=== PATIENT | female | born 1930 | race African-American/Black ===

== ENCOUNTER 2016-10-21 07:18 | Inpatient (IN) | payer OTHER, MEDICARE ==
--- NOTE | 2016-10-21 07:46 | PDOC ---
History of Present Illness - General Chief Complaint: Shortness of Breath Stated Complaint: DIFFICULTY BREATHING/ ABD PAIN Time Seen by Provider: 10/21/16 07:21 - History of Present Illness Initial Comments: 10/21/16 07:37 86 yo F with h/o HTN, andf Afib w/rvr who presents with SOB. Complains of new onset SOB and increased work of breathing over past 48 hours. Has been worsening and complains of Strickland. Also complains of fatigue and new onset non productive cough of 48 hours duration. No identifiable triggers or alleviators. Symptoms not worse with supine positioning. Denies fevers/chills, N/V, chest pain, back pain, lightheadedness, dizziness, urinary or GI complaints. Denies recent flight, long trips, h/o DVT/PE, hemoptysis, calf pain/tenderness/leg swelling, recent trauma or surgery within past 4 weeks. Recent perfusion scan ( 06/27/16) mild anterior ischemia. EF of 70%. Past History - Past Medical History Allergies/Adverse Reactions: Allergies Allergy/AdvReac Type Severity Reaction Status Date / Time lidocaine AdvReac Verified 10/21/16 07:25 Home Medications: Ambulatory Orders Metoprolol Succinate [Toprol XL -] 100 mg PO DAILY 05/11/15 Warfarin Sodium 7 mg PO WESA 05/11/15 Amlodipine Besylate [Norvasc -] 5 mg PO DAILY tablet 05/17/15 Atorvastatin Calcium [Lipitor] 10 mg PO HS 10/21/16 Cholecalciferol (Vitamin D3) [Vitamin D3 -] 0 unit PO DAILY 10/21/16 Glucosamine/MSM/Chondroitin A [Glucosamine Chondroit MSM Tab] 1 each PO DAILY Hydralazine HCl [Apresoline -] 50 mg PO BID 10/21/16 Hydrochlorothiazide [Hctz -] 25 mg PO BID 10/21/16 Latanoprost 0.005% Eye Drops [Xalatan 0.005% Eye Drops -] 1 drop OU HS 10/21/16 Multivitamins [Tab-A-Vit -] 1 tab PO DAILY 10/21/16 Phenytoin Sodium Extended [Phenytek] 400 mg PO HS 10/21/16 Tramadol HCl [Ultram -] 50 mg PO PRN PRN 10/21/16 Warfarin Na [Coumadin] 6 mg PO SUMOTUTHFR 10/21/16 Cardiac Disorders: Yes (afib) Diabetes: Yes (borderline) HTN: Yes Hypercholesterolemia: Yes HIV: Yes Seizures: Yes - Surgical History Cholecystectomy: Yes - Psycho/Social/Smoking Cessation Hx Anxiety: No Suicidal Ideation: No Smoking History: Former smoker Have you smoked in the past 12 months: No Information on smoking cessation initiated: No Hx Alcohol Use: No Drug/Substance Use Hx: No Substance Use Type: None Review of Systems - Review of Systems Comments:: 10/21/16 07:47 GENERAL/CONSTITUTIONAL: No fever or chills. No weakness. HEAD, EYES, EARS, NOSE AND THROAT: No change in vision. No ear pain or discharge. No sore throat.- CARDIOVASCULAR: +shortness of breath. No chest pain RESPIRATORY: + cough, and wheezing. No hemoptysis. GASTROINTESTINAL: No nausea, vomiting, diarrhea or constipation. GENITOURINARY: No dysuria, frequency, or change in urination. MUSCULOSKELETAL: No joint or muscle swelling or pain. No neck or back pain. SKIN: No rash NEUROLOGIC: No headache, vertigo, loss of consciousness, or change in strength/ sensation. ENDOCRINE: No increased thirst. No abnormal weight change HEMATOLOGIC/LYMPHATIC: No anemia, easy bleeding, or history of blood clots. ALLERGIC/IMMUNOLOGIC: No hives or skin allergy. *Physical Exam - Vital Signs Last Vital Signs Temp Pulse Resp BP Pulse Ox 98.5 F 125 H 26 H 175/107 95 10/21/16 07:25 10/21/16 07:25 10/21/16 07:25 10/21/16 07:25 10/21/16 07:25 - Physical Exam Comments: 10/21/16 07:49 GENERAL: Awake, alert, and fully oriented, in no acute distress HEAD: No signs of trauma, normocephalic, atraumatic EYES: PERRLA, EOMI, sclera anicteric, conjunctiva clear ENT: Auricles normal inspection, hearing grossly normal, nares patent, oropharynx clear without exudates. Moist mucosa NECK: Normal ROM, supple, no lymphadenopathy, JVD, or masses LUNGS: In distress speaks with broken sentences. + diffuse expiratory wheezing and right lower lung base crackles. HEART: Irregular regular rate and rhythm, normal S1 and S2, no murmurs, rubs or gallops, peripheral pulses normal and equal bilaterally. EXTREMITIES:Mild swelling in BL LE.Normal inspection, Normal range of motion, no edema. No clubbing or cyanosis. SKIN: Warm, Dry, normal turgor, no rashes or lesions noted. Heart Score/ECG Review - History History: Slightly suspicious - Electrocardiogram EKG: Non specific repolarization disturbance - Age Age: >/= 65 - Risk Factors Risk Factors Heart Score: Yes Hx Hypertension, Yes Hx Obesity Based on the list above the patient has:: 1-2 risk factors - Troponin Troponin: </= normal limit - Score Heart Score - Total: 4 - ECG Intrepretation Rhythm: Irregularly Irregular - ECG Impressions Normal ECG: No Tachycardia: Afib w/rapid Vent rate ED Treatment Course - LABORATORY CBC & Chemistry Diagram: 10/22/16 05:50 10/22/16 05:50 - RADIOLOGY Radiology Studies Ordered: Category Date Time Status CXRPORT [CHEST X-RAY PORTABLE*] [RAD] Stat Radiology 10/21/16 07:34 Ordered Radiograph Interpretation: 10/21/16 08:57 EXAM#: TYPE/EXAM: RESULT: [id number] RAD/CHEST X-RAY PORTABLE* Shortness of breath. Portable chest x-ray, AP sitting. Since prior chest x-ray dated 05/14/2015, the cardiac silhouette is slightly to moderately enlarged. There are increased interstitial markings, bilaterally and mild bibasal changes with possible mild pulmonary venous congestion. Mediastinum and visualized osseous structures appear intact IMPRESSION: [id number] cardiomegaly and possible mild pulmonary venous congestion Reported By: Kobi Oropeza MD 10/21/16 0835 Jeremie Serrato Medical Decision Making - Medical Decision Making 10/21/16 07:51 86 yo F with h/o HTN, andf Afib w/rvr who presents with SOB. Pt arrives with worsening SOB and Strickland over past 48 hours, 2/4 SIRS criteria, HR 110-125, and RR 26-30, O2 sat-96 % RA. . Associated with fatigue and new onset non productive cough of 48 hours duration. Denies fevers/chills, N/V, chest pain, back pain, lightheadedness, dizziness, urinary or GI complaints. Denies recent flight, long trips, h/o DVT/PE, hemoptysis, calf pain/tenderness/leg swelling, recent trauma or surgery within past 4 weeks. Physical exam with right lower lung base rales and diffuse expiatory rhonci. Recent perfusion scan (06/27/16) mild anterior ischemia. EF of 70%. DDx: Pulmonary edema, Afib w/rvr, Pneumonia, PE, CHF 10/21/16 08:22 ED Course: - CBC, CMP, BNP, Trop, PT/INR - UA - CXR - EKG 10/21/16 08:24 Diltiazem 40 mg, Furosemide 125 mg, Atrovent 1 amp CBC: Unremarkable CXR: Pulmonary venous congestion EKG: Afib with RVR 10/21/16 08:52 CBC AST/ALT 89/144 Alk Phosph: 134 10/21/16 08:55 INR: 2.38 10/21/16 08:56 CXR: IMPRESSION: [id number] cardiomegaly and possible mild pulmonary venous congestion Reported By: Kobi Oropeza MD 10/21/16 0835 Jeremie Serrato BNP: 2084 Trop: Neg Heart Score 4: 13 % risk MACE. *DC/Admit/Observation/Transfer Diagnosis at time of Disposition: SOB (shortness of breath) Atrial fibrillation Qualifiers: Atrial fibrillation type: chronic Qualified Code(s): I48.2 - Chronic atrial fibrillation - Discharge Dispostion Condition at time of disposition: Improved Admit: Yes
[2016-10-21] MEDS ORDERED: FUROSEMIDE 40 MG/4 ML INJECTABLE VIAL IVPUSH ONE (08:09)
[2016-10-21] MEDS ORDERED: dilTIAZem HCL 50 MG/10 ML - 10 ML VIAL IVPUSH ONE (08:09)
[2016-10-21] MEDS ORDERED: dilTIAZem HCL 125 MG/25 ML - 25 ML VIAL ONE (08:12)
[2016-10-21] MEDS ORDERED: FUROSEMIDE 40 MG/4 ML INJECTABLE VIAL ONE (08:12)
[2016-10-21] MEDS ORDERED: IPRATROPIUM BR 0.02% 0.5 MG/2.5 ML VIAL.NEB. NEB ONE ×2 (08:26→08:29)
[2016-10-21 08:28] LABS: BASOPHIL 0.3 % (0-2.0); EOSINOPHIL 0.4 % (0-4.5); MCH 30.7 pg (25.7-33.7); MCHC 33.5 g/dl (32.0-36.0); MEAN CELL VOLUME 91.9 fl (80-96); MEAN PLT VOLUME 8.7 fl (7.5-11.1); NEUTROPHILS 80.8 % (42.8-82.8); PLATELET COUNT 181 K/MM3 (134-434); RDW 13.8 % (11.6-15.6); WHITE BLOOD COUNT 9.8 K/mm3 (4.0-10.0)
--- NOTE | 2016-10-21 08:28 | PDOC ---
Attending Attestation - Resident Resident Name: Ian Serratoson - ED Attending Attestation I have performed the following: I have examined & evaluated the patient, The case was reviewed & discussed with the resident, I agree w/resident's findings & plan, Exceptions are as noted - HPI HPI: 10/21/16 08:21 86y/o F h/o afib, HTN p/w progressive SOB/LANE and palpitations over the last 2- 3 days, dry cough without f/c, no chest pain/pressure. No changes in her meds, took her morning doses including lasix. Presents for evaluation of persistent SOB. - Physicial Exam PE: 10/21/16 08:25 tachypnea/tachycardia, BP 160 systolic, O2 sat 98% on 2L no jvd irregular tachycardia R base crackles to mid lung field, decreased BS L base with crackles reducible ventral hernia, no ttp trace pretibial edema - Critical Care Time Total Critical Care Time: 35 Critical Care Statement: The care of this patient involved high complexity decision making to prevent further life threatening deterioration of the patient 's condition and/or to evaluate & treat vital organ system(s) failure or risk of failure. - Medical Decision Making 10/21/16 08:30 My resident note. 86-year-old female with history of atrial fibrillation and CHF presents with progressive dyspnea for 2-3 days, rapid atrial fibrillation on presentation with bilateral crackles consistent with CHF/pulmonary edema, rule out underlying infectious pathology such as pneumonia given the cough. Afebrile here. Patient immediately placed on monitor and supplemental oxygen administered, EKG showed rapid atrial fibrillation at 121 with nonspecific T-wave changes but no acute ischemia, unchanged from prior EKGs. labs, ua ekg, cxr rate control with diltiazem, diuresis with low dose lasix admit Heart Score/ECG Review #1 ECG reviewed & interpreted by me at: 07:25 Compared to previous ECG there are: No significant change (c/w 05/12/15) 10/21/16 08:33 afib at 121, QTC 445, nonspecific T-wave flattening without acute ST changes.
[2016-10-21 08:43] LABS: INR 2.38 (0.82-1.09); PROTHROMBIN TIME (PATIENT) 26.6 SEC (9.98-11.88)
[2016-10-21 08:44] LABS: ALBUMIN 3.4 g/dl (3.4-5.0); ANION GAP 7 (8-16); BILIRUBIN,TOTAL 0.5 mg/dL (0.2-1.0); CALCIUM 8.5 mg/dL (8.5-10.1); CO2 29 mmol/L (21-32); CREATININE 0.7 mg/dL (0.55-1.02); GLUCOSE,RANDOM 136 mg/dL (74-106); SGOT/AST 89 U/L (15-37); SGPT/ALT 144 U/L (12-78); TOT PROT 6.6 g/dl (6.4-8.2)
[2016-10-21 08:46] LABS: ALK PHOS 131 U/L (45-117); CPK 117 IU/L (26-192)
[2016-10-21 08:55] LABS: TROPONIN I < 0.02 ng/ml (0.00-0.05)
[2016-10-21] MEDS ORDERED: dilTIAZem HCL 30 MG TABLET (FP) PO ONE (09:04)
[2016-10-21] MEDS ORDERED: dilTIAZem HCL 30 MG TABLET (FP) ONE (09:24)
[2016-10-21 10:02] LABS: URINE APPEARANCE CLEAR; URINE BILIRUBIN NEGATIVE (NEGATIVE); URINE BLOOD NEGATIVE (NEGATIVE); URINE COLOR STRAW; URINE GLUCOSE (UA) NEGATIVE (NEGATIVE); URINE KETONE NEGATIVE (NEGATIVE); URINE LEUK ESTERASE NEGATIVE (NEGATIVE); URINE NITRITE NEGATIVE (NEGATIVE); URINE PROTEIN NEGATIVE (NEGATIVE); URINE UROBILINOGEN NEGATIVE mg/dL (0.2-1.0)
[2016-10-21] MEDS ORDERED: traMADol HCL 50 MG TABLET PO PRN (11:17)
[2016-10-21 12:53] VITALS: BMI 27.4
--- NOTE | 2016-10-21 14:00 | CON.CARD ---
Consult Consult Specialty:: cardio Referred by:: glenny Reason for Consultation:: sob - History of Present Illness Chief Complaint: sob History of Present Illness: 86 yo female presented with sob. Described new onset SOB x 48 hours. Also complains of fatigue and new onset non productive cough. CXR in ER reported possible mild venous congestion. BNP elevated. given lasix 40 iv. rapid AF noted--given diltiazem last saw peterson in office 03/10. PMH: PAFib' HTN HPL - Past Medical History Cardio/Vascular: Yes: AFIB, HTN Musculoskeletal: Yes: Chronic low back pain, Osteoarthritis Rheumatology: Yes: Other - Alcohol/Substance Use Hx Alcohol Use: No - Smoking History Smoking history: Former smoker Have you smoked in the past 12 months: No - Social History Usual Living Arrangement: Alone (lives alone in 2 family house with 18 stairs to enter) ADL: Independent (Previously Independent in ADLs/ IADLs, has cane but does not use assistive device) Home Medications - Allergies Allergies/Adverse Reactions: Allergies Allergy/AdvReac Type Severity Reaction Status Date / Time lidocaine AdvReac Verified 10/21/16 07:25 - Home Medications Home Medications: Ambulatory Orders Metoprolol Succinate [Toprol XL -] 100 mg PO DAILY 05/11/15 Warfarin Sodium 7.5 mg PO HS 05/11/15 Amlodipine Besylate [Norvasc -] 5 mg PO DAILY tablet 05/17/15 Atorvastatin Calcium [Lipitor] 10 mg PO ASDIR 10/21/16 Hydralazine HCl [Apresoline -] 50 mg PO BID 10/21/16 Hydrochlorothiazide [Hctz -] 25 mg PO ASDIR 10/21/16 Phenytoin Sodium Extended [Phenytek] 400 mg PO ASDIR 10/21/16 Tramadol HCl [Ultram -] 50 mg PO PRN PRN 10/21/16 Vital Signs: Vital Signs Temperature 98.5 F 10/21/16 07:25 Pulse Rate 96 H 10/21/16 12:00 Respiratory Rate 18 10/21/16 12:00 Blood Pressure 123/85 10/21/16 12:00 O2 Sat by Pulse Oximetry (%) 96 10/21/16 12:00 - Other Data Labs, Other Data: INR, PTT INR 2.38 (0.82-1.09) H D 10/21/16 08:05 Assessment/Plan Echo 3/16: nl LV/EF; nl RV; valves WNL h/o PAF: -AF with rapid VR when here 05/08--converted spontaneously -was treated with metoprolol 100 -warfarin continued (had fall at that time, suspected dysequilibrium due to BPV or dilantin toxicity) HTN: - HPL: -cont home statin dose
--- NOTE | 2016-10-21 14:20 | PN ---
Progress Note (short form) - Note Progress Note: during review of chart, i noted pt had outpatient stress test 07/[address] meg dela cruz which was abnormal (anterior ischemia). as she has not followed in our office since 03/10, and had recent stress test by different kiln stoker, i d/w'd dr murrieta who will consult with dr dela cruz's coverage team for cardiology consult in hospital.
--- NOTE | 2016-10-21 16:27 | CON.NEURO ---
Consult - Past Medical History Cardio/Vascular: Yes: AFIB, HTN Musculoskeletal: Yes: Chronic low back pain, Osteoarthritis Rheumatology: Yes: Other - Alcohol/Substance Use Hx Alcohol Use: No - Smoking History Smoking history: Former smoker Have you smoked in the past 12 months: No - Social History Usual Living Arrangement: Alone (lives alone in 2 family house with 18 stairs to enter) ADL: Independent (Previously Independent in ADLs/ IADLs, has cane but does not use assistive device) Home Medications - Allergies Allergies/Adverse Reactions: Allergies Allergy/AdvReac Type Severity Reaction Status Date / Time lidocaine AdvReac Verified 10/21/16 07:25 - Home Medications Home Medications: Ambulatory Orders Metoprolol Succinate [Toprol XL -] 100 mg PO DAILY 05/11/15 Warfarin Sodium 7 mg PO WESA 05/11/15 Amlodipine Besylate [Norvasc -] 5 mg PO DAILY tablet 05/17/15 Atorvastatin Calcium [Lipitor] 10 mg PO HS 10/21/16 Cholecalciferol (Vitamin D3) [Vitamin D3 -] 0 unit PO DAILY 10/21/16 Glucosamine/MSM/Chondroitin A [Glucosamine Chondroit MSM Tab] 1 each PO DAILY Hydralazine HCl [Apresoline -] 50 mg PO BID 10/21/16 Hydrochlorothiazide [Hctz -] 25 mg PO BID 10/21/16 Latanoprost 0.005% Eye Drops [Xalatan 0.005% Eye Drops -] 1 drop OU HS 10/21/16 Multivitamins [Tab-A-Vit -] 1 tab PO DAILY 10/21/16 Phenytoin Sodium Extended [Phenytek] 400 mg PO HS 10/21/16 Tramadol HCl [Ultram -] 50 mg PO PRN PRN 10/21/16 Warfarin Na [Coumadin] 6 mg PO SUMOTUTHFR 10/21/16 Physical Exam-Neuro Vital Signs: Vital Signs Temperature 98.5 F 10/21/16 07:25 Pulse Rate 96 H 10/21/16 12:00 Respiratory Rate 18 10/21/16 12:00 Blood Pressure 123/85 10/21/16 12:00 O2 Sat by Pulse Oximetry (%) 96 10/21/16 12:00 Labs: INR, PTT INR 2.38 (0.82-1.09) H D 10/21/16 08:05 Assessment/Plan cc history of Seizure ( [place]) HPI 86 year old female history of hypertension, atrial fibrillation came to hospital for shortness of breath. Patient has history of seizures for 10 to 12 years. She has not had any seizures for a long time. Patient was diagnoed with meningioma and has been stable over the years. She do not have any focal neurological symptoms recently. Her seizures has been under control and last seizure was ten years ago. She follow up with dr rm and seizures under control. She is taking dialntin for a long time . Allergies/Adverse Reactions: Allergies Allergy/AdvReac Type Severity Reaction Status Date / Time lidocaine AdvReac Verified 10/21/16 07:25 Metoprolol Succinate [Toprol XL -] 100 mg PO DAILY 05/11/15 Warfarin Sodium 7.5 mg PO HS 05/11/15 Amlodipine Besylate [Norvasc -] 5 mg PO DAILY tablet 05/17/15 Atorvastatin Calcium [Lipitor] 10 mg PO ASDIR 10/21/16 Hydralazine HCl [Apresoline -] 50 mg PO BID 10/21/16 Hydrochlorothiazide [Hctz -] 25 mg PO ASDIR 10/21/16 Phenytoin Sodium Extended [Phenytek] 400 mg PO ASDIR 10/21/16 Tramadol HCl [Ultram -] 50 mg PO PRN PRN 10/21/16 Neurological Examination Alert oriented x 3, speech is fluent able to follow complex command CN all intact, eomi, pupils is reactive and face symmetrical Motor is 5/5 al extremity sensation is normal reflex are generalized garde 1 and normal NO recent brain imaging at [facility] Assessment- History of epilepsy under control with medicaiton , advise to continue dilantin at current dose 2. history of meningioma , has been stable over the years, no focal symptoms or signs Plan-- continue dilantin current dose and no need for imaging. follow up with Dr Rm Outpatient. Thanks for Consult Pa Hayward MD
[2016-10-21] MEDS ORDERED: POTASSIUM CHLORIDE TABS 20 MEQ TABLET.ER (FP) PO ONE ×2 (17:06→20:15)
--- NOTE | 2016-10-21 17:09 | HP ---
Admitting History and Physical - Primary Care Physician PCP: Araceli Dow - Admission Chief Complaint: CHEST PAIN DYSPNEA History of Present Illness: 86 Y/O FEMALE WITH HISTORY OF CHRONIC AFIB, HTN, DMII, LIPIDEMIA, SEIZURE D/O, MENINGIOMA, PRESENTS WITH CHEST PAIN AND SHORTNESS OF BREATH. 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 Cardiovascular: Yes: AFIB, HTN Musculoskeletal: Yes: Chronic low back pain, Osteoarthritis Rheumatology: Yes: Other - Smoking History Smoking history: Former smoker Have you smoked in the past 12 months: No - Alcohol/Substance Use Hx Alcohol Use: No - Social History ADL: Independent (Previously Independent in ADLs/ IADLs, has cane but does not use assistive device) Home Medications - Allergies Allergies/Adverse Reactions: Allergies Allergy/AdvReac Type Severity Reaction Status Date / Time lidocaine AdvReac Verified 10/21/16 07:25 - Home Medications Home Medications: Ambulatory Orders Metoprolol Succinate [Toprol XL -] 100 mg PO DAILY 05/11/15 Warfarin Sodium 7 mg PO WESA 05/11/15 Amlodipine Besylate [Norvasc -] 5 mg PO DAILY tablet 05/17/15 Atorvastatin Calcium [Lipitor] 10 mg PO HS 10/21/16 Cholecalciferol (Vitamin D3) [Vitamin D3 -] 0 unit PO DAILY 10/21/16 Glucosamine/MSM/Chondroitin A [Glucosamine Chondroit MSM Tab] 1 each PO DAILY Hydralazine HCl [Apresoline -] 50 mg PO BID 10/21/16 Hydrochlorothiazide [Hctz -] 25 mg PO BID 10/21/16 Latanoprost 0.005% Eye Drops [Xalatan 0.005% Eye Drops -] 1 drop OU HS 10/21/16 Multivitamins [Tab-A-Vit -] 1 tab PO DAILY 10/21/16 Phenytoin Sodium Extended [Phenytek] 400 mg PO HS 10/21/16 Tramadol HCl [Ultram -] 50 mg PO PRN PRN 10/21/16 Warfarin Na [Coumadin] 6 mg PO SUMOTUTHFR 10/21/16 Review of Systems - Review of Systems Constitutional: reports: Weakness Eyes: reports: No Symptoms HENT: reports: No Symptoms Neck: reports: No Symptoms Cardiovascular: reports: Chest Pain, Shortness of Breath Respiratory: reports: Cough, SOB Gastrointestinal: reports: No Symptoms Genitourinary: reports: No Symptoms Musculoskeletal: reports: Back Pain, Joint Pain Integumentary: reports: No Symptoms Neurological: reports: Pre-Existing Deficit Endocrine: reports: No Symptoms Hematology/Lymphatic: reports: No Symptoms Psychiatric: reports: No Symptoms Physical Examination Vital Signs: Vital Signs Temperature 98.5 F 10/21/16 07:25 Pulse Rate 96 H 10/21/16 12:00 Respiratory Rate 18 10/21/16 12:00 Blood Pressure 123/85 10/21/16 12:00 O2 Sat by Pulse Oximetry (%) 96 10/21/16 12:30 Constitutional: Yes: Mild Distress Eyes: Yes: WNL HENT: Yes: WNL Neck: Yes: WNL Cardiovascular: Yes: Pulse Irregular, Murmur Respiratory: Yes: On Nasal O2, SOB Gastrointestinal: Yes: WNL Renal/: Yes: WNL Musculoskeletal: Yes: Back Pain, Muscle Weakness Extremities: Yes: WNL Edema: Yes Peripheral Pulses WNL: Yes Integumentary: Yes: WNL Wound/Incision: Yes: Clean/Dry Neurological: Yes: Pre-Existing Deficit ...Motor Strength: LLE, RLE Psychiatric: Yes: WNL Imaging - Results Chest X-ray: Pending Problem List - Problems (1) Atrial fibrillation Code(s): I48.91 - UNSPECIFIED ATRIAL FIBRILLATION Qualifiers: Atrial fibrillation type: chronic Qualified Code(s): I48.2 - Chronic atrial fibrillation (2) SOB (shortness of breath) Code(s): R06.02 - SHORTNESS OF BREATH (3) Hypertension Code(s): I10 - ESSENTIAL (PRIMARY) HYPERTENSION Qualifiers: Hypertension type: essential hypertension Qualified Code(s): I10 - Essential (primary) hypertension Assessment/Plan BNP ELEVATE CARDIOLOGY EVAL NEURO EVAL PT EVAL REPLETE KCL TELEMETRY MONITORING STRESS TEST 2016
[2016-10-21] MEDS ORDERED: WARFARIN NA 7.5 MG TABLET (FP) PO SCH (18:00)
--- NOTE | 2016-10-21 18:29 | EKG ---
Test Reason : Blood Pressure : / mmHG Vent. Rate : 121 BPM Atrial Rate : 375 BPM P-R Int : 000 ms QRS Dur : 088 ms QT Int : 314 ms P-R-T Axes : 000 011 079 degrees QTc Int : 445 ms ATRIAL FIBRILLATION WITH RAPID VENTRICULAR RESPONSE SEPTAL INFARCT , AGE UNDETERMINED ABNORMAL ECG WHEN COMPARED WITH ECG OF 12-MAY-2015 10:53, LOSS OR WAVES IN V1-V2 CLINICAL CORRELATION AND FOLLOW UP TRACING IS RECOMMENDED. Confirmed by MARK BRIZUELA MD ([id number]) on 10/21/2016 6:29:10 PM Referred By: Confirmed By:MARK BRIZUELA MD
[2016-10-21] MEDS: hydrALAZINE HCL 25 MG TABLET (FP) PO SCH (21:24)
[2016-10-21] MEDS: WARFARIN NA 7.5 MG TABLET (FP) PO SCH (21:24)
[2016-10-21] MEDS: ATORVASTATIN CA 10 MG TABLET (FP) PO SCH (21:25)
[2016-10-22] MEDS ORDERED: IPRATROPIUM BR 0.02% 0.5 MG/2.5 ML VIAL.NEB. NEB ONE (04:46)
[2016-10-22 07:37] LABS: MCH 30.8 pg (25.7-33.7); MCHC 33.5 g/dl (32.0-36.0); MEAN CELL VOLUME 91.9 fl (80-96); MEAN PLT VOLUME 8.8 fl (7.5-11.1); PLATELET COUNT 182 K/MM3 (134-434); RDW 13.4 % (11.6-15.6); WHITE BLOOD COUNT 8.1 K/mm3 (4.0-10.0)
[2016-10-22 08:08] LABS: ALBUMIN 3.4 g/dl (3.4-5.0); ANION GAP 7 (8-16); CALCIUM 8.5 mg/dL (8.5-10.1); CO2 30 mmol/L (21-32)
[2016-10-22 08:14] LABS: ALK PHOS 131 U/L (45-117); BILIRUBIN,TOTAL 0.6 mg/dL (0.2-1.0); CHOLESTEROL 134 mg/dL (50-200); CREATININE 0.7 mg/dL (0.55-1.02); GLUCOSE,RANDOM 108 mg/dL (74-106); SGOT/AST 54 U/L (15-37); SGPT/ALT 122 U/L (12-78); TOT PROT 6.5 g/dl (6.4-8.2)
[2016-10-22] MEDS ORDERED: PT OWN MED DRAWER 7, Y5N ONE (08:20)
[2016-10-22] MEDS: METOPROLOL SUCCINATE 100 MG TAB.SR.24H (FP) PO SCH (09:37)
[2016-10-22] MEDS: FUROSEMIDE 40 MG/4 ML INJECTABLE VIAL IVPB SCH (09:37)
[2016-10-22] MEDS: hydrALAZINE HCL 25 MG TABLET (FP) PO SCH ×2 (09:37→21:44)
[2016-10-22] MEDS: HYDROCHLOROTHIAZIDE 25 MG TABLET (FP) PO SCH (09:37)
--- NOTE | 2016-10-22 10:41 | PN ---
Progress Note, Physician Chief Complaint: awake c/o shortness of breath no chest pain - Current Medication List Current Medications: Active Medications Arformoterol Tartrate (Brovana (Restricted To Pulmonology/Resp) -) 1 amp NEB BID [facility] Atorvastatin Calcium (Lipitor -) 10 mg PO HS [facility] Last Admin: 10/21/16 21:25 Dose: 10 mg Furosemide (Lasix Injection -) 40 mg IVPB DAILY [facility] Last Admin: 10/22/16 09:37 Dose: 40 mg Hydralazine HCl (Apresoline -) 25 mg PO BID [facility] Last Admin: 10/22/16 09:37 Dose: 25 mg Hydrochlorothiazide (Hctz -) 25 mg PO DAILY [facility] Last Admin: 10/22/16 09:37 Dose: 25 mg Metoprolol Succinate (Toprol Xl -) 100 mg PO DAILY [facility] Last Admin: 10/22/16 09:37 Dose: 100 mg Phenytoin Sodium (Dilantin -) 400 mg PO DAILY [facility] Tramadol HCl (Ultram -) 50 mg PO Q8H PRN PRN Reason: PAIN Warfarin Sodium (Coumadin -) 7.5 mg PO DAILY@1800 [facility] Last Admin: 10/21/16 21:24 Dose: 7.5 mg - Objective Vital Signs: Vital Signs Temperature 97.8 F 10/22/16 05:38 Pulse Rate 78 10/22/16 05:38 Respiratory Rate 20 10/22/16 05:38 Blood Pressure 155/77 10/22/16 05:38 O2 Sat by Pulse Oximetry (%) 98 10/21/16 22:00 Constitutional: Yes: Mild Distress Eyes: Yes: WNL HENT: Yes: WNL Neck: Yes: WNL Cardiovascular: Yes: Pulse Irregular Respiratory: Yes: Diminished Gastrointestinal: Yes: WNL Genitourinary: Yes: WNL Musculoskeletal: Yes: Back Pain Extremities: Yes: WNL Edema: No Peripheral Pulses WNL: Yes Integumentary: Yes: WNL Wound/Incision: Yes: Clean/Dry Neurological: Yes: WNL ...Motor Strength: LLE, RLE Psychiatric: Yes: WNL Labs: CBC, BMP 10/22/16 05:50 10/22/16 05:50 INR, PTT INR 2.38 (0.82-1.09) H D 10/21/16 08:05 Problem List - Problems (1) Atrial fibrillation Code(s): I48.91 - UNSPECIFIED ATRIAL FIBRILLATION Qualifiers: Atrial fibrillation type: chronic Qualified Code(s): I48.2 - Chronic atrial fibrillation (2) SOB (shortness of breath) Code(s): R06.02 - SHORTNESS OF BREATH (3) Hypertension Code(s): I10 - ESSENTIAL (PRIMARY) HYPERTENSION Qualifiers: Hypertension type: essential hypertension Qualified Code(s): I10 - Essential (primary) hypertension Assessment/Plan CXR STAT ABG STAT PULM CONSULT D/W DR JANICE READ BID 02 SUPPORT LASIX IV LIKELY CHF AND ANXIETY CARDIOLOGY EVAL ECHO 2D
[2016-10-22] MEDS: ARFORMOTEROL TARTRATE 15 MCG/2 ML VIAL NEB SCH ×2 (10:50→22:30)
[2016-10-22 11:01] LABS: ARTERIAL BLD GAS O2 SATURATION 98.5 % (90-98.9); ARTERIAL BLOOD GAS BASE EXCESS 5.2 meq/l (-2-2); ARTERIAL BLOOD GAS HCO3 29.9 meq/L (22-26); ARTERIAL BLOOD GAS pH 7.43 (7.35-7.45)
[2016-10-22 11:03] LABS: ALLENS TEST POSITIVE; ART PUNCT SITE RIGHT RADIAL; LPM/O2% 3L; PT. ON O2? YES; TYPE OF O2 NASAL
[2016-10-22 11:21] LABS: INR 2.88 (0.82-1.09); PROTHROMBIN TIME (PATIENT) 32.4 SEC (9.98-11.88)
[2016-10-22] MEDS: PHENYTOIN NA EXTENDED 100 MG CAPSULE (FP) PO SCH (11:22)
--- NOTE | 2016-10-22 13:05 | CON.PULM ---
Consult Consult Specialty:: PULMONARY Referred by:: ASHLYN Reason for Consultation:: SOB - History of Present Illness Chief Complaint: SOB History of Present Illness: 86 yo F with h/o HTN, andf Afib w/rvr who presents with SOB. Complains of new onset SOB and increased work of breathing over past 48 hours. Has been worsening and complains of [place]. Also complains of fatigue and new onset non productive cough of 48 hours duration. No identifiable triggers or alleviators. Symptoms not worse with supine positioning. Denies fevers/chills, N/V, chest pain, back pain, lightheadedness, dizziness, urinary or GI complaints. Denies recent flight, long trips, h/o DVT/PE, hemoptysis, calf pain/tenderness/leg swelling, recent trauma or surgery within past 4 weeks. Recent perfusion scan ( 06/27/16) mild anterior ischemia. EF of 70%. Admits to noncompliance with salt restriction. 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's Cardio/Vascular: Yes: AFIB, HTN Pulmonary: No: Cancer, COPD, O2 Dependent, Pulmonary Embolus Gastrointestinal: No: Ascites Hepatobiliary: No: Cirrhosis Renal/: No: Renal Failure Reproductive: Yes: Postmenopausal Heme/Onc: No: Anemia Infectious Disease: No: AIDS Psych: Yes: Addictions Musculoskeletal: Yes: Chronic low back pain, Osteoarthritis Rheumatology: Yes: Other - Alcohol/Substance Use Hx Alcohol Use: No - Smoking History Smoking history: Former smoker Have you smoked in the past 12 months: No - Social History Usual Living Arrangement: Alone (lives alone in 2 family house with 18 stairs to enter) ADL: Independent (Previously Independent in ADLs/ IADLs, has cane but does not use assistive device) Place of : [facility] History of Recent Travel: No Home Medications - Allergies Allergies/Adverse Reactions: Allergies Allergy/AdvReac Type Severity Reaction Status Date / Time lidocaine AdvReac Verified 10/21/16 07:25 - Home Medications Home Medications: Ambulatory Orders Metoprolol Succinate [Toprol XL -] 100 mg PO DAILY 05/11/15 Warfarin Sodium 7 mg PO WESA 05/11/15 Amlodipine Besylate [Norvasc -] 5 mg PO DAILY tablet 05/17/15 Atorvastatin Calcium [Lipitor] 10 mg PO HS 10/21/16 Cholecalciferol (Vitamin D3) [Vitamin D3 -] 0 unit PO DAILY 10/21/16 Glucosamine/MSM/Chondroitin A [Glucosamine Chondroit MSM Tab] 1 each PO DAILY Hydralazine HCl [Apresoline -] 50 mg PO BID 10/21/16 Hydrochlorothiazide [Hctz -] 25 mg PO BID 10/21/16 Latanoprost 0.005% Eye Drops [Xalatan 0.005% Eye Drops -] 1 drop OU HS 10/21/16 Multivitamins [Tab-A-Vit -] 1 tab PO DAILY 10/21/16 Phenytoin Sodium Extended [Phenytek] 400 mg PO HS 10/21/16 Tramadol HCl [Ultram -] 50 mg PO PRN PRN 10/21/16 Warfarin Na [Coumadin] 6 mg PO SUMOTUTHFR 10/21/16 Family Disease History - Family Disease History Family History: Unremarkable Review of Systems - Review of Systems Constitutional: reports: Weakness. denies: Fever Eyes: denies: Blurred Vision HENT: denies: Difficult Swallowing Neck: denies: Decreased ROM Cardiovascular: reports: Shortness of Breath. denies: Chest Pain, Edema, Palpitations Respiratory: reports: Cough, Exercise Intolerance, SOB on Exertion, Wheezing. denies: Hemoptysis, Orthopnea Gastrointestinal: denies: Abdominal Pain Genitourinary: reports: No Symptoms Breasts: reports: No Symptoms Reported Musculoskeletal: reports: No Symptoms Integumentary: reports: No Symptoms Neurological: reports: No Symptoms Endocrine: reports: No Symptoms Hematology/Lymphatic: reports: No Symptoms Physical Exam Vital Sings: Vital Signs Temperature 98 F 10/22/16 10:00 Pulse Rate 75 10/22/16 10:00 Respiratory Rate 18 10/22/16 10:00 Blood Pressure 130/64 10/22/16 10:00 O2 Sat by Pulse Oximetry (%) 98 10/22/16 10:00 Constitutional: Yes: Calm Eyes: Yes: EOM Intact HENT: Yes: Normocephalic Neck: Yes: Trachea Midline Cardiovascular: Yes: Pulse Irregular, S1, S2 Respiratory: Yes: Rales (bilateral bases extending up 1/3-1/2 lung hearn) Gastrointestinal: Yes: Soft, Abdomen, Obese Edema: No Neurological: Yes: WNL Psychiatric: Yes: WNL Labs: CBC, BMP 10/22/16 05:50 10/22/16 05:50 ABG Results ABG pH 7.43 (7.35-7.45) 10/22/16 10:55 ABG pCO2 at Pt Temp 46.3 mmHg (35-45) H 10/22/16 10:55 ABG pO2 at Pt Temp 109.0 mmHg (68-100) H D 10/22/16 10:55 ABG HCO3 29.9 meq/L (22-26) H 10/22/16 10:55 ABG O2 Sat (Measured) 98.5 % (90-98.9) 10/22/16 10:55 ABG O2 Content 16.7 % vol (15-22) 10/22/16 10:55 ABG Base Excess 5.2 meq/l (-2-2) H 10/22/16 10:55 rest reviewed Imaging - Results Chest X-ray: Report Reviewed, Image Reviewed EKG: Report Reviewed, Image Reviewed Problem List - Problems (1) Atrial fibrillation Code(s): I48.91 - UNSPECIFIED ATRIAL FIBRILLATION Qualifiers: Atrial fibrillation type: chronic Qualified Code(s): I48.2 - Chronic atrial fibrillation (2) SOB (shortness of breath) Code(s): R06.02 - SHORTNESS OF BREATH (3) CHF (congestive heart failure) Code(s): I50.9 - HEART FAILURE, UNSPECIFIED (4) ASHD (arteriosclerotic heart disease) Code(s): I25.10 - ATHSCL HEART DISEASE OF [place] CORONARY ARTERY W/O ANG PCTRS Assessment/Plan CLINICAL SCENARIO LIKELY C/W CHF FROM RAPID AF DOUBT INFECTIOUS PNEUMONIC PROCESS AGREE WITH DIURETICS/RATE CONTROL/CARDIOLOGY EVALUATION/ECHO/O2 WILL FOLLOW THANK YOU Yohana PICKETT MD
--- NOTE | 2016-10-22 14:13 | CON.CARD ---
Consult Consult Specialty:: Cardiology Referred by:: Victor M Reason for Consultation:: Afib. CHF - History of Present Illness Chief Complaint: sob History of Present Illness: Ms. Eller is an 86 year old with a pmhx of paroxysmal afib on coumadin, htn, dm , hld, carotid atherosclerosis, seizure d/o , meningioma, and CAD with mild anterior ischemia on NST 06/2016 who presents with sob. Patients states that for last 3 days she has been feeling week and sob but was still able to do her activities until day of admission felt even more dyspneic. Denies any chest pain. No palpitations. Some trace LE edema. Believes she takes all her meds. +caffeine use. 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's Cardio/Vascular: Yes: AFIB, CAD, HTN Pulmonary: No: Cancer, COPD, O2 Dependent, Pulmonary Embolus Gastrointestinal: No: Ascites Hepatobiliary: No: Cirrhosis Renal/: No: Renal Failure Infectious Disease: No: AIDS Psych: Yes: Addictions Musculoskeletal: Yes: Chronic low back pain, Osteoarthritis Rheumatology: Yes: Other - Alcohol/Substance Use Hx Alcohol Use: No - Smoking History Smoking history: Former smoker Have you smoked in the past 12 months: No - Social History Usual Living Arrangement: Alone (lives alone in 2 family house with 18 stairs to enter) ADL: Independent (Previously Independent in ADLs/ IADLs, has cane but does not use assistive device) History of Recent Travel: No Home Medications - Allergies Allergies/Adverse Reactions: Allergies Allergy/AdvReac Type Severity Reaction Status Date / Time lidocaine AdvReac Verified 10/21/16 07:25 - Home Medications Home Medications: Ambulatory Orders Metoprolol Succinate [Toprol XL -] 100 mg PO DAILY 05/11/15 Warfarin Sodium 7 mg PO WESA 05/11/15 Amlodipine Besylate [Norvasc -] 5 mg PO DAILY tablet 05/17/15 Atorvastatin Calcium [Lipitor] 10 mg PO HS 10/21/16 Cholecalciferol (Vitamin D3) [Vitamin D3 -] 0 unit PO DAILY 10/21/16 Glucosamine/MSM/Chondroitin A [Glucosamine Chondroit MSM Tab] 1 each PO DAILY Hydralazine HCl [Apresoline -] 50 mg PO BID 10/21/16 Hydrochlorothiazide [Hctz -] 25 mg PO BID 10/21/16 Latanoprost 0.005% Eye Drops [Xalatan 0.005% Eye Drops -] 1 drop OU HS 10/21/16 Multivitamins [Tab-A-Vit -] 1 tab PO DAILY 10/21/16 Phenytoin Sodium Extended [Phenytek] 400 mg PO HS 10/21/16 Tramadol HCl [Ultram -] 50 mg PO PRN PRN 10/21/16 Warfarin Na [Coumadin] 6 mg PO SUMOTUTHFR 10/21/16 Vital Signs: Vital Signs Temperature 98 F 10/22/16 10:00 Pulse Rate 75 10/22/16 10:00 Respiratory Rate 18 10/22/16 10:00 Blood Pressure 130/64 10/22/16 10:00 O2 Sat by Pulse Oximetry (%) 98 10/22/16 10:00 Constitutional: Yes: No Distress Respiratory: Yes: Diminished (diminished at bases) Gastrointestinal: Yes: WNL Cardiovascular: Yes: Regular Rate and Rhythm JVD: No Carotid Bruit: No Heart Sounds: Yes: S1, S2 Edema: LLE: Trace, RLE: Trace - Other Data Labs, Other Data: CBC, BMP 10/22/16 05:50 10/22/16 05:50 INR, PTT INR 2.88 (0.82-1.09) H 10/22/16 10:45 Echo: Report Reviewed Imaging - Results Chest X-ray: Report Reviewed EKG: Image Reviewed Problem List - Problems (1) Atrial fibrillation Code(s): I48.91 - UNSPECIFIED ATRIAL FIBRILLATION Qualifiers: Atrial fibrillation type: chronic Qualified Code(s): I48.2 - Chronic atrial fibrillation (2) CHF (congestive heart failure) Code(s): I50.9 - HEART FAILURE, UNSPECIFIED Assessment/Plan Ms. Eller is an 86 year old with a pmhx of paroxysmal afib on coumadin, htn, dm , hld, carotid atherosclerosis, seizure d/o , meningioma, and CAD with mild anterior ischemia on NST 06/2016 who presents with sob. Patients states that for last 3 days she has been feeling week and sob but was still able to do her activities until day of admission felt even more dyspneic. Denies any chest pain. No palpitations. Some trace LE edema. Believes she takes all her meds. +caffeine use. +salt intake 1) SOB likely due to acute on chronic diastolic CHF in setting of Afib with RVR. BP was elevated on presentation but now controlled on home meds -Echo in 04/2016 with normal LVEF and no significant valve disease BNP 1999 CE's negative and will trend -Diurese gentle with 40mg IV daily On telemetry and now back in sinus rhythm. Symptomatically much better Continue metoprolol 100mg and will adjust as needed Replete K as needed. 2) Afib -Continue beta paris and adjust/increase if tolerated Now in sinus rhythm On tele -On coumadin with therapeutic INR 3) HTN home regimen 4) CAD -NST 06/2016 with mild anterior ischemia. No chest pain. SOB likely was due to Afib with RVR and CHF. aspirin/statin/beta paris If recurrent symptoms in future than will discuss whether to pursue cardiac cath.
[2016-10-22] MEDS: WARFARIN NA 7.5 MG TABLET (FP) PO SCH (17:12)
[2016-10-22] MEDS: ATORVASTATIN CA 10 MG TABLET (FP) PO SCH (21:44)
[2016-10-23] MEDS: METOPROLOL SUCCINATE 100 MG TAB.SR.24H (FP) PO SCH (09:13)
[2016-10-23] MEDS: PHENYTOIN NA EXTENDED 100 MG CAPSULE (FP) PO SCH (09:13)
[2016-10-23] MEDS: hydrALAZINE HCL 25 MG TABLET (FP) PO SCH ×2 (09:13→21:28)
[2016-10-23] MEDS: HYDROCHLOROTHIAZIDE 25 MG TABLET (FP) PO SCH (09:13)
[2016-10-23] MEDS: FUROSEMIDE 40 MG/4 ML INJECTABLE VIAL IVPB SCH (09:14)
--- NOTE | 2016-10-23 09:45 | PN ---
Progress Note, Physician Chief Complaint: AWAKE ALERT FELT A BUST OF RAPID HEART RATE THIS A.M. ON 02 THERAPY - Current Medication List Current Medications: Active Medications Arformoterol Tartrate (Brovana (Restricted To Pulmonology/Resp) -) 1 amp NEB BID [facility] Last Admin: 10/22/16 22:30 Dose: 1 amp Atorvastatin Calcium (Lipitor -) 10 mg PO HS [facility] Last Admin: 10/22/16 21:44 Dose: 10 mg Furosemide (Lasix Injection -) 40 mg IVPB DAILY [facility] Last Admin: 10/23/16 09:14 Dose: 40 mg Hydralazine HCl (Apresoline -) 25 mg PO BID [facility] Last Admin: 10/23/16 09:13 Dose: 25 mg Hydrochlorothiazide (Hctz -) 25 mg PO DAILY [facility] Last Admin: 10/23/16 09:13 Dose: 25 mg Latanoprost (Xalatan 0.005% Eye Drops -) [address] [facility] Metoprolol Succinate (Toprol Xl -) 100 mg PO DAILY [facility] Last Admin: 10/23/16 09:13 Dose: 100 mg Phenytoin Sodium (Dilantin -) 400 mg PO DAILY [facility] Last Admin: 10/23/16 09:13 Dose: 400 mg Tramadol HCl (Ultram -) 50 mg PO Q8H PRN PRN Reason: PAIN Warfarin Sodium (Coumadin -) 7.5 mg PO DAILY@1800 [facility] Last Admin: 10/22/16 17:12 Dose: 7.5 mg - Objective Vital Signs: Vital Signs Temperature 97.8 F 10/23/16 06:00 Pulse Rate 72 10/23/16 06:00 Respiratory Rate 20 10/23/16 06:00 Blood Pressure 161/92 10/23/16 06:00 O2 Sat by Pulse Oximetry (%) 97 10/22/16 21:00 Constitutional: Yes: Mild Distress Eyes: Yes: WNL HENT: Yes: WNL Neck: Yes: WNL Cardiovascular: Yes: Pulse Irregular Respiratory: Yes: WNL Gastrointestinal: Yes: WNL Genitourinary: Yes: WNL Musculoskeletal: Yes: Muscle Weakness Extremities: Yes: WNL Edema: No Peripheral Pulses WNL: Yes Integumentary: Yes: WNL Wound/Incision: Yes: Clean/Dry Neurological: Yes: WNL ...Motor Strength: WNL Psychiatric: Yes: WNL Labs: CBC, BMP 10/22/16 05:50 10/22/16 05:50 INR, PTT INR 2.88 (0.82-1.09) H 10/22/16 10:45 Problem List - Problems (1) Atrial fibrillation Code(s): I48.91 - UNSPECIFIED ATRIAL FIBRILLATION Qualifiers: Atrial fibrillation type: chronic Qualified Code(s): I48.2 - Chronic atrial fibrillation (2) SOB (shortness of breath) Code(s): R06.02 - SHORTNESS OF BREATH (3) Hypertension Code(s): I10 - ESSENTIAL (PRIMARY) HYPERTENSION Qualifiers: Hypertension type: essential hypertension Qualified Code(s): I10 - Essential (primary) hypertension (4) Meningioma Assessment/Plan: CHRONIC AND BENIGN Code(s): D32.9 - BENIGN NEOPLASM OF MENINGES, UNSPECIFIED Assessment/Plan INR CHECK PENDING CARDIO EVAL FOR RAPID BURST OF VENTRICULAR RHYTHM PT EVAL OOB TO CHAIR LASIC IV LABS PENDING
[2016-10-23 09:53] LABS: INR 3.51 (0.82-1.09); PROTHROMBIN TIME (PATIENT) 39.6 SEC (9.98-11.88)
[2016-10-23] MEDS: ARFORMOTEROL TARTRATE 15 MCG/2 ML VIAL NEB SCH ×2 (10:15→22:07)
[2016-10-23 11:21] LABS: MCH 30.9 pg (25.7-33.7); MCHC 34.1 g/dl (32.0-36.0); MEAN CELL VOLUME 90.8 fl (80-96); MEAN PLT VOLUME 8.6 fl (7.5-11.1); PLATELET COUNT 198 K/MM3 (134-434); RDW 13.3 % (11.6-15.6); WHITE BLOOD COUNT 7.3 K/mm3 (4.0-10.0)
[2016-10-23 11:52] LABS: ALBUMIN 3.4 g/dl (3.4-5.0); ALK PHOS 128 U/L (45-117); ANION GAP 9 (8-16); BILIRUBIN,TOTAL 0.6 mg/dL (0.2-1.0); CALCIUM 8.5 mg/dL (8.5-10.1); CO2 32 mmol/L (21-32); CREATININE 0.7 mg/dL (0.55-1.02); GLUCOSE,RANDOM 116 mg/dL (74-106); MAGNESIUM 2.2 mg/dL (1.8-2.4); SGOT/AST 33 U/L (15-37); SGPT/ALT 103 U/L (12-78); TOT PROT 6.7 g/dl (6.4-8.2)
--- NOTE | 2016-10-23 12:07 | PN ---
Progress Note, Physician History of Present Illness: pulmonary alert,still dyspneic,with min exertion,-cp - Current Medication List Current Medications: Active Medications Arformoterol Tartrate (Brovana (Restricted To Pulmonology/Resp) -) 1 amp NEB BID [facility] Last Admin: 10/23/16 10:15 Dose: 1 amp Atorvastatin Calcium (Lipitor -) 10 mg PO HS [facility] Last Admin: 10/22/16 21:44 Dose: 10 mg Furosemide (Lasix Injection -) 40 mg IVPB DAILY [facility] Last Admin: 10/23/16 09:14 Dose: 40 mg Hydralazine HCl (Apresoline -) 25 mg PO BID [facility] Last Admin: 10/23/16 09:13 Dose: 25 mg Hydrochlorothiazide (Hctz -) 25 mg PO DAILY [facility] Last Admin: 10/23/16 09:13 Dose: 25 mg Latanoprost (Xalatan 0.005% Eye Drops -) 1 drop OD [facility] Metoprolol Succinate (Toprol Xl -) 100 mg PO DAILY [facility] Last Admin: 10/23/16 09:13 Dose: 100 mg Phenytoin Sodium (Dilantin -) 400 mg PO DAILY [facility] Last Admin: 10/23/16 09:13 Dose: 400 mg Tramadol HCl (Ultram -) 50 mg PO Q8H PRN PRN Reason: PAIN Warfarin Sodium (Coumadin -) 7.5 mg PO DAILY@1800 [facility] Last Admin: 10/22/16 17:12 Dose: 7.5 mg - Objective Vital Signs: Vital Signs Temperature 98 F 10/23/16 09:00 Pulse Rate 66 10/23/16 09:00 Respiratory Rate 18 10/23/16 09:00 Blood Pressure 162/63 10/23/16 09:00 O2 Sat by Pulse Oximetry (%) 97 10/23/16 09:00 Constitutional: Yes: Calm, Thin Eyes: Yes: WNL HENT: Yes: WNL Cardiovascular: Yes: Pulse Irregular, S1, S2 Respiratory: Yes: Rales (bibasilar rales) Gastrointestinal: Yes: Normal Bowel Sounds, Soft Extremities: Yes: WNL Edema: No Labs: CBC, BMP 10/23/16 10:57 10/23/16 10:57 INR, PTT INR 3.51 (0.82-1.09) H 10/23/16 08:00 Assessment/Plan Problem List - Problems (1) Atrial fibrillation Code(s): I48.91 - UNSPECIFIED ATRIAL FIBRILLATION Qualifiers: Atrial fibrillation type: chronic Qualified Code(s): I48.2 - Chronic atrial fibrillation (2) SOB (shortness of breath) Code(s): R06.02 - SHORTNESS OF BREATH (3) CHF (congestive heart failure) Code(s): I50.9 - HEART FAILURE, UNSPECIFIED (4) ASHD (arteriosclerotic heart disease) Code(s): I25.10 - ATHSCL HEART DISEASE OF [place] CORONARY ARTERY W/O ANG PCTRS Assessment/Plan CHF RAPID AF ASHD HTN HLD H/O MENINGIOMA CAROTID ARTERY DISEASE SEIZURES PLAN DIURETICS RATE CONTROL/CARDIOLOGY EVALUATION/ECHO O2 F/U CHEST X-RAY DAILY WTS STRICT I+Os AC DR CAMACHO
--- NOTE | 2016-10-23 13:39 | PN ---
Progress Note, Physician Chief Complaint: SOB History of Present Illness: Ms. Eller is an 86 year old with a pmhx of paroxysmal afib on coumadin, htn, dm , hld, carotid atherosclerosis, seizure d/o , meningioma, and CAD with mild anterior ischemia on NST 06/2016 who presents with sob. Patients states that for last 3 days she has been feeling week and sob but was still able to do her activities until day of admission felt even more dyspneic. Denies any chest pain. No palpitations. Some trace LE edema. Believes she takes all her meds. +caffeine use. +salt intake - Current Medication List Current Medications: Active Medications Arformoterol Tartrate (Brovana (Restricted To Pulmonology/Resp) -) 1 amp NEB BID [facility] Last Admin: 10/23/16 10:15 Dose: 1 amp Atorvastatin Calcium (Lipitor -) 10 mg PO HS [facility] Last Admin: 10/22/16 21:44 Dose: 10 mg Furosemide (Lasix Injection -) 40 mg IVPB DAILY [facility] Last Admin: 10/23/16 09:14 Dose: 40 mg Hydralazine HCl (Apresoline -) 25 mg PO BID [facility] Last Admin: 10/23/16 09:13 Dose: 25 mg Hydrochlorothiazide (Hctz -) 12.5 mg PO DAILY [facility] Latanoprost (Xalatan 0.005% Eye Drops -) 1 drop OD [facility] Metoprolol Succinate (Toprol Xl -) 100 mg PO DAILY [facility] Last Admin: 10/23/16 09:13 Dose: 100 mg Metoprolol Succinate (Toprol Xl -) 25 mg PO DAILY [facility] Phenytoin Sodium (Dilantin -) 400 mg PO DAILY [facility] Last Admin: 10/23/16 09:13 Dose: 400 mg Tramadol HCl (Ultram -) 50 mg PO Q8H PRN PRN Reason: PAIN Warfarin Sodium (Coumadin -) 7.5 mg PO DAILY@1800 [facility] Last Admin: 10/22/16 17:12 Dose: 7.5 mg - Objective Vital Signs: Vital Signs Temperature 98 F 10/23/16 09:00 Pulse Rate 66 10/23/16 09:00 Respiratory Rate 18 10/23/16 09:00 Blood Pressure 162/63 10/23/16 09:00 O2 Sat by Pulse Oximetry (%) 97 10/23/16 09:00 Constitutional: Yes: No Distress Cardiovascular: Yes: Regular Rate and Rhythm, JVD, S1, S2. No: Murmur Respiratory: Yes: Rales (bibasilar rales) Gastrointestinal: Yes: WNL Edema: LLE: Trace, RLE: Trace Labs: CBC, BMP 10/23/16 10:57 10/23/16 10:57 INR, PTT INR 3.51 (0.82-1.09) H 10/23/16 08:00 Problem List - Problems (1) Atrial fibrillation Code(s): I48.91 - UNSPECIFIED ATRIAL FIBRILLATION Qualifiers: Atrial fibrillation type: chronic Qualified Code(s): I48.2 - Chronic atrial fibrillation (2) CHF (congestive heart failure) Code(s): I50.9 - HEART FAILURE, UNSPECIFIED Assessment/Plan Ms. Eller is an 86 year old with a pmhx of paroxysmal afib on coumadin, htn, dm , hld, carotid atherosclerosis, seizure d/o , meningioma, and CAD with mild anterior ischemia on NST 06/2016 who presents with sob. Patients states that for last 3 days she has been feeling week and sob but was still able to do her activities until day of admission felt even more dyspneic. Denies any chest pain. No palpitations. Some trace LE edema. Believes she takes all her meds. +caffeine use. +salt intake 1) Acute on chronic diastolic CHF in setting of Afib with RVR. -Continue to diurese with furosemide 40mg IV daily Replete K as needed. BP and HR control Monitor lytes, daily weights, and I/O's 2) Afib -Increase metoprolol xl from 100mg to 125mg daily On tele -On coumadin with therapeutic INR 3) HTN continue current regimen 4) CAD -NST 06/2016 with mild anterior ischemia. No chest pain. SOB likely was due to Afib with RVR and CHF. aspirin/statin/beta paris If recurrent symptoms in future than will discuss whether to pursue cardiac cath.
[2016-10-23] MEDS: HYDROCHLOROTHIAZIDE 12.5 MG CAPSULE (FP) PO SCH (14:27)
[2016-10-23] MEDS: WARFARIN NA 7.5 MG TABLET (FP) PO SCH (17:41)
[2016-10-23] MEDS ORDERED: POTASSIUM CHLORIDE TABS 10 MEQ TABLET.ER (FP) PO ONE (19:46)
[2016-10-23] MEDS: LATANOPROST 0.005% OPHTH SOLN 2.5ML BOTTLE OD SCH (21:25)
[2016-10-23] MEDS: ATORVASTATIN CA 10 MG TABLET (FP) PO SCH (21:26)
[2016-10-24 08:20] LABS: MCH 30.9 pg (25.7-33.7); MCHC 33.9 g/dl (32.0-36.0); MEAN CELL VOLUME 91.2 fl (80-96); PLATELET COUNT 197 K/MM3 (134-434); RDW 13.4 % (11.6-15.6); WHITE BLOOD COUNT 7.4 K/mm3 (4.0-10.0)
[2016-10-24 08:33] LABS: INR 2.43 (0.82-1.09); PROTHROMBIN TIME (PATIENT) 27.2 SEC (9.98-11.88)
[2016-10-24 08:38] LABS: ALBUMIN 3.4 g/dl (3.4-5.0); ANION GAP 9 (8-16); CALCIUM 8.5 mg/dL (8.5-10.1); CO2 32 mmol/L (21-32); CREATININE 0.7 mg/dL (0.55-1.02); GLUCOSE,RANDOM 102 mg/dL (74-106); MAGNESIUM 2.2 mg/dL (1.8-2.4); SGOT/AST 24 U/L (15-37); SGPT/ALT 79 U/L (12-78)
[2016-10-24 08:40] LABS: ALK PHOS 116 U/L (45-117); TOT PROT 6.5 g/dl (6.4-8.2)
[2016-10-24] MEDS: ARFORMOTEROL TARTRATE 15 MCG/2 ML VIAL NEB SCH ×2 (09:40→22:17)
[2016-10-24] MEDS: FUROSEMIDE 40 MG/4 ML INJECTABLE VIAL IVPB SCH (09:59)
[2016-10-24] MEDS: HYDROCHLOROTHIAZIDE 12.5 MG CAPSULE (FP) PO SCH (09:59)
[2016-10-24] MEDS: hydrALAZINE HCL 25 MG TABLET (FP) PO SCH ×2 (09:59→21:32)
[2016-10-24] MEDS: METOPROLOL SUCCINATE 100 MG TAB.SR.24H (FP) PO SCH (09:59)
[2016-10-24] MEDS: METOPROLOL SUCCINATE 25 MG TAB.SR.24H (FP) PO SCH (09:59)
[2016-10-24] MEDS ORDERED: PT OWN MED DRAWER 7, Y5N ONE (10:11)
[2016-10-24] MEDS: PHENYTOIN NA EXTENDED 100 MG CAPSULE (FP) PO SCH (10:12)
[2016-10-24] MEDS ORDERED: WARFARIN NA 7.5 MG TABLET (FP) PO SCH (11:29)
--- NOTE | 2016-10-24 11:32 | PN ---
Progress Note, Physician Chief Complaint: AWAKE ALERT FEELING TIRED SOB IMPROVING - Current Medication List Current Medications: Active Medications Arformoterol Tartrate (Brovana (Restricted To Pulmonology/Resp) -) 1 amp NEB BID [facility] Last Admin: 10/24/16 09:40 Dose: 1 amp Atorvastatin Calcium (Lipitor -) 10 mg PO HS [facility] Last Admin: 10/23/16 21:26 Dose: 10 mg Furosemide (Lasix Injection -) 40 mg IVPB DAILY [facility] Last Admin: 10/24/16 09:59 Dose: 40 mg Hydralazine HCl (Apresoline -) 25 mg PO BID [facility] Last Admin: 10/24/16 09:59 Dose: 25 mg Hydrochlorothiazide (Hctz -) 12.5 mg PO DAILY [facility] Last Admin: 10/24/16 09:59 Dose: 12.5 mg Latanoprost (Xalatan 0.005% Eye Drops -) 1 drop OD [facility] Last Admin: 10/23/16 21:25 Dose: 1 drop Metoprolol Succinate (Toprol Xl -) 100 mg PO DAILY [facility] Last Admin: 10/24/16 09:59 Dose: 100 mg Metoprolol Succinate (Toprol Xl -) 25 mg PO DAILY [facility] Last Admin: 10/24/16 09:59 Dose: 25 mg Phenytoin Sodium (Dilantin -) 400 mg PO DAILY [facility] Last Admin: 10/24/16 10:12 Dose: 400 mg Tramadol HCl (Ultram -) 50 mg PO Q8H PRN PRN Reason: PAIN Warfarin Sodium (Coumadin -) 7 mg PO DAILY@1800 [facility] - Objective Vital Signs: Vital Signs Temperature 98.0 F 10/24/16 09:00 Pulse Rate 72 10/24/16 09:40 Respiratory Rate 20 10/24/16 09:00 Blood Pressure 126/59 10/24/16 09:00 O2 Sat by Pulse Oximetry (%) 100 10/24/16 09:40 Constitutional: Yes: Mild Distress Eyes: Yes: WNL HENT: Yes: WNL Neck: Yes: WNL Cardiovascular: Yes: Pulse Irregular Respiratory: Yes: On Nasal O2, Rales Gastrointestinal: Yes: WNL Musculoskeletal: Yes: Muscle Weakness Extremities: Yes: WNL Edema: No Peripheral Pulses WNL: Yes Integumentary: Yes: WNL Wound/Incision: Yes: Clean/Dry Neurological: Yes: WNL ...Motor Strength: WNL Psychiatric: Yes: WNL Labs: CBC, BMP 10/24/16 06:00 10/24/16 06:00 INR, PTT INR 2.43 (0.82-1.09) H D 10/24/16 06:00 Problem List - Problems (1) Atrial fibrillation Code(s): I48.91 - UNSPECIFIED ATRIAL FIBRILLATION Qualifiers: Atrial fibrillation type: chronic Qualified Code(s): I48.2 - Chronic atrial fibrillation (2) SOB (shortness of breath) Code(s): R06.02 - SHORTNESS OF BREATH (3) Hypertension Code(s): I10 - ESSENTIAL (PRIMARY) HYPERTENSION Qualifiers: Hypertension type: essential hypertension Qualified Code(s): I10 - Essential (primary) hypertension (4) Meningioma Code(s): D32.9 - BENIGN NEOPLASM OF MENINGES, UNSPECIFIED Assessment/Plan COUMADIN RESTARTED 7.0MG DAILY CHECK LABS OOB TO CHAIR DC HOME WITH VNS TOMORROW
--- NOTE | 2016-10-24 12:26 | PN ---
Progress Note, Physician History of Present Illness: pulmonary alert,nad,less dyspneic,-cp - Current Medication List Current Medications: Active Medications Arformoterol Tartrate (Brovana (Restricted To Pulmonology/Resp) -) 1 amp NEB BID [facility] Last Admin: 10/24/16 09:40 Dose: 1 amp Atorvastatin Calcium (Lipitor -) 10 mg PO HS [facility] Last Admin: 10/23/16 21:26 Dose: 10 mg Furosemide (Lasix Injection -) 40 mg IVPB DAILY [facility] Last Admin: 10/24/16 09:59 Dose: 40 mg Hydralazine HCl (Apresoline -) 25 mg PO BID [facility] Last Admin: 10/24/16 09:59 Dose: 25 mg Hydrochlorothiazide (Hctz -) 12.5 mg PO DAILY [facility] Last Admin: 10/24/16 09:59 Dose: 12.5 mg Latanoprost (Xalatan 0.005% Eye Drops -) 1 drop OD HS [facility] Last Admin: 10/23/16 21:25 Dose: 1 drop Metoprolol Succinate (Toprol Xl -) 100 mg PO DAILY [facility] Last Admin: 10/24/16 09:59 Dose: 100 mg Metoprolol Succinate (Toprol Xl -) 25 mg PO DAILY [facility] Last Admin: 10/24/16 09:59 Dose: 25 mg Phenytoin Sodium (Dilantin -) 400 mg PO DAILY [facility] Last Admin: 10/24/16 10:12 Dose: 400 mg Tramadol HCl (Ultram -) 50 mg PO Q8H PRN PRN Reason: PAIN Warfarin Sodium 5 mg/ Warfarin (Sodium 2 mg) 7 mg PO DAILY@1800 [facility] - Objective Vital Signs: Vital Signs Temperature 98.0 F 10/24/16 09:00 Pulse Rate 72 10/24/16 09:40 Respiratory Rate 20 10/24/16 09:00 Blood Pressure 126/59 10/24/16 09:00 O2 Sat by Pulse Oximetry (%) 100 10/24/16 09:40 Constitutional: Yes: No Distress, Thin Eyes: Yes: WNL HENT: Yes: WNL Neck: Yes: WNL Cardiovascular: Yes: Pulse Irregular, S1, S2 Respiratory: Yes: Diminished Gastrointestinal: Yes: Normal Bowel Sounds, Soft Extremities: Yes: WNL Edema: No Labs: CBC, BMP 10/24/16 06:00 10/24/16 06:00 INR, PTT INR 2.43 (0.82-1.09) H D 10/24/16 06:00 Assessment/Plan Problem List - Problems (1) Atrial fibrillation Code(s): I48.91 - UNSPECIFIED ATRIAL FIBRILLATION Qualifiers: Atrial fibrillation type: chronic Qualified Code(s): I48.2 - Chronic atrial fibrillation (2) SOB (shortness of breath) Code(s): R06.02 - SHORTNESS OF BREATH (3) CHF (congestive heart failure) Code(s): I50.9 - HEART FAILURE, UNSPECIFIED (4) ASHD (arteriosclerotic heart disease) Code(s): I25.10 - ATHSCL HEART DISEASE OF [place] CORONARY ARTERY W/O ANG PCTRS Assessment/Plan CHF improved RAPID AF ASHD HTN HLD H/O MENINGIOMA CAROTID ARTERY DISEASE SEIZURES PLAN DIURETICS RATE CONTROL/CARDIOLOGY EVALUATION/ECHO DAILY WTS STRICT I+Os AC DR CAMACHO
--- NOTE | 2016-10-24 13:47 | PN ---
Progress Note, Physician Chief Complaint: Dyspnea improved Ambulating in the hallway with no oxygen HR's well controlled 70s on tele History of Present Illness: Ms. Eller is an 86 year old with a pmhx of paroxysmal afib on coumadin, htn, dm , hld, carotid atherosclerosis, seizure d/o , meningioma, and CAD with mild anterior ischemia on NST 06/2016 who presents with sob. Patients states that for last 3 days she has been feeling week and sob but was still able to do her activities until day of admission felt even more dyspneic. Denies any chest pain. No palpitations. Some trace LE edema. Believes she takes all her meds. +caffeine use. +salt intake - Current Medication List Current Medications: Active Medications Arformoterol Tartrate (Brovana (Restricted To Pulmonology/Resp) -) 1 amp NEB BID [facility] Last Admin: 10/24/16 09:40 Dose: 1 amp Atorvastatin Calcium (Lipitor -) 10 mg PO HS [facility] Last Admin: 10/23/16 21:26 Dose: 10 mg Furosemide (Lasix Injection -) 40 mg IVPB DAILY [facility] Last Admin: 10/24/16 09:59 Dose: 40 mg Hydralazine HCl (Apresoline -) 25 mg PO BID [facility] Last Admin: 10/24/16 09:59 Dose: 25 mg Hydrochlorothiazide (Hctz -) 12.5 mg PO DAILY [facility] Last Admin: 10/24/16 09:59 Dose: 12.5 mg Latanoprost (Xalatan 0.005% Eye Drops -) 1 drop OD HS [facility] Last Admin: 10/23/16 21:25 Dose: 1 drop Metoprolol Succinate (Toprol Xl -) 100 mg PO DAILY [facility] Last Admin: 10/24/16 09:59 Dose: 100 mg Metoprolol Succinate (Toprol Xl -) 25 mg PO DAILY [facility] Last Admin: 10/24/16 09:59 Dose: 25 mg Phenytoin Sodium (Dilantin -) 400 mg PO DAILY [facility] Last Admin: 10/24/16 10:12 Dose: 400 mg Tramadol HCl (Ultram -) 50 mg PO Q8H PRN PRN Reason: PAIN Warfarin Sodium 5 mg/ Warfarin (Sodium 2 mg) 7 mg PO DAILY@1800 [facility] - Objective Vital Signs: Vital Signs Temperature 98.0 F 10/24/16 09:00 Pulse Rate 72 10/24/16 09:40 Respiratory Rate 20 10/24/16 09:00 Blood Pressure 126/59 10/24/16 09:00 O2 Sat by Pulse Oximetry (%) 100 10/24/16 09:40 Constitutional: Yes: No Distress Cardiovascular: Yes: Regular Rate and Rhythm, S1, S2. No: JVD, Murmur Respiratory: Yes: CTA Bilaterally Gastrointestinal: Yes: WNL Edema: No Labs: CBC, BMP 10/24/16 06:00 10/24/16 06:00 INR, PTT INR 2.43 (0.82-1.09) H D 10/24/16 06:00 Problem List - Problems (1) Atrial fibrillation Code(s): I48.91 - UNSPECIFIED ATRIAL FIBRILLATION Qualifiers: Atrial fibrillation type: chronic Qualified Code(s): I48.2 - Chronic atrial fibrillation (2) CHF (congestive heart failure) Code(s): I50.9 - HEART FAILURE, UNSPECIFIED Assessment/Plan Ms. Eller is an 86 year old with a pmhx of paroxysmal afib on coumadin, htn, dm , hld, carotid atherosclerosis, seizure d/o , meningioma, and CAD with mild anterior ischemia on NST 06/2016 who presents with sob. Patients states that for last 3 days she has been feeling week and sob but was still able to do her activities until day of admission felt even more dyspneic. Denies any chest pain. No palpitations. Some trace LE edema. Believes she takes all her meds. +caffeine use. +salt intake 1) Acute on chronic diastolic CHF in setting of Afib with RVR. -Has improved with IV furosemide. Would change tomorrow morning to PO furosemide 40mg daily Replete K as needed. BP and HR well controlled Monitor lytes, daily weights, and I/O's 2) Afib -Tele uneventful On metoprolol 125mg with well controlled HR's and no tachycardia events today. 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 HCTZ being titrated down and would plan to take off. Can titrate up other htn meds if needed. 4) CAD -NST 06/2016 with mild anterior ischemia. No chest pain. SOB likely was due to Afib with RVR and CHF. aspirin/statin/beta paris If recurrent symptoms in future than will discuss whether to pursue cardiac cath. Plan for possible DC tomorrow Will sign off at this time. Please call with any further questions or changes in clinical status
[2016-10-24] MEDS ORDERED: WARFARIN NA 5 MG TABLET (UD) ONE (17:05)
[2016-10-24] MEDS ORDERED: WARFARIN NA 2 MG TABLET (UD) ONE (17:05)
[2016-10-24] MEDS: WARFARIN NA 5 MG, WARFARIN NA 2 MG PO SCH (17:09)
[2016-10-24] MEDS ORDERED: WARFARIN NA 5 MG TABLET (UD) PO SCH (18:00)
[2016-10-24] MEDS: ATORVASTATIN CA 10 MG TABLET (FP) PO SCH (21:32)
[2016-10-24] MEDS: LATANOPROST 0.005% OPHTH SOLN 2.5ML BOTTLE OD SCH (21:33)
[2016-10-25] MEDS ORDERED: PT OWN MED DRAWER 7, Y5N ONE (07:50)
[2016-10-25] MEDS: METOPROLOL SUCCINATE 100 MG TAB.SR.24H (FP) PO SCH (09:08)
[2016-10-25] MEDS: hydrALAZINE HCL 25 MG TABLET (FP) PO SCH (09:08)
[2016-10-25] MEDS: HYDROCHLOROTHIAZIDE 12.5 MG CAPSULE (FP) PO SCH (09:08)
[2016-10-25] MEDS: METOPROLOL SUCCINATE 25 MG TAB.SR.24H (FP) PO SCH (09:08)
[2016-10-25] MEDS: FUROSEMIDE 40 MG/4 ML INJECTABLE VIAL IVPB SCH (09:10)
[2016-10-25] MEDS: PHENYTOIN NA EXTENDED 100 MG CAPSULE (FP) PO SCH (09:10)
[2016-10-25] MEDS: ARFORMOTEROL TARTRATE 15 MCG/2 ML VIAL NEB SCH (10:30)
--- NOTE | 2016-10-25 12:04 | PN ---
Progress Note (short form) - Note Progress Note: PULMONARY Breathing better but still dyspneic with exertion. No chest pain. Occasional nonproductive cough without wheezing. Last Vital Signs Temp Pulse Resp BP Pulse Ox 98.9 F 64 16 155/66 94 L 10/25/16 06:25 10/25/16 06:25 10/25/16 06:25 10/25/16 06:25 10/24/16 20:31 Intake & Output 10/22/16 10/23/16 10/24/16 10/25/16 23:59 23:59 23:59 23:59 Intake Total 600 800 920 100 Output Total 4 Balance 600 796 920 100 Weight 156 lb 9.6 oz 154 lb 12.8 oz 154 lb 154 lb 6.4 oz Gen: NAD in chair Heart: RRR Lung: basilar rales L>R Abd: soft, nontender Ext: no edema CBC, BMP 10/24/16 06:00 10/24/16 06:00 Active Medications Arformoterol Tartrate (Brovana (Restricted To Pulmonology/Resp) -) 1 amp NEB BID [facility] Last Admin: 10/25/16 10:30 Dose: 1 amp Atorvastatin Calcium (Lipitor -) 10 mg PO HS [facility] Last Admin: 10/24/16 21:32 Dose: 10 mg Furosemide (Lasix Injection -) 40 mg IVPB DAILY [facility] Last Admin: 10/25/16 09:10 Dose: 40 mg Hydralazine HCl (Apresoline -) 25 mg PO BID [facility] Last Admin: 10/25/16 09:08 Dose: 25 mg Hydrochlorothiazide (Hctz -) 12.5 mg PO DAILY [facility] Last Admin: 10/25/16 09:08 Dose: 12.5 mg Latanoprost (Xalatan 0.005% Eye Drops -) 1 drop OD HS [facility] Last Admin: 10/24/16 21:33 Dose: 1 drop Metoprolol Succinate (Toprol Xl -) 100 mg PO DAILY [facility] Last Admin: 10/25/16 09:08 Dose: 100 mg Metoprolol Succinate (Toprol Xl -) 25 mg PO DAILY [facility] Last Admin: 10/25/16 09:08 Dose: 25 mg Phenytoin Sodium (Dilantin -) 400 mg PO DAILY [facility] Last Admin: 10/25/16 09:10 Dose: 400 mg Tramadol HCl (Ultram -) 50 mg PO Q8H PRN PRN Reason: PAIN Warfarin Sodium 5 mg/ Warfarin (Sodium 2 mg) 7 mg PO DAILY@1800 [facility] Last Admin: 10/24/16 17:09 Dose: 7 mg A/P Acute on Chronic Diastolic Heart Failure Atrial Fibrillation with RVR now with better rate control CAD Hyperlipidemia h/o Meningioma Seizure Disorder - continue lasix - monitor urine output, creatinine - daily weights - rate controlled - continue anticoagulation
--- NOTE | 2016-10-25 16:17 | PN ---
Progress Note, Physician Chief Complaint: SOB, afib History of Present Illness: nad - Current Medication List Current Medications: Active Medications Arformoterol Tartrate (Brovana (Restricted To Pulmonology/Resp) -) 1 amp NEB BID [facility] Last Admin: 10/25/16 10:30 Dose: 1 amp Atorvastatin Calcium (Lipitor -) 10 mg PO HS [facility] Last Admin: 10/24/16 21:32 Dose: 10 mg Furosemide (Lasix Injection -) 40 mg IVPB DAILY [facility] Last Admin: 10/25/16 09:10 Dose: 40 mg Hydralazine HCl (Apresoline -) 25 mg PO BID [facility] Last Admin: 10/25/16 09:08 Dose: 25 mg Hydrochlorothiazide (Hctz -) 12.5 mg PO DAILY [facility] Last Admin: 10/25/16 09:08 Dose: 12.5 mg Latanoprost (Xalatan 0.005% Eye Drops -) 1 drop OD HS [facility] Last Admin: 10/24/16 21:33 Dose: 1 drop Metoprolol Succinate (Toprol Xl -) 100 mg PO DAILY [facility] Last Admin: 10/25/16 09:08 Dose: 100 mg Metoprolol Succinate (Toprol Xl -) 25 mg PO DAILY [facility] Last Admin: 10/25/16 09:08 Dose: 25 mg Phenytoin Sodium (Dilantin -) 400 mg PO DAILY [facility] Last Admin: 10/25/16 09:10 Dose: 400 mg Tramadol HCl (Ultram -) 50 mg PO Q8H PRN PRN Reason: PAIN Warfarin Sodium 5 mg/ Warfarin (Sodium 2 mg) 7 mg PO DAILY@1800 [facility] Last Admin: 10/24/16 17:09 Dose: 7 mg - Objective Vital Signs: Vital Signs Temperature 98.2 F 10/25/16 14:18 Pulse Rate 69 10/25/16 14:18 Respiratory Rate 18 10/25/16 14:18 Blood Pressure 131/57 10/25/16 14:18 O2 Sat by Pulse Oximetry (%) 90 L 10/25/16 10:00 Constitutional: Yes: Well Nourished, No Distress, Calm Cardiovascular: Yes: Pulse Irregular Respiratory: Yes: Regular Neurological: Yes: Alert, Oriented Psychiatric: Yes: Alert, Oriented Labs: CBC, BMP 10/24/16 06:00 10/24/16 06:00 INR, PTT INR 2.43 (0.82-1.09) H D 10/24/16 06:00 Problem List - Problems (1) Atrial fibrillation Assessment/Plan: rate controlled on BB Code(s): I48.91 - UNSPECIFIED ATRIAL FIBRILLATION Qualifiers: Atrial fibrillation type: chronic Qualified Code(s): I48.2 - Chronic atrial fibrillation (2) CHF (congestive heart failure) Assessment/Plan: will go home on furosemide 40 mg po daily and hctz 12.5 mg po daily, taper as per cardiology Code(s): I50.9 - HEART FAILURE, UNSPECIFIED (3) Hypertension Assessment/Plan: controlled Code(s): I10 - ESSENTIAL (PRIMARY) HYPERTENSION Qualifiers: Hypertension type: essential hypertension Qualified Code(s): I10 - Essential (primary) hypertension Assessment/Plan see problem list
[2016-10-25 17:30] LABS: INR 1.88 (0.82-1.09); PROTHROMBIN TIME (PATIENT) 20.9 SEC (9.98-11.88)
[2016-10-25 17:52] VITALS: BP 134/59; PULSE 65; TEMP 98.4
[2016-10-25] MEDS ORDERED: WARFARIN NA 5 MG TABLET (UD) ONE (17:54)
[2016-10-25] MEDS ORDERED: WARFARIN NA 2 MG TABLET (UD) ONE (17:54)
[2016-10-25] MEDS: WARFARIN NA 5 MG, WARFARIN NA 2 MG PO SCH (17:58)
--- NOTE | 2016-10-31 13:48 | PN ---
Progress Note (short form) - Note Progress Note: ADDENDUM TO DIAGNOS IS: CHRONIC RESPIRATORY FAILURE IN THE SETTING OF CHF AND CHRONIC DYSPNEA, SHORTNESS OF BREATH Problem List - Problems (1) Atrial fibrillation Code(s): I48.91 - UNSPECIFIED ATRIAL FIBRILLATION Qualifiers: Atrial fibrillation type: chronic Qualified Code(s): I48.2 - Chronic atrial fibrillation (2) SOB (shortness of breath) Code(s): R06.02 - SHORTNESS OF BREATH (3) Hypertension Code(s): I10 - ESSENTIAL (PRIMARY) HYPERTENSION Qualifiers: Hypertension type: essential hypertension Qualified Code(s): I10 - Essential (primary) hypertension (4) Meningioma Code(s): D32.9 - BENIGN NEOPLASM OF MENINGES, UNSPECIFIED
== END 2016-10-25 18:43 | disposition home health service (06) | DRG 308 ==
LOC: JER 07:18 → JERBED 09:57 → J4W 19:12
PROVIDERS: ADMIT Family Medicine; ATTEND Family Medicine
DX: I48.0 Paroxysmal atrial fibrillation (principal); I50.33 Acute on chronic diastolic (congestive) heart failure; J96.10 Chronic respiratory failure, unspecified whether with hypoxia or hypercapnia; I11.0 Hypertensive heart disease with heart failure; Z87.891 Personal history of nicotine dependence; I48.2 Chronic atrial fibrillation; G40.909 Epilepsy, unspecified, not intractable, without status epilepticus; E11.9 Type 2 diabetes mellitus without complications; Z79.01 Long term (current) use of anticoagulants; E78.5 Hyperlipidemia, unspecified; I25.10 Atherosclerotic heart disease of native coronary artery without angina pectoris; D32.9 Benign neoplasm of meninges, unspecified; I65.29 Occlusion and stenosis of unspecified carotid artery
CPT/HCPCS: 36415; 36600; 71010-TC; 80053; 80061; 80185; 81003; 82803; 83036; 83721; 83735; 83880; 84484; 85025; 85027; 85610; 93005; 93010; 93306-TC; 94640; 97116-GP; 97161-GP; 99284-25

== ENCOUNTER 2017-11-02 08:25 | Inpatient (IN) | payer OTHER, MEDICARE ==
[2017-11-02] MEDS ORDERED: ACETAMINOPHEN 1000 MG/100 ML VIAL (NON FORMULARY) IVPB ONE (09:21)
[2017-11-02] MEDS ORDERED: NITROGLYCERIN 50MG/D5W 250ML 50 MG/250 ML ML IVPB SCH (09:30)
[2017-11-02] MEDS ORDERED: ACETAMINOPHEN INJECTION 100 ML IVPB ONE (09:45)
[2017-11-02 09:49] LABS: BASO % 0.3 % (0-2.0); EOS % 0.8 % (0-4.5); HEMATOCRIT 41.4 % (32.4-45.2); HEMOGLOBIN 14.2 GM/dL (10.7-15.3); LYMPH % 16.2 % (8-40); MCH 31.6 pg (25.7-33.7); MCHC 34.4 g/dl (32.0-36.0); MEAN CELL VOLUME 91.8 fl (80-96); NEUT % 75.7 % (42.8-82.8); PLATELET COUNT 173 K/MM3 (134-434); RBC 4.51 M/mm3 (3.60-5.2); RDW 13.9 % (11.6-15.6); URINE APPEARANCE CLEAR; URINE BILIRUBIN NEGATIVE (<2.0 mg/dL); URINE COLOR STRAW; URINE GLUCOSE (UA) NEGATIVE (NEGATIVE); URINE KETONE NEGATIVE (NEGATIVE); URINE LEUK ESTERASE NEGATIVE (NEGATIVE); URINE NITRITE NEGATIVE (NEGATIVE); URINE PROTEIN NEGATIVE (NEGATIVE); URINE UROBILINOGEN NEGATIVE mg/dL (0.2-1.0); WHITE BLOOD COUNT 7.9 K/mm3 (4.0-10.0)
[2017-11-02] MEDS ORDERED: FUROSEMIDE 40 MG/4 ML INJECTABLE VIAL IVPUSH ONE (09:50)
[2017-11-02 09:55] LABS: VENOUS PH 7.41 (7.32-7.42)
[2017-11-02] MEDS ORDERED: NITROGLYCERIN 25MG/D5W 250ML 25 MG/250 ML ML IVPB ONE (09:55)
[2017-11-02 09:56] LABS: VENOUS PC02 46.8 mmHg (38-52); VENOUS PO2 54.1 mmHg (28-48)
[2017-11-02] MEDS ORDERED: FUROSEMIDE 40 MG/4 ML INJECTABLE VIAL ONE (10:00)
--- NOTE | 2017-11-02 10:04 | PDOC ---
History of Present Illness <Kayla Sahu - Last Filed: 11/02/17 10:06> - History of Present Illness Initial Comments: 11/02/17 10:00 "The patient is an 87 year old female, with a significant past medical history of hypertension, Afib, CHF, who presents to the emergency department with worsening SOB over the past 2 days with associated intermittent chest pain. She states her shortness of breath is worse upon waking up in the morning and improves gradually throughout the day. She reports a non productive cough for the past couple of days. She denies any chest pain right now. She states she feels like she did a year ago when she presented for CHF. The patient denies chest pain, headache and dizziness. The patient denies fever , chills, nausea, vomit, diarrhea and constipation. The patient denies dysuria, frequency, urgency and hematuria. Allergies: NKDA Past surgical history: cholecystectomy Social history: Pt denies tobacco or ETOH use PCP - Dr. Dow" <Viet Palm - Last Filed: 11/02/17 10:49> - General Chief Complaint: Shortness of Breath Stated Complaint: SHORTNESS OF BREATH Time Seen by Provider: 11/02/17 08:56 Past History <Kayla Sahu - Last Filed: 11/02/17 10:06> - Past Medical History Cardiac Disorders: Yes (afib) COPD: No Diabetes: Yes (borderline) HTN: Yes Hypercholesterolemia: Yes Seizures: Yes - Surgical History Cholecystectomy: Yes - Immunization History Immunization Up to Date: No - Suicide/Smoking/Psychosocial Hx Smoking History: Former smoker Have you smoked in the past 12 months: No Information on smoking cessation initiated: No Hx Alcohol Use: No Drug/Substance Use Hx: No Substance Use Type: None <Viet Palm - Last Filed: 11/02/17 10:49> - Past Medical History Allergies/Adverse Reactions: Allergies Allergy/AdvReac Type Severity Reaction Status Date / Time lidocaine AdvReac Verified 11/02/17 08:51 Home Medications: Ambulatory Orders Cholecalciferol (Vitamin D3) [Vitamin D -] 0 unit PO DAILY 10/21/16 Glucosamine/MSM/Chondroitin A [Glucosamine Chondroit MSM Tab] 1 each PO DAILY Multivitamins [Multivit ([facility] Formulary)] 1 tab PO DAILY 10/21/16 Phenytoin Sodium Extended [Phenytek] 400 mg PO HS 10/21/16 hydrALAZINE HCL [Apresoline -] 50 mg PO BID 10/21/16 Arformoterol Tartrate [Brovana -] 1 amp NEB BID amp 10/25/16 Atorvastatin Ca [Lipitor] 10 mg PO HS tablet 10/25/16 Hydrochlorothiazide [Hctz -] 12.5 mg PO DAILY #30 cap 10/25/16 Latanoprost 0.005% Eye Drops [Xalatan 0.005% Eye Drops -] 1 drop OD HS drop 04/11 Warfarin Na [Coumadin -] 7 mg PO DAILY@1800 tablet 10/25/16 Review of Systems - Review of Systems Comments:: 11/02/17 10:00 "GENERAL/CONSTITUTIONAL: No fever or chills. No weakness. HEAD, EYES, EARS, NOSE AND THROAT: No change in vision. No ear pain or discharge. No sore throat. CARDIOVASCULAR: (+) shortness of breath. RESPIRATORY: (+) cough, no wheezing, or hemoptysis. GASTROINTESTINAL: No nausea, vomiting, diarrhea or constipation. GENITOURINARY: No dysuria, frequency, or change in urination. MUSCULOSKELETAL: No joint or muscle swelling or pain. No neck or back pain. SKIN: No rash NEUROLOGIC: No headache, vertigo, loss of consciousness, or change in strength/ sensation. ENDOCRINE: No increased thirst. No abnormal weight change. HEMATOLOGIC/LYMPHATIC: No anemia, easy bleeding, or history of blood clots. ALLERGIC/IMMUNOLOGIC: No hives or skin allergy. " <Viet Palm - Last Filed: 11/02/17 10:49> *Physical Exam - Vital Signs Last Vital Signs Temp Pulse Resp BP Pulse Ox 99.8 F H 120 H 24 179/112 99 11/02/17 08:51 11/02/17 08:51 11/02/17 08:51 11/02/17 08:51 11/02/17 08:57 <Kayla Sahu - Last Filed: 11/02/17 10:06> - Vital Signs Last Vital Signs Temp Pulse Resp BP Pulse Ox 99.8 F H 120 H 24 179/112 99 11/02/17 08:51 11/02/17 08:51 11/02/17 08:51 11/02/17 08:51 11/02/17 08:57 - Physical Exam Comments: 11/02/17 10:01 GENERAL: Awake, alert, and fully oriented, in no acute distress. HEAD: No signs of trauma EYES: PERRLA, EOMI, sclera anicteric, conjunctiva clear ENT: Auricles normal inspection, hearing grossly normal, nares patent, oropharynx clear without exudates. Moist mucosa NECK: Nontender, no stepoffs, Normal ROM, supple, no lymphadenopathy, JVD, or masses LUNGS: (+) bibasilar rales. Breath sounds equal. No wheezes, and no crackles HEART: Regular rate and rhythm, normal S1 and S2, no murmurs, rubs or gallops ABDOMEN: Soft, nontender, normoactive bowel sounds. No guarding, no rebound. No masses EXTREMITIES: (+) 1+ pitting edema to bilateral lower extremities. Normal range of motion, No clubbing or cyanosis. No cords, erythema, or tenderness NEUROLOGICAL: Cranial nerves II through XII intact. 5/5 strength and sensation in all extremities, Normal speech, normal gait, normal cerebellar function SKIN: Warm, Dry, normal turgor, no rashes or lesions noted. <Ou,Viet - Last Filed: 11/02/17 10:49> Heart Score/ECG Review - ECG Impressions Comment:: 11/02/17 10:01 aflutter with variable conduction, rate 102, no SONIYA/STDs, no TWIs, axis wnl <Ou,Viet - Last Filed: 11/02/17 10:49> ED Treatment Course - LABORATORY CBC & Chemistry Diagram: 11/02/17 09:30 - ADDITIONAL ORDERS Additional order review: Laboratory Results 11/02/17 11/02/17 09:30 09:30 VBG pH 7.41 POC VBG pCO2 46.8 POC VBG pO2 54.1 H Mixed VBG HCO3 28.9 H Urine Color Straw Urine Appearance Clear Urine pH 7.0 Ur Specific [place] 1.005 Urine Protein Negative Urine Glucose (UA) Negative Urine Ketones Negative Urine Blood Negative Urine Nitrite Negative Urine Bilirubin Negative Urine Urobilinogen Negative Ur Leukocyte Esterase Negative 11/02/17 09:30 RBC 4.51 MCV 91.8 MCHC 34.4 RDW 13.9 MPV 9.0 Neutrophils % 75.7 Lymphocytes % 16.2 D Monocytes % 7.0 Eosinophils % 0.8 D Basophils % 0.3 - RADIOLOGY Radiograph Interpretation: 11/02/17 10:06 " EXAM#: TYPE/EXAM: RESULT: [id number] RAD/CHEST X-RAY PORTABLE* Sepsis. AP portable chest x-ray. Comparison study October 25, 2016. Left retrocardiac infiltrate is suggested. No pneumothorax, or large pleural effusion seen. No evidence of widening of the superior mediastinum. Calcified aortic arch. Prominent cardiac silhouette. The visualized osseous structures appear intact. Impression: Left retrocardiac infiltrate is suggested. No pneumothorax, or large pleural effusion is seen. No evidence of vascular congestive changes. Reported By: Nilesh Eagle MD 11/02/17 0944 " - Medications Given in the ED: ED Medications Discontinued Medications Generic Name Dose Route Start Last Admin Trade Name Freq PRN Reason Stop Dose Admin Acetaminophen 1,000 mg 11/02/17 09:21 11/02/17 09:59 Ofirmev Injection - IVPB 11/02/17 09:22 1,000 mg ONCE ONE Administration Furosemide 40 mg 11/02/17 09:50 11/02/17 10:01 Lasix Injection - IVPUSH 11/02/17 09:51 40 mg ONCE ONE Administration Metoprolol Succinate 100 mg 11/02/17 09:50 11/02/17 10:01 Toprol Xl - PO 11/02/17 09:51 100 mg ONCE ONE Administration <Kayla Sahu - Last Filed: 11/02/17 10:06> - LABORATORY CBC & Chemistry Diagram: 11/02/17 09:30 11/02/17 10:15 - ADDITIONAL ORDERS Additional order review: Laboratory Results 11/02/17 11/02/17 09:30 09:30 VBG pH 7.41 POC VBG pCO2 46.8 POC VBG pO2 54.1 H Mixed VBG HCO3 28.9 H Urine Color Straw Urine Appearance Clear Urine pH 7.0 Ur Specific [place] 1.005 Urine Protein Negative Urine Glucose (UA) Negative Urine Ketones Negative Urine Blood Negative Urine Nitrite Negative Urine Bilirubin Negative Urine Urobilinogen Negative Ur Leukocyte Esterase Negative 11/02/17 09:30 RBC 4.51 MCV 91.8 MCHC 34.4 RDW 13.9 MPV 9.0 Neutrophils % 75.7 Lymphocytes % 16.2 D Monocytes % 7.0 Eosinophils % 0.8 D Basophils % 0.3 - RADIOLOGY Radiology Studies Ordered: Category Date Time Status CHEST X-RAY PORTABLE* [RAD] Stat Radiology 11/02/17 08:57 Completed <Viet Palm - Last Filed: 11/02/17 10:49> Medical Decision Making - Medical Decision Making 11/02/17 10:02 87 F with SOB and cough. Exam notable for bibasilar rales and LE edema, consistent with CHF exacerbation. Pt also with low-grade temp in ED, suggestive of infectious process. - Labs, cultures, trop, BNP - CXR, UA - Lasix, nitro PRN - Consider BiPAP if respiratory status worsens 11/02/17 10:25 CXR shows LLL PNA Covered with levaquin for CAP Will admit to Dr. Dow 11/02/17 10:[address] Dow Will consult Dr. Arevalo for pulm 11/02/17 10:48 Pt complaining of redness and itching to arm after receiving levaquin. Pt without wheezing, no swelling of lips or tongue. Benadryl 50mg IV ordered. Pt received full dose of levaquin 500mg, will hold any additional doses. <Viet Palm - Last Filed: 11/02/17 10:49> *DC/Admit/Observation/Transfer - Attestations Scribe Attestion: 11/02/17 10:07 Documentation prepared by Kayla Sahu, acting as diagnostic medical sonographer for Viet Palm MD, <Kayla Sahu - Last Filed: 11/02/17 10:06> - Discharge Dispostion Decision to Admit order: Yes - Attestations Physician Attestion: 11/02/17 10:31 I, Dr. Viet Palm MD, attest that this document has been prepared under my direction and personally reviewed by me in its entirety. I further attest, that it accurately reflects all work, treatment, procedures and medical decision -making performed by me. <Viet Palm - Last Filed: 11/02/17 10:49> Diagnosis at time of Disposition: SOB (shortness of breath), CHF (congestive heart failure), PNA (pneumonia)
[2017-11-02 10:07] LABS: INR 3.65 (0.83-1.09); PROTHROMBIN TIME (PATIENT) 41.2 SEC (9.7-13.0)
--- NOTE | 2017-11-02 10:07 | EKG ---
Test Reason : Blood Pressure : / mmHG Vent. Rate : 102 BPM Atrial Rate : 107 BPM P-R Int : 000 ms QRS Dur : 090 ms QT Int : 344 ms P-R-T Axes : 000 000 043 degrees QTc Int : 448 ms ATRIAL FIBRILLATION WITH RAPID VENTRICULAR RESPONSE ANTERIOR INFARCT (CITED ON OR BEFORE 21-OCT-2016) ABNORMAL ECG WHEN COMPARED WITH ECG OF 21-OCT-2016 07:25, NO SIGNIFICANT CHANGE WAS FOUND Confirmed by EULA ROJAS, NIKKY ([id number]) on 11/02/2017 10:06:31 AM Referred By: Confirmed By:NIKKY FORDE MD
[2017-11-02 10:10] LABS: ACTIVATED PTT 46.4 SECONDS (25.2-36.5)
[2017-11-02 10:36] LABS: ALBUMIN 3.5 g/dl (3.4-5.0); ANION GAP 8 MMOL/L (8-16); BLOOD UREA NITROGEN 13 mg/dL (7-18); CALCIUM 8.4 mg/dL (8.5-10.1); CHLORIDE 106 mmol/L (98-107); CO2 28 mmol/L (21-32); GLUCOSE,RANDOM 117 mg/dL (74-106); POTASSIUM 3.5 mmol/L (3.5-5.1); SODIUM 142 mmol/L (136-145)
[2017-11-02 10:39] LABS: BILIRUBIN,TOTAL 0.6 mg/dL (0.2-1.0); CREATININE 0.6 mg/dL (0.55-1.02); SGOT/AST 54 U/L (15-37); SGPT/ALT 108 U/L (12-78); TOT PROT 7.1 g/dl (6.4-8.2)
[2017-11-02 10:40] LABS: ALK PHOS 139 U/L (45-117)
[2017-11-02] MEDS ORDERED: amLODIPine BESYLATE 5 MG TABLET (FP) PO ONE (11:39)
[2017-11-02] MEDS ORDERED: amLODIPine BESYLATE 5 MG TABLET (FP) ONE (11:48)
--- NOTE | 2017-11-02 16:41 | HP ---
Admitting History and Physical - Primary Care Physician PCP: Araceli Dow - Admission Chief Complaint: DYSPNEA/ACUTE CHF History of Present Illness: 87 Y/O FEMALE H/O AFIB, HTN, MENINGIOMA,SEIZURE D/O, MITRAL REGURGE, DM, OA HERE WITH WORSENING DYSPNEA AT REST WHERE SHE CAME TO THE ED FOR WORKUP AND FOUND TO BE IN ACUTE CHF. PATIENT SEEN IN MY OFFICE 2 WEEKS AGO IN [facility], WHICH MEANS THIS IS NEW;Y ACQUIRED CHF. 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's Cardiovascular: Yes: AFIB, CAD, HTN Psych: Yes: Addictions Musculoskeletal: Yes: Chronic low back pain, Osteoarthritis Rheumatology: Yes: Other - Smoking History Smoking history: Former smoker Have you smoked in the past 12 months: No - Alcohol/Substance Use Hx Alcohol Use: No - Social History ADL: Independent (Previously Independent in ADLs/ IADLs, has cane but does not use assistive device) History of Recent Travel: No Home Medications - Allergies Allergies/Adverse Reactions: Allergies Allergy/AdvReac Type Severity Reaction Status Date / Time levofloxacin [From Levaquin] Allergy Verified 11/02/17 11:47 lidocaine AdvReac Verified 11/02/17 11:48 - Home Medications Home Medications: Ambulatory Orders Cholecalciferol (Vitamin D3) [Vitamin D -] 0 unit PO DAILY 10/21/16 Glucosamine/MSM/Chondroitin A [Glucosamine Chondroit MSM Tab] 1 each PO DAILY Multivitamins [Multivit ([facility] Formulary)] 1 tab PO DAILY 10/21/16 Phenytoin Sodium Extended [Phenytek] 400 mg PO HS 10/21/16 hydrALAZINE HCL [Apresoline -] 50 mg PO BID 10/21/16 Arformoterol Tartrate [Brovana -] 1 amp NEB BID amp 10/25/16 Atorvastatin Ca [Lipitor] 10 mg PO HS tablet 10/25/16 Hydrochlorothiazide [Hctz -] 12.5 mg PO DAILY #30 cap 10/25/16 Latanoprost 0.005% Eye Drops [Xalatan 0.005% Eye Drops -] 1 drop OD HS drop 04/11 Warfarin Na [Coumadin -] 7 mg PO DAILY@1800 tablet 10/25/16 Review of Systems - Review of Systems Constitutional: reports: Weakness Eyes: reports: No Symptoms HENT: reports: No Symptoms Neck: reports: No Symptoms Cardiovascular: reports: Shortness of Breath Respiratory: reports: Cough, SOB Gastrointestinal: reports: No Symptoms Genitourinary: reports: No Symptoms Musculoskeletal: reports: No Symptoms Integumentary: reports: No Symptoms Neurological: reports: Pre-Existing Deficit Endocrine: reports: No Symptoms Hematology/Lymphatic: reports: No Symptoms Psychiatric: reports: No Symptoms Physical Examination Vital Signs: Vital Signs Temperature 98.2 F 11/02/17 12:35 Pulse Rate 97 H 11/02/17 15:31 Respiratory Rate 20 11/02/17 15:31 Blood Pressure 131/83 11/02/17 15:31 O2 Sat by Pulse Oximetry (%) 98 11/02/17 15:31 Constitutional: Yes: Moderate Distress Eyes: Yes: WNL HENT: Yes: WNL Neck: Yes: WNL Cardiovascular: Yes: Pulse Irregular, Murmur Respiratory: Yes: On Nasal O2, Rales, SOB Gastrointestinal: Yes: WNL Renal/: Yes: WNL Musculoskeletal: Yes: WNL Extremities: Yes: WNL Edema: No Peripheral Pulses WNL: Yes Integumentary: Yes: WNL Wound/Incision: Yes: Clean/Dry Neurological: Yes: Pre-Existing Deficit ...Motor Strength: WNL Psychiatric: Yes: WNL Labs: CBC, BMP 11/02/17 09:30 11/02/17 10:15 Imaging - Results Chest X-ray: Report Reviewed Other: Pending Problem List - Problems (1) CHF (congestive heart failure) Code(s): I50.9 - HEART FAILURE, UNSPECIFIED (2) PNA (pneumonia) Code(s): J18.9 - PNEUMONIA, UNSPECIFIED ORGANISM (3) SOB (shortness of breath) Code(s): R06.02 - SHORTNESS OF BREATH (4) ASHD (arteriosclerotic heart disease) Code(s): I25.10 - ATHSCL HEART DISEASE OF [place] CORONARY ARTERY W/O ANG PCTRS (5) Atrial fibrillation Code(s): I48.91 - UNSPECIFIED ATRIAL FIBRILLATION Qualifiers: Atrial fibrillation type: chronic Qualified Code(s): I48.2 - Chronic atrial fibrillation (6) Decreased ambulation status Code(s): R68.89 - OTHER GENERAL SYMPTOMS AND SIGNS (7) Hypertension Code(s): I10 - ESSENTIAL (PRIMARY) HYPERTENSION Qualifiers: Hypertension type: essential hypertension Qualified Code(s): I10 - Essential (primary) hypertension (8) Meningioma Code(s): D32.9 - BENIGN NEOPLASM OF MENINGES, UNSPECIFIED Assessment/Plan CHECK ECHO FOR CARDIAC EF% AND STATUS IV LASIX CARDIO EVAL CONTINUE COUMADIN THERAPY R/O PNEUMONIA WITH PULM EVAL, MAY NEED CHEST CT OOB TO CHAIR PT EVAL RESTART DILANTIN CHECK LEVEL
--- NOTE | 2017-11-02 16:46 | PN ---
Progress Note (short form) - Note Progress Note: PULMONARY CONSULTATION DICTATED 11/02/17 IMP DYSPNEA ACUTE ON CHRONIC CHF ?LLL INFITRATE AFIB ELEVATED LACTATE LEVEL HTN PLAN IV LASIX O2 ABX INHALED BRONCHODILATORS TREND LACTATE F/U CHEST-RAY MONITOR INR BETA-BLOCKERS DR CAMACHO Problem List - Problems (1) CHF (congestive heart failure) Code(s): I50.9 - HEART FAILURE, UNSPECIFIED (2) PNA (pneumonia) Code(s): J18.9 - PNEUMONIA, UNSPECIFIED ORGANISM (3) SOB (shortness of breath) Code(s): R06.02 - SHORTNESS OF BREATH (4) ASHD (arteriosclerotic heart disease) Code(s): I25.10 - ATHSCL HEART DISEASE OF [place] CORONARY ARTERY W/O ANG PCTRS (5) Atrial fibrillation Code(s): I48.91 - UNSPECIFIED ATRIAL FIBRILLATION Qualifiers: Atrial fibrillation type: chronic Qualified Code(s): I48.2 - Chronic atrial fibrillation (6) Elevated INR Code(s): R79.1 - ABNORMAL COAGULATION PROFILE (7) Hypertension Code(s): I10 - ESSENTIAL (PRIMARY) HYPERTENSION Qualifiers: Hypertension type: essential hypertension Qualified Code(s): I10 - Essential (primary) hypertension
--- NOTE | 2017-11-02 17:27 | CONS ---
DATE OF CONSULTATION: 11/02/2017 PULMONARY CONSULTATION REFERRING PHYSICIAN: Araceli Dow M.D. HISTORY OF PRESENT ILLNESS: The patient is an 87-year-old black female known to me from previous hospitalization in the past with atrial fibrillation, hypertension, congestive heart failure, admitted to [facility] complaining of 2-day history of increasing shortness of breath, admitted with chest tightness and pain. Patient states she was doing well until yesterday morning when she woke up and felt short of breath. Her symptoms persisted for a few hours, and started to improve over the course of the day. She felt better last night, and again when she woke up this morning felt very short of breath, associated with minimal exertion as we as rest both chest tightness. She denies any fever, chills, nausea, vomiting, diaphoresis. She did complain of some nonproductive cough in the past couple of days. Denies any recent URI symptoms. She has a history of tobacco use, she quit years ago. There is no history of occupational exposure to chemicals or fumes. Of note, she was hospitalized a year ago secondary to CHF due to rapid atrial fibrillation. PAST MEDICAL HISTORY: Again includes hypertension, atrial fibrillation, CHF. REVIEW OF SYSTEMS: Positive shortness of breath. Positive nonproductive cough. No fever. No chills. Positive chest tightness. No nausea. No vomiting. No diaphoreses. No abdominal pain. No lower extremity edema. Positive orthopnea. MEDICATIONS: Medications prior to admission include vitamin D3, glucosamine chondroitin, MultiVites, Dilantin, hydralazine, Brovana, Lipitor, hydrochlorothiazide, and Coumadin. CURRENT MEDICATIONS: Include Brovana, Lopressor, Apresoline, Lipitor, Dilantin, Lasix, , hydrochlorothiazide. PHYSICAL EXAMINATION: GENERAL: The patient is an elderly black female, awake, alert, in no acute distress. VITAL SIGNS: She is currently afebrile. Blood pressure 131/82, respiratory rate 20, O2 saturation 98% on 2 L. HEENT: Normocephalic, atraumatic. NECK: Supple. HEART: Irregularly irregular S1, S2. CHEST: Bilateral crackles throughout. ABDOMEN: Soft, bowel sounds positive. EXTREMITIES: No cyanosis, edema. LABORATORY: WBC 7.9, hemoglobin 14.2, hematocrit 41.4, platelets 173,000, INR is 3.65. Venous blood gas 7.41, pCO2 of 46, pO2 of 54, bicarbonate of 28. BUN is 13, creatinine 0.6, initial lactase 2.3, followup is 2.5. BNP is 2164. Pulmonary vascular congestion bilaterally. Questionable left infiltrates. IMPRESSION: 1. Dyspnea, most likely secondary to acute on chronic congestive heart failure. 2. Atrial fibrillation. 3. Possible pneumonia, though patient without fever, chills, significant sputum production. 4. Hypertension. 5. Elevated lactate level. PLAN: Continue Lasix, supplemental O2, antibiotic therapy. Obtain followup chest x-ray. Trend lactate level. Cardiac enzymes. Inhaled bronchodilators. DEYSI CAMACHO M.D. [id number]
[2017-11-02 18:02] LABS: PROTHROMBIN TIME (PATIENT) 52.2 SEC (9.7-13.0)
[2017-11-02 18:08] LABS: INR 4.62 (0.83-1.09)
--- NOTE | 2017-11-02 20:42 | CON.CARD ---
Consult Consult Specialty:: Cardiology Referred by:: Dr. Dow Reason for Consultation:: CHF and chest pain - History of Present Illness Chief Complaint: SOB and chest pain History of Present Illness: 87 year old woman with a PMHx of hypertension, DM, HLD, chronic atrial fibrillation on warfarin, diastolic CHF, moderate to severe mitral regurgitation , CAD with mild anterior wall stress induced ischemia from nuclear stress test in June 2016, and seizure disorder presented to ED 11/02/2017 with worsening SOB over the past 2 days with associated intermittent chest pain. She states her shortness of breath is worse upon waking up in the morning and improves gradually throughout the day. She reports a non productive cough for the past couple of days. The patient denies palpitation, dizziness, syncope, fever, chills. CXR 11/02/2017 showed retrocardiac infiltrate. ECG revealed atrial fibrillation with mild VR at [address]-T abnormalities. Echocardiogram 10/22/2016: Normal LV size, wall motion and systolic function. Mild RV dilatation with normal systolic function. Mild LA and RA dilatation. Moderate to severe MR. Severe TR. Mild pulm HTN, RVSP = 40-50 mmHg. Minimal pericardial effusion. 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's Cardio/Vascular: Yes: AFIB, CAD, CHF, HTN, Hyperlipdemia, Mitral Insufficiency, Murmur Pulmonary: Yes: Pneumonia Psych: Yes: Addictions Musculoskeletal: Yes: Chronic low back pain, Osteoarthritis Rheumatology: Yes: Other - Alcohol/Substance Use Hx Alcohol Use: No - Smoking History Smoking history: Former smoker Have you smoked in the past 12 months: No - Social History Usual Living Arrangement: Alone (lives alone in 2 family house with 18 stairs to enter) ADL: Independent (Previously Independent in ADLs/ IADLs, has cane but does not use assistive device) History of Recent Travel: No Home Medications - Allergies Allergies/Adverse Reactions: Allergies Allergy/AdvReac Type Severity Reaction Status Date / Time levofloxacin [From Levaquin] Allergy Verified 11/02/17 11:47 lidocaine AdvReac Verified 11/02/17 11:48 - Home Medications Home Medications: Ambulatory Orders Cholecalciferol (Vitamin D3) [Vitamin D -] 0 unit PO DAILY 10/21/16 Glucosamine/MSM/Chondroitin A [Glucosamine Chondroit MSM Tab] 1 each PO DAILY Multivitamins [Multivit ([facility] Formulary)] 1 tab PO DAILY 10/21/16 Phenytoin Sodium Extended [Phenytek] 400 mg PO HS 10/21/16 hydrALAZINE HCL [Apresoline -] 50 mg PO BID 10/21/16 Arformoterol Tartrate [Brovana -] 1 amp NEB BID amp 10/25/16 Atorvastatin Ca [Lipitor] 10 mg PO HS tablet 10/25/16 Hydrochlorothiazide [Hctz -] 12.5 mg PO DAILY #30 cap 10/25/16 Latanoprost 0.005% Eye Drops [Xalatan 0.005% Eye Drops -] 1 drop OD HS drop 04/11 Warfarin Na [Coumadin -] 7 mg PO DAILY@1800 tablet 10/25/16 Review of Systems - Review of Systems Constitutional: reports: No Symptoms Eyes: reports: No Symptoms HENT: reports: No Symptoms Neck: reports: No Symptoms Cardiovascular: reports: Chest Pain, Edema, Shortness of Breath Respiratory: reports: SOB, SOB on Exertion Gastrointestinal: reports: No Symptoms Genitourinary: reports: No Symptoms Breasts: reports: No Symptoms Reported Musculoskeletal: reports: No Symptoms Integumentary: reports: No Symptoms Neurological: reports: Seizure Endocrine: reports: No Symptoms Hematology/Lymphatic: reports: No Symptoms - Risk Factors Known Risk Factors: Yes: Diabetes Mellitus, Hypercholesterolemia, Hypertension Vital Signs: Vital Signs Temperature 98.2 F 11/02/17 12:35 Pulse Rate 103 H 11/02/17 17:57 Respiratory Rate 21 11/02/17 17:57 Blood Pressure 151/93 11/02/17 17:57 O2 Sat by Pulse Oximetry (%) 99 11/02/17 17:57 General: Well developed. Obese. No acute distress. Head: Normocephalic. Atraumatic, Eyes: PERRLA, EOMI. Sclerae anicteric. Conjunctivae clear. Neck: Supple. (+) JVD. No bruits. Heart: Normal S1, S2: Irregularly irregular rhythm and rate. II/ HSM. No gallop or rub. Lungs: Symmetrical air entry. Bibasilar crackle. No wheezing or rhonchi. Abdomen: Soft. Bowel sound positive. Non tender. No masses. Extremities: 1+ edema. No clubbing or cyanosis. PD 2+, equal bilaterally. Neuro: Intact, no focal findings. AAO X3. - Other Data Labs, Other Data: CBC, BMP 11/02/17 09:30 11/02/17 10:15 INR, PTT INR 4.62 (0.83-1.09) H* 11/02/17 17:20 Troponin, BNP 11/02/17 11/02/17 11/02/17 09:30 10:15 17:20 Troponin I < 0.02 < 0.02 B-Natriuretic Peptide 2164.00 H Troponin, BNP 11/02/17 11/02/17 11/02/17 09:30 10:15 17:20 Troponin I < 0.02 < 0.02 B-Natriuretic Peptide 2164.00 H Assessment/Plan 87 year old woman with a PMHx of hypertension, DM, HLD, chronic atrial fibrillation on warfarin, diastolic CHF, moderate to severe mitral regurgitation , CAD with mild anterior wall stress induced ischemia from nuclear stress test in June 2016, and seizure disorder presented to ED 11/02/2017 with worsening SOB over the past 2 days with associated intermittent chest pain. She states her shortness of breath is worse upon waking up in the morning and improves gradually throughout the day. She reports a non productive cough for the past couple of days. The patient denies palpitation, dizziness, syncope, fever, chills. CXR 11/02/2017 showed retrocardiac infiltrate. ECG revealed atrial fibrillation with mild VR at [address]-T abnormalities. Echocardiogram 10/22/2016: Normal LV size, wall motion and systolic function. Mild RV dilatation with normal systolic function. Mild LA and RA dilatation. Moderate to severe MR. Severe TR. Mild pulm HTN, RVSP = 40-50 mmHg. Minimal pericardial effusion. 1) CHF: Acute on chronic diastolic CHF, moderate to severe MR contributes to her CHF exacerbation. -Start IV Lasix 40 mg BID to keep Os > Is. Monitor daily weight and Is & Os. Monitor renal function and electrolytes. Supplement potassium as needed. Repeat echo. admitted to tele. 2) Atrial fibrillation with mild VR. -Resume home dose metoprolol 100 mg BID. Monitor heart rate and BP adjust metoprolol for VR control. -Continue warfarin for stroke prevention to keep INR 2-3. 3) Chest pain: Reported chest pain with negative troponin. No ECG evidence of ischemia. But she had mild anterior wall stress induced ischemia from nuclear stress test in June 2016. -Start Imdur 30 mg daily. Conservative care for her chest pain.
[2017-11-02] MEDS: ARFORMOTEROL TARTRATE 15 MCG/2 ML VIAL NEB SCH (20:57)
[2017-11-02] MEDS: hydrALAZINE HCL 25 MG TABLET (FP) PO SCH (21:26)
[2017-11-02] MEDS: METOPROLOL TARTRATE 25 MG TABLET (FP) PO SCH (21:26)
[2017-11-02] MEDS: ATORVASTATIN CA 10 MG TABLET (FP) PO SCH (21:26)
[2017-11-02] MEDS ORDERED: cefTRIAXone SODIUM 1 GM VIAL ONE (22:18)
[2017-11-02] MEDS ORDERED: DEXTROSE 5%-WATER - 50 ML IVPB ONE (22:19)
[2017-11-02] MEDS: LATANOPROST 0.005% OPHTH SOLN 2.5ML BOTTLE OD SCH (22:31)
[2017-11-02] MEDS: CEFTRIAXONE 1 GM in DEXTROSE 5%-WATER - 50 ML IVPB SCH (22:32)
[2017-11-02] MEDS ORDERED: PT OWN MED DRAWER 7, Y5N ONE (22:56)
[2017-11-03] MEDS ORDERED: FUROSEMIDE 40 MG/4 ML INJECTABLE VIAL IVPUSH ONE (06:07)
[2017-11-03] MEDS ORDERED: FUROSEMIDE 40 MG/4 ML INJECTABLE VIAL ONE (06:08)
[2017-11-03 07:11] LABS: HEMATOCRIT 42.8 % (32.4-45.2); HEMOGLOBIN 14.2 GM/dL (10.7-15.3); MCH 30.6 pg (25.7-33.7); MCHC 33.2 g/dl (32.0-36.0); MEAN CELL VOLUME 92.1 fl (80-96); MEAN PLT VOLUME 8.6 fl (7.5-11.1); PLATELET COUNT 190 K/MM3 (134-434); RBC 4.65 M/mm3 (3.60-5.2); RDW 14.1 % (11.6-15.6); WHITE BLOOD COUNT 8.3 K/mm3 (4.0-10.0)
[2017-11-03 07:40] LABS: INR 3.04 (0.83-1.09); PROTHROMBIN TIME (PATIENT) 34.4 SEC (9.7-13.0)
[2017-11-03] MEDS: ARFORMOTEROL TARTRATE 15 MCG/2 ML VIAL NEB SCH ×2 (07:55→20:36)
[2017-11-03 07:56] LABS: CHLORIDE 105 mmol/L (98-107); POTASSIUM 3.7 mmol/L (3.5-5.1); SODIUM 143 mmol/L (136-145)
[2017-11-03 08:07] LABS: ALBUMIN 3.6 g/dl (3.4-5.0); ALK PHOS 145 U/L (45-117); ANION GAP 9 MMOL/L (8-16); BILIRUBIN,TOTAL 0.8 mg/dL (0.2-1.0); BLOOD UREA NITROGEN 17 mg/dL (7-18); CALCIUM 8.8 mg/dL (8.5-10.1); CHOLESTEROL 149 mg/dL (50-200); CO2 29 mmol/L (21-32); CREATININE 0.8 mg/dL (0.55-1.02); GLUCOSE,RANDOM 127 mg/dL (74-106); HDL CHOLESTEROL 55 mg/dL (40-60); SGOT/AST 48 U/L (15-37); SGPT/ALT 104 U/L (12-78); TOT PROT 7.2 g/dl (6.4-8.2); TRIGLYCERIDES 119 mg/dL (35-160)
[2017-11-03] MEDS ORDERED: AZITHROMYCIN 250 MG TABLET PO ONE (08:15)
[2017-11-03] MEDS ORDERED: cefTRIAXone SODIUM 1 GM VIAL ONE (09:04)
[2017-11-03] MEDS ORDERED: DEXTROSE 5%-WATER - 50 ML IVPB ONE (09:04)
[2017-11-03] MEDS: METOPROLOL TARTRATE 25 MG TABLET (FP) PO SCH (09:38)
[2017-11-03] MEDS: PHENYTOIN NA EXTENDED 100 MG CAPSULE (FP) PO SCH (09:38)
[2017-11-03] MEDS: hydrALAZINE HCL 25 MG TABLET (FP) PO SCH ×2 (09:38→21:05)
[2017-11-03] MEDS ORDERED: HYDROCHLOROTHIAZIDE 12.5 MG CAPSULE (FP) PO SCH (10:00)
[2017-11-03] MEDS ORDERED: FUROSEMIDE 40 MG/4 ML INJECTABLE VIAL IVPUSH SCH (10:00)
--- NOTE | 2017-11-03 10:19 | PN ---
Progress Note, Physician History of Present Illness: seen and examined today in nad. states she did not sleep well last night due to insomnia. states she had an allergic reaction to Levaquin yesterday. urinated a lot with lasix this am. sob improved today. - Current Medication List Current Medications: Active Medications Arformoterol Tartrate (Brovana (Restricted To Pulmonology/Resp) -) 1 amp NEB RBID [facility] Last Admin: 11/02/17 20:57 Dose: 1 amp Atorvastatin Calcium (Lipitor -) 10 mg PO HS [facility] Last Admin: 11/02/17 21:26 Dose: 10 mg Furosemide (Lasix Injection -) 40 mg IVPUSH DAILY [facility] Last Admin: 11/03/17 09:36 Dose: 40 mg Hydralazine HCl (Apresoline -) 50 mg PO BID [facility] Last Admin: 11/03/17 09:38 Dose: 50 mg Hydrochlorothiazide (Hctz -) 12.5 mg PO DAILY [facility] Last Admin: 11/03/17 09:37 Dose: 12.5 mg Ceftriaxone Sodium 1 gm/ (Dextrose) 50 mls @ 100 mls/hr IVPB DAILY [facility]; Protocol Last Admin: 11/02/17 22:32 Dose: Not Given Latanoprost (Xalatan 0.005% Eye Drops -) 1 drop OD HS [facility] Last Admin: 11/02/17 22:31 Dose: 1 drop Metoprolol Tartrate (Lopressor -) 25 mg PO BID [facility] Last Admin: 11/03/17 09:38 Dose: 25 mg Phenytoin Sodium (Dilantin -) 400 mg PO DAILY [facility] Last Admin: 11/03/17 09:38 Dose: 400 mg - Objective Vital Signs: Vital Signs Temperature 98.8 F 11/03/17 09:44 Pulse Rate 104 H 11/03/17 09:44 Respiratory Rate 18 11/03/17 09:44 Blood Pressure 144/87 11/03/17 09:44 O2 Sat by Pulse Oximetry (%) 99 11/03/17 09:44 Constitutional: Yes: No Distress, Calm Eyes: Yes: Conjunctiva Clear, EOM Intact HENT: Yes: Atraumatic, Normocephalic Neck: Yes: Supple, Trachea Midline Cardiovascular: Yes: Tachycardia, Pulse Irregular, S1, S2. No: Regular Rate and Rhythm, Bradycardia, Bruit, JVD, Gallop, Murmur, Rub, S3, S4, Varicosities Respiratory: Yes: Regular, On Nasal O2, Rales, Rhonchi. No: SOB, Wheezes Gastrointestinal: Yes: Normal Bowel Sounds, Soft. No: Distention, Tenderness Extremities: Yes: WNL Edema: No Peripheral Pulses WNL: Yes Neurological: Yes: Alert, Oriented Psychiatric: Yes: Alert, Oriented Labs: CBC, BMP 11/03/17 06:30 11/03/17 06:30 INR, PTT INR 3.04 (0.83-1.09) H 11/03/17 06:30 - ....Imaging Chest X-ray: Report Reviewed, Image Reviewed EKG: Report Reviewed, Image Reviewed Other: Report Reviewed, Image Reviewed (tele-Afib, HR above goal) Assessment/Plan 87 year old woman with a PMHx of hypertension, DM, HLD, chronic atrial fibrillation on warfarin, diastolic CHF, moderate to severe mitral regurgitation , CAD with mild anterior wall stress induced ischemia from nuclear stress test in June 2016, and seizure disorder presented to ED 11/02/2017 with worsening SOB over the past 2 days with associated intermittent chest pain. She states her shortness of breath is worse upon waking up in the morning and improves gradually throughout the day. She reports a non productive cough for the past couple of days. The patient denies palpitation, dizziness, syncope, fever, chills. CXR 11/02/2017 showed retrocardiac infiltrate. ECG revealed atrial fibrillation with mild VR at [address]-T abnormalities. Echocardiogram 10/22/2016: Normal LV size, wall motion and systolic function. Mild RV dilatation with normal systolic function. Mild LA and RA dilatation. Moderate to severe MR. Severe TR. Mild pulm HTN, RVSP = 40-50 mmHg. Minimal pericardial effusion. 1) CHF: Acute on chronic diastolic CHF, moderate to severe MR contributes to her CHF exacerbation. -Cont IV Lasix 40 mg BID to keep Os > Is. Can likely stop HCTZ with plan to cont furosemide Monitor daily weight and Is & Os. Monitor renal function and electrolytes. Supplement potassium as needed. Fup Repeat echo monitor tele. Also on Abx for PNA 2) Atrial fibrillation with mild VR. -Increase to home dose metoprolol 100 mg BID. Monitor heart rate and BP adjust metoprolol for VR control. -Dose warfarin for stroke prevention to keep INR 2-3. 3) Chest pain: Reported chest pain with negative troponin. No ECG evidence of ischemia. But she had mild anterior wall stress induced ischemia from nuclear stress test in June 2016. -Can Start Imdur 30 mg daily. -Conservative care for her chest pain.
--- NOTE | 2017-11-03 11:38 | PN ---
Progress Note, Physician History of Present Illness: pulmonary alert,feeling better,less dyspneic,+ dry cough - Current Medication List Current Medications: Active Medications Arformoterol Tartrate (Brovana (Restricted To Pulmonology/Resp) -) 1 amp NEB RBID [facility] Last Admin: 11/02/17 20:57 Dose: 1 amp Atorvastatin Calcium (Lipitor -) 10 mg PO HS [facility] Last Admin: 11/02/17 21:26 Dose: 10 mg Furosemide (Lasix Injection -) 40 mg IVPUSH DAILY [facility] Last Admin: 11/03/17 09:36 Dose: 40 mg Hydralazine HCl (Apresoline -) 50 mg PO BID [facility] Last Admin: 11/03/17 09:38 Dose: 50 mg Hydrochlorothiazide (Hctz -) 12.5 mg PO DAILY [facility] Last Admin: 11/03/17 09:37 Dose: 12.5 mg Ceftriaxone Sodium 1 gm/ (Dextrose) 50 mls @ 100 mls/hr IVPB DAILY [facility]; Protocol Last Admin: 11/02/17 22:32 Dose: Not Given Latanoprost (Xalatan 0.005% Eye Drops -) 1 drop OD [facility] Last Admin: 11/02/17 22:31 Dose: 1 drop Metoprolol Tartrate (Lopressor -) 100 mg PO BID [facility] Phenytoin Sodium (Dilantin -) 400 mg PO DAILY [facility] Last Admin: 11/03/17 09:38 Dose: 400 mg - Objective Vital Signs: Vital Signs Temperature 98.8 F 11/03/17 09:44 Pulse Rate 104 H 11/03/17 09:44 Respiratory Rate 18 11/03/17 09:44 Blood Pressure 144/87 11/03/17 09:44 O2 Sat by Pulse Oximetry (%) 99 11/03/17 09:44 Constitutional: Yes: Well Nourished, Calm Eyes: Yes: WNL HENT: Yes: WNL Neck: Yes: WNL Cardiovascular: Yes: Pulse Irregular, S1, S2 Respiratory: Yes: Rales (bilateral rales) Gastrointestinal: Yes: Normal Bowel Sounds, Soft Extremities: Yes: WNL Edema: No Labs: CBC, BMP 11/03/17 06:30 11/03/17 06:30 INR, PTT INR 3.04 (0.83-1.09) H 11/03/17 06:30 Problem List - Problems (1) CHF (congestive heart failure) Code(s): I50.9 - HEART FAILURE, UNSPECIFIED (2) PNA (pneumonia) Code(s): J18.9 - PNEUMONIA, UNSPECIFIED ORGANISM (3) SOB (shortness of breath) Code(s): R06.02 - SHORTNESS OF BREATH (4) ASHD (arteriosclerotic heart disease) Code(s): I25.10 - ATHSCL HEART DISEASE OF [place] CORONARY ARTERY W/O [place] PCTRS (5) Atrial fibrillation Code(s): I48.91 - UNSPECIFIED ATRIAL FIBRILLATION Qualifiers: Atrial fibrillation type: chronic Qualified Code(s): I48.2 - Chronic atrial fibrillation (6) Elevated INR Code(s): R79.1 - ABNORMAL COAGULATION PROFILE (7) Hypertension Code(s): I10 - ESSENTIAL (PRIMARY) HYPERTENSION Qualifiers: Hypertension type: essential hypertension Qualified Code(s): I10 - Essential (primary) hypertension Assessment/Plan IMP DYSPNEA IMPROVING ACUTE ON CHRONIC CHF ?LLL INFITRATE AFIB ELEVATED LACTATE LEVEL HTN PLAN IV LASIX O2 ABX INHALED BRONCHODILATORS TREND LACTATE F/U CHEST-RAY MONITOR INR BETA-BLOCKERS DR CAMACHO Problem List - Problems (1) CHF (congestive heart failure) Code(s): I50.9 - HEART FAILURE, UNSPECIFIED (2) PNA (pneumonia) Code(s): J18.9 - PNEUMONIA, UNSPECIFIED ORGANISM (3) SOB (shortness of breath) Code(s): R06.02 - SHORTNESS OF BREATH (4) ASHD (arteriosclerotic heart disease) Code(s): I25.10 - ATHSCL HEART DISEASE OF [place] CORONARY ARTERY W/O ANG PCTRS (5) Atrial fibrillation Code(s): I48.91 - UNSPECIFIED ATRIAL FIBRILLATION Qualifiers: Atrial fibrillation type: chronic Qualified Code(s): I48.2 - Chronic atrial fibrillation (6) Elevated INR Code(s): R79.1 - ABNORMAL COAGULATION PROFILE (7) Hypertension Code(s): I10 - ESSENTIAL (PRIMARY) HYPERTENSION Qualifiers: Hypertension type: essential hypertension Qualified Code(s): I10 - Essential (primary) hypertension
--- NOTE | 2017-11-03 11:51 | PN ---
Progress Note, Physician Chief Complaint: patient seen and examined admitted with SOB and wheezing earlier in morning she got SOB got extra dose of 40mg iv lasix refused iv rocephin got zithromax now she is ok with taking rocephin - Current Medication List Current Medications: Active Medications Arformoterol Tartrate (Brovana (Restricted To Pulmonology/Resp) -) 1 amp NEB RBID [facility] [place] Last Admin: 11/02/17 20:57 Dose: 1 amp Atorvastatin Calcium (Lipitor -) 10 mg PO HS [facility] [place] Last Admin: 11/02/17 21:26 Dose: 10 mg Furosemide (Lasix Injection -) 40 mg IVPUSH DAILY [facility] [place] Last Admin: 11/03/17 09:36 Dose: 40 mg Hydralazine HCl (Apresoline -) 50 mg PO BID [facility] [place] Last Admin: 11/03/17 09:38 Dose: 50 mg Hydrochlorothiazide (Hctz -) 12.5 mg PO DAILY [facility] [place] Last Admin: 11/03/17 09:37 Dose: 12.5 mg Ceftriaxone Sodium 1 gm/ (Dextrose) 50 mls @ 100 mls/hr IVPB DAILY [facility] [place]; Protocol Last Admin: 11/02/17 22:32 Dose: Not Given Latanoprost (Xalatan 0.005% Eye Drops -) 1 drop OD HS [facility] [place] Last Admin: 11/02/17 22:31 Dose: 1 drop Metoprolol Tartrate (Lopressor -) 100 mg PO BID [facility] [place] Phenytoin Sodium (Dilantin -) 400 mg PO DAILY [facility] [place] Last Admin: 11/03/17 09:38 Dose: 400 mg - Objective Vital Signs: Vital Signs Temperature 98.8 F 11/03/17 09:44 Pulse Rate 104 H 11/03/17 09:44 Respiratory Rate 18 11/03/17 09:44 Blood Pressure 144/87 11/03/17 09:44 O2 Sat by Pulse Oximetry (%) 99 11/03/17 09:44 Constitutional: Yes: Calm Cardiovascular: Yes: Pulse Irregular, S1, S2 Respiratory: Yes: Rales (bilateral) Gastrointestinal: Yes: Normal Bowel Sounds, Soft Edema: No Neurological: Yes: Alert, Oriented Labs: CBC, BMP 11/03/17 06:30 11/03/17 06:30 INR, PTT INR 3.04 (0.83-1.09) H 09/11/18 06:30 Problem List - Problems (1) CHF (congestive heart failure) Assessment/Plan: iv lasix 40mg bid stop HCTZ echo cardiology on board Code(s): I50.9 - HEART FAILURE, UNSPECIFIED (2) PNA (pneumonia) Assessment/Plan: iv rocpehin repeat cxr Code(s): J18.9 - PNEUMONIA, UNSPECIFIED ORGANISM (3) Atrial fibrillation Assessment/Plan: metoprolol surpatherapeutic INR coumadin on hold since admission today INR 3.04 will give coumadin starting tmw Code(s): I48.91 - UNSPECIFIED ATRIAL FIBRILLATION Qualifiers: Atrial fibrillation type: chronic Qualified Code(s): I48.2 - Chronic atrial fibrillation
[2017-11-03] MEDS: CEFTRIAXONE 1 GM in DEXTROSE 5%-WATER - 50 ML IVPB SCH (12:10)
[2017-11-03] MEDS: FUROSEMIDE 40 MG/4 ML INJECTABLE VIAL IVPUSH SCH (15:44)
--- NOTE | 2017-11-03 16:36 | ECHO ---
Name: RANJAN COOK Exam:Adult Echocardiogram Study Date: 11/03/2017 10:06 AM Age: 87 yrs Reason For Study: BRADYCARDIA Height: 61 in Weight: 150 lb BSA: 1.7 m2 MMode/2D Measurements & Calculations IVSd: 0.95 cm Ao root diam: 2.8 cm LVIDd: 3.7 cm LA dimension: 3.7 cm LVIDs: 2.7 cm LVPWd: 0.89 cm EDV(Teich): 59.5 ml TAPSE: 1.6 cm ESV(Teich): 26.5 ml RV S Gio: 18.1 cm/sec Doppler Measurements & Calculations MV E max gio: 90.8 cm/sec Ao V2 max: 112.1 cm/sec MV A max gio: 25.2 cm/sec Ao max P.0 mmHg MV E/A: 3.6 MV dec time: 0.16 sec LV V1 max P.4 mmHg MR max gio: 547.6 cm/sec LV V1 max: 58.2 cm/sec MR max P.2 mmHg TR max gio: 288.9 cm/sec Med Peak E' Gio: 6.1 cm/sec TR max P.5 mmHg Med E/e': 14.8 Lat Peak E' Gio: 9.2 cm/sec Lat E/e': 9.9 Left Ventricle The left ventricle is normal in size. The left ventricle is hyperdynamic. Ejection Fraction = >70%. T he transmitral spectral Doppler flow pattern is suggestive of impaired LV relaxation. Right Ventricle The right ventricle is mildly dilated. The right ventricular systolic function is normal. Atria The left atrium is mildly dilated. The right atrium is mildly dilated. Mitral Valve There is moderate to severe mitral valve thickening. There is moderate mitral annular calcification. There is moderate to severe mitral regurgitation. Tricuspid Valve The tricuspid valve is not well visualized, but is grossly normal. There is severe tricuspid regurgit ation. Mild to moderate pulmonary hypertension. PASP = 47 mmHg, estimated RAP = 10 mmHg. Aortic Valve There is moderate aortic sclerosis.;. No hemodynamically significant valvular aortic stenosis. Interpretation Summary The left ventricle is normal in size. The left ventricle is hyperdynamic. Ejection Fraction = >70%. The right ventricle is mildly dilated. The right ventricular systolic function is normal. The left atrium is mildly dilated. The right atrium is mildly dilated. There is moderate to severe mitral valve thickening. There is moderate to severe mitral regurgitation . There is severe tricuspid regurgitation. Mild to moderate pulmonary hypertension. PASP = 47 mmHg, estimated RAP = 10 mmHg. The transmitral spectral Doppler flow pattern is suggestive of impaired LV relaxation. MD Janice Vieira 11/03/2017 04:35 PM
[2017-11-03] MEDS ORDERED: ACETAMINOPHEN 325 MG TABLET (FP) PO ONE (20:15)
[2017-11-03] MEDS ORDERED: PT OWN MED DRAWER 7, Y5N ONE (20:30)
[2017-11-03] MEDS: ATORVASTATIN CA 10 MG TABLET (FP) PO SCH (21:04)
[2017-11-03] MEDS: METOPROLOL TARTRATE 50 MG TABLET (FP) PO SCH (21:04)
[2017-11-03] MEDS: LATANOPROST 0.005% OPHTH SOLN 2.5ML BOTTLE OD SCH (21:05)
[2017-11-04] MEDS: FUROSEMIDE 40 MG/4 ML INJECTABLE VIAL IVPUSH SCH ×2 (06:48→16:30)
[2017-11-04 06:52] LABS: INR 1.81 (0.83-1.09); PROTHROMBIN TIME (PATIENT) 20.4 SEC (9.7-13.0)
[2017-11-04 06:58] LABS: ALBUMIN 2.9 g/dl (3.4-5.0); ANION GAP 6 MMOL/L (8-16); BILIRUBIN,TOTAL 0.5 mg/dL (0.2-1.0); BLOOD UREA NITROGEN 17 mg/dL (7-18); CALCIUM 8.1 mg/dL (8.5-10.1); CHLORIDE 105 mmol/L (98-107); CO2 33 mmol/L (21-32); CREATININE 0.8 mg/dL (0.55-1.02); GLUCOSE,RANDOM 102 mg/dL (74-106); POTASSIUM 3.1 mmol/L (3.5-5.1); SGOT/AST 29 U/L (15-37); SGPT/ALT 70 U/L (12-78); SODIUM 144 mmol/L (136-145); TOT PROT 5.9 g/dl (6.4-8.2)
[2017-11-04 06:59] LABS: ALK PHOS 118 U/L (45-117)
[2017-11-04] MEDS: ARFORMOTEROL TARTRATE 15 MCG/2 ML VIAL NEB SCH ×2 (07:50→20:35)
[2017-11-04] MEDS ORDERED: POTASSIUM CHLORIDE TABS 10 MEQ TABLET.ER (FP) PO ONE (09:40)
[2017-11-04] MEDS ORDERED: KCL 10 MEQ IVPB 10 MEQ/100 ML INFUS.BAG IVPB SCH (09:45)
--- NOTE | 2017-11-04 09:50 | PN ---
Progress Note, Physician Chief Complaint: AWAKE ALERT FEELING BETTER DENIES CHEST PAIN ADMITTS TO EATING FOODS HIGH IN SODIUM OVER LAST MONTH - Current Medication List Current Medications: Active Medications Arformoterol Tartrate (Brovana (Restricted To Pulmonology/Resp) -) 1 amp NEB RBID [facility] Last Admin: 11/03/17 20:36 Dose: 1 amp Atorvastatin Calcium (Lipitor -) 10 mg PO HS [facility] Last Admin: 11/03/17 21:04 Dose: 10 mg Furosemide (Lasix Injection -) 40 mg IVPUSH BID@0600,1400 [facility] Last Admin: 11/04/17 06:48 Dose: 40 mg Hydralazine HCl (Apresoline -) 50 mg PO BID [facility] Last Admin: 11/03/17 21:05 Dose: 50 mg Ceftriaxone Sodium 1 gm/ (Dextrose) 50 mls @ 100 mls/hr IVPB DAILY [facility]; Protocol Last Admin: 11/03/17 12:10 Dose: 100 mls/hr Potassium Chloride (Potassium Chloride 10 Meq Premix Ivpb -) 10 meq in 100 mls @ 100 mls/hr IVPB Q60M [facility] Stop: 11/04/17 10:44 Latanoprost (Xalatan 0.005% Eye Drops -) 1 drop OD [facility] Last Admin: 11/03/17 21:05 Dose: 1 drop Metoprolol Tartrate (Lopressor -) 100 mg PO BID [facility] Last Admin: 11/03/17 21:04 Dose: 100 mg Phenytoin Sodium (Dilantin -) 400 mg PO DAILY [facility] Last Admin: 11/03/17 09:38 Dose: 400 mg Potassium Chloride (K-Dur -) 40 meq PO ONCE ONE Stop: 11/04/17 09:41 Warfarin Sodium (Coumadin -) 7 mg PO DAILY@1800 [facility] - Objective Vital Signs: Vital Signs Temperature 98.0 F 11/04/17 06:00 Pulse Rate 89 11/04/17 06:00 Respiratory Rate 19 11/04/17 06:00 Blood Pressure 155/81 11/04/17 06:00 O2 Sat by Pulse Oximetry (%) 96 11/03/17 21:00 Constitutional: Yes: No Distress Eyes: Yes: WNL HENT: Yes: WNL Neck: Yes: WNL Cardiovascular: Yes: Pulse Irregular Respiratory: Yes: WNL Gastrointestinal: Yes: WNL Genitourinary: Yes: WNL Musculoskeletal: Yes: Muscle Weakness Extremities: Yes: WNL Edema: No Peripheral Pulses WNL: Yes Integumentary: Yes: WNL Wound/Incision: Yes: Clean/Dry Neurological: Yes: Pre-Existing Deficit ...Motor Strength: LLE, RLE Psychiatric: Yes: WNL Labs: CBC, BMP 11/03/17 06:30 11/04/17 06:00 INR, PTT INR 1.81 (0.83-1.09) H 11/04/17 06:00 Problem List - Problems (1) CHF (congestive heart failure) Code(s): I50.9 - HEART FAILURE, UNSPECIFIED (2) PNA (pneumonia) Code(s): J18.9 - PNEUMONIA, UNSPECIFIED ORGANISM (3) SOB (shortness of breath) Code(s): R06.02 - SHORTNESS OF BREATH (4) ASHD (arteriosclerotic heart disease) Code(s): I25.10 - ATHSCL HEART DISEASE OF [place] CORONARY ARTERY W/O ANG PCTRS (5) Atrial fibrillation Code(s): I48.91 - UNSPECIFIED ATRIAL FIBRILLATION Qualifiers: Atrial fibrillation type: chronic Qualified Code(s): I48.2 - Chronic atrial fibrillation (6) Decreased ambulation status Code(s): R68.89 - OTHER GENERAL SYMPTOMS AND SIGNS (7) Hypertension Code(s): I10 - ESSENTIAL (PRIMARY) HYPERTENSION Qualifiers: Hypertension type: essential hypertension Qualified Code(s): I10 - Essential (primary) hypertension (8) Meningioma Code(s): D32.9 - BENIGN NEOPLASM OF MENINGES, UNSPECIFIED Assessment/Plan ECHO FOR CARDIAC EF 70 % WITH SEVERE MITRAL REGURGE IV LASIX CONTINUED REPLETE KCL CHECK MAGNESIUM IV CEFTRIAONE/AZITHROMYCIN POO FOR UNDERLYING PNA CARDIO EVAL APPRECIATED CONTINUE COUMADIN THERAPY R/O PNEUMONIA WITH PULM EVAL, MAY NEED CHEST CT OOB TO CHAIR PT EVAL RESTART DILANTIN CHECK LEVEL
[2017-11-04] MEDS ORDERED: DEXTROSE 5%-WATER - 50 ML IVPB ONE (11:02)
[2017-11-04] MEDS ORDERED: cefTRIAXone SODIUM 1 GM VIAL ONE (11:02)
[2017-11-04 11:24] LABS: MAGNESIUM 2.2 mg/dL (1.8-2.4)
[2017-11-04] MEDS: hydrALAZINE HCL 25 MG TABLET (FP) PO SCH ×2 (11:24→21:44)
[2017-11-04] MEDS: PHENYTOIN NA EXTENDED 100 MG CAPSULE (FP) PO SCH (11:27)
[2017-11-04] MEDS: METOPROLOL TARTRATE 50 MG TABLET (FP) PO SCH ×2 (11:30→21:44)
[2017-11-04] MEDS: CEFTRIAXONE 1 GM in DEXTROSE 5%-WATER - 50 ML IVPB SCH (11:31)
[2017-11-04] MEDS: MULTIVITAMINS (DAILY MVI) TABLET (FP) PO SCH (11:32)
[2017-11-04] MEDS: AZITHROMYCIN 250 MG TABLET PO SCH (11:33)
--- NOTE | 2017-11-04 13:39 | PN ---
Progress Note, Physician History of Present Illness: pulmonary alert,feeling bettet,less dyspneic - Current Medication List Current Medications: Active Medications Amino Acids (Prosource No Carb Liquid Pkt) 30 ml PO BID@0800,1730 [facility] Arformoterol Tartrate (Brovana (Restricted To Pulmonology/Resp) -) 1 amp NEB RBID [facility] Last Admin: 11/04/17 07:50 Dose: 1 amp Atorvastatin Calcium (Lipitor -) 10 mg PO HS [facility] Last Admin: 11/03/17 21:04 Dose: 10 mg Azithromycin (Zithromax -) 250 mg PO DAILY [facility] Last Admin: 11/04/17 11:33 Dose: 250 mg Furosemide (Lasix Injection -) 40 mg IVPUSH BID@0600,1400 [facility] Last Admin: 11/04/17 06:48 Dose: 40 mg Hydralazine HCl (Apresoline -) 50 mg PO BID [facility] Last Admin: 11/04/17 11:24 Dose: 50 mg Ceftriaxone Sodium 1 gm/ (Dextrose) 50 mls @ 100 mls/hr IVPB DAILY [facility]; Protocol Last Admin: 11/04/17 11:31 Dose: 100 mls/hr Latanoprost (Xalatan 0.005% Eye Drops -) 1 drop OD HS [facility] Last Admin: 11/03/17 21:05 Dose: 1 drop Metoprolol Tartrate (Lopressor -) 100 mg PO BID [facility] Last Admin: 11/04/17 11:30 Dose: 100 mg Multivitamins/Minerals/Vitamin C (Tab-A-Vit -) 1 tab PO DAILY [facility] Last Admin: 11/04/17 11:32 Dose: 1 tab Phenytoin Sodium (Dilantin -) 400 mg PO DAILY [facility] Last Admin: 11/04/17 11:27 Dose: 400 mg Warfarin Sodium 5 mg/ Warfarin (Sodium 2 mg) 7 mg PO DAILY@1800 [facility] - Objective Vital Signs: Vital Signs Temperature 98 F 11/04/17 10:20 Pulse Rate 111 H 11/04/17 10:20 Respiratory Rate 20 11/04/17 10:20 Blood Pressure 140/74 11/04/17 10:20 O2 Sat by Pulse Oximetry (%) 96 11/04/17 10:00 Constitutional: Yes: Well Nourished, Calm Eyes: Yes: WNL HENT: Yes: WNL Neck: Yes: WNL Cardiovascular: Yes: Pulse Irregular, S1, S2 Respiratory: Yes: Rales (bilateral rales) Gastrointestinal: Yes: Normal Bowel Sounds, Soft Extremities: Yes: WNL Edema: No Labs: 11/04/17 06:00 INR, PTT INR 1.81 (0.83-1.09) H 11/04/17 06:00 - ....Imaging Chest X-ray: Report Reviewed, Image Reviewed Problem List - Problems (1) CHF (congestive heart failure) Code(s): I50.9 - HEART FAILURE, UNSPECIFIED (2) PNA (pneumonia) Code(s): J18.9 - PNEUMONIA, UNSPECIFIED ORGANISM (3) SOB (shortness of breath) Code(s): R06.02 - SHORTNESS OF BREATH (4) ASHD (arteriosclerotic heart disease) Code(s): I25.10 - ATHSCL HEART DISEASE OF [place] CORONARY ARTERY W/O ANG PCTRS (5) Atrial fibrillation Code(s): I48.91 - UNSPECIFIED ATRIAL FIBRILLATION Qualifiers: Atrial fibrillation type: chronic Qualified Code(s): I48.2 - Chronic atrial fibrillation (6) Elevated INR Code(s): R79.1 - ABNORMAL COAGULATION PROFILE (7) Hypertension Code(s): I10 - ESSENTIAL (PRIMARY) HYPERTENSION Qualifiers: Hypertension type: essential hypertension Qualified Code(s): I10 - Essential (primary) hypertension Assessment/Plan IMP DYSPNEA IMPROVING ACUTE ON CHRONIC CHF ?LLL INFITRATE AFIB ELEVATED LACTATE LEVEL HTN PULMONARY HTN PLAN IV LASIX DAILY WT O2 ABX INHALED BRONCHODILATORS TREND LACTATE F/U CHEST-RAY MONITOR INR BETA-BLOCKERS RILEY CAMACHO Problem List - Problems (1) CHF (congestive heart failure) Code(s): I50.9 - HEART FAILURE, UNSPECIFIED (2) PNA (pneumonia) Code(s): J18.9 - PNEUMONIA, UNSPECIFIED ORGANISM (3) SOB (shortness of breath) Code(s): R06.02 - SHORTNESS OF BREATH (4) ASHD (arteriosclerotic heart disease) Code(s): I25.10 - ATHSCL HEART DISEASE OF [place] CORONARY ARTERY W/O ANG PCTRS (5) Atrial fibrillation Code(s): I48.91 - UNSPECIFIED ATRIAL FIBRILLATION Qualifiers: Atrial fibrillation type: chronic Qualified Code(s): I48.2 - Chronic atrial fibrillation (6) Elevated INR Code(s): R79.1 - ABNORMAL COAGULATION PROFILE (7) Hypertension Code(s): I10 - ESSENTIAL (PRIMARY) HYPERTENSION Qualifiers: Hypertension type: essential hypertension Qualified Code(s): I10 - Essential (primary) hypertension
[2017-11-04] MEDS ORDERED: POTASSIUM CHLORIDE TABS 20 MEQ TABLET.ER (FP) PO ONE (16:15)
--- NOTE | 2017-11-04 17:10 | PN ---
Progress Note, Physician History of Present Illness: seen and examined today in nad. states she is feeling better. sob is improving - Current Medication List Current Medications: Active Medications Amino Acids (Prosource No Carb Liquid Pkt) 30 ml PO BID@0800,1730 [facility] Arformoterol Tartrate (Brovana (Restricted To Pulmonology/Resp) -) 1 amp NEB RBID [facility] Last Admin: 11/04/17 07:50 Dose: 1 amp Atorvastatin Calcium (Lipitor -) 10 mg PO HS [facility] Last Admin: 11/03/17 21:04 Dose: 10 mg Azithromycin (Zithromax -) 250 mg PO DAILY [facility] Last Admin: 11/04/17 11:33 Dose: 250 mg Furosemide (Lasix Injection -) 40 mg IVPUSH BID@0600,1400 [facility] Last Admin: 11/04/17 16:30 Dose: 40 mg Hydralazine HCl (Apresoline -) 50 mg PO BID [facility] Last Admin: 11/04/17 11:24 Dose: 50 mg Ceftriaxone Sodium 1 gm/ (Dextrose) 50 mls @ 100 mls/hr IVPB DAILY [facility]; Protocol Last Admin: 11/04/17 11:31 Dose: 100 mls/hr Latanoprost (Xalatan 0.005% Eye Drops -) 1 drop OD HS [facility] Last Admin: 11/03/17 21:05 Dose: 1 drop Metoprolol Tartrate (Lopressor -) 100 mg PO BID [facility] Last Admin: 11/04/17 11:30 Dose: 100 mg Multivitamins/Minerals/Vitamin C (Tab-A-Vit -) 1 tab PO DAILY [facility] Last Admin: 11/04/17 11:32 Dose: 1 tab Phenytoin Sodium (Dilantin -) 400 mg PO DAILY [facility] Last Admin: 11/04/17 11:27 Dose: 400 mg Warfarin Sodium 5 mg/ Warfarin (Sodium 2 mg) 7 mg PO DAILY@1800 [facility] - Objective Vital Signs: Vital Signs Temperature 97.7 F 11/04/17 14:32 Pulse Rate 90 11/04/17 14:32 Respiratory Rate 18 11/04/17 14:32 Blood Pressure 110/65 11/04/17 14:32 O2 Sat by Pulse Oximetry (%) 96 11/04/17 10:00 Constitutional: Yes: No Distress, Calm Eyes: Yes: Conjunctiva Clear, EOM Intact, PERRL HENT: Yes: Atraumatic, Normocephalic Neck: Yes: Supple, Trachea Midline Cardiovascular: Yes: Pulse Irregular, Murmur, S1, S2. No: Regular Rate and Rhythm, Bradycardia, Tachycardia, Bruit, JVD, Gallop, Rub, S3, S4, Varicosities Respiratory: Yes: Regular, On Nasal O2, Rhonchi. No: Rales, SOB, Wheezes Gastrointestinal: Yes: Normal Bowel Sounds, Soft. No: Distention, Tenderness Edema: No Peripheral Pulses WNL: Yes Peripheral Pulses: Left Doralis Pedis: 2+, Right Dorsalis Pedis: 2+ Neurological: Yes: Alert, Oriented Psychiatric: Yes: Alert, Oriented Labs: CBC, BMP 11/03/17 06:30 11/04/17 06:00 INR, PTT INR 1.81 (0.83-1.09) H 11/04/17 06:00 - ....Imaging Chest X-ray: Report Reviewed, Image Reviewed EKG: Report Reviewed, Image Reviewed Other: Report Reviewed, Image Reviewed (tele-AF, HR adequately controlled at times above goal) Assessment/Plan 87 year old woman with a PMHx of hypertension, DM, HLD, chronic atrial fibrillation on warfarin, diastolic CHF, moderate to severe mitral regurgitation , CAD with mild anterior wall stress induced ischemia from nuclear stress test in June 2016, and seizure disorder presented to ED 11/02/2017 with worsening SOB over the past 2 days with associated intermittent chest pain. She states her shortness of breath is worse upon waking up in the morning and improves gradually throughout the day. She reports a non productive cough for the past couple of days. The patient denies palpitation, dizziness, syncope, fever, chills. CXR 11/02/2017 showed retrocardiac infiltrate. ECG revealed atrial fibrillation with mild VR at [address]-T abnormalities. Echocardiogram 10/22/2016: Normal LV size, wall motion and systolic function. Mild RV dilatation with normal systolic function. Mild LA and RA dilatation. Moderate to severe MR. Severe TR. Mild pulm HTN, RVSP = 40-50 mmHg. Minimal pericardial effusion. 1) CHF: Acute on chronic diastolic CHF, moderate to severe MR contributes to her CHF exacerbation. -Cont IV Lasix 40 mg BID to keep Os > Is. Monitor daily weight and Is & Os. Monitor renal function and electrolytes. Supplement potassium as needed. ECHO showed normal LV systolic function, mod to sev MR, mod to sev TR monitor tele. Also on Abx for PNA 2) Atrial fibrillation with mild VR. -HR trend improving -cont metoprolol 100 mg BID. -monitor tele -Dose warfarin for stroke prevention to keep INR 2-3. 3) Chest pain: Reported chest pain with negative troponin. No ECG evidence of ischemia. But she had mild anterior wall stress induced ischemia from nuclear stress test in June 2016. -Can Start Imdur 30 mg daily. -Conservative care for her chest pain.
[2017-11-04] MEDS ORDERED: WARFARIN NA 2 MG TABLET (UD) ONE (17:52)
[2017-11-04] MEDS ORDERED: WARFARIN NA 5 MG TABLET (UD) ONE (17:52)
[2017-11-04] MEDS ORDERED: WARFARIN NA 7.5 MG TABLET (FP) PO SCH (18:00)
[2017-11-04] MEDS: WARFARIN NA 5 MG, WARFARIN NA 2 MG PO SCH (18:04)
[2017-11-04] MEDS: AMINO ACIDS/PROTEIN HYDROLYS 30 ML LIQUID.PKT PO SCH ×2 (18:04→18:11)
[2017-11-04] MEDS ORDERED: PT OWN MED DRAWER 7, Y5N ONE (21:29)
[2017-11-04] MEDS: LATANOPROST 0.005% OPHTH SOLN 2.5ML BOTTLE OD SCH (21:44)
[2017-11-04] MEDS: ATORVASTATIN CA 10 MG TABLET (FP) PO SCH (21:44)
[2017-11-05 06:32] LABS: HEMATOCRIT 38.2 % (32.4-45.2); HEMOGLOBIN 12.7 GM/dL (10.7-15.3); MCH 30.9 pg (25.7-33.7); MCHC 33.3 g/dl (32.0-36.0); MEAN CELL VOLUME 92.7 fl (80-96); MEAN PLT VOLUME 8.8 fl (7.5-11.1); PLATELET COUNT 179 K/MM3 (134-434); RBC 4.12 M/mm3 (3.60-5.2); RDW 14.2 % (11.6-15.6); WHITE BLOOD COUNT 6.5 K/mm3 (4.0-10.0)
[2017-11-05] MEDS: FUROSEMIDE 40 MG/4 ML INJECTABLE VIAL IVPUSH SCH ×2 (06:46→14:08)
[2017-11-05 06:50] LABS: INR 1.28 (0.83-1.09); PROTHROMBIN TIME (PATIENT) 14.5 SEC (9.7-13.0)
[2017-11-05 07:06] LABS: CHLORIDE 107 mmol/L (98-107); POTASSIUM 3.8 mmol/L (3.5-5.1); SODIUM 144 mmol/L (136-145)
[2017-11-05 07:18] LABS: ALK PHOS 114 U/L (45-117); ANION GAP 5 MMOL/L (8-16); BILIRUBIN,TOTAL 0.5 mg/dL (0.2-1.0); BLOOD UREA NITROGEN 20 mg/dL (7-18); CALCIUM 8.3 mg/dL (8.5-10.1); CO2 32 mmol/L (21-32); CREATININE 0.7 mg/dL (0.55-1.02); GLUCOSE,RANDOM 105 mg/dL (74-106); MAGNESIUM 2.2 mg/dL (1.8-2.4); SGOT/AST 20 U/L (15-37); SGPT/ALT 57 U/L (13-61)
[2017-11-05] MEDS: ARFORMOTEROL TARTRATE 15 MCG/2 ML VIAL NEB SCH ×2 (07:30→20:47)
--- NOTE | 2017-11-05 08:27 | PN ---
Progress Note, Physician Chief Complaint: awake alert sitting up eating breakfast feeling better - Current Medication List Current Medications: Active Medications Amino Acids (Prosource No Carb Liquid Pkt) 30 ml PO BID@0800,1730 [facility] Last Admin: 11/04/17 18:11 Dose: Not Given Arformoterol Tartrate (Brovana (Restricted To Pulmonology/Resp) -) 1 amp NEB RBID [facility] Last Admin: 11/05/17 07:30 Dose: 1 amp Atorvastatin Calcium (Lipitor -) 10 mg PO HS [facility] Last Admin: 11/04/17 21:44 Dose: 10 mg Azithromycin (Zithromax -) 250 mg PO DAILY [facility] Last Admin: 11/04/17 11:33 Dose: 250 mg Furosemide (Lasix Injection -) 40 mg IVPUSH BID@0600,1400 [facility] Last Admin: 11/05/17 06:46 Dose: 40 mg Hydralazine HCl (Apresoline -) 50 mg PO BID [facility] Last Admin: 11/04/17 21:44 Dose: 50 mg Ceftriaxone Sodium 1 gm/ (Dextrose) 50 mls @ 100 mls/hr IVPB DAILY [facility]; Protocol Last Admin: 11/04/17 11:31 Dose: 100 mls/hr Latanoprost (Xalatan 0.005% Eye Drops -) 1 drop OD HS [facility] Last Admin: 11/04/17 21:44 Dose: 1 drop Metoprolol Tartrate (Lopressor -) 100 mg PO BID [facility] Last Admin: 11/04/17 21:44 Dose: 100 mg Multivitamins/Minerals/Vitamin C (Tab-A-Vit -) 1 tab PO DAILY [facility] Last Admin: 11/04/17 11:32 Dose: 1 tab Phenytoin Sodium (Dilantin -) 400 mg PO DAILY [facility] Last Admin: 11/04/17 11:27 Dose: 400 mg Warfarin Sodium 5 mg/ Warfarin (Sodium 2 mg) 7 mg PO DAILY@1800 [facility] Last Admin: 11/04/17 18:04 Dose: 7 mg - Objective Vital Signs: Vital Signs Temperature 97.7 F 11/05/17 05:51 Pulse Rate 93 H 11/05/17 05:51 Respiratory Rate 20 11/05/17 05:51 Blood Pressure 131/79 11/05/17 05:51 O2 Sat by Pulse Oximetry (%) 99 11/04/17 21:00 Constitutional: Yes: Mild Distress Eyes: Yes: WNL HENT: Yes: WNL Neck: Yes: WNL Cardiovascular: Yes: Pulse Irregular Respiratory: Yes: On Nasal O2, Rales, Other Gastrointestinal: Yes: WNL Genitourinary: Yes: WNL Musculoskeletal: Yes: Muscle Weakness Extremities: Yes: WNL Edema: No Peripheral Pulses WNL: Yes Integumentary: Yes: WNL Wound/Incision: Yes: Clean/Dry Neurological: Yes: WNL ...Motor Strength: WNL Psychiatric: Yes: WNL Labs: CBC, BMP 11/05/17 06:00 11/05/17 06:00 INR, PTT INR 1.28 (0.83-1.09) H 11/05/17 06:00 Problem List - Problems (1) CHF (congestive heart failure) Code(s): I50.9 - HEART FAILURE, UNSPECIFIED (2) PNA (pneumonia) Code(s): J18.9 - PNEUMONIA, UNSPECIFIED ORGANISM (3) SOB (shortness of breath) Code(s): R06.02 - SHORTNESS OF BREATH (4) ASHD (arteriosclerotic heart disease) Code(s): I25.10 - ATHSCL HEART DISEASE OF [place] CORONARY ARTERY W/O ANG PCTRS (5) Atrial fibrillation Code(s): I48.91 - UNSPECIFIED ATRIAL FIBRILLATION Qualifiers: Atrial fibrillation type: chronic Qualified Code(s): I48.2 - Chronic atrial fibrillation (6) Decreased ambulation status Code(s): R68.89 - OTHER GENERAL SYMPTOMS AND SIGNS (7) Hypertension Code(s): I10 - ESSENTIAL (PRIMARY) HYPERTENSION Qualifiers: Hypertension type: essential hypertension Qualified Code(s): I10 - Essential (primary) hypertension (8) Meningioma Code(s): D32.9 - BENIGN NEOPLASM OF MENINGES, UNSPECIFIED Assessment/Plan IV LASIX IV ABX NOT NEEDED, WILL CHANGE TO PO INCENTIVE SPIROMETRY OOB TO CHAIR LOVENOX STARTED BRIDGE WITH COUMADIN FOR INR 2-3
[2017-11-05] MEDS ORDERED: DEXTROSE 5%-WATER - 50 ML IVPB ONE (09:16)
[2017-11-05] MEDS ORDERED: cefTRIAXone SODIUM 1 GM VIAL ONE (09:16)
[2017-11-05] MEDS: hydrALAZINE HCL 25 MG TABLET (FP) PO SCH ×2 (09:39→21:48)
[2017-11-05] MEDS: PHENYTOIN NA EXTENDED 100 MG CAPSULE (FP) PO SCH (09:39)
[2017-11-05] MEDS: METOPROLOL TARTRATE 50 MG TABLET (FP) PO SCH ×2 (09:40→21:48)
[2017-11-05] MEDS: MULTIVITAMINS (DAILY MVI) TABLET (FP) PO SCH (09:40)
[2017-11-05] MEDS: AZITHROMYCIN 250 MG TABLET PO SCH (09:40)
[2017-11-05] MEDS: AMINO ACIDS/PROTEIN HYDROLYS 30 ML LIQUID.PKT PO SCH ×2 (09:41→18:24)
[2017-11-05] MEDS: CEFTRIAXONE 1 GM in DEXTROSE 5%-WATER - 50 ML IVPB SCH (10:00)
[2017-11-05] MEDS: ENOXAPARIN NA (PORCINE) 60 MG/0.6 ML DISP.SYRIN SQ SCH ×2 (11:23→21:47)
--- NOTE | 2017-11-05 14:03 | PN ---
Progress Note (short form) - Note Progress Note: PULMONARY States breathing is better today. No chest pain, cough or wheezing. Vital Signs Period Temp Pulse Resp BP Sys/Herrera Pulse Ox Last 24 Hr 97.5 F-98.4 F 88-108 18-20 110-153/65-85 99-99 Intake & Output 11/02/17 11/03/17 11/04/17 11/05/17 23:59 23:59 23:59 23:59 Intake Total 560 800 500 Balance 560 800 500 Weight 68.039 kg 64.682 kg 64.977 kg 68.13 kg Gen: NAD in chair Heart: irregular Lung: bibasilar rales Abd: soft, nontender Ext: no edema CBC, BMP 11/05/17 06:00 11/05/17 06:00 Active Medications Amino Acids (Prosource No Carb Liquid Pkt) 30 ml PO BID@0800,1730 [facility] Last Admin: 11/05/17 09:41 Dose: 30 ml Arformoterol Tartrate (Brovana (Restricted To Pulmonology/Resp) -) 1 amp NEB RBID [facility] Last Admin: 11/05/17 07:30 Dose: 1 amp Atorvastatin Calcium (Lipitor -) 10 mg PO HS [facility] Last Admin: 11/04/17 21:44 Dose: 10 mg Azithromycin (Zithromax -) 250 mg PO DAILY [facility] Last Admin: 11/05/17 09:40 Dose: 250 mg Enoxaparin Sodium (Lovenox -) 60 mg SQ BID [facility] Last Admin: 11/05/17 11:23 Dose: 60 mg Furosemide (Lasix Injection -) 40 mg IVPUSH BID@0600,1400 [facility] Last Admin: 11/05/17 06:46 Dose: 40 mg Hydralazine HCl (Apresoline -) 50 mg PO BID [facility] Last Admin: 11/05/17 09:39 Dose: 50 mg Latanoprost (Xalatan 0.005% Eye Drops -) 1 drop OD HS [facility] Last Admin: 11/04/17 21:44 Dose: 1 drop Metoprolol Tartrate (Lopressor -) 100 mg PO BID [facility] Last Admin: 11/05/17 09:40 Dose: 100 mg Multivitamins/Minerals/Vitamin C (Tab-A-Vit -) 1 tab PO DAILY [facility] Last Admin: 11/05/17 09:40 Dose: 1 tab Phenytoin Sodium (Dilantin -) 400 mg PO DAILY [facility] Last Admin: 11/05/17 09:39 Dose: 400 mg Warfarin Sodium 5 mg/ Warfarin (Sodium 2 mg) 7 mg PO DAILY@1800 [facility] Last Admin: 11/04/17 18:04 Dose: 7 mg A/P Acute on Chronic Diastolic Heart Failure Mitral Regurgitation Pulmonary HTN Atrial Fibrillation HTN - continue lasix - monitor urine output, creatinine - daily weights - O2 to keep SpO2 >90% - rate control - continue anticoagulation
[2017-11-05] MEDS ORDERED: WARFARIN NA 2 MG TABLET (UD) ONE (16:55)
[2017-11-05] MEDS ORDERED: WARFARIN NA 5 MG TABLET (UD) ONE (16:55)
--- NOTE | 2017-11-05 17:06 | PN ---
Progress Note, Physician Chief Complaint: SOB improved. No recurrent chest pain. No palpitation. Tele shows persistent atrial fibrillation with rapid VR, up to 130's and rare VPCs. History of Present Illness: 87 year old woman with a PMHx of hypertension, DM, HLD, chronic atrial fibrillation on warfarin, diastolic CHF, moderate to severe mitral regurgitation , CAD with mild anterior wall stress induced ischemia from nuclear stress test in June 2016, and seizure disorder presented to ED 11/02/2017 with worsening SOB over the past 2 days with associated intermittent chest pain. CXR 11/02/2017 showed retrocardiac infiltrate. ECG revealed atrial fibrillation with mild VR at [address]-T abnormalities. Repeat echocardiogram 11/03/2017: Normal LV size, with hyperkinetic wall motion and increased systolic function. LVEF > 70%. Mild RV dilatation with normal systolic function. Mild LA and RA dilatation. Moderate to severe MR. Severe TR. Mild pulm HTN, RVSP = 47 mmHg. SOB improved with IV Lasix. She remains in atrial fibrillation with rapid VR. - Current Medication List Current Medications: Active Medications Amino Acids (Prosource No Carb Liquid Pkt) 30 ml PO BID@0800,1730 [facility] Last Admin: 11/05/17 09:41 Dose: 30 ml Arformoterol Tartrate (Brovana (Restricted To Pulmonology/Resp) -) 1 amp NEB RBID [facility] Last Admin: 11/05/17 07:30 Dose: 1 amp Atorvastatin Calcium (Lipitor -) 10 mg PO [facility] Last Admin: 11/04/17 21:44 Dose: 10 mg Azithromycin (Zithromax -) 250 mg PO DAILY [facility] Last Admin: 11/05/17 09:40 Dose: 250 mg Enoxaparin Sodium (Lovenox -) 60 mg SQ BID [facility] Last Admin: 11/05/17 11:23 Dose: 60 mg Furosemide (Lasix Injection -) 40 mg IVPUSH BID@0600,1400 [facility] Last Admin: 11/05/17 14:08 Dose: 40 mg Hydralazine HCl (Apresoline -) 50 mg PO BID [facility] Last Admin: 11/05/17 09:39 Dose: 50 mg Latanoprost (Xalatan 0.005% Eye Drops -) 1 drop OD [facility] Last Admin: 11/04/17 21:44 Dose: 1 drop Metoprolol Tartrate (Lopressor -) 100 mg PO BID [facility] Last Admin: 11/05/17 09:40 Dose: 100 mg Multivitamins/Minerals/Vitamin C (Tab-A-Vit -) 1 tab PO DAILY [facility] Last Admin: 11/05/17 09:40 Dose: 1 tab Phenytoin Sodium (Dilantin -) 400 mg PO DAILY [facility] Last Admin: 11/05/17 09:39 Dose: 400 mg Warfarin Sodium 5 mg/ Warfarin (Sodium 2 mg) 7 mg PO DAILY@1800 [facility] Last Admin: 11/04/17 18:04 Dose: 7 mg - Objective Vital Signs: Vital Signs Temperature 98.7 F 11/05/17 13:52 Pulse Rate 95 H 11/05/17 13:52 Respiratory Rate 22 11/05/17 13:52 Blood Pressure 122/68 11/05/17 13:52 O2 Sat by Pulse Oximetry (%) 99 11/05/17 09:29 General: Well developed. Chronic ill. No acute distress. Head: Normocephalic. Atraumatic, Eyes: PERRLA, EOMI. Sclerae anicteric. Conjunctivae clear. Neck: Supple. No JVD. No bruits. Heart: Normal S1, S2: Irregularly regular rhythm and tachycardia. Lungs: Symmetrical air entry. Bibasilar crackle. No wheezing or rhonchi. Abdomen: Soft. Bowel sound positive. Non tender. No masses. Extremities: No edema. No clubbing or cyanosis. PD 2+, equal bilaterally. Neuro: Intact, no focal findings. AAO X3. Labs: CBC, BMP 11/05/17 06:00 11/05/17 06:00 INR, PTT INR 1.28 (0.83-1.09) H 11/05/17 06:00 Assessment/Plan 87 year old woman with a PMHx of hypertension, DM, HLD, chronic atrial fibrillation on warfarin, diastolic CHF, moderate to severe mitral regurgitation , CAD with mild anterior wall stress induced ischemia from nuclear stress test in June 2016, and seizure disorder presented to ED 11/02/2017 with worsening SOB over the past 2 days with associated intermittent chest pain. CXR 11/02/2017 showed retrocardiac infiltrate. ECG revealed atrial fibrillation with mild VR at [address]-T abnormalities. Repeat echocardiogram 11/03/2017: Normal LV size, with hyperkinetic wall motion and increased systolic function. LVEF > 70%. Mild RV dilatation with normal systolic function. Mild LA and RA dilatation. Moderate to severe MR. Severe TR. Mild pulm HTN, RVSP = 47 mmHg. SOB improved with IV Lasix. She remains in atrial fibrillation with rapid VR. 1) CHF: Acute on chronic diastolic CHF, moderate to severe MR contributes to her CHF exacerbation. -Continue IV Lasix 40 mg BID to keep Os > Is. Monitor daily weight and Is & Os. Monitor renal function and electrolytes. Supplement potassium as needed. 2) Atrial fibrillation with rapid VR. -Increase metoprolol to 150 mg BID. -Start Digoxin 0.25 mg daily for 5 days and decrease it to 0.125 mg daily. -Continue warfarin for stroke prevention to keep INR 2-3. -Continue tele. -June D/C hydralazine while titrate up metoprolol. 3) Chest pain: Reported chest pain with negative troponin. No ECG evidence of ischemia. But she had mild anterior wall stress induced ischemia from nuclear stress test in June 2016. -June start Imdur 30 mg daily. Conservative care for her chest pain.
[2017-11-05] MEDS: WARFARIN NA 5 MG, WARFARIN NA 2 MG PO SCH (18:25)
[2017-11-05] MEDS: ATORVASTATIN CA 10 MG TABLET (FP) PO SCH (21:48)
[2017-11-05] MEDS: LATANOPROST 0.005% OPHTH SOLN 2.5ML BOTTLE OD SCH (21:49)
[2017-11-05] MEDS ORDERED: PT OWN MED DRAWER 7, Y5N ONE (21:58)
[2017-11-06] MEDS: FUROSEMIDE 40 MG/4 ML INJECTABLE VIAL IVPUSH SCH ×2 (06:37→14:26)
[2017-11-06 06:41] LABS: ANION GAP 12 MMOL/L (8-16); BLOOD UREA NITROGEN 20 mg/dL (7-18); CALCIUM 8.4 mg/dL (8.5-10.1); CHLORIDE 107 mmol/L (98-107); CO2 28 mmol/L (21-32); CREATININE 0.7 mg/dL (0.55-1.3); GLUCOSE,RANDOM 96 mg/dL (74-106); MAGNESIUM 2.2 mg/dL (1.8-2.4); POTASSIUM 3.7 mmol/L (3.5-5.1); SODIUM 147 mmol/L (136-145)
[2017-11-06] MEDS: ARFORMOTEROL TARTRATE 15 MCG/2 ML VIAL NEB SCH ×2 (08:04→20:25)
--- NOTE | 2017-11-06 08:18 | PN ---
Progress Note, Physician Chief Complaint: FEELING BETTER - Current Medication List Current Medications: Active Medications Amino Acids (Prosource No Carb Liquid Pkt) 30 ml PO BID@0800,1730 [facility] Last Admin: 11/05/17 18:24 Dose: 30 ml Arformoterol Tartrate (Brovana (Restricted To Pulmonology/Resp) -) 1 amp NEB RBID [facility] Last Admin: 11/06/17 08:04 Dose: 1 amp Atorvastatin Calcium (Lipitor -) 10 mg PO HS [facility] Last Admin: 11/05/17 21:48 Dose: 10 mg Enoxaparin Sodium (Lovenox -) 60 mg SQ BID [facility] Last Admin: 11/05/17 21:47 Dose: 60 mg Furosemide (Lasix Injection -) 40 mg IVPUSH BID@0600,1400 [facility] Last Admin: 11/06/17 06:37 Dose: 40 mg Hydralazine HCl (Apresoline -) 50 mg PO BID [facility] Last Admin: 11/05/17 21:48 Dose: 50 mg Latanoprost (Xalatan 0.005% Eye Drops -) 1 drop OD [facility] Last Admin: 11/05/17 21:49 Dose: 1 drop Metoprolol Tartrate (Lopressor -) 100 mg PO BID [facility] Last Admin: 11/05/17 21:48 Dose: 100 mg Multivitamins/Minerals/Vitamin C (Tab-A-Vit -) 1 tab PO DAILY [facility] Last Admin: 11/05/17 09:40 Dose: 1 tab Phenytoin Sodium (Dilantin -) 400 mg PO DAILY [facility] Last Admin: 11/05/17 09:39 Dose: 400 mg Warfarin Sodium 5 mg/ Warfarin (Sodium 2 mg) 7 mg PO DAILY@1800 [facility] Last Admin: 11/05/17 18:25 Dose: 7 mg - Objective Vital Signs: Vital Signs Temperature 98.4 F 11/06/17 05:40 Pulse Rate 90 11/06/17 05:40 Respiratory Rate 20 11/06/17 05:40 Blood Pressure 134/77 11/06/17 05:40 O2 Sat by Pulse Oximetry (%) 99 11/05/17 21:00 Constitutional: Yes: Mild Distress Eyes: Yes: WNL HENT: Yes: WNL Neck: Yes: WNL Cardiovascular: Yes: Pulse Irregular Respiratory: Yes: CTA Bilaterally Gastrointestinal: Yes: WNL ...Rectal Exam: Yes: Other Musculoskeletal: Yes: WNL Extremities: Yes: WNL Edema: No Peripheral Pulses WNL: Yes Integumentary: Yes: WNL Wound/Incision: Yes: Clean/Dry Neurological: Yes: Pre-Existing Deficit ...Motor Strength: WNL Psychiatric: Yes: WNL Labs: CBC, BMP 11/05/17 06:00 11/06/17 06:00 INR, PTT INR 1.28 (0.83-1.09) H 11/05/17 06:00 Problem List - Problems (1) CHF (congestive heart failure) Code(s): I50.9 - HEART FAILURE, UNSPECIFIED (2) PNA (pneumonia) Code(s): J18.9 - PNEUMONIA, UNSPECIFIED ORGANISM (3) SOB (shortness of breath) Code(s): R06.02 - SHORTNESS OF BREATH (4) ASHD (arteriosclerotic heart disease) Code(s): I25.10 - ATHSCL HEART DISEASE OF [place] CORONARY ARTERY W/O ANG PCTRS (5) Atrial fibrillation Code(s): I48.91 - UNSPECIFIED ATRIAL FIBRILLATION Qualifiers: Atrial fibrillation type: chronic Qualified Code(s): I48.2 - Chronic atrial fibrillation (6) Decreased ambulation status Code(s): R68.89 - OTHER GENERAL SYMPTOMS AND SIGNS (7) Hypertension Code(s): I10 - ESSENTIAL (PRIMARY) HYPERTENSION Qualifiers: Hypertension type: essential hypertension Qualified Code(s): I10 - Essential (primary) hypertension (8) Meningioma Code(s): D32.9 - BENIGN NEOPLASM OF MENINGES, UNSPECIFIED Assessment/Plan IV LASIX IV ABX NOT NEEDED, WILL CHANGE TO PO INCENTIVE SPIROMETRY OOB TO CHAIR LOVENOX STARTED BRIDGE WITH COUMADIN FOR INR 2-3
[2017-11-06 08:41] LABS: INR 1.54 (0.83-1.09); PROTHROMBIN TIME (PATIENT) 17.4 SEC (9.7-13.0)
[2017-11-06] MEDS: MULTIVITAMINS (DAILY MVI) TABLET (FP) PO SCH (09:37)
[2017-11-06] MEDS: METOPROLOL TARTRATE 50 MG TABLET (FP) PO SCH ×2 (09:37→21:15)
[2017-11-06] MEDS: hydrALAZINE HCL 25 MG TABLET (FP) PO SCH (09:37)
[2017-11-06] MEDS: AMINO ACIDS/PROTEIN HYDROLYS 30 ML LIQUID.PKT PO SCH ×2 (09:37→17:48)
[2017-11-06] MEDS: PHENYTOIN NA EXTENDED 100 MG CAPSULE (FP) PO SCH (09:37)
[2017-11-06] MEDS: ENOXAPARIN NA (PORCINE) 60 MG/0.6 ML DISP.SYRIN SQ SCH ×2 (09:38→21:15)
--- NOTE | 2017-11-06 12:36 | PN ---
Progress Note, Physician History of Present Illness: pulmonary alert,feeling better,still dyspneic with exertion,-sob at rest - Current Medication List Current Medications: Active Medications Amino Acids (Prosource No Carb Liquid Pkt) 30 ml PO BID@0800,1730 [facility] Last Admin: 11/06/17 09:37 Dose: Not Given Arformoterol Tartrate (Brovana (Restricted To Pulmonology/Resp) -) 1 amp NEB RBID [facility] Last Admin: 11/06/17 08:04 Dose: 1 amp Atorvastatin Calcium (Lipitor -) 10 mg PO HS [facility] Last Admin: 11/05/17 21:48 Dose: 10 mg Enoxaparin Sodium (Lovenox -) 60 mg SQ BID [facility] Last Admin: 11/06/17 09:38 Dose: 60 mg Furosemide (Lasix Injection -) 40 mg IVPUSH BID@0600,1400 [facility] Last Admin: 11/06/17 06:37 Dose: 40 mg Hydralazine HCl (Apresoline -) 50 mg PO BID [facility] Last Admin: 11/06/17 09:37 Dose: 50 mg Latanoprost (Xalatan 0.005% Eye Drops -) 1 drop OD HS [facility] Last Admin: 11/05/17 21:49 Dose: 1 drop Metoprolol Tartrate (Lopressor -) 100 mg PO BID [facility] Last Admin: 11/06/17 09:37 Dose: 100 mg Multivitamins/Minerals/Vitamin C (Tab-A-Vit -) 1 tab PO DAILY [facility] Last Admin: 11/06/17 09:37 Dose: 1 tab Phenytoin Sodium (Dilantin -) 400 mg PO DAILY [facility] Last Admin: 11/06/17 09:37 Dose: 400 mg Warfarin Sodium 5 mg/ Warfarin (Sodium 2 mg) 7 mg PO DAILY@1800 [facility] Last Admin: 11/05/17 18:25 Dose: 7 mg - Objective Vital Signs: Vital Signs Temperature 98.2 F 11/06/17 10:00 Pulse Rate 110 H 11/06/17 10:00 Respiratory Rate 20 11/06/17 10:00 Blood Pressure 121/76 11/06/17 10:00 O2 Sat by Pulse Oximetry (%) 99 11/06/17 10:00 Constitutional: Yes: Well Nourished, Calm Eyes: Yes: WNL HENT: Yes: WNL Neck: Yes: WNL Cardiovascular: Yes: Pulse Irregular, S1, S2 Respiratory: Yes: Rales (bilateral rales) Gastrointestinal: Yes: Normal Bowel Sounds, Soft Extremities: Yes: WNL Edema: No Labs: 11/06/17 06:00 INR, PTT INR 1.54 (0.83-1.09) H 11/06/17 06:00 Problem List - Problems (1) CHF (congestive heart failure) Code(s): I50.9 - HEART FAILURE, UNSPECIFIED (2) PNA (pneumonia) Code(s): J18.9 - PNEUMONIA, UNSPECIFIED ORGANISM (3) SOB (shortness of breath) Code(s): R06.02 - SHORTNESS OF BREATH (4) ASHD (arteriosclerotic heart disease) Code(s): I25.10 - ATHSCL HEART DISEASE OF [place] CORONARY ARTERY W/O ANG PCTRS (5) Atrial fibrillation Code(s): I48.91 - UNSPECIFIED ATRIAL FIBRILLATION Qualifiers: Atrial fibrillation type: chronic Qualified Code(s): I48.2 - Chronic atrial fibrillation (6) Elevated INR Code(s): R79.1 - ABNORMAL COAGULATION PROFILE (7) Hypertension Code(s): I10 - ESSENTIAL (PRIMARY) HYPERTENSION Qualifiers: Hypertension type: essential hypertension Qualified Code(s): I10 - Essential (primary) hypertension Assessment/Plan IMP DYSPNEA IMPROVING ACUTE ON CHRONIC CHF AFIB ELEVATED LACTATE LEVEL HTN PULMONARY HTN PLAN IV LASIX DAILY WT O2 INHALED BRONCHODILATORS F/U CHEST-RAY MONITOR INR BETA-BLOCKERS [facility] Problem List - Problems (1) CHF (congestive heart failure) Code(s): I50.9 - HEART FAILURE, UNSPECIFIED (2) PNA (pneumonia) Code(s): J18.9 - PNEUMONIA, UNSPECIFIED ORGANISM (3) SOB (shortness of breath) Code(s): R06.02 - SHORTNESS OF BREATH (4) ASHD (arteriosclerotic heart disease) Code(s): I25.10 - ATHSCL HEART DISEASE OF [place] CORONARY ARTERY W/O ANG PCTRS (5) Atrial fibrillation Code(s): I48.91 - UNSPECIFIED ATRIAL FIBRILLATION Qualifiers: Atrial fibrillation type: chronic Qualified Code(s): I48.2 - Chronic atrial fibrillation (6) Elevated INR Code(s): R79.1 - ABNORMAL COAGULATION PROFILE (7) Hypertension Code(s): I10 - ESSENTIAL (PRIMARY) HYPERTENSION Qualifiers: Hypertension type: essential hypertension Qualified Code(s): I10 - Essential (primary) hypertension
--- NOTE | 2017-11-06 15:47 | PN ---
Progress Note, Physician Chief Complaint: Pt feels better with improved SOB and exercise tolerance. No recurrent chest pain. No palpitation. Tele shows persistent atrial fibrillation with markedly improved VR control. Rare VPCs. History of Present Illness: 87 year old woman with a PMHx of hypertension, DM, HLD, chronic atrial fibrillation on warfarin, diastolic CHF, moderate to severe mitral regurgitation , CAD with mild anterior wall stress induced ischemia from nuclear stress test in June 2016, and seizure disorder presented to ED 11/02/2017 with worsening SOB over the past 2 days with associated intermittent chest pain. CXR 11/02/2017 showed retrocardiac infiltrate. ECG revealed atrial fibrillation with mild VR at [address]-T abnormalities. Repeat echocardiogram 11/03/2017: Normal LV size, with hyperkinetic wall motion and increased systolic function. LVEF > 70%. Mild RV dilatation with normal systolic function. Mild LA and RA dilatation. Moderate to severe MR. Severe TR. Mild pulm HTN, RVSP = 47 mmHg. SOB improved with IV Lasix. She remains in atrial fibrillation with improved VR control. - Current Medication List Current Medications: Active Medications Amino Acids (Prosource No Carb Liquid Pkt) 30 ml PO BID@0800,1730 [facility] Last Admin: 11/06/17 09:37 Dose: Not Given Arformoterol Tartrate (Brovana (Restricted To Pulmonology/Resp) -) 1 amp NEB RBID [facility] Last Admin: 11/06/17 08:04 Dose: 1 amp Atorvastatin Calcium (Lipitor -) 10 mg PO [facility] Last Admin: 11/05/17 21:48 Dose: 10 mg Enoxaparin Sodium (Lovenox -) 60 mg SQ BID [facility] Last Admin: 11/06/17 09:38 Dose: 60 mg Furosemide (Lasix Injection -) 40 mg IVPUSH BID@0600,1400 [facility] Last Admin: 11/06/17 14:26 Dose: 40 mg Hydralazine HCl (Apresoline -) 50 mg PO BID [facility] Last Admin: 11/06/17 09:37 Dose: 50 mg Latanoprost (Xalatan 0.005% Eye Drops -) 1 drop OD HS [facility] Last Admin: 11/05/17 21:49 Dose: 1 drop Metoprolol Tartrate (Lopressor -) 100 mg PO BID [facility] Last Admin: 09/14/18 09:37 Dose: 100 mg Multivitamins/Minerals/Vitamin C (Tab-A-Vit -) 1 tab PO DAILY [facility] Last Admin: 11/06/17 09:37 Dose: 1 tab Phenytoin Sodium (Dilantin -) 400 mg PO DAILY [facility] Last Admin: 11/06/17 09:37 Dose: 400 mg Warfarin Sodium 5 mg/ Warfarin (Sodium 2 mg) 7 mg PO DAILY@1800 [facility] Last Admin: 11/05/17 18:25 Dose: 7 mg - Objective Vital Signs: Vital Signs Temperature 97.7 F 11/06/17 14:05 Pulse Rate 93 H 11/06/17 14:05 Respiratory Rate 16 11/06/17 14:05 Blood Pressure 128/69 11/06/17 14:05 O2 Sat by Pulse Oximetry (%) 99 11/06/17 10:00 General: Well developed. Well nourished. No acute distress. Head: Normocephalic. Atraumatic, Eyes: PERRLA, EOMI. Sclerae anicteric. Conjunctivae clear. Neck: Supple. No JVD. No bruits. Heart: Normal S1, S2: Irregularly regular rhythm and rate. No murmur. No gallop or rub. Lungs: Symmetrical air entry. [place] bibasilar crackle. No wheezing or rhonchi. Abdomen: Soft. Bowel sound positive. Non tender. No masses. Extremities: No edema. No clubbing or cyanosis. PD 2+, equal bilaterally. Neuro: Intact, no focal findings. AAO X3. Labs: CBC, BMP 11/05/17 06:00 11/06/17 06:00 INR, PTT INR 1.54 (0.83-1.09) H 11/06/17 06:00 Assessment/Plan 87 year old woman with a PMHx of hypertension, DM, HLD, chronic atrial fibrillation on warfarin, diastolic CHF, moderate to severe mitral regurgitation , CAD with mild anterior wall stress induced ischemia from nuclear stress test in June 2016, and seizure disorder presented to ED 11/02/2017 with worsening SOB over the past 2 days with associated intermittent chest pain. CXR 11/02/2017 showed retrocardiac infiltrate. ECG revealed atrial fibrillation with mild VR at [address]-T abnormalities. Repeat echocardiogram 11/03/2017: Normal LV size, with hyperkinetic wall motion and increased systolic function. LVEF > 70%. Mild RV dilatation with normal systolic function. Mild LA and RA dilatation. Moderate to severe MR. Severe TR. Mild pulm HTN, RVSP = 47 mmHg. SOB improved with IV Lasix. She remains in atrial fibrillation with rapid VR. 1) CHF: Acute on chronic diastolic CHF, moderate to severe MR contributes to her CHF exacerbation. -Change IV Lasix to PO 40 mg BID. Monitor renal function and electrolytes. Supplement potassium as needed. 2) Atrial fibrillation with improved VR control. -Increase metoprolol to 150 mg BID. -Continue warfarin for stroke prevention to keep INR 2-3. -Continue tele. -D/C hydralazine while titrate up metoprolol. 3) Chest pain: Reported chest pain with negative troponin. No ECG evidence of ischemia. But she had mild anterior wall stress induced ischemia from nuclear stress test in June 2016. -June start Imdur 30 mg daily. Conservative care for her chest pain.
[2017-11-06] MEDS ORDERED: WARFARIN NA 5 MG TABLET (UD) ONE (17:06)
[2017-11-06] MEDS ORDERED: WARFARIN NA 2 MG TABLET (UD) ONE (17:06)
[2017-11-06] MEDS: WARFARIN NA 5 MG, WARFARIN NA 2 MG PO SCH (17:16)
[2017-11-06] MEDS ORDERED: PT OWN MED DRAWER 7, Y5N ONE (21:13)
[2017-11-06] MEDS: ATORVASTATIN CA 10 MG TABLET (FP) PO SCH (21:15)
[2017-11-06] MEDS: LATANOPROST 0.005% OPHTH SOLN 2.5ML BOTTLE OD SCH (21:15)
[2017-11-07] MEDS: FUROSEMIDE 40 MG TABLET (FP) PO SCH ×2 (06:36→13:42)
[2017-11-07 07:51] LABS: INR 2.19 (0.83-1.09); PROTHROMBIN TIME (PATIENT) 24.8 SEC (9.7-13.0)
[2017-11-07] MEDS: ARFORMOTEROL TARTRATE 15 MCG/2 ML VIAL NEB SCH ×2 (07:51→20:25)
[2017-11-07 07:55] LABS: ANION GAP 7 MMOL/L (8-16); BLOOD UREA NITROGEN 18 mg/dL (7-18); CALCIUM 8.5 mg/dL (8.5-10.1); CHLORIDE 104 mmol/L (98-107); CO2 31 mmol/L (21-32); CREATININE 0.7 mg/dL (0.55-1.3); GLUCOSE,RANDOM 93 mg/dL (74-106); MAGNESIUM 2.1 mg/dL (1.8-2.4); POTASSIUM 3.5 mmol/L (3.5-5.1); SODIUM 142 mmol/L (136-145)
--- NOTE | 2017-11-07 08:33 | PN ---
Progress Note, Physician Chief Complaint: TIRED AND WEAK C/O FATIGUE AND LIGHT HEADED - Current Medication List Current Medications: Active Medications Amino Acids (Prosource No Carb Liquid Pkt) 30 ml PO BID@0800,1730 [facility] Last Admin: 11/06/17 17:48 Dose: Not Given Arformoterol Tartrate (Brovana (Restricted To Pulmonology/Resp) -) 1 amp NEB RBID [facility] Last Admin: 11/07/17 07:51 Dose: 1 amp Atorvastatin Calcium (Lipitor -) 10 mg PO HS [facility] Last Admin: 11/06/17 21:15 Dose: 10 mg Enoxaparin Sodium (Lovenox -) 60 mg SQ BID [facility] Last Admin: 11/06/17 21:15 Dose: 60 mg Furosemide (Lasix -) 40 mg PO BID@0600,1400 [facility] Last Admin: 11/07/17 06:36 Dose: 40 mg Latanoprost (Xalatan 0.005% Eye Drops -) 1 drop OD HS [facility] Last Admin: 11/06/17 21:15 Dose: 1 drop Metoprolol Tartrate (Lopressor -) 150 mg PO BID [facility] Last Admin: 11/06/17 21:15 Dose: 150 mg Multivitamins/Minerals/Vitamin C (Tab-A-Vit -) 1 tab PO DAILY [facility] Last Admin: 11/06/17 09:37 Dose: 1 tab Phenytoin Sodium (Dilantin -) 400 mg PO DAILY [facility] Last Admin: 11/06/17 09:37 Dose: 400 mg Warfarin Sodium 5 mg/ Warfarin (Sodium 2 mg) 7 mg PO DAILY@1800 [facility] Last Admin: 11/06/17 17:16 Dose: 7 mg - Objective Vital Signs: Vital Signs Temperature 98.2 F 11/07/17 06:00 Pulse Rate 107 H 11/07/17 06:00 Respiratory Rate 20 11/07/17 06:00 Blood Pressure 135/82 11/07/17 06:00 O2 Sat by Pulse Oximetry (%) 99 11/06/17 20:28 Constitutional: Yes: Mild Distress Eyes: Yes: WNL HENT: Yes: WNL Neck: Yes: WNL Cardiovascular: Yes: Pulse Irregular Respiratory: Yes: On Nasal O2, Rales Gastrointestinal: Yes: WNL Genitourinary: Yes: WNL Musculoskeletal: Yes: Muscle Weakness Extremities: Yes: WNL Edema: No Peripheral Pulses WNL: Yes Integumentary: Yes: WNL Wound/Incision: Yes: Clean/Dry Neurological: Yes: Pre-Existing Deficit ...Motor Strength: LLE, RLE Psychiatric: Yes: WNL Labs: CBC, BMP 11/05/17 06:00 11/07/17 06:00 INR, PTT INR 2.19 (0.83-1.09) H 11/07/17 06:00 Problem List - Problems (1) CHF (congestive heart failure) Code(s): I50.9 - HEART FAILURE, UNSPECIFIED (2) PNA (pneumonia) Code(s): J18.9 - PNEUMONIA, UNSPECIFIED ORGANISM (3) SOB (shortness of breath) Code(s): R06.02 - SHORTNESS OF BREATH (4) ASHD (arteriosclerotic heart disease) Code(s): I25.10 - ATHSCL HEART DISEASE OF [place] CORONARY ARTERY W/O ANG PCTRS (5) Atrial fibrillation Code(s): I48.91 - UNSPECIFIED ATRIAL FIBRILLATION Qualifiers: Atrial fibrillation type: chronic Qualified Code(s): I48.2 - Chronic atrial fibrillation (6) Decreased ambulation status Code(s): R68.89 - OTHER GENERAL SYMPTOMS AND SIGNS (7) Hypertension Code(s): I10 - ESSENTIAL (PRIMARY) HYPERTENSION Qualifiers: Hypertension type: essential hypertension Qualified Code(s): I10 - Essential (primary) hypertension (8) Meningioma Code(s): D32.9 - BENIGN NEOPLASM OF MENINGES, UNSPECIFIED Assessment/Plan PATIENT WOULD LIKE [facility] OOB TO CHAIR NEBS PULM/CARDIO EVAL
[2017-11-07] MEDS: AMINO ACIDS/PROTEIN HYDROLYS 30 ML LIQUID.PKT PO SCH ×2 (08:55→17:04)
[2017-11-07] MEDS: PHENYTOIN NA EXTENDED 100 MG CAPSULE (FP) PO SCH (09:11)
[2017-11-07] MEDS: METOPROLOL TARTRATE 50 MG TABLET (FP) PO SCH ×2 (09:11→21:04)
[2017-11-07] MEDS: MULTIVITAMINS (DAILY MVI) TABLET (FP) PO SCH (09:11)
[2017-11-07] MEDS: ENOXAPARIN NA (PORCINE) 60 MG/0.6 ML DISP.SYRIN SQ SCH (09:12)
--- NOTE | 2017-11-07 11:10 | PN ---
Progress Note, Physician History of Present Illness: 87 year old woman with a PMHx of hypertension, DM, HLD, chronic atrial fibrillation on warfarin, diastolic CHF, moderate to severe mitral regurgitation , CAD with mild anterior wall stress induced ischemia from nuclear stress test in June 2016, and seizure disorder presented to ED 11/02/2017 with worsening SOB over the past 2 days with associated intermittent chest pain. CXR 11/02/2017 showed retrocardiac infiltrate. ECG revealed atrial fibrillation with mild VR at [address]-T abnormalities. Repeat echocardiogram 11/03/2017: Normal LV size, with hyperkinetic wall motion and increased systolic function. LVEF > 70%. Mild RV dilatation with normal systolic function. Mild LA and RA dilatation. Moderate to severe MR. Severe TR. Mild pulm HTN, RVSP = 47 mmHg. SOB improved with IV Lasix. She remains in atrial fibrillation with rapid VR. - Current Medication List Current Medications: Active Medications Amino Acids (Prosource No Carb Liquid Pkt) 30 ml PO BID@0800,1730 [facility] Last Admin: 11/07/17 08:55 Dose: 30 ml Arformoterol Tartrate (Brovana (Restricted To Pulmonology/Resp) -) 1 amp NEB RBID [facility] Last Admin: 11/07/17 07:51 Dose: 1 amp Atorvastatin Calcium (Lipitor -) 10 mg PO HS [facility] Last Admin: 11/06/17 21:15 Dose: 10 mg Benzocaine/Menthol (Cepacol Lozenge -) 1 each MM PRN PRN PRN Reason: SORE THROAT Enoxaparin Sodium (Lovenox -) 60 mg SQ BID [facility] Last Admin: 11/07/17 09:12 Dose: 60 mg Furosemide (Lasix -) 40 mg PO BID@0600,1400 [facility] Last Admin: 11/07/17 06:36 Dose: 40 mg Latanoprost (Xalatan 0.005% Eye Drops -) 1 drop OD HS [facility] Last Admin: 11/06/17 21:15 Dose: 1 drop Metoprolol Tartrate (Lopressor -) 150 mg PO BID [facility] Last Admin: 11/07/17 09:11 Dose: 150 mg Multivitamins/Minerals/Vitamin C (Tab-A-Vit -) 1 tab PO DAILY [facility] Last Admin: 11/07/17 09:11 Dose: 1 tab Phenol/Menthol (Chloraseptic -) 1 spray MM Q6HPO PRN PRN Reason: SORE THROAT Phenytoin Sodium (Dilantin -) 400 mg PO DAILY [facility] Last Admin: 11/07/17 09:11 Dose: 400 mg Warfarin Sodium 5 mg/ Warfarin (Sodium 2 mg) 7 mg PO DAILY@1800 [facility] Last Admin: 11/06/17 17:16 Dose: 7 mg - Objective Vital Signs: Vital Signs Temperature 97.9 F 11/07/17 10:00 Pulse Rate 102 H 11/07/17 10:00 Respiratory Rate 20 11/07/17 10:00 Blood Pressure 153/80 11/07/17 10:00 O2 Sat by Pulse Oximetry (%) 94 L 11/07/17 09:00 Constitutional: Yes: No Distress, Calm Eyes: Yes: Conjunctiva Clear, EOM Intact HENT: Yes: Atraumatic, Normocephalic Neck: Yes: Supple, Trachea Midline Cardiovascular: Yes: Tachycardia, Pulse Irregular Respiratory: Yes: CTA Bilaterally Gastrointestinal: Yes: Normal Bowel Sounds, Soft Musculoskeletal: Yes: WNL Extremities: Yes: WNL Labs: CBC, BMP 11/05/17 06:00 11/07/17 06:00 INR, PTT INR 2.19 (0.83-1.09) H 11/07/17 06:00 Assessment/Plan 87 year old woman with a PMHx of hypertension, DM, HLD, chronic atrial fibrillation on warfarin, diastolic CHF, moderate to severe mitral regurgitation , CAD with mild anterior wall stress induced ischemia from nuclear stress test in June 2016, and seizure disorder presented to ED 11/02/2017 with worsening SOB over the past 2 days with associated intermittent chest pain. CXR 11/02/2017 showed retrocardiac infiltrate. ECG revealed atrial fibrillation with mild VR at [address]-T abnormalities. Repeat echocardiogram 11/03/2017: Normal LV size, with hyperkinetic wall motion and increased systolic function. LVEF > 70%. Mild RV dilatation with normal systolic function. Mild LA and RA dilatation. Moderate to severe MR. Severe TR. Mild pulm HTN, RVSP = 47 mmHg. SOB improved with IV Lasix. She remains in atrial fibrillation with rapid VR. 1) CHF: Acute on chronic diastolic CHF, moderate to severe MR contributes to her CHF exacerbation. -Change IV Lasix to PO 40 mg BID. Monitor renal function and electrolytes. Supplement potassium as needed. 2) Atrial fibrillation with improved VR control. -Increase metoprolol to 200 mg BID. -Continue warfarin for stroke prevention to keep INR 2-3. -Continue tele. -D/C hydralazine while titrate up metoprolol. 3) Chest pain: Reported chest pain with negative troponin. No ECG evidence of ischemia. But she had mild anterior wall stress induced ischemia from nuclear stress test in June 2016. -June start Imdur 30 mg daily. Conservative care for her chest pain.
--- NOTE | 2017-11-07 12:52 | PN ---
Progress Note (short form) - Note Progress Note: Breathing feels a little better. Not at baseline. (+) LANE. No CP. Intake & Output 11/04/17 11/05/17 11/06/17 11/07/17 23:59 23:59 23:59 23:59 Intake Total 800 1060 900 Balance 800 1060 900 Weight 143 lb 4 oz 150 lb 3.2 oz 154 lb 143 lb 5 oz Last Vital Signs Temp Pulse Resp BP Pulse Ox 97.9 F 102 H 20 153/80 94 L 11/07/17 10:00 11/07/17 10:00 11/07/17 10:00 11/07/17 10:00 11/07/17 09:00 Active Medications Amino Acids (Prosource No Carb Liquid Pkt) 30 ml PO BID@0800,1730 [facility] Last Admin: 11/07/17 08:55 Dose: 30 ml Arformoterol Tartrate (Brovana (Restricted To Pulmonology/Resp) -) 1 amp NEB RBID [facility] Last Admin: 11/07/17 07:51 Dose: 1 amp Atorvastatin Calcium (Lipitor -) 10 mg PO HS [facility] Last Admin: 11/06/17 21:15 Dose: 10 mg Benzocaine/Menthol (Cepacol Lozenge -) 1 each MM PRN PRN PRN Reason: SORE THROAT Furosemide (Lasix -) 40 mg PO BID@0600,1400 [facility] Last Admin: 11/07/17 06:36 Dose: 40 mg Latanoprost (Xalatan 0.005% Eye Drops -) 1 drop OD [facility] Last Admin: 11/06/17 21:15 Dose: 1 drop Metoprolol Tartrate (Lopressor -) 200 mg PO BID [facility] Multivitamins/Minerals/Vitamin C (Tab-A-Vit -) 1 tab PO DAILY [facility] Last Admin: 11/07/17 09:11 Dose: 1 tab Phenol/Menthol (Chloraseptic -) 1 spray MM Q6HPO PRN PRN Reason: SORE THROAT Phenytoin Sodium (Dilantin -) 400 mg PO DAILY [facility] Last Admin: 11/07/17 09:11 Dose: 400 mg Warfarin Sodium 5 mg/ Warfarin (Sodium 2 mg) 7 mg PO DAILY@1800 [facility] Last Admin: 11/06/17 17:16 Dose: 7 mg Constitutional: Yes: NAD Eyes: Yes: WNL HENT: Yes: WNL Neck: Yes: WNL Cardiovascular: Yes: Pulse Irregular, S1, S2 Respiratory: Yes: Bibasilar Rales Gastrointestinal: Yes: Normal Bowel Sounds, Soft Extremities: Yes: WNL Edema: No Labs: Laboratory Results - last 24 hr 11/07/17 11/07/17 06:00 06:00 PT with INR 24.80 H INR 2.19 H Sodium 142 Potassium 3.5 Chloride 104 Carbon Dioxide 31 Anion Gap 7 L BUN 18 Creatinine 0.7 Creat Clearance w eGFR > 60 Random Glucose 93 Calcium 8.5 Magnesium 2.1 Problem List - Problems (1) CHF (congestive heart failure) Code(s): I50.9 - HEART FAILURE, UNSPECIFIED (2) PNA (pneumonia) Code(s): J18.9 - PNEUMONIA, UNSPECIFIED ORGANISM (3) SOB (shortness of breath) Code(s): R06.02 - SHORTNESS OF BREATH (4) ASHD (arteriosclerotic heart disease) Code(s): I25.10 - ATHSCL HEART DISEASE OF [place] CORONARY ARTERY W/O ANG PCTRS (5) Atrial fibrillation Code(s): I48.91 - UNSPECIFIED ATRIAL FIBRILLATION Qualifiers: Atrial fibrillation type: chronic Qualified Code(s): I48.2 - Chronic atrial fibrillation (6) Elevated INR Code(s): R79.1 - ABNORMAL COAGULATION PROFILE (7) Hypertension Code(s): I10 - ESSENTIAL (PRIMARY) HYPERTENSION Qualifiers: Hypertension type: essential hypertension Qualified Code(s): I10 - Essential (primary) hypertension Assessment/Plan DYSPNEA IMPROVING ACUTE ON CHRONIC CHF AFIB ELEVATED LACTATE LEVEL HTN PULMONARY HTN PLAN LASIX DAILY WT O2 INHALED BRONCHODILATORS MONITOR INR BETA-BLOCKERS AC DR TSAI
[2017-11-07] MEDS: PHENOL 177 ML SPRAY BOTTLE MM PRN ×2 (13:43→21:04)
[2017-11-07] MEDS: BENZOCAINE/MENTH/CETYLPYRD CL 1 EACH LOZENGE MM PRN ×3 (13:43→21:05)
[2017-11-07] MEDS ORDERED: WARFARIN NA 2 MG TABLET (UD) ONE (16:40)
[2017-11-07] MEDS ORDERED: WARFARIN NA 5 MG TABLET (UD) ONE (16:41)
[2017-11-07] MEDS: WARFARIN NA 5 MG, WARFARIN NA 2 MG PO SCH (17:04)
[2017-11-07] MEDS ORDERED: PT OWN MED DRAWER 7, Y5N ONE ×2 (18:57→20:57)
[2017-11-07] MEDS: ATORVASTATIN CA 10 MG TABLET (FP) PO SCH (21:04)
[2017-11-07] MEDS: LATANOPROST 0.005% OPHTH SOLN 2.5ML BOTTLE OD SCH (21:04)
[2017-11-08] MEDS: FUROSEMIDE 40 MG TABLET (FP) PO SCH (05:21)
[2017-11-08] MEDS: BENZOCAINE/MENTH/CETYLPYRD CL 1 EACH LOZENGE MM PRN (05:21)
[2017-11-08] MEDS ORDERED: PT OWN MED DRAWER 7, Y5N ONE ×5 (05:21→22:52)
[2017-11-08] MEDS: PHENOL 177 ML SPRAY BOTTLE MM PRN ×3 (05:21→18:42)
[2017-11-08 07:26] LABS: INR 2.62 (0.83-1.09); PROTHROMBIN TIME (PATIENT) 29.6 SEC (9.7-13.0)
[2017-11-08 07:34] LABS: ANION GAP 8 MMOL/L (8-16); BLOOD UREA NITROGEN 18 mg/dL (7-18); CALCIUM 8.5 mg/dL (8.5-10.1); CHLORIDE 103 mmol/L (98-107); CO2 31 mmol/L (21-32); CREATININE 0.7 mg/dL (0.55-1.3); GLUCOSE,RANDOM 87 mg/dL (74-106); MAGNESIUM 2.2 mg/dL (1.8-2.4); POTASSIUM 3.6 mmol/L (3.5-5.1); SODIUM 142 mmol/L (136-145)
[2017-11-08] MEDS: ARFORMOTEROL TARTRATE 15 MCG/2 ML VIAL NEB SCH ×2 (07:40→20:48)
[2017-11-08] MEDS: MULTIVITAMINS (DAILY MVI) TABLET (FP) PO SCH (09:15)
[2017-11-08] MEDS: METOPROLOL TARTRATE 50 MG TABLET (FP) PO SCH ×2 (09:15→22:43)
[2017-11-08] MEDS: PHENYTOIN NA EXTENDED 100 MG CAPSULE (FP) PO SCH (09:15)
[2017-11-08] MEDS: AMINO ACIDS/PROTEIN HYDROLYS 30 ML LIQUID.PKT PO SCH ×2 (09:24→17:38)
--- NOTE | 2017-11-08 11:34 | PN ---
Progress Note, Physician Chief Complaint: less sob History of Present Illness: 87 year old woman with a PMHx of hypertension, DM, HLD, chronic atrial fibrillation on warfarin, diastolic CHF, moderate to severe mitral regurgitation , CAD with mild anterior wall stress induced ischemia from nuclear stress test in June 2016, and seizure disorder presented to ED 11/02/2017 with worsening SOB over the past 2 days with associated intermittent chest pain. CXR 11/02/2017 showed retrocardiac infiltrate. ECG revealed atrial fibrillation with mild VR at [address]-T abnormalities. Repeat echocardiogram 11/03/2017: Normal LV size, with hyperkinetic wall motion and increased systolic function. LVEF > 70%. Mild RV dilatation with normal systolic function. Mild LA and RA dilatation. Moderate to severe MR. Severe TR. Mild pulm HTN, RVSP = 47 mmHg. SOB improved with IV Lasix, now on PO. She is in atrial fibrillation with improved VR. - Current Medication List Current Medications: Active Medications Amino Acids (Prosource No Carb Liquid Pkt) 30 ml PO BID@0800,1730 [facility] Last Admin: 11/08/17 09:24 Dose: 30 ml Arformoterol Tartrate (Brovana (Restricted To Pulmonology/Resp) -) 1 amp NEB RBID [facility] Last Admin: 11/08/17 07:40 Dose: 1 amp Atorvastatin Calcium (Lipitor -) 10 mg PO [facility] Last Admin: 11/07/17 21:04 Dose: 10 mg Benzocaine/Menthol (Cepacol Lozenge -) 1 each MM PRN PRN PRN Reason: SORE THROAT Last Admin: 11/08/17 05:21 Dose: 1 each Furosemide (Lasix -) 40 mg PO BID@0600,1400 [facility] Last Admin: 11/08/17 05:21 Dose: 40 mg Latanoprost (Xalatan 0.005% Eye Drops -) 1 drop OD [facility] Last Admin: 11/07/17 21:04 Dose: 1 drop Metoprolol Tartrate (Lopressor -) 200 mg PO BID [facility] Last Admin: 11/08/17 09:15 Dose: 200 mg Multivitamins/Minerals/Vitamin C (Tab-A-Vit -) 1 tab PO DAILY [facility] Last Admin: 11/08/17 09:15 Dose: 1 tab Phenol/Menthol (Chloraseptic -) 1 spray MM Q6HPO PRN PRN Reason: SORE THROAT Last Admin: 11/08/17 05:21 Dose: 1 spray Phenytoin Sodium (Dilantin -) 400 mg PO DAILY [facility] Last Admin: 11/08/17 09:15 Dose: 400 mg Warfarin Sodium 5 mg/ Warfarin (Sodium 2 mg) 7 mg PO DAILY@1800 [facility] Last Admin: 11/07/17 17:04 Dose: 7 mg - Objective Vital Signs: Vital Signs Temperature 98.1 F 11/08/17 10:00 Pulse Rate 99 H 11/08/17 10:00 Respiratory Rate 18 11/08/17 10:00 Blood Pressure 111/67 11/08/17 10:00 O2 Sat by Pulse Oximetry (%) 94 L 11/08/17 10:00 Constitutional: Yes: No Distress, Calm Eyes: Yes: Conjunctiva Clear, EOM Intact HENT: Yes: Atraumatic, Normocephalic Neck: Yes: Trachea Midline Cardiovascular: Yes: Pulse Irregular Respiratory: Yes: CTA Bilaterally Gastrointestinal: Yes: Normal Bowel Sounds, Soft Extremities: Yes: WNL Edema: No Labs: CBC, BMP 11/05/17 06:00 11/08/17 06:23 INR, PTT INR 2.62 (0.83-1.09) H 11/08/17 06:23 Assessment/Plan 87 year old woman with a PMHx of hypertension, DM, HLD, chronic atrial fibrillation on warfarin, diastolic CHF, moderate to severe mitral regurgitation , CAD with mild anterior wall stress induced ischemia from nuclear stress test in June 2016, and seizure disorder presented to ED 11/02/2017 with worsening SOB over the past 2 days with associated intermittent chest pain. CXR 11/02/2017 showed retrocardiac infiltrate. ECG revealed atrial fibrillation with mild VR at [address]-T abnormalities. Repeat echocardiogram 11/03/2017: Normal LV size, with hyperkinetic wall motion and increased systolic function. LVEF > 70%. Mild RV dilatation with normal systolic function. Mild LA and RA dilatation. Moderate to severe MR. Severe TR. Mild pulm HTN, RVSP = 47 mmHg. SOB improved with IV Lasix. She remains in atrial fibrillation with rapid VR. 1) CHF: Acute on chronic diastolic CHF, moderate to severe MR contributes to her CHF exacerbation. -decrease lasix to 40 mg daily. Monitor renal function and electrolytes. 2) Atrial fibrillation with improved VR control. -Continue metoprolol 200 mg BID. -Continue warfarin for stroke prevention to keep INR 2-3. -Continue tele. 3) Chest pain: Reported chest pain with negative troponin. No ECG evidence of ischemia. But she had mild anterior wall stress induced ischemia from nuclear stress test in June 2016. Conservative care for her chest pain.
--- NOTE | 2017-11-08 12:40 | PN ---
Progress Note (short form) - Note Progress Note: Breathing feels a little better. Not at baseline. Still with some LANE. No CP. Intake & Output 11/05/17 11/06/17 11/07/17 11/08/17 23:59 23:59 23:59 23:59 Intake Total 1060 900 670 120 Balance 1060 900 670 120 Weight 150 lb 3.2 oz 154 lb 143 lb 5 oz 141 lb 2 oz Last Vital Signs Temp Pulse Resp BP Pulse Ox 98.1 F 99 H 18 111/67 94 L 11/08/17 10:00 11/08/17 10:00 11/08/17 10:00 11/08/17 10:00 11/08/17 10:00 Active Medications Amino Acids (Prosource No Carb Liquid Pkt) 30 ml PO BID@0800,1730 [facility] Last Admin: 11/08/17 09:24 Dose: 30 ml Arformoterol Tartrate (Brovana (Restricted To Pulmonology/Resp) -) 1 amp NEB RBID [facility] Last Admin: 11/08/17 07:40 Dose: 1 amp Atorvastatin Calcium (Lipitor -) 10 mg PO HS [facility] Last Admin: 11/07/17 21:04 Dose: 10 mg Benzocaine/Menthol (Cepacol Lozenge -) 1 each MM PRN PRN PRN Reason: SORE THROAT Last Admin: 11/08/17 05:21 Dose: 1 each Furosemide (Lasix -) 40 mg PO DAILY [facility] Latanoprost (Xalatan 0.005% Eye Drops -) 1 drop OD HS [facility] Last Admin: 11/07/17 21:04 Dose: 1 drop Metoprolol Tartrate (Lopressor -) 200 mg PO BID [facility] Last Admin: 11/08/17 09:15 Dose: 200 mg Multivitamins/Minerals/Vitamin C (Tab-A-Vit -) 1 tab PO DAILY [facility] Last Admin: 11/08/17 09:15 Dose: 1 tab Phenol/Menthol (Chloraseptic -) 1 spray MM Q6HPO PRN PRN Reason: SORE THROAT Last Admin: 11/08/17 05:21 Dose: 1 spray Phenytoin Sodium (Dilantin -) 400 mg PO DAILY [facility] Last Admin: 11/08/17 09:15 Dose: 400 mg Warfarin Sodium 5 mg/ Warfarin (Sodium 2 mg) 7 mg PO DAILY@1800 [facility] Last Admin: 11/07/17 17:04 Dose: 7 mg Constitutional: Yes: NAD Eyes: Yes: WNL HENT: Yes: WNL Neck: Yes: WNL Cardiovascular: Yes: Pulse Irregular, S1, S2 Respiratory: Yes: Bibasilar Rales Gastrointestinal: Yes: Normal Bowel Sounds, Soft Extremities: Yes: WNL Edema: No Labs: Laboratory Results - last 24 hr 11/08/17 11/08/17 06:23 06:23 PT with INR 29.60 H INR 2.62 H Sodium 142 Potassium 3.6 Chloride 103 Carbon Dioxide 31 Anion Gap 8 BUN 18 Creatinine 0.7 Creat Clearance w eGFR > 60 Random Glucose 87 Calcium 8.5 Magnesium 2.2 Problem List - Problems (1) CHF (congestive heart failure) Code(s): I50.9 - HEART FAILURE, UNSPECIFIED (2) PNA (pneumonia) Code(s): J18.9 - PNEUMONIA, UNSPECIFIED ORGANISM (3) SOB (shortness of breath) Code(s): R06.02 - SHORTNESS OF BREATH (4) ASHD (arteriosclerotic heart disease) Code(s): I25.10 - ATHSCL HEART DISEASE OF [place] CORONARY ARTERY W/O ANG PCTRS (5) Atrial fibrillation Code(s): I48.91 - UNSPECIFIED ATRIAL FIBRILLATION Qualifiers: Atrial fibrillation type: chronic Qualified Code(s): I48.2 - Chronic atrial fibrillation (6) Elevated INR Code(s): R79.1 - ABNORMAL COAGULATION PROFILE (7) Hypertension Code(s): I10 - ESSENTIAL (PRIMARY) HYPERTENSION Qualifiers: Hypertension type: essential hypertension Qualified Code(s): I10 - Essential (primary) hypertension Assessment/Plan DYSPNEA IMPROVING ACUTE ON CHRONIC CHF AFIB ELEVATED LACTATE LEVEL HTN PULMONARY HTN PLAN LASIX DAILY WT O2 INHALED BRONCHODILATORS MONITOR INR BETA-BLOCKERS RILEY TSAI
[2017-11-08] MEDS ORDERED: WARFARIN NA 2 MG TABLET (UD) ONE (17:19)
[2017-11-08] MEDS ORDERED: WARFARIN NA 5 MG TABLET (UD) ONE (17:19)
[2017-11-08] MEDS: WARFARIN NA 5 MG, WARFARIN NA 2 MG PO SCH (17:38)
--- NOTE | 2017-11-08 17:52 | PN ---
Progress Note, Physician Chief Complaint: DAUGHTER BEDSIDE STILL LANE - Current Medication List Current Medications: Active Medications Amino Acids (Prosource No Carb Liquid Pkt) 30 ml PO BID@0800,1730 [facility] Last Admin: 11/08/17 17:38 Dose: 30 ml Arformoterol Tartrate (Brovana (Restricted To Pulmonology/Resp) -) 1 amp NEB RBID [facility] Last Admin: 11/08/17 07:40 Dose: 1 amp Atorvastatin Calcium (Lipitor -) 10 mg PO HS [facility] Last Admin: 11/07/17 21:04 Dose: 10 mg Benzocaine/Menthol (Cepacol Lozenge -) 1 each MM PRN PRN PRN Reason: SORE THROAT Last Admin: 11/08/17 05:21 Dose: 1 each Furosemide (Lasix -) 40 mg PO DAILY [facility] Latanoprost (Xalatan 0.005% Eye Drops -) 1 drop OD HS [facility] Last Admin: 11/07/17 21:04 Dose: 1 drop Metoprolol Tartrate (Lopressor -) 200 mg PO BID [facility] Last Admin: 11/08/17 09:15 Dose: 200 mg Multivitamins/Minerals/Vitamin C (Tab-A-Vit -) 1 tab PO DAILY [facility] Last Admin: 11/08/17 09:15 Dose: 1 tab Phenol/Menthol (Chloraseptic -) 1 spray MM Q6HPO PRN PRN Reason: SORE THROAT Last Admin: 11/08/17 05:21 Dose: 1 spray Phenytoin Sodium (Dilantin -) 400 mg PO DAILY [facility] Last Admin: 11/08/17 09:15 Dose: 400 mg Warfarin Sodium 5 mg/ Warfarin (Sodium 2 mg) 7 mg PO DAILY@1800 [facility] Last Admin: 11/08/17 17:38 Dose: 7 mg - Objective Vital Signs: Vital Signs Temperature 98.7 F 11/08/17 17:28 Pulse Rate 105 H 11/08/17 17:28 Respiratory Rate 20 11/08/17 17:28 Blood Pressure 148/80 11/08/17 17:28 O2 Sat by Pulse Oximetry (%) 94 L 11/08/17 10:00 Constitutional: Yes: Mild Distress Eyes: Yes: WNL HENT: Yes: WNL Neck: Yes: WNL Cardiovascular: Yes: WNL Respiratory: Yes: Rales Gastrointestinal: Yes: WNL Genitourinary: Yes: WNL Musculoskeletal: Yes: Muscle Weakness Extremities: Yes: WNL Edema: No Peripheral Pulses WNL: Yes Integumentary: Yes: WNL Wound/Incision: Yes: Clean/Dry Neurological: Yes: WNL ...Motor Strength: WNL Psychiatric: Yes: WNL Labs: CBC, BMP 11/05/17 06:00 11/08/17 06:23 INR, PTT INR 2.62 (0.83-1.09) H 11/08/17 06:23 Problem List - Problems (1) CHF (congestive heart failure) Code(s): I50.9 - HEART FAILURE, UNSPECIFIED (2) PNA (pneumonia) Code(s): J18.9 - PNEUMONIA, UNSPECIFIED ORGANISM (3) SOB (shortness of breath) Code(s): R06.02 - SHORTNESS OF BREATH (4) ASHD (arteriosclerotic heart disease) Code(s): I25.10 - ATHSCL HEART DISEASE OF [place] CORONARY ARTERY W/O ANG PCTRS (5) Atrial fibrillation Code(s): I48.91 - UNSPECIFIED ATRIAL FIBRILLATION Qualifiers: Atrial fibrillation type: chronic Qualified Code(s): I48.2 - Chronic atrial fibrillation (6) Decreased ambulation status Code(s): R68.89 - OTHER GENERAL SYMPTOMS AND SIGNS (7) Hypertension Code(s): I10 - ESSENTIAL (PRIMARY) HYPERTENSION Qualifiers: Hypertension type: essential hypertension Qualified Code(s): I10 - Essential (primary) hypertension (8) Meningioma Code(s): D32.9 - BENIGN NEOPLASM OF MENINGES, UNSPECIFIED Assessment/Plan CHANGE LASIX TO PO DC PLANNING TOMORROW OOB TO CHAIR / INCENTIVE SPIROMETRY [facility] HOME [facility]ALTH [facility]ARE SUGGESTED
[2017-11-08] MEDS: ATORVASTATIN CA 10 MG TABLET (FP) PO SCH (22:43)
[2017-11-08] MEDS: LATANOPROST 0.005% OPHTH SOLN 2.5ML BOTTLE OD SCH (22:44)
[2017-11-09] MEDS ORDERED: PT OWN MED DRAWER 7, Y5N ONE ×2 (02:37→04:09)
[2017-11-09] MEDS: PHENOL 177 ML SPRAY BOTTLE MM PRN ×2 (02:40→12:58)
[2017-11-09] MEDS: BENZOCAINE/MENTH/CETYLPYRD CL 1 EACH LOZENGE MM PRN (02:40)
[2017-11-09 07:26] LABS: INR 2.7 (0.83-1.09); PROTHROMBIN TIME (PATIENT) 30.5 SEC (9.7-13.0)
[2017-11-09] MEDS: ARFORMOTEROL TARTRATE 15 MCG/2 ML VIAL NEB SCH (07:32)
--- NOTE | 2017-11-09 08:58 | PN ---
Progress Note, Physician Chief Complaint: AWAKE ALERT DYSPNEA ON EXERTION WILL NEED SNF - Current Medication List Current Medications: Active Medications Amino Acids (Prosource No Carb Liquid Pkt) 30 ml PO BID@0800,1730 [facility] Last Admin: 11/08/17 17:38 Dose: 30 ml Arformoterol Tartrate (Brovana (Restricted To Pulmonology/Resp) -) 1 amp NEB RBID [facility] Last Admin: 11/09/17 07:32 Dose: 1 amp Atorvastatin Calcium (Lipitor -) 10 mg PO HS [facility] Last Admin: 11/08/17 22:43 Dose: 10 mg Benzocaine/Menthol (Cepacol Lozenge -) 1 each MM PRN PRN PRN Reason: SORE THROAT Last Admin: 11/09/17 02:40 Dose: 1 each Furosemide (Lasix -) 40 mg PO DAILY [facility] Latanoprost (Xalatan 0.005% Eye Drops -) 1 drop OD HS [facility] Last Admin: 11/08/17 22:44 Dose: 1 drop Metoprolol Tartrate (Lopressor -) 200 mg PO BID [facility] Last Admin: 11/08/17 22:43 Dose: 200 mg Multivitamins/Minerals/Vitamin C (Tab-A-Vit -) 1 tab PO DAILY [facility] Last Admin: 11/08/17 09:15 Dose: 1 tab Phenol/Menthol (Chloraseptic -) 1 spray MM Q6HPO PRN PRN Reason: SORE THROAT Last Admin: 11/09/17 02:40 Dose: 1 spray Phenytoin Sodium (Dilantin -) 400 mg PO DAILY [facility] Last Admin: 11/08/17 09:15 Dose: 400 mg Warfarin Sodium 5 mg/ Warfarin (Sodium 2 mg) 7 mg PO DAILY@1800 [facility] Last Admin: 11/08/17 17:38 Dose: 7 mg - Objective Vital Signs: Vital Signs Temperature 98.7 F 11/09/17 08:34 Pulse Rate 96 H 11/09/17 08:34 Respiratory Rate 18 11/09/17 08:34 Blood Pressure 136/63 11/09/17 08:34 O2 Sat by Pulse Oximetry (%) 96 11/09/17 08:34 Constitutional: Yes: Mild Distress Eyes: Yes: WNL HENT: Yes: WNL Neck: Yes: WNL Cardiovascular: Yes: Pulse Irregular Respiratory: Yes: Diminished, On Nasal O2 Gastrointestinal: Yes: WNL Genitourinary: Yes: WNL Musculoskeletal: Yes: Muscle Weakness Extremities: Yes: WNL Edema: No Peripheral Pulses WNL: Yes Integumentary: Yes: WNL Wound/Incision: Yes: Clean/Dry Neurological: Yes: WNL ...Motor Strength: WNL Psychiatric: Yes: WNL Labs: CBC, BMP 11/05/17 06:00 11/08/17 06:23 INR, PTT INR 2.70 (0.83-1.09) H 11/09/17 06:45 Problem List - Problems (1) CHF (congestive heart failure) Code(s): I50.9 - HEART FAILURE, UNSPECIFIED (2) PNA (pneumonia) Code(s): J18.9 - PNEUMONIA, UNSPECIFIED ORGANISM (3) SOB (shortness of breath) Code(s): R06.02 - SHORTNESS OF BREATH (4) ASHD (arteriosclerotic heart disease) Code(s): I25.10 - ATHSCL HEART DISEASE OF [place] CORONARY ARTERY W/O ANG PCTRS (5) Atrial fibrillation Code(s): I48.91 - UNSPECIFIED ATRIAL FIBRILLATION Qualifiers: Atrial fibrillation type: chronic Qualified Code(s): I48.2 - Chronic atrial fibrillation (6) Decreased ambulation status Code(s): R68.89 - OTHER GENERAL SYMPTOMS AND SIGNS (7) Hypertension Code(s): I10 - ESSENTIAL (PRIMARY) HYPERTENSION Qualifiers: Hypertension type: essential hypertension Qualified Code(s): I10 - Essential (primary) hypertension (8) Meningioma Code(s): D32.9 - BENIGN NEOPLASM OF [place]ES, UNSPECIFIED Assessment/Plan DYSPNEA ACUTE ON CHRONIC CHF WILL NEED SNF [facility] [place] LASIX PO MONITOR INR
[2017-11-09] MEDS: MULTIVITAMINS (DAILY MVI) TABLET (FP) PO SCH (09:17)
[2017-11-09] MEDS: AMINO ACIDS/PROTEIN HYDROLYS 30 ML LIQUID.PKT PO SCH ×2 (09:17→17:03)
[2017-11-09] MEDS: PHENYTOIN NA EXTENDED 100 MG CAPSULE (FP) PO SCH (09:17)
[2017-11-09] MEDS: METOPROLOL TARTRATE 50 MG TABLET (FP) PO SCH (09:18)
[2017-11-09] MEDS ORDERED: FUROSEMIDE 40 MG TABLET (FP) PO SCH (10:00)
--- NOTE | 2017-11-09 10:43 | PN ---
Progress Note, Physician History of Present Illness: pulmonary alert,feeling better,dyspnea on exertion improving,-cough,-cp - Current Medication List Current Medications: Active Medications Amino Acids (Prosource No Carb Liquid Pkt) 30 ml PO BID@0800,1730 [facility] Last Admin: 11/09/17 09:17 Dose: 30 ml Arformoterol Tartrate (Brovana (Restricted To Pulmonology/Resp) -) 1 amp NEB RBID [facility] Last Admin: 11/09/17 07:32 Dose: 1 amp Atorvastatin Calcium (Lipitor -) 10 mg PO HS [facility] Last Admin: 11/08/17 22:43 Dose: 10 mg Benzocaine/Menthol (Cepacol Lozenge -) 1 each MM PRN PRN PRN Reason: SORE THROAT Last Admin: 11/09/17 02:40 Dose: 1 each Furosemide (Lasix -) 40 mg PO DAILY [facility] Last Admin: 11/09/17 09:18 Dose: 40 mg Latanoprost (Xalatan 0.005% Eye Drops -) 1 drop OD [facility] Last Admin: 11/08/17 22:44 Dose: 1 drop Metoprolol Tartrate (Lopressor -) 200 mg PO BID [facility] Last Admin: 11/09/17 09:18 Dose: 200 mg Multivitamins/Minerals/Vitamin C (Tab-A-Vit -) 1 tab PO DAILY [facility] Last Admin: 11/09/17 09:17 Dose: 1 tab Phenol/Menthol (Chloraseptic -) 1 spray MM Q6HPO PRN PRN Reason: SORE THROAT Last Admin: 11/09/17 02:40 Dose: 1 spray Phenytoin Sodium (Dilantin -) 400 mg PO DAILY [facility] Last Admin: 11/09/17 09:17 Dose: 400 mg Warfarin Sodium 5 mg/ Warfarin (Sodium 2 mg) 7 mg PO DAILY@1800 [facility] Last Admin: 11/08/17 17:38 Dose: 7 mg - Objective Vital Signs: Vital Signs Temperature 98.7 F 11/09/17 08:34 Pulse Rate 96 H 11/09/17 08:34 Respiratory Rate 18 11/09/17 08:34 Blood Pressure 136/63 11/09/17 08:34 O2 Sat by Pulse Oximetry (%) 96 11/09/17 08:34 Constitutional: Yes: Well Nourished, Calm Eyes: Yes: WNL HENT: Yes: WNL Neck: Yes: WNL Cardiovascular: Yes: Pulse Irregular, S1, S2 Respiratory: Yes: Rales (few bibasailar rales) Gastrointestinal: Yes: Normal Bowel Sounds, Soft Extremities: Yes: WNL Edema: No Labs: Problem List - Problems (1) CHF (congestive heart failure) Code(s): I50.9 - HEART FAILURE, UNSPECIFIED (2) PNA (pneumonia) Code(s): J18.9 - PNEUMONIA, UNSPECIFIED ORGANISM (3) SOB (shortness of breath) Code(s): R06.02 - SHORTNESS OF BREATH (4) ASHD (arteriosclerotic heart disease) Code(s): I25.10 - ATHSCL HEART DISEASE OF [place] CORONARY ARTERY W/O ANG PCTRS (5) Atrial fibrillation Code(s): I48.91 - UNSPECIFIED ATRIAL FIBRILLATION Qualifiers: Atrial fibrillation type: chronic Qualified Code(s): I48.2 - Chronic atrial fibrillation (6) Elevated INR Code(s): R79.1 - ABNORMAL COAGULATION PROFILE (7) Hypertension Code(s): I10 - ESSENTIAL (PRIMARY) HYPERTENSION Qualifiers: Hypertension type: essential hypertension Qualified Code(s): I10 - Essential (primary) hypertension Assessment/Plan IMP DYSPNEA IMPROVING ACUTE ON CHRONIC CHF AFIB ELEVATED LACTATE LEVEL HTN PULMONARY HTN PLAN LASIX DAILY WT O2 INHALED BRONCHODILATORS MONITOR INR BETA-BLOCKERS [place]LEY CAMACHO Problem List - Problems (1) CHF (congestive heart failure) Code(s): I50.9 - HEART FAILURE, UNSPECIFIED (2) PNA (pneumonia) Code(s): J18.9 - PNEUMONIA, UNSPECIFIED ORGANISM (3) SOB (shortness of breath) Code(s): R06.02 - SHORTNESS OF BREATH (4) ASHD (arteriosclerotic heart disease) Code(s): I25.10 - ATHSCL HEART DISEASE OF [place] CORONARY ARTERY W/O ANG PCTRS (5) Atrial fibrillation Code(s): I48.91 - UNSPECIFIED ATRIAL FIBRILLATION Qualifiers: Atrial fibrillation type: chronic Qualified Code(s): I48.2 - Chronic atrial fibrillation (6) Elevated INR Code(s): R79.1 - ABNORMAL COAGULATION PROFILE (7) Hypertension Code(s): I10 - ESSENTIAL (PRIMARY) HYPERTENSION Qualifiers: Hypertension type: essential hypertension Qualified Code(s): I10 - Essential (primary) hypertension
--- NOTE | 2017-11-09 15:45 | DS ---
Physical Examination Vital Signs: Vital Signs Temperature 98.7 F 11/09/17 08:34 Pulse Rate 96 H 11/09/17 08:34 Respiratory Rate 18 11/09/17 08:34 Blood Pressure 136/63 11/09/17 08:34 O2 Sat by Pulse Oximetry (%) 96 11/09/17 08:34 Findings/Remarks: SEE PROGRESS NOTES TODAY Labs: CBC, BMP 11/05/17 06:00 11/08/17 06:23 Discharge Summary Reason For Visit: PNEUMONIA Current Active Problems CHF (congestive heart failure) (Acute) PNA (pneumonia) (Acute) SOB (shortness of breath) (Acute) Procedures: Principal: CXR/ECHO Hospital Course: ADMITTED ACUTE CHF DECOMPENSATED HEART FAILURE GIVEN IV LASIX AND IV ABX FOR PNEMONIA IMPROVED WILL NEED SNF FOR PT / REHAB Condition: Improved - Instructions Diet, Activity, Other Instructions: CHECK INR LOW SODIUM DIET Referrals: Araceli Dow MD [Primary Care Provider] - Disposition: SNF FACILITY - Home Medications Comprehensive Discharge Medication List: Ambulatory Orders Cholecalciferol (Vitamin D3) [Vitamin D -] 0 unit PO DAILY 10/21/16 Glucosamine/MSM/Chondroitin A [Glucosamine Chondroit MSM Tab] 1 each PO DAILY Multivitamins [Multivit ([facility] Formulary)] 1 tab PO DAILY 10/21/16 Phenytoin Sodium Extended [Phenytek] 400 mg PO HS 10/21/16 Arformoterol Tartrate [Brovana -] 1 amp NEB BID amp 10/25/16 Atorvastatin Ca [Lipitor] 10 mg PO HS tablet 10/25/16 Latanoprost 0.005% Eye Drops [Xalatan 0.005% Eye Drops -] 1 drop OD HS drop 04/11 Amino Acids/Protein Hydrolys [Prosource No Carb Liquid Pkt] 30 ml PO BID@0800, 1730 packet 11/09/17 Arformoterol Tartrate [Brovana -] 1 amp NEB RBID amp 11/09/17 Atorvastatin Ca [Lipitor] 10 mg PO HS tablet 11/09/17 Furosemide [Lasix -] 40 mg PO DAILY tablet 11/09/17 Latanoprost 0.005% Eye Drops [Xalatan 0.005% Eye Drops -] 1 drop OD HS drops Metoprolol Tartrate [Lopressor -] 200 mg PO BID tablet 11/09/17 Multivitamins [Multivit ([facility] Formulary)] 1 tab PO DAILY tab 11/09/17 Phenol [Chloraseptic -] 1 spray MM Q6HPO PRN bottle 11/09/17 Phenytoin Na Extended [Dilantin -] 400 mg PO DAILY capsule 11/09/17 Warfarin Na [Coumadin -] 7 mg PO DAILY@1800 tablet 11/09/17 Warfarin Na [Coumadin -] 7 mg PO DAILY@1800 tablet 11/09/17
[2017-11-09 16:06] VITALS: BMI 26.6
[2017-11-09 16:16] VITALS: BP 122/74; PULSE 95; TEMP 98.6
[2017-11-09] MEDS ORDERED: WARFARIN NA 2 MG TABLET (UD) ONE (16:57)
[2017-11-09] MEDS ORDERED: WARFARIN NA 5 MG TABLET (UD) ONE (16:57)
[2017-11-09] MEDS: WARFARIN NA 5 MG, WARFARIN NA 2 MG PO SCH (17:03)
== END 2017-11-09 18:15 | DRG 291 ==
LOC: JER 08:25 → JERBED 10:31 → J4S 19:07
PROVIDERS: ADMIT Family Medicine; ATTEND Family Medicine
DX: I11.0 Hypertensive heart disease with heart failure (principal); J18.9 Pneumonia, unspecified organism; I50.33 Acute on chronic diastolic (congestive) heart failure; R73.03 Prediabetes; E78.00 Pure hypercholesterolemia, unspecified; I25.10 Atherosclerotic heart disease of native coronary artery without angina pectoris; M54.5 Low back pain; M19.90 Unspecified osteoarthritis, unspecified site; I34.0 Nonrheumatic mitral (valve) insufficiency; D32.9 Benign neoplasm of meninges, unspecified; R56.9 Unspecified convulsions; I48.2 Chronic atrial fibrillation; R07.89 Other chest pain; R79.1 Abnormal coagulation profile; I27.20 Pulmonary hypertension, unspecified; R68.89 Other general symptoms and signs; Z87.891 Personal history of nicotine dependence
CPT/HCPCS: 36415; 71045-TC-FY; 80048; 80053; 80061; 80185; 81003; 82550; 82803; 82962; 83036; 83605; 83721; 83735; 83880; 84484; 85025; 85027; 85610; 85730; 87040; 87086; 87804; 93005; 93010; 93306-TC; 94010; 94640; 97116-GP; 97161-GP; 99285-25; J0131

== ENCOUNTER 2018-01-18 14:40 | Inpatient (IN) | payer OTHER, MEDICARE ==
--- NOTE | 2018-01-18 14:50 | PDOC ---
Rapid Medical Evaluation Chief Complaint: Altered Mental Status Time Seen by Provider: 01/18/18 14:43 Medical Evaluation: Allergies Allergy/AdvReac Type Severity Reaction Status Date / Time levofloxacin [From Levaquin] Allergy Verified 11/02/17 11:47 lidocaine AdvReac Verified 11/02/17 11:48 01/18/18 14:46 Pt c/o: dizziness x 3 weeks, worse with standing, no headache, confusion, visual changes, sent from [facility], [facility] for consult Pt on brief exam: A0 x 3, hr fluctuating 108-124, ( hx afib but states takes meds daily) Dr. 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
[2018-01-18 15:46] LABS: BASO % 0.7 % (0-2.0); EOS % 0.2 % (0-4.5); HEMATOCRIT 46.6 % (32.4-45.2); HEMOGLOBIN 15.3 GM/dL (10.7-15.3); LYMPH % 19.9 % (8-40); MCH 30.1 pg (25.7-33.7); MCHC 32.8 g/dl (32.0-36.0); MEAN CELL VOLUME 91.7 fl (80-96); MEAN PLT VOLUME 8.5 fl (7.5-11.1); MONO % 7.4 % (3.8-10.2); NEUT % 71.8 % (42.8-82.8); PLATELET COUNT 212 K/MM3 (134-434); RBC 5.09 M/mm3 (3.60-5.2); RDW 13.5 % (11.6-15.6); WHITE BLOOD COUNT 6.2 K/mm3 (4.0-10.0)
--- NOTE | 2018-01-18 16:01 | PDOC ---
History of Present Illness - General Chief Complaint: Altered Mental Status Stated Complaint: Altered Mental Status Time Seen by Provider: 01/18/18 14:43 Past History - Past Medical History Allergies/Adverse Reactions: Allergies Allergy/AdvReac Type Severity Reaction Status Date / Time levofloxacin [From Levaquin] Allergy Verified 01/18/18 18:33 lidocaine AdvReac Verified 01/18/18 18:33 Home Medications: Ambulatory Orders Cholecalciferol (Vitamin D3) [Vitamin D -] 0 unit PO DAILY 10/21/16 Glucosamine/MSM/Chondroitin A [Glucosamine Chondroit MSM Tab] 1 each PO DAILY Multivitamins [Multivit ([facility] Formulary)] 1 tab PO DAILY 10/21/16 Phenytoin Sodium Extended [Phenytek] 400 mg PO HS 10/21/16 Arformoterol Tartrate [Brovana -] 1 amp NEB BID amp 10/25/16 Atorvastatin Ca [Lipitor] 10 mg PO HS tablet 10/25/16 Latanoprost 0.005% Eye Drops [Xalatan 0.005% Eye Drops -] 1 drop OD HS drop 04/11 Amino Acids/Protein Hydrolys [Prosource No Carb Liquid Pkt] 30 ml PO BID@0800, 1730 packet 11/09/17 Arformoterol Tartrate [Brovana -] 1 amp NEB RBID amp 11/09/17 Atorvastatin Ca [Lipitor] 10 mg PO HS tablet 11/09/17 Furosemide [Lasix -] 40 mg PO DAILY tablet 11/09/17 Latanoprost 0.005% Eye Drops [Xalatan 0.005% Eye Drops -] 1 drop OD HS drops Metoprolol Tartrate [Lopressor -] 200 mg PO BID tablet 11/09/17 Multivitamins [Multivit ([facility] Formulary)] 1 tab PO DAILY tab 11/09/17 Phenol [Chloraseptic -] 1 spray MM Q6HPO PRN bottle 11/09/17 Phenytoin Na Extended [Dilantin -] 400 mg PO DAILY capsule 11/09/17 Warfarin Na [Coumadin -] 7 mg PO DAILY@1800 tablet 11/09/17 Warfarin Na [Coumadin -] 7 mg PO DAILY@1800 tablet 11/09/17 Cardiac Disorders: Yes (afib) COPD: No CHF: Yes Diabetes: Yes (borderline) HTN: Yes Hypercholesterolemia: Yes Seizures: Yes - Surgical History Cholecystectomy: Yes - Immunization History Immunization Up to Date: No - Suicide/Smoking/Psychosocial Hx Smoking History: Never smoked Have you smoked in the past 12 months: No Information on smoking cessation initiated: No Hx Alcohol Use: No Drug/Substance Use Hx: No Substance Use Type: None Hx Substance Use Treatment: No *Physical Exam - Vital Signs Last Vital Signs Temp Pulse Resp BP Pulse Ox 98.4 F 111 H 16 161/95 98 01/18/18 14:44 01/18/18 14:44 01/18/18 14:44 01/18/18 14:44 01/18/18 14:44 ED Treatment Course - LABORATORY CBC & Chemistry Diagram: 01/18/18 15:20 01/18/18 15:20 Medical Decision Making - Medical Decision Making 01/18/18 16:06 Patient is an 87 year old female with past medical history of A.fib (on warfarin ), HTN, meningioma, OA, seizure disorder, mitral regurgitation, DM, diastolic CHF, myocardial ischemia, presented with intermittent episodes of dizziness, described more as lightheadedness for a few weeks. Patient reports dizziness is not position-related and denies room spinning around her. She also noted decreased appetite since a few weeks ago, reporting it may be related to salt- restricted diet. She denies headaches, fevers, chills, visual changes, weakness , numbness, tingling. Denies chest pain, SOB, palpitations, abdominal pain, diarrhea, constipation, urinary symptoms. Patient was sent to the ED by PCP for further work-up. General: awake, alert, oriented x3, not in acute distress Head: no signs of head trauma HEENT:PERRLA, EOMI, sclerae anicteric, Neck: soft, supple, trachea midline, without LAD Lungs: +crackles on the left lung base, clear breath sounds on the right lung Heart: irregularly irregular, no murmurs, rubs or gallops Abdomen: soft, nontender, mildly distended, NABS, +hernia at the periumbilical area Ext: +2 pulses, no peripheral edema Neuro: AAOx3, CN II-XII intact, motor strength 5/5 on all extremities, sensation intact, able to do FTNT and alternating movements, walks slowly with a walker DDx: include but not limited to electrolyte abnormalities, dehydration, UTI, Anemia, CVA, intracranial bleed CBC, CMP, cardiac profile UA head CT without contrast Spoke with Dr. Dow. Ordered Brain MRI without contrast and neurology consult. Will admit patient to obs. 01/18/18 16:39 01/18/18 16:41 01/18/18 22:34 *DC/Admit/Observation/Transfer Diagnosis at time of Disposition: Dizziness, Elevated INR - Discharge Dispostion Condition at time of disposition: Stable Decision to Admit order: Yes - Referrals - Patient Instructions - Post Discharge Activity
--- NOTE | 2018-01-18 16:21 | PDOC ---
Attending Attestation - HPI HPI: 01/18/18 16:23 The patient is an 87 year old female, with a significant past medical history of hypertension, Afib, CHF, who presents to the emergency department with lightheadedness sent by PCP. The patient denies chest pain, shortness of breath, headache and dizziness. The patient denies fever, chills, nausea, vomit, diarrhea and constipation. The patient denies dysuria, frequency, urgency and hematuria. PCP - Dr. Araceli Dow - Physicial Exam PE: 01/18/18 16:22 Vitals: Triage vital signs reviewed General Appearance: No acute distress, well nourished, well developed Head: Atraumatic Eyes: Pupils equal reactive round, extraocular movement intact. no visual field deficits. Neck: Supple; No nuchal rigidity Chest Wall: Nontender Cardiac: Regular rate and rhythm, no murmurs, no rubs, no gallops Lungs: Clear to auscultation bilateral, good air movement bilaterally Abdomen: Soft, nondistended, normal bowel sounds, nontender to palpation Extremities: Full range of motion to all extremities, no cyanosis, clubbing, or edema Skin: Warm and dry, no rashes or lesions, no rash, no petechiae Neuro: AOX3; Cranial Nerves 2-12 grossly intact, Strength intact to all extremities, Sensation intact to all extremities, gait unassessed. normal finger to nose Psych: Normal mood, normal affect - Medical Decision Making 01/18/18 16:23 Documentation prepared by Kayla Sahu, acting as medical office clerk for Chris Burris MD, <Kayla Sahu - Last Filed: 01/18/18 16:29> - Resident Resident Name: Amy Young - ED Attending Attestation I have performed the following: I have examined & evaluated the patient, The case was reviewed & discussed with the resident, I agree w/resident's findings & plan, Exceptions are as noted - Medical Decision Making 01/18/18 16:21 Several week history of intermittent dizziness lightheadedness. Sent to the emergency department by her primary care provider for further evaluation by neurology and MRI Nonfocal neurologic examination however given age and risk factors we'll admit to medicine for neurology consultation and MRI and further management. <Chris Burris - Last Filed: 01/18/18 17:12>
[2018-01-18 16:24] LABS: ALBUMIN 3.9 g/dl (3.4-5.0); ALK PHOS 110 U/L (45-117); ANION GAP 12 MMOL/L (8-16); BILIRUBIN,TOTAL 0.3 mg/dL (0.2-1); BLOOD UREA NITROGEN 10 mg/dL (7-18); CHLORIDE 102 mmol/L (98-107); CO2 27 mmol/L (21-32); CREATININE 0.8 mg/dL (0.55-1.3); GLUCOSE,RANDOM 145 mg/dL (74-106); MAGNESIUM 2.2 mg/dL (1.8-2.4); SGOT/AST 27 U/L (15-37); SGPT/ALT 43 U/L (13-61); SODIUM 141 mmol/L (136-145); TOT PROT 7.2 g/dl (6.4-8.2)
[2018-01-18] MEDS ORDERED: SODIUM CHLORIDE 0.45% 1,000 ML IV SCH (16:30)
[2018-01-18 16:58] LABS: INR 4.09 (0.83-1.09)
--- NOTE | 2018-01-18 17:35 | PDOC ---
*Physical Exam - Vital Signs Last Vital Signs Temp Pulse Resp BP Pulse Ox 98.4 F 111 H 16 161/95 98 01/18/18 14:44 01/18/18 14:44 01/18/18 14:44 01/18/18 14:44 01/18/18 14:44 ED Treatment Course - LABORATORY CBC & Chemistry Diagram: 01/18/18 15:20 01/18/18 15:20 - ADDITIONAL ORDERS Additional order review: Laboratory Results 01/18/18 01/18/18 15:20 15:20 PT with INR 49.00 H INR 4.09 H* Sodium 141 Potassium 4.0 Chloride 102 Carbon Dioxide 27 Anion Gap 12 BUN 10 Creatinine 0.8 Creat Clearance w eGFR > 60 Random Glucose 145 H Calcium 9.0 Magnesium 2.2 Total Bilirubin 0.3 AST 27 ALT 43 Alkaline Phosphatase 110 Creatine Kinase 153 Creatine Kinase Index 1.9 CK-MB (CK-2) 3.0 Troponin I < 0.02 Total Protein 7.2 Albumin 3.9 01/18/18 15:20 RBC 5.09 MCV 91.7 MCHC 32.8 RDW 13.5 MPV 8.5 Neutrophils % 71.8 Lymphocytes % 19.9 D Monocytes % 7.4 Eosinophils % 0.2 Basophils % 0.7 Medical Decision Making - Medical Decision Making 01/18/18 17:34 87 yo female with unsteady gait referred to ED by Dr Dow for further evaluation and admission 01/18/18 17:35 labs reviewed and cbc is normal, chemistries unremarkable with exception INR= 4.09 and [id number] 01/18/18 19:07 Hospitalist agrees to admit(placed on Victor M's list) *DC/Admit/Observation/Transfer Diagnosis at time of Disposition: Dizziness, Elevated INR - Discharge Dispostion Condition at time of disposition: Stable - Referrals Referrals: Araceli Dow MD [Primary Care Provider] - - Patient Instructions - Post Discharge Activity
[2018-01-18 18:23] LABS: URINE APPEARANCE CLEAR; URINE BILIRUBIN NEGATIVE (<2.0 mg/dL); URINE COLOR LTYELLOW; URINE GLUCOSE (UA) NEGATIVE (NEGATIVE); URINE KETONE NEGATIVE (NEGATIVE); URINE LEUK ESTERASE NEGATIVE (NEGATIVE); URINE NITRITE NEGATIVE (NEGATIVE); URINE PROTEIN NEGATIVE (NEGATIVE); URINE UROBILINOGEN NEGATIVE mg/dL (0.2-1.0)
--- NOTE | 2018-01-18 21:03 | HP ---
Admitting History and Physical - Primary Care Physician PCP: Araceli Dow - Admission Chief Complaint: Dizziness History of Present Illness: This is a 87 y/o woman. Who presents to the ED with dizziness x 3 weeks. She was seen by her PMD who sent her in for admission. Patient reports having intermittent dizziness, worse during the morning. Patient reports having a decrease in appetite. Patient reports no new medications. Patient denies fever, chills, cough, SOB, CP, AP, N/V/D, constipation, dysuria History Source: Patient Limitations to Obtaining History: No Limitations - Past Medical History [employer]: Yes: Seizure. 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's Cardiovascular: Yes: AFIB, CAD, CHF (Diastolic), HTN, Mitral Insufficiency ( moderate to severe mitral regurgitation) Pulmonary: Yes: Pneumonia Psych: Yes: Addictions Musculoskeletal: Yes: Chronic low back pain, Osteoarthritis Rheumatology: Yes: Other - Smoking History Smoking history: Never smoked Have you smoked in the past 12 months: No - Alcohol/Substance Use Hx Alcohol Use: No History of Substance Use: reports: None - Social History Usual Living Arrangement: Yes: Alone ADL: Independent (Previously Independent in ADLs/ IADLs, has cane but does not use assistive device) History of Recent Travel: No Home Medications - Allergies Allergies/Adverse Reactions: Allergies Allergy/AdvReac Type Severity Reaction Status Date / Time levofloxacin [From Levaquin] Allergy Verified 01/18/18 18:33 lidocaine AdvReac Verified 01/18/18 18:33 - Home Medications Home Medications: Ambulatory Orders Cholecalciferol (Vitamin D3) [Vitamin D -] 0 unit PO DAILY 10/21/16 Glucosamine/MSM/Chondroitin A [Glucosamine Chondroit MSM Tab] 1 each PO DAILY Multivitamins [Multivit ([facility] Formulary)] 1 tab PO DAILY 10/21/16 Phenytoin Sodium Extended [Phenytek] 400 mg PO HS 10/21/16 Arformoterol Tartrate [Brovana -] 1 amp NEB BID amp 10/25/16 Atorvastatin Ca [Lipitor] 10 mg PO HS tablet 10/25/16 Latanoprost 0.005% Eye Drops [Xalatan 0.005% Eye Drops -] 1 drop OD HS drop 04/11 Amino Acids/Protein Hydrolys [Prosource No Carb Liquid Pkt] 30 ml PO BID@0800, 1730 packet 11/09/17 Arformoterol Tartrate [Brovana -] 1 amp NEB RBID amp 11/09/17 Atorvastatin Ca [Lipitor] 10 mg PO HS tablet 11/09/17 Furosemide [Lasix -] 40 mg PO DAILY tablet 11/09/17 Latanoprost 0.005% Eye Drops [Xalatan 0.005% Eye Drops -] 1 drop OD HS drops Metoprolol Tartrate [Lopressor -] 200 mg PO BID tablet 11/09/17 Multivitamins [Multivit ([facility] Formulary)] 1 tab PO DAILY tab 11/09/17 Phenol [Chloraseptic -] 1 spray MM Q6HPO PRN bottle 11/09/17 Phenytoin Na Extended [Dilantin -] 400 mg PO DAILY capsule 11/09/17 Warfarin Na [Coumadin -] 7 mg PO DAILY@1800 tablet 11/09/17 Warfarin Na [Coumadin -] 7 mg PO DAILY@1800 tablet 11/09/17 Family Disease History - Family Disease History Family History: Unable to Obtain Review of Systems - Review of Systems Constitutional: reports: No Symptoms Eyes: reports: No Symptoms HENT: reports: No Symptoms Neck: reports: No Symptoms Cardiovascular: reports: No Symptoms Respiratory: reports: No Symptoms Gastrointestinal: reports: Dysphagia Genitourinary: reports: No Symptoms Breasts: reports: No Symptoms Reported Musculoskeletal: reports: No Symptoms Integumentary: reports: No Symptoms Neurological: reports: Dizziness Endocrine: reports: No Symptoms Hematology/Lymphatic: reports: No Symptoms Psychiatric: reports: No Symptoms Physical Examination Vital Signs: Vital Signs Temperature 98.4 F 01/18/18 14:44 Pulse Rate 111 H 01/18/18 14:44 Respiratory Rate 16 01/18/18 14:44 Blood Pressure 161/95 01/18/18 14:44 O2 Sat by Pulse Oximetry (%) 98 01/18/18 14:44 Constitutional: Yes: Well Nourished, No Distress, Calm Eyes: Yes: WNL, Conjunctiva Clear, EOM Intact, PERRL HENT: Yes: Atraumatic, Normocephalic, Other (dry mucousa membranes) Neck: Yes: WNL, Supple, Trachea Midline Cardiovascular: Yes: Pulse Irregular, S1, S2 Respiratory: Yes: WNL, Regular, CTA Bilaterally Gastrointestinal: Yes: WNL, Normal Bowel Sounds, Soft Renal/: Yes: WNL Breast(s): Yes: WNL Musculoskeletal: Yes: WNL Extremities: Yes: WNL Edema: No Peripheral Pulses WNL: Yes Neurological: Yes: Alert, Confusion, Cran Nerves II-XII Intact ...Motor Strength: WNL Psychiatric: Yes: WNL, Alert, Oriented Labs: CBC, BMP 01/18/18 15:20 01/18/18 15:20 Laboratory Results - last 24 hr 01/18/18 01/18/18 01/18/18 15:20 15:20 15:20 WBC 6.2 RBC 5.09 Hgb 15.3 Hct 46.6 H D MCV 91.7 MCH 30.1 MCHC 32.8 RDW 13.5 Plt Count 212 MPV 8.5 Absolute Neuts (auto) 4.5 Neutrophils % 71.8 Lymphocytes % 19.9 D Monocytes % 7.4 Eosinophils % 0.2 Basophils % 0.7 Nucleated RBC % 0 PT with INR 49.00 H INR 4.09 H* Sodium Potassium Chloride Carbon Dioxide Anion Gap BUN Creatinine Creat Clearance w eGFR Random Glucose Calcium Magnesium Total Bilirubin AST ALT Alkaline Phosphatase Creatine Kinase Creatine Kinase Index CK-MB (CK-2) Troponin I Total Protein Albumin Urine Color Urine Appearance Urine pH Ur Specific Sigel Urine Protein Urine Glucose (UA) Urine Ketones Urine Blood Urine Nitrite Urine Bilirubin Urine Urobilinogen Ur Leukocyte Esterase Blood Type A POSITIVE Antibody Screen Negative 01/18/18 01/18/18 15:20 18:10 WBC RBC Hgb Hct MCV MCH MCHC RDW Plt Count MPV Absolute Neuts (auto) Neutrophils % Lymphocytes % Monocytes % Eosinophils % Basophils % Nucleated RBC % PT with INR INR Sodium 141 Potassium 4.0 Chloride 102 Carbon Dioxide 27 Anion Gap 12 BUN 10 Creatinine 0.8 Creat Clearance w eGFR > 60 Random Glucose 145 H Calcium 9.0 Magnesium 2.2 Total Bilirubin 0.3 AST 27 ALT 43 Alkaline Phosphatase 110 Creatine Kinase 153 Creatine Kinase Index 1.9 CK-MB (CK-2) 3.0 Troponin I < 0.02 Total Protein 7.2 Albumin 3.9 Urine Color Ltyellow Urine Appearance Clear Urine pH 6.0 Ur Specific Sigel 1.010 Urine Protein Negative Urine Glucose (UA) Negative Urine Ketones Negative Urine Blood Negative Urine Nitrite Negative Urine Bilirubin Negative Urine Urobilinogen Negative Ur Leukocyte Esterase Negative Blood Type Antibody Screen Intake & Output 01/16/18 01/17/18 01/18/18 01/19/18 23:59 23:59 23:59 23:59 Weight 65.544 kg Imaging - Results Chest X-ray: Image Reviewed Cat Scan: Report Reviewed, Image Reviewed EKG: Image Reviewed Problem List - Problems (1) Dizziness Code(s): R42 - DIZZINESS AND GIDDINESS (2) Elevated INR Code(s): R79.1 - ABNORMAL COAGULATION PROFILE (3) ASHD (arteriosclerotic heart disease) Code(s): I25.10 - ATHSCL HEART DISEASE OF [place] CORONARY ARTERY W/O ANG PCTRS (4) Atrial fibrillation Code(s): I48.91 - UNSPECIFIED ATRIAL FIBRILLATION (5) CHF (congestive heart failure) Code(s): I50.9 - HEART FAILURE, UNSPECIFIED (6) Hypertension Code(s): I10 - ESSENTIAL (PRIMARY) HYPERTENSION Qualifiers: (7) Intractable low back pain Code(s): M54.5 - LOW BACK PAIN (8) Lumbar disc disease with radiculopathy Code(s): M51.16 - INTERVERTEBRAL DISC DISORDERS W RADICULOPATHY, LUMBAR REGION (9) Meningioma Code(s): D32.9 - BENIGN NEOPLASM OF MENINGES, UNSPECIFIED Assessment/Plan This is a 87 y/o woman with a PMHx of Seizure disorder, HTN, CAD, Afib, OA, Chronic Back Pain, Pneumonia. Placed in Tele Observation for Dizziness r/o CVA for further evaluation of their emergent condition. Plan: 1. Neuro: Dizziness r/o CVA, Seizure Disorder- Continue cardiac monitoring, Head CT- no acute intracranial pathology, 2.5 x 2.3 calcified meningioma, Brain MRI- pending, Appreciate Neurology consult, Neurochecks, Continue home meds, Seizure Precautions, Fall Precautions 2. Cardiovascular: CAD, Diastolic CHF, Atrial Fibrillation, HTN- BP not well controlled, [id number], Continue cardiac monitoring, Appreciate Cardiology consult, Chest xray image-reviewed, Echo 11/03/17- EF >70%, LV normal size, RV mild dilated, RVSP nl, mod-severe MR, severe TR, mild- mod pulmonary HTN. Continue home meds with parameters, strict INOs, daily weight, O2 prn 3. Heme: Supratherapuetic INR, no active bleed, will hold Coumadin tonight, Series INRs, (resume when INR between 2.0-3.0) 4. Musculoskeletal: Chronic Back James, OA- stable, Tylenol prn FEN- PO fluids as tolerated, replete lytes prn, Low Na Diet DVT ppx- OOB, SCDs, Hold AC secondary to Supratherapuetic INR Dispo: Observation Visit type - Emergency Visit Emergency Visit: Yes ED Registration Date: 01/18/18 Care time: The patient presented to the Emergency Department on the above date and was hospitalized for further evaluation of their emergent condition. - New Patient This patient is new to me today: Yes Date on this admission: 01/18/18 - Critical Care Critical Care patient: No
[2018-01-18] MEDS ORDERED: PHENYTOIN NA EXTENDED 100 MG CAPSULE (FP) PO SCH (23:45)
[2018-01-19] MEDS: LATANOPROST 0.005% OPHTH SOLN 2.5ML BOTTLE OD SCH ×2 (01:37→22:29)
[2018-01-19] MEDS: ATORVASTATIN CA 10 MG TABLET (FP) PO SCH ×2 (02:32→22:29)
[2018-01-19 07:01] LABS: BASO % 0.6 % (0-2.0); EOS % 1.5 % (0-4.5); HEMATOCRIT 45.6 % (32.4-45.2); LYMPH % 42.9 % (8-40); MCH 30.2 pg (25.7-33.7); MEAN CELL VOLUME 91.6 fl (80-96); MEAN PLT VOLUME 8.5 fl (7.5-11.1); MONO % 9.6 % (3.8-10.2); NEUT % 45.4 % (42.8-82.8); PLATELET COUNT 195 K/MM3 (134-434); RBC 4.98 M/mm3 (3.60-5.2); RDW 13.3 % (11.6-15.6); WHITE BLOOD COUNT 6.5 K/mm3 (4.0-10.0)
[2018-01-19 07:02] LABS: INR 3.17 (0.83-1.09); PROTHROMBIN TIME (PATIENT) 37.8 SEC (9.7-13.0)
[2018-01-19 07:21] LABS: ANION GAP 8 MMOL/L (8-16); BLOOD UREA NITROGEN 12 mg/dL (7-18); CALCIUM 8.6 mg/dL (8.5-10.1); CHLORIDE 105 mmol/L (98-107); CHOLESTEROL 150 mg/dL (50-200); CO2 28 mmol/L (21-32); CREATININE 0.9 mg/dL (0.55-1.3); GLUCOSE,RANDOM 90 mg/dL (74-106); HDL CHOLESTEROL 57 mg/dL (40-60); POTASSIUM 3.6 mmol/L (3.5-5.1); SODIUM 141 mmol/L (136-145); TRIGLYCERIDES 111 mg/dL (0-150)
[2018-01-19] MEDS ORDERED: ACETAMINOPHEN 325 MG TABLET (FP) PO PRN (07:26)
--- NOTE | 2018-01-19 09:28 | CON.CARD ---
Consult Consult Specialty:: Cardiology Referred by:: Hospitalist Reason for Consultation:: uncontrolled BP, dizziness - History of Present Illness Chief Complaint: dizziness History of Present Illness: 87 year old woman with a PMHx of hypertension, DM, HLD, chronic atrial fibrillation on warfarin, diastolic CHF, moderate to severe mitral regurgitation , CAD with mild anterior wall stress induced ischemia from nuclear stress test in June 2016, and seizure disorder admitted 11/02/2017 with worsening SOB over 2 days with associated intermittent chest pain, medically managed with Lasix and HR control, now admitted with c/o dizziness. Pt seen and examined today in nad. She denies chest pain, sob, palpitations. No pnd, orthopnea or LE edema. 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's Cardio/Vascular: Yes: AFIB, CAD, CHF (Diastolic), HTN, Mitral Insufficiency ( moderate to severe mitral regurgitation) Pulmonary: Yes: Pneumonia Psych: Yes: Addictions Musculoskeletal: Yes: Chronic low back pain, Osteoarthritis Rheumatology: Yes: Other - Alcohol/Substance Use Hx Alcohol Use: No History of Substance Use: reports: None - Smoking History Smoking history: Never smoked Have you smoked in the past 12 months: No - Social History Usual Living Arrangement: Alone (lives alone in 2 family house with 18 stairs to enter) ADL: Independent (Previously Independent in ADLs/ IADLs, has cane but does not use assistive device) History of Recent Travel: No Home Medications - Allergies Allergies/Adverse Reactions: Allergies Allergy/AdvReac Type Severity Reaction Status Date / Time levofloxacin [From Levaquin] Allergy Verified 01/18/18 18:33 lidocaine AdvReac Verified 01/18/18 18:33 - Home Medications Home Medications: Ambulatory Orders Cholecalciferol (Vitamin D3) [Vitamin D -] 0 unit PO DAILY 10/21/16 Glucosamine/MSM/Chondroitin A [Glucosamine Chondroit MSM Tab] 1 each PO DAILY Multivitamins [Multivit ([facility] Formulary)] 1 tab PO DAILY 10/21/16 Phenytoin Sodium Extended [Phenytek] 400 mg PO HS 10/21/16 Arformoterol Tartrate [Brovana -] 1 amp NEB BID amp 10/25/16 Atorvastatin Ca [Lipitor] 10 mg PO HS tablet 10/25/16 Latanoprost 0.005% Eye Drops [Xalatan 0.005% Eye Drops -] 1 drop OD HS drop 04/11 Amino Acids/Protein Hydrolys [Prosource No Carb Liquid Pkt] 30 ml PO BID@0800, 1730 packet 11/09/17 Arformoterol Tartrate [Brovana -] 1 amp NEB RBID amp 11/09/17 Atorvastatin Ca [Lipitor] 10 mg PO HS tablet 11/09/17 Furosemide [Lasix -] 40 mg PO DAILY tablet 11/09/17 Latanoprost 0.005% Eye Drops [Xalatan 0.005% Eye Drops -] 1 drop OD HS drops Metoprolol Tartrate [Lopressor -] 200 mg PO BID tablet 11/09/17 Multivitamins [Multivit ([facility] Formulary)] 1 tab PO DAILY tab 11/09/17 Phenol [Chloraseptic -] 1 spray MM Q6HPO PRN bottle 11/09/17 Phenytoin Na Extended [Dilantin -] 400 mg PO DAILY capsule 11/09/17 Warfarin Na [Coumadin -] 7 mg PO DAILY@1800 tablet 11/09/17 Warfarin Na [Coumadin -] 7 mg PO DAILY@1800 tablet 11/09/17 Family Disease History - Family Disease History Family History: Denies Review of Systems - Review of Systems Constitutional: reports: Loss of Appetite, Weakness. denies: No Symptoms, Chills, Diaphoresis, Fever, Lethargy, Malaise, Night Sweats, Unintentional Wgt. Loss, Other Eyes: denies: No Symptoms, Blind Spots, Blurred Vision, Double Vision, Eye Pain , Floaters, Photophobia, Recent Change in Vision, Other HENT: denies: No Symptoms, Difficult Swallowing, Ear Discharge, Ear Pain, Epistaxis, Gingival Bleeding, Hearing Loss, Mouth Swelling, Nasal Congestion, Ocular Prosthesis, Throat Pain, Toothache, Ringing in Ears, Other Neck: denies: No Symptoms, Decreased ROM, Lumps, Pain on Movement, Stiffness, Swollen Glands, Tenderness, Other Cardiovascular: denies: No Symptoms, Chest Pain, Edema, Palpitations, Shortness of Breath, Other Respiratory: denies: No Symptoms, Cough, Exercise Intolerance, Hemoptysis, Orthopnea, PND, Snoring, SOB, SOB on Exertion, Wheezing, Other Gastrointestinal: denies: No Symptoms, Abdominal Pain, Bloating, Constipation, Diarrhea, Dysphagia, Indigestion, Melena, Nausea, Rectal Bleeding, Vomiting, Vomiting Blood, Other Genitourinary: denies: No Symptoms, Burning, Discharge, Dysuria, Flank Pain, Frequency, Hematuria, Incontinence, Lesions, Menses, Pain, Testicular Mass, Testicular Pain, Testicular Swelling, Urgency, Vaginal Bleeding, Other Breasts: denies: No Symptoms Reported, See HPI, Breast Implants, Discharge from Nipple, Lumps, Pain, Skin Changes, Other Musculoskeletal: denies: No Symptoms, Back Pain, Crepitus, Decreased ROM, Extremity Pain, Joint Pain, Joint Swelling, Muscle Pain, Muscle Cramps, Muscle Weakness, Other Integumentary: denies: No Symptoms, Blister, Bruising, Change in Color, Eczema, Erythema, Incision, Lesions, Lump, Pallor, Pruritis, Rash, Wound, Other Neurological: reports: Dizziness. denies: No Symptoms, Change in LOC, Change in Speech, Confusion, Headache, Incoordination, Numbness, Parasthesia, Pre- Existing Deficit, Seizure, Syncope, Tremors, Unsteady Gait, Weakness, Other Endocrine: denies: No Symptoms, Excessive Sweating, Flushing, Increased Hunger, Increased Thirst, Intolerance to Cold, Intolerance to Heat, Unexplained Weight Gain, Unexplained Weight Loss, Other Hematology/Lymphatic: denies: No Symptoms, Easily Bruised, Excessive Bleeding, Swollen Glands, Other Psychiatric: denies: No Symptoms, Altered Sleep Pattern, Anxiety, Depression, Hallucinations, Panic, Paranoia, Suicidal, Other - Risk Factors Known Risk Factors: Yes: Age, Hypercholesterolemia, Hypertension Vital Signs: Vital Signs Temperature 98.0 F 01/19/18 02:13 Pulse Rate 106 H 01/19/18 02:13 Respiratory Rate 18 01/19/18 02:13 Blood Pressure 141/92 01/19/18 02:13 O2 Sat by Pulse Oximetry (%) 98 01/18/18 23:00 Constitutional: Yes: Well Nourished, No Distress, Calm Eyes: Yes: Conjunctiva Clear, EOM Intact HENT: Yes: Atraumatic, Normocephalic Neck: Yes: Supple, Trachea Midline Respiratory: Yes: Regular, CTA Bilaterally. No: Rales, Rhonchi, SOB, Wheezes Gastrointestinal: Yes: Normal Bowel Sounds, Soft. No: Distention, Tenderness Cardiovascular: Yes: Tachycardia, Pulse Irregular. No: Regular Rate and Rhythm , Bradycardia, Gallop, Rub, Varicosities JVD: No Carotid Bruit: No PMI: Non-Displaced Heart Sounds: Yes: S1, S2. No: Split S2, S3, S4, Clicks, Gallop, Rub, Bruit Murmur: Yes: Systolic Murmur, Grade 2 Extremities: Yes: WNL Edema: No Peripheral Pulses WNL: Yes Neurological: Yes: Alert, Oriented Psychiatric: Yes: Alert, Oriented - Other Data Labs, Other Data: CBC, BMP 01/19/18 06:00 01/19/18 06:00 INR, PTT INR 3.17 (0.83-1.09) H 01/19/18 06:00 Troponin, BNP 01/18/18 15:20 Troponin I < 0.02 Troponin, BNP 01/18/18 15:20 Troponin I < 0.02 ekg afib Echo: Report Reviewed Imaging - Results Chest X-ray: Report Reviewed, Image Reviewed EKG: Report Reviewed, Image Reviewed Other: Report Reviewed, Image Reviewed (tele-AF, HR above goal currently 120bpm) Assessment/Plan 87 year old woman with a PMHx of hypertension, DM, HLD, chronic atrial fibrillation on warfarin, diastolic CHF, moderate to severe mitral regurgitation , CAD with mild anterior wall stress induced ischemia from nuclear stress test in June 2016, and seizure disorder admitted 11/02/2017 with worsening SOB over 2 days with associated intermittent chest pain, medically managed with Lasix and HR control, now admitted with c/o dizziness. Pt seen and examined today in nad. She denies chest pain, sob, palpitations. No pnd, orthopnea or LE edema. Repeat echocardiogram 11/03/2017: Normal LV size, with hyperkinetic wall motion and increased systolic function. LVEF > 70%. Mild RV dilatation with normal systolic function. Mild LA and RA dilatation. Moderate to severe MR. Severe TR. Mild pulm HTN, RVSP = 47 mmHg. Dizziness-unlikely related to afib -neuro work up in progress Chronic diastolic CHF- moderate to severe MR contributes to her CHF exacerbations in the past -currently euvolemic -cont home Lasix dose, 40mg po daily -Monitor renal function and electrolytes. Atrial fibrillation with RVR on prior admission improved with metoprolol 200mg bid -currently on metoprolol 100mg bid -please clarify what pt was taking at home, metoprolol is not even listed in admission medications -if confirmed as home dose please increase to metoprolol 200 mg BID. -INR supratherapeutic on admission, hold for now then resume warfarin for stroke prevention to keep INR 2-3. -Continue tele until HR controlled
[2018-01-19] MEDS ORDERED: METOPROLOL TARTRATE 50 MG TABLET (FP) PO SCH (10:00)
[2018-01-19] MEDS: FUROSEMIDE 40 MG TABLET (FP) PO SCH (10:31)
--- NOTE | 2018-01-19 11:43 | PN ---
Progress Note, Physician Chief Complaint: Dizziness History of Present Illness: NAD sitting in chair\ States she feels a little better after decreasing metoprolol States she only feels dizzy when she turns her head suddenly and is the worst when she stands up. She states her dizziness is ongoing from past 3 weeks, every since she got discharged from [facility], where her metoprolol was increased to 200 mg po bid? Neurology consulted Case discussed with cardiology - Current Medication List Current Medications: Active Medications Acetaminophen (Tylenol -) 650 mg PO Q6H PRN PRN Reason: PAIN OR FEVER Atorvastatin Calcium (Lipitor -) 10 mg PO HS [facility] Last Admin: 01/19/18 02:32 Dose: 10 mg Furosemide (Lasix -) 40 mg PO DAILY [facility] Last Admin: 01/19/18 10:31 Dose: 40 mg Latanoprost (Xalatan 0.005% Eye Drops -) 1 drop OD [facility] Last Admin: 01/19/18 01:37 Dose: Not Given Metoprolol Tartrate (Lopressor -) 100 mg PO BID [facility] Last Admin: 01/19/18 10:32 Dose: 100 mg Phenytoin Sodium (Dilantin -) 400 mg PO HS [facility] Last Admin: 01/19/18 02:31 Dose: 400 mg - Objective Vital Signs: Vital Signs Temperature 98.0 F 01/19/18 02:13 Pulse Rate 106 H 01/19/18 02:13 Respiratory Rate 18 01/19/18 02:13 Blood Pressure 141/92 01/19/18 02:13 O2 Sat by Pulse Oximetry (%) 98 01/18/18 23:00 Constitutional: Yes: Well Nourished, No Distress, Calm Cardiovascular: Yes: Regular Rate and Rhythm Respiratory: Yes: Regular Gastrointestinal: Yes: Normal Bowel Sounds, Soft Musculoskeletal: Yes: WNL Extremities: Yes: WNL Labs: CBC, BMP 01/19/18 06:00 01/19/18 06:00 INR, PTT INR 3.17 (0.83-1.09) H 01/19/18 06:00 Problem List - Problems (1) Dizziness Assessment/Plan: -CT head unremarkable -MRI brain pending -Neurology consult -Check Orthostatic BP -B12 and thyroid profile normal -safety/fall precautions -TEDs Code(s): R42 - DIZZINESS AND GIDDINESS (2) Elevated INR Assessment/Plan: -INR at 3.17, goal 2-3 -daily INR check -Resume Warfarin when therapeutic Code(s): R79.1 - ABNORMAL COAGULATION PROFILE (3) Atrial fibrillation Assessment/Plan: -controlled, chronic -Cardiology on Board -Tele monitoring Code(s): I48.91 - UNSPECIFIED ATRIAL FIBRILLATION (4) Hypertension Assessment/Plan: -Since lowering metoprolol, added lisinopril 5 mg po daily Code(s): I10 - ESSENTIAL (PRIMARY) HYPERTENSION Qualifiers: Assessment/Plan See problem list Physical therapy
--- NOTE | 2018-01-19 12:36 | EKG ---
Test Reason : Blood Pressure : / mmHG Vent. Rate : 114 BPM Atrial Rate : 119 BPM P-R Int : 000 ms QRS Dur : 090 ms QT Int : 280 ms P-R-T Axes : 000 -29 119 degrees QTc Int : 385 ms ATRIAL FIBRILLATION WITH RAPID VENTRICULAR RESPONSE WITH PREMATURE VENTRICULAR OR ABERRANTLY CONDUCTED COMPLEXES ABNORMAL ECG Confirmed by MD ADELAIDE, CORY ([id number]) on 01/19/2018 12:35:34 PM Referred By: Confirmed By:CORY BRYSON MD
--- NOTE | 2018-01-19 14:08 | CONSULT ---
Consult Consult Specialty:: PM&R - History of Present Illness Chief Complaint: dizziness which is improving History of Present Illness: This is an 87 year old woman with a medical history of seizures, A fib, CAD, CHFR, mod- severe mitral insufficiency, HTN, chronic LBP, diffuse OA, who presented to the ED 01/18/18 with dizziness x3 weeks. Cardiology was consulted, who felt dizziness was not cardiac in origin. Neurology work-up (including MRI brain) is in progress. She has not been seen by PT. Physiatry is being consulted for further recommendations. 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's Cardio/Vascular: Yes: AFIB, CAD, CHF (Diastolic), HTN, Mitral Insufficiency ( moderate to severe mitral regurgitation) Pulmonary: Yes: Pneumonia Psych: Yes: Addictions Musculoskeletal: Yes: Chronic low back pain, Osteoarthritis Rheumatology: Yes: Other - Alcohol/Substance Use Hx Alcohol Use: No History of Substance Use: reports: None - Smoking History Smoking history: Never smoked Have you smoked in the past 12 months: No - Social History Usual Living Arrangement: Alone (lives alone in 2 family house with 18 stairs to enter) ADL: Independent (Previously Independent in ADLs/ IADLs, has cane and RW (both of which she uses intermittently)) History of Recent Travel: No Home Medications - Allergies Allergies/Adverse Reactions: Allergies Allergy/AdvReac Type Severity Reaction Status Date / Time levofloxacin [From Levaquin] Allergy Verified 01/18/18 18:33 lidocaine AdvReac Verified 01/18/18 18:33 - Home Medications Home Medications: Ambulatory Orders Cholecalciferol (Vitamin D3) [Vitamin D -] 0 unit PO DAILY 10/21/16 Glucosamine/MSM/Chondroitin A [Glucosamine Chondroit MSM Tab] 1 each PO DAILY Multivitamins [Multivit ([facility] Formulary)] 1 tab PO DAILY 10/21/16 Phenytoin Sodium Extended [Phenytek] 400 mg PO HS 10/21/16 Arformoterol Tartrate [Brovana -] 1 amp NEB BID amp 10/25/16 Atorvastatin Ca [Lipitor] 10 mg PO HS tablet 10/25/16 Latanoprost 0.005% Eye Drops [Xalatan 0.005% Eye Drops -] 1 drop OD HS drop 04/11 Amino Acids/Protein Hydrolys [Prosource No Carb Liquid Pkt] 30 ml PO BID@0800, 1730 packet 11/09/17 Arformoterol Tartrate [Brovana -] 1 amp NEB RBID amp 11/09/17 Atorvastatin Ca [Lipitor] 10 mg PO HS tablet 11/09/17 Furosemide [Lasix -] 40 mg PO DAILY tablet 11/09/17 Latanoprost 0.005% Eye Drops [Xalatan 0.005% Eye Drops -] 1 drop OD HS drops Metoprolol Tartrate [Lopressor -] 200 mg PO BID tablet 11/09/17 Multivitamins [Multivit ([facility] Formulary)] 1 tab PO DAILY tab 11/09/17 Phenol [Chloraseptic -] 1 spray MM Q6HPO PRN bottle 11/09/17 Phenytoin Na Extended [Dilantin -] 400 mg PO DAILY capsule 11/09/17 Warfarin Na [Coumadin -] 7 mg PO DAILY@1800 tablet 11/09/17 Warfarin Na [Coumadin -] 7 mg PO DAILY@1800 tablet 11/09/17 Review of Systems Findings/Remarks: denies fevers, chills, changes in vision/ hearing/ mood, CP, SOB, abdominal pain , vomiting, constipation, diarrhea, dysuria, numbness BUE/ BLE, muscle/ joint pain Notes occasional nausea, dizziness which is worse in AM but improves during course of day, L 1st- 3rd finger tingling, and diffusely weak BLE Physical Exam Vital Signs: Vital Signs Temperature 97.7 F 01/19/18 09:00 Pulse Rate 102 H 01/19/18 09:00 Respiratory Rate 18 01/19/18 09:00 Blood Pressure 144/81 01/19/18 09:00 O2 Sat by Pulse Oximetry (%) 98 01/18/18 23:00 Musculoskeletal: Yes: Other (General: calm elderly AAF sitting in chair NAD, AAO x3 N/M: B shoulder flexion to 110 degrees, 4+/5 BUE/ BLE, Pinprick Intact BUE/ BLE Extremities: no BLE pitting edema, no B calf tenderness, +R knee crepitus) Labs: CBC, BMP 01/19/18 06:00 01/19/18 06:00 Imaging - Results Cat Scan: Report Reviewed (01/18/18 CT head shows stable R middle cranial fossa meningioma without acute pathology) Assessment/Plan Impression: 1) Deficits mobility/ ADLs 2) Gait abnormality 3) Dizziness with work-up in progress 4) hx seizures 5) hx A fib, CAD, CHF, mod- severe mitral insufficiency, HTN 6) Chronic LBP, diffuse OA including L knee 7) Overweight 8) No documented flu shot/ pneumovax Recommendations: 1) PT for stretching strengthening ROM and functional mobility 2) Falls, safety precautions 3) Cardiac, seizure precautions 4) Balance 5) Pending MRI brain results 6) DVT ppx: encourage ambulation 7) Denies constipation on current bowel regimen 8) Nutrition consult for overweight 9) Continue plan per primary team 10) Discharge planning: once medically stable she prefers to return home with services Thank you for this referral.
--- NOTE | 2018-01-19 16:02 | CONSULT ---
Consult - text type - Consultation Consultation Note: NEUROLOGY CONSULTATION is greatly apprecioaed: Events reviewed, patient examined with he son-in-law at the bedside. This 87 yo RH woman lives alone. PMH sig for HTN, Chol, DM, ASHD, MVP and AFib. 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 Maintained on: Cholecalciferol; Brovana; Atorvastatin; Latanoprost; Furosemide; Metoprolol; Phenytoin 400 mg PO DAILY; and Warfarin. Recently hospitalized here for CHF. After a brief "rehab" stint the patient returned home about 3-4 weeks ago. Initially she had a home health aide but this was discontinued. For the last 3 weeks, patient has had a persistent, vague feeling of dizziness or "cloudiness" in her head associated with difficulty functioning and unsteady gait. CT of head and MRI (both reviewed): show mild atrophy, scattered microvascular changes, a large but stable right temporal fossa meningioma (without edema) and no evidence of CVA or other acute pathology. Dilantin level = 22.4 mg% HASEEB: No bruits. Cor Irreg. Neck supple. No head trauma. Hirsute. NEURO: Awake, alert. Ox3. Mild diff with recall. No frontal release findings. Speech fluent. CN II-XII: normal without nystagmus Motor: No drift. Few Myoclonic jerks. Normal strength. Normal reflexes. Downgoing toes. Coord: No FTN dystaxia Sensory: Normal. Romberg neg Gait: Sl wide-based and shuffling. IMP: Non-focal exam suggesting mild encephalopathy, probably on a Toxic- Metabolic basis. Large right temporal Meningioma Complex partial seizures. Migraine headaches/RLS Suggest: Agree with reduction in metoprolol dose. Doubt Dilantin toxicity but will empirically reduce dilantin dose to 300 mg q HS PT for gait training with walker visitor services technician for longer term home health assistance. Check B12, TSH Thank you very much, Laci Rm MD
--- NOTE | 2018-01-19 16:28 | PN ---
Progress Note (short form) - Note Progress Note: DECREASING METOPROLOL TO 75MG BID DUE TO LIGHT HEADEDNESS.
[2018-01-19] MEDS: LISINOPRIL 5 MG TABLET (FP) PO SCH (16:52)
[2018-01-19] MEDS: METOPROLOL TARTRATE 50 MG TABLET (FP) PO SCH (22:29)
[2018-01-19] MEDS ORDERED: PT OWN MED DRAWER 7, Y5N ONE (22:44)
[2018-01-20 07:37] LABS: INR 1.67 (0.83-1.09); PROTHROMBIN TIME (PATIENT) 19.8 SEC (9.7-13.0)
[2018-01-20] MEDS ORDERED: PT OWN MED DRAWER 7, Y5N ONE ×2 (09:09→21:11)
[2018-01-20] MEDS: PHENYTOIN NA EXTENDED 100 MG CAPSULE (FP) PO SCH (09:42)
[2018-01-20] MEDS: FUROSEMIDE 40 MG TABLET (FP) PO SCH (09:43)
[2018-01-20] MEDS: LISINOPRIL 5 MG TABLET (FP) PO SCH (09:43)
[2018-01-20] MEDS: METOPROLOL TARTRATE 50 MG TABLET (FP) PO SCH ×2 (09:44→21:32)
[2018-01-20 16:15] VITALS: BMI 27.1
--- NOTE | 2018-01-20 16:28 | PN ---
Progress Note, Physician Chief Complaint: AWAKE ALERT STILL DIZZY FEELING OF BODY NUMBNESS USING WALKER TO AMBULATE - Current Medication List Current Medications: Active Medications Acetaminophen (Tylenol -) 650 mg PO Q6H PRN PRN Reason: PAIN OR FEVER Atorvastatin Calcium (Lipitor -) 10 mg PO HS [facility] Last Admin: 01/19/18 22:29 Dose: 10 mg Furosemide (Lasix -) 40 mg PO DAILY [facility] Last Admin: 01/20/18 09:43 Dose: 40 mg Latanoprost (Xalatan 0.005% Eye Drops -) 1 drop OD [facility] Last Admin: 01/19/18 22:29 Dose: 1 drop Lisinopril (Prinivil) 5 mg PO DAILY [facility] Last Admin: 01/20/18 09:43 Dose: 5 mg Metoprolol Tartrate (Lopressor -) 75 mg PO BID [facility] Last Admin: 01/20/18 09:44 Dose: 75 mg Phenytoin Sodium (Dilantin -) 300 mg PO DAILY [facility] Last Admin: 01/20/18 09:42 Dose: 300 mg Warfarin Sodium (Coumadin -) 5 mg PO DAILY@1800 [facility] - Objective Vital Signs: Vital Signs Temperature 97.8 F 01/20/18 13:51 Pulse Rate 87 01/20/18 13:51 Respiratory Rate 16 01/20/18 13:51 Blood Pressure 130/86 01/20/18 13:51 O2 Sat by Pulse Oximetry (%) 97 01/19/18 20:00 Constitutional: Yes: Mild Distress Eyes: Yes: WNL HENT: Yes: WNL Neck: Yes: WNL Cardiovascular: Yes: Pulse Irregular Respiratory: Yes: WNL Gastrointestinal: Yes: WNL Genitourinary: Yes: WNL Musculoskeletal: Yes: Muscle Weakness Extremities: Yes: Other Edema: No Peripheral Pulses WNL: Yes Integumentary: Yes: WNL Wound/Incision: Yes: Clean/Dry Neurological: Yes: Pre-Existing Deficit, Unsteady Gait ...Motor Strength: LLE, RLE Psychiatric: Yes: WNL Labs: CBC, BMP 01/19/18 06:00 01/19/18 06:00 INR, PTT INR 1.67 (0.83-1.09) H 01/20/18 06:00 Problem List - Problems (1) Dizziness Code(s): R42 - DIZZINESS AND GIDDINESS (2) Elevated INR Code(s): R79.1 - ABNORMAL COAGULATION PROFILE (3) Atrial fibrillation Code(s): I48.91 - UNSPECIFIED ATRIAL FIBRILLATION (4) Decreased ambulation status Code(s): R68.89 - OTHER GENERAL SYMPTOMS AND SIGNS (5) Hypertension Code(s): I10 - ESSENTIAL (PRIMARY) HYPERTENSION Qualifiers: (6) Lumbar disc disease with radiculopathy Code(s): M51.16 - INTERVERTEBRAL DISC DISORDERS W RADICULOPATHY, LUMBAR REGION (7) Meningioma Code(s): D32.9 - BENIGN NEOPLASM OF MENINGES, UNSPECIFIED Assessment/Plan UNSTEADY GAIT USING WALKER I D/W PATIENT AND HER SON HARMEET COOK I FEEL PATIENT IS HIGH RISK FOR FALLS AT HOME ALONE ON COUMADIN AND SHOULD BE UNDER BETTER OBSERVATION. I DISCUSSED OPTIONS OF ASSISTED LIVING [facility], HOME WITH FULLTIME NURSES AID CHECK INR, RESTART COUMADIN NEURO/PMR FOLLOW UP SNF FOR NOW METOPROLOL REDUCED TO 75MG BID
--- NOTE | 2018-01-20 16:41 | PN ---
Progress Note, Physician History of Present Illness: seen and examined today in nad. states she had another episode this am while lying in bed where she felt her body moving inside but denies dizziness. - Current Medication List Current Medications: Active Medications Acetaminophen (Tylenol -) 650 mg PO Q6H PRN PRN Reason: PAIN OR FEVER Atorvastatin Calcium (Lipitor -) 10 mg PO HS [facility] Last Admin: 01/19/18 22:29 Dose: 10 mg Furosemide (Lasix -) 40 mg PO DAILY [facility] Last Admin: 01/20/18 09:43 Dose: 40 mg Latanoprost (Xalatan 0.005% Eye Drops -) 1 drop OD HS [facility] Last Admin: 01/19/18 22:29 Dose: 1 drop Lisinopril (Prinivil) 5 mg PO DAILY [facility] Last Admin: 01/20/18 09:43 Dose: 5 mg Metoprolol Tartrate (Lopressor -) 75 mg PO BID [facility] Last Admin: 01/20/18 09:44 Dose: 75 mg Phenytoin Sodium (Dilantin -) 300 mg PO DAILY [facility] Last Admin: 01/20/18 09:42 Dose: 300 mg Warfarin Sodium (Coumadin -) 5 mg PO DAILY@1800 [facility] - Objective Vital Signs: Vital Signs Temperature 97.8 F 01/20/18 13:51 Pulse Rate 87 01/20/18 13:51 Respiratory Rate 16 01/20/18 13:51 Blood Pressure 130/86 01/20/18 13:51 O2 Sat by Pulse Oximetry (%) 97 01/19/18 20:00 Constitutional: Yes: No Distress, Calm Eyes: Yes: Conjunctiva Clear, EOM Intact, PERRL HENT: Yes: Atraumatic, Normocephalic Neck: Yes: Supple, Trachea Midline Cardiovascular: Yes: Pulse Irregular, S1, S2. No: Regular Rate and Rhythm, Bradycardia, Tachycardia, Bruit, JVD, Gallop, Murmur, Rub, S3, S4, Varicosities Respiratory: Yes: Regular. No: Rales, Rhonchi, SOB, Wheezes Gastrointestinal: Yes: Normal Bowel Sounds, Soft. No: Distention, Tenderness Extremities: Yes: WNL Edema: No Peripheral Pulses WNL: Yes Peripheral Pulses: Left Doralis Pedis: 2+, Right Dorsalis Pedis: 2+ Neurological: Yes: Alert, Oriented Psychiatric: Yes: Alert, Oriented Labs: CBC, BMP 01/19/18 06:00 01/19/18 06:00 INR, PTT INR 1.67 (0.83-1.09) H 01/20/18 06:00 - ....Imaging Chest X-ray: Report Reviewed, Image Reviewed EKG: Report Reviewed, Image Reviewed Other: Report Reviewed, Image Reviewed (tele-af HR currently adequately controlled, occasional rvr) Assessment/Plan 87 year old woman with a PMHx of hypertension, DM, HLD, chronic atrial fibrillation on warfarin, diastolic CHF, moderate to severe mitral regurgitation , CAD with mild anterior wall stress induced ischemia from nuclear stress test in June 2016, and seizure disorder admitted 11/02/2017 with worsening SOB over 2 days with associated intermittent chest pain, medically managed with Lasix and HR control, now admitted with c/o dizziness. Pt seen and examined today in nad. She denies chest pain, sob, palpitations. No pnd, orthopnea or LE edema. Repeat echocardiogram 11/03/2017: Normal LV size, with hyperkinetic wall motion and increased systolic function. LVEF > 70%. Mild RV dilatation with normal systolic function. Mild LA and RA dilatation. Moderate to severe MR. Severe TR. Mild pulm HTN, RVSP = 47 mmHg. Dizziness-unlikely related to afib -neuro following -orthostatic BPs wnl -dilantin dose and metoprolol dose was decreased in case these meds were contributing to symptoms -monitor tele overnight if RVR may need to increase metoprolol back up Chronic diastolic CHF- moderate to severe MR contributes to her CHF exacerbations in the past -currently euvolemic -cont home Lasix dose, 40mg po daily -Monitor renal function and electrolytes. Atrial fibrillation with RVR on prior admission improved with metoprolol 200mg bid but now dose reduced to 75mg bid -currently on metoprolol 75mg bid -may need to increase if HR becomes uncontrolled -INR supratherapeutic on admission, hold for now then resume warfarin for stroke prevention to keep INR 2-3. -Continue tele until HR controlled
[2018-01-20] MEDS ORDERED: WARFARIN NA 5 MG TABLET (UD) PO SCH (18:00)
[2018-01-20] MEDS: LATANOPROST 0.005% OPHTH SOLN 2.5ML BOTTLE OD SCH (21:32)
[2018-01-20] MEDS: ATORVASTATIN CA 10 MG TABLET (FP) PO SCH (21:32)
[2018-01-21 06:43] LABS: HEMATOCRIT 44.9 % (32.4-45.2); HEMOGLOBIN 15.7 GM/dL (10.7-15.3); MCH 31.9 pg (25.7-33.7); MEAN CELL VOLUME 91.2 fl (80-96); MEAN PLT VOLUME 8.4 fl (7.5-11.1); PLATELET COUNT 198 K/MM3 (134-434); RBC 4.93 M/mm3 (3.60-5.2); RDW 13.1 % (11.6-15.6)
[2018-01-21 06:58] VITALS: BP 151/82; PULSE 88; TEMP 97.6
[2018-01-21 07:00] LABS: INR 1.22 (0.83-1.09); PROTHROMBIN TIME (PATIENT) 14.4 SEC (9.7-13.0)
[2018-01-21 07:12] LABS: PHOSPHOROUS 3.6 mg/dL (2.5-4.9)
[2018-01-21] MEDS: METOPROLOL TARTRATE 50 MG TABLET (FP) PO SCH (09:29)
[2018-01-21] MEDS: FUROSEMIDE 40 MG TABLET (FP) PO SCH (09:29)
[2018-01-21] MEDS: LISINOPRIL 5 MG TABLET (FP) PO SCH (09:31)
[2018-01-21] MEDS: PHENYTOIN NA EXTENDED 100 MG CAPSULE (FP) PO SCH (09:31)
--- NOTE | 2018-01-21 10:18 | DS ---
Physical Examination Vital Signs: Vital Signs Temperature 97.6 F 01/21/18 06:00 Pulse Rate 88 01/21/18 06:00 Respiratory Rate 18 01/21/18 06:00 Blood Pressure 151/82 01/21/18 06:00 O2 Sat by Pulse Oximetry (%) 97 01/20/18 20:00 Findings/Remarks: PATIENT REFUSING SNF WANTS TO GO HOME WITH HOME CARE Constitutional: Yes: Mild Distress Eyes: Yes: WNL HENT: Yes: WNL Neck: Yes: WNL Cardiovascular: Yes: Pulse Irregular Respiratory: Yes: WNL Gastrointestinal: Yes: WNL Renal/: Yes: WNL Musculoskeletal: Yes: Muscle Weakness Extremities: Yes: WNL Edema: No Peripheral Pulses WNL: Yes Integumentary: Yes: WNL Wound/Incision: Yes: Clean/Dry Neurological: Yes: Unsteady Gait ...Motor Strength: LLE, RLE (USING [facility] NO FALLS HERE IN HOSPITAL) Psychiatric: Yes: WNL Labs: CBC, BMP 01/21/18 06:00 01/19/18 06:00 Discharge Summary Reason For Visit: DIZZINESS,ELEVATED INR Current Active Problems Dizziness (Acute) Elevated INR (Acute) Procedures: Principal: MRI BRAIN/CT HEAD Hospital Course: ADMITTED UNSTEDY GAIT, DIZZINESS, HIGH INR, TREATED O TELEMETRY WATCHED NO ALARMS, NEUROLOGY AND CARDIO EVAL Condition: Stable - Instructions Diet, Activity, Other Instructions: LOW SODIUM HOME HEALTH AID F/U INR OUTPATIENT Referrals: Araceli Dow MD [Primary Care Provider] - Disposition: VNS/HOME HEALTH CARE - Home Medications Comprehensive Discharge Medication List: Ambulatory Orders Cholecalciferol (Vitamin D3) [Vitamin D -] 0 unit PO DAILY 10/21/16 Glucosamine/MSM/Chondroitin A [Glucosamine Chondroit MSM Tab] 1 each PO DAILY Multivitamins [Multivit ([facility])] 1 tab PO DAILY 10/21/16 Phenytoin Sodium Extended [Phenytek] 400 mg PO HS 10/21/16 Arformoterol Tartrate [Brovana -] 1 amp NEB BID amp 10/25/16 Atorvastatin Ca [Lipitor] 10 mg PO HS tablet 10/25/16 Latanoprost 0.005% Eye Drops [Xalatan 0.005% Eye Drops -] 1 drop OD HS drop 04/11 Amino Acids/Protein Hydrolys [Prosource No Carb Liquid Pkt] 30 ml PO BID@0800, 1730 packet 11/09/17 Arformoterol Tartrate [Brovana -] 1 amp NEB RBID amp 11/09/17 Atorvastatin Ca [Lipitor] 10 mg PO HS tablet 11/09/17 Furosemide [Lasix -] 40 mg PO DAILY tablet 11/09/17 Latanoprost 0.005% Eye Drops [Xalatan 0.005% Eye Drops -] 1 drop OD HS drops Metoprolol Tartrate [Lopressor -] 200 mg PO BID tablet 11/09/17 Multivitamins [Multivit ([facility])] 1 tab PO DAILY tab 11/09/17 Phenol [Chloraseptic -] 1 spray MM Q6HPO PRN bottle 11/09/17 Phenytoin Na Extended [Dilantin -] 400 mg PO DAILY capsule 11/09/17 Warfarin Na [Coumadin -] 7 mg PO DAILY@1800 tablet 11/09/17 Warfarin Na [Coumadin -] 7 mg PO DAILY@1800 tablet 11/09/17
[2018-01-21] MEDS ORDERED: ENOXAPARIN NA (PORCINE) 80 MG/0.8 ML DISP.SYRIN SQ SCH (10:30)
== END 2018-01-21 14:18 | disposition home health service (06) | DRG 92 ==
LOC: JER 14:40 → JERBED 19:06 → J4S 23:57 → OBSVTOIN 01-20 16:23
PROVIDERS: ADMIT Family Medicine; ATTEND Family Medicine
DX: G92 Toxic encephalopathy (principal); I50.32 Chronic diastolic (congestive) heart failure; R42 Dizziness and giddiness; E78.00 Pure hypercholesterolemia, unspecified; D32.9 Benign neoplasm of meninges, unspecified; M19.90 Unspecified osteoarthritis, unspecified site; I25.10 Atherosclerotic heart disease of native coronary artery without angina pectoris; R56.9 Unspecified convulsions; I34.0 Nonrheumatic mitral (valve) insufficiency; I11.0 Hypertensive heart disease with heart failure; M54.5 Low back pain; R79.1 Abnormal coagulation profile; M51.16 Intervertebral disc disorders with radiculopathy, lumbar region; I48.2 Chronic atrial fibrillation; R26.9 Unspecified abnormalities of gait and mobility; E66.3 Overweight; Z68.27 Body mass index [BMI] 27.0-27.9, adult; G43.909 Migraine, unspecified, not intractable, without status migrainosus; G25.81 Restless legs syndrome; R41.82 Altered mental status, unspecified; T44.7X5A Adverse effect of beta-adrenoreceptor antagonists, initial encounter
CPT/HCPCS: 36415; 70450-TC; 70551-TC; 71045-TC-FY; 80048; 80053; 80061; 80185; 81003; 82550; 82553; 82607; 82962; 83036; 83721; 83735; 84100; 84439; 84443; 84484; 85025; 85027; 85610; 86850; 86900; 86901; 87086; 93005; 93010; 97116-GP; 97162-GP; 99283-25; 99285-25; G0378

== ENCOUNTER 2018-02-09 06:27 | Inpatient (IN) | payer OTHER, MEDICARE ==
[2018-02-09 06:37] VITALS: BMI 27.3
--- NOTE | 2018-02-09 07:31 | PDOC ---
History of Present Illness - General Chief Complaint: Shortness of Breath Stated Complaint: DIFFICULTY BREATHING Time Seen by Provider: 02/09/18 07:29 History Source: Patient Exam Limitations: No Limitations - History of Present Illness Initial Comments: Pt is a 87 yo F, with presenting with complaints of intermittent shooting pains in the R flank, extending to the R chest wall and R lower back. The pain started at 5 am this morning after she woke up, and lasted for just a second at a time. The pains were not improving and she called EMS around 5:30 am as the pain was starting to make her feel short of breath. She states she has felt "chest congestion" this week with non-productive cough, and has been given a nebulizer for home use, but has not figured out how to use it. Pt denies any fevers/chills, syncope, headache, vision changes, palpitations, nausea/vomiting , abdominal pain, urinary symptoms, diarrhea/constipation, or leg swelling. 02/09/18 08:47 Social: Pt denies any cigarette, alcohol, or drug use. Pt denies any recent travel or sick contacts. Surgical: cholecystectomy, hysterectomy Family: no relevant history 02/09/18 08:53 Past History - Travel Traveled outside of the country in the last 30 days: No Close contact w/someone who was outside of country & ill: No - Past Medical History Allergies/Adverse Reactions: Allergies Allergy/AdvReac Type Severity Reaction Status Date / Time levofloxacin [From Levaquin] Allergy Verified 02/09/18 06:37 lidocaine AdvReac Verified 02/09/18 06:37 Home Medications: Ambulatory Orders Cholecalciferol (Vitamin D3) [Vitamin D -] 0 unit PO DAILY 10/21/16 Glucosamine/MSM/Chondroitin A [Glucosamine Chondroit MSM Tab] 1 each PO DAILY Multivitamins [Multivit ([facility] Form[facility])] 1 tab PO DAILY 10/21/16 Phenytoin Sodium Extended [Phenytek] 400 mg PO HS 10/21/16 Arformoterol Tartrate [Brovana -] 1 amp NEB BID amp 10/25/16 Atorvastatin Ca [Lipitor] 10 mg PO HS tablet 10/25/16 Latanoprost 0.005% Eye Drops [Xalatan 0.005% Eye Drops -] 1 drop OD HS drop 04/11 Amino Acids/Protein Hydrolys [Prosource No Carb Liquid Pkt] 30 ml PO BID@0800, 1730 packet 11/09/17 Arformoterol Tartrate [Brovana -] 1 amp NEB RBID amp 11/09/17 Atorvastatin Ca [Lipitor] 10 mg PO HS tablet 11/09/17 Furosemide [Lasix -] 40 mg PO DAILY tablet 11/09/17 Latanoprost 0.005% Eye Drops [Xalatan 0.005% Eye Drops -] 1 drop OD HS drops Multivitamins [Multivit ([facility])] 1 tab PO DAILY tab 11/09/17 Phenol [Chloraseptic -] 1 spray MM Q6HPO PRN bottle 11/09/17 Warfarin Na [Coumadin -] 7 mg PO DAILY@1800 tablet 11/09/17 Acetaminophen [Tylenol .Regular Strength -] 650 mg PO Q6H PRN tablet 01/21/18 Enoxaparin [Lovenox -] 70 mg SQ Q12H #6 disp.syrin 01/21/18 Furosemide [Lasix -] 40 mg PO DAILY tablet 01/21/18 Lisinopril [Prinivil] 5 mg PO DAILY #30 tablet 01/21/18 Metoprolol Tartrate [Lopressor -] 75 mg PO BID #60 tablet 01/21/18 Phenytoin Na Extended [Dilantin -] 300 mg PO DAILY capsule 01/21/18 Warfarin Na [Coumadin -] 5 mg PO DAILY@1800 tablet 01/21/18 Cardiac Disorders: Yes (afib) COPD: No CHF: Yes Diabetes: Yes (borderline) HTN: Yes Hypercholesterolemia: Yes Seizures: Yes - Surgical History Abdominal Surgery: Yes (hysterectomy) Cholecystectomy: Yes - Immunization History Immunization Up to Date: No - Suicide/Smoking/Psychosocial Hx Smoking History: Never smoked Have you smoked in the past 12 months: No Information on smoking cessation initiated: No Hx Alcohol Use: No Drug/Substance Use Hx: No Substance Use Type: None Hx Substance Use Treatment: No Review of Systems - Review of Systems Able to Perform ROS?: Yes Is the patient limited Serbian proficient: No Constitutional: Yes: Weight Stable. No: Chills, Diaphoresis, Fever, Loss of Appetite, Weakness HEENTM: No: Recent change in vision, Nose Congestion, Hearing Loss Respiratory: Yes: See HPI, Cough, Shortness of Breath, SOB at Rest (SOB associated with chest wall pain). No: Orthopnea, SOB with Exertion, Wheezing, Productive cough, Hemoptysis Cardiac (ROS): Yes: See HPI, Chest Pain, Irregular Heart Rate (A-fib). No: Edema, Lightheadedness, Palpitations, Syncope, Chest Tightness ABD/GI: No: Abdominal Distended, Constipated, Diarrhea, Nausea, Poor Appetite, Poor Fluid Intake, Vomiting, Abdominal cramping : Yes: See HPI, Flank Pain. No: Burning, Dysuria, Frequency, Incontinence, Pain, Urgency Musculoskeletal: Yes: See HPI, Back Pain. No: Joint Pain Integumentary: No: Bruising, Rash Neurological: No: Headache, Seizure (no recent sz), Weakness, Unsteady Gait, Ataxia, Dizziness Psychiatric: No: Sleep Pattern Change, Change in Appetite Endocrine: No: Increased Urine, Change in Weight Hematologic/Lymphatic: No: Anemia, Blood Clots, Easy Bleeding, Easy Bruising All Other Systems: Reviewed and Negative *Physical Exam - Vital Signs Last Vital Signs Temp Pulse Resp BP Pulse Ox 98.5 F 103 H 22 H 171/100 H 96 02/09/18 06:27 02/09/18 06:27 02/09/18 06:27 02/09/18 06:27 02/09/18 06:27 - Physical Exam General Appearance: Yes: Nourished, Appropriately Dressed. No: Apparent Distress (pt resting comfortably on exam, HR low 100s, not dyspneic) HEENT: positive: EOMI, BRIAN, Normal ENT Inspection, Normal Voice, Pharynx Normal , Hearing Grossly Normal. negative: Scleral Icterus (R), Scleral Icterus (L), Pharyngeal Erythema, Tonsillar Exudate, Tonsillar Erythema, Nasal Congestion, Rhinorrhea Neck: positive: Trachea midline, Normal Thyroid, Supple. negative: Tender, Rigid, Lymphadenopathy (R), Lymphadenopathy (L) Respiratory/Chest: positive: Wheezing (mild wheezing which clears with pt coughing, wheezing L anterior hearn). negative: Chest Tender, Lungs Clear, Normal Breath Sounds, Respiratory Distress, Accessory Muscle Use, Rapid RR, Crackles, Dullness Cardiovascular: positive: S1, S2, Tachycardia. negative: Regular Rhythm (A-fib RVR), Regular Rate, Edema, JVD, Murmur Vascular Pulses: Carotid (R): 4+, Carotid (L): 4+ Gastrointestinal/Abdominal: positive: Normal Bowel Sounds, Flat, Soft, Hernia ( umbilical hernia, reducible. ). negative: Tender, Organomegaly, Pulsatile Mass , Distended, Guarding, Rebound Rectal Exam: positive: deferred Lymphatic: negative: Adenopathy, Tenderness Musculoskeletal: positive: Normal Inspection. negative: CVA Tenderness, Muscle Spasm Extremity: positive: Normal Capillary Refill, Normal Inspection, Normal Range of Motion, Pelvis Stable. negative: Tender Integumentary: positive: Normal Color, Dry, Warm. negative: Jaundice, Rash, Ecchymosis Neurologic: positive: reel stripper II-XII NML intact, Fully Oriented, Alert, Normal Mood/ Affect, Normal Response, Motor Strength 5/5 Moderate Sedation - Procedure Monitoring Vital Signs: Procedure Monitoring Vital Signs Temperature 98.5 F 02/09/18 06:27 Pulse Rate 103 H 02/09/18 06:27 Respiratory Rate 22 H 02/09/18 06:27 Blood Pressure 171/100 H 02/09/18 06:27 O2 Sat by Pulse Oximetry (%) 96 02/09/18 06:27 ED Treatment Course - LABORATORY CBC & Chemistry Diagram: 02/09/18 08:20 02/09/18 08:20 Medical Decision Making - Medical Decision Making Pt was seen at bedside, also will be seen by attending Dr. Quiles. Pt presenting with complaints of intermittent shooting pains in the R flank, extending to the R chest wall and R lower back. The pain started at 5 am this morning after she woke up, and lasted for just a second at a time. The pains were not improving and she called EMS around 5:30 am as the pain was starting to make her feel short of breath. She states she has felt "chest congestion" this week with non-productive cough, and has been given a nebulizer for home use , but has not figured out how to use it. Pt denies any fevers/chills, syncope, headache, vision changes, palpitations, nausea/vomiting, abdominal pain, urinary symptoms, diarrhea/constipation, or leg swelling. PE showed intermittent wheezes over anterior L lung hearn, which would clear up with pt coughing. No JVD or b/l LE edema. Heart sounds clear, no murmur. No reproducible chest wall pain or rash on chest wall. No abdominal or CVA tenderness. Considering angina vs CHF exacerbation vs pneumonia vs MSK pain vs UTI/stone. Lower suspicion of AAA as pt BP stable, no abdominal/chest pain at this time, but can do bedside US to look at aorta (last CT 2016 showed no aneurysm). Ordered work-up including CBC, CMP, troponin, PT/INR (pt on Warfarin), BNP, UA, chest x-ray. Provided duoneb and 5 mg IV metoprolol for improvement of congestion/wheezing and HR control. Will continue to reassess pt and monitor for symptomatic improvement. 02/09/18 08:05 [id number] RAD/CHEST PA & LAT Chest: Shortness of breath. 2 views of the chest have been submitted. Since 01/18/2018 there are some mild congestive changes with large heart, sclerotic knob and prominent hilar markings. A discrete infiltrate or pneumothorax is not seen. Correlation recommended. 02/09/18 09:07 CBC WNL. INR 1.59. UA not infected. 02/09/18 09:10 CMP: AST 105 ALT 159 (has been elevated in the past) Trop <.02 Providing home dose of 75 mg PO metoprolol, as HR continues 100-115. Paging Dr. Dow for admission, will discuss elevated AST/ALT to determine need for further scans or if this is known to the primary team. 02/09/18 09:22 Second page placed to Dr. Dow's office. 02/09/18 09:49 Dr. Dow accepted pt for admission. Provided 40 mg IV lasix, as pt continues coughing, with some crackles now evident in posterior hearn (pt takes 40 mg PO at home). Pt awaiting bed upstairs. Pt resting comfortably. Vitals stable. 02/09/18 10:02 *DC/Admit/Observation/Transfer Diagnosis at time of Disposition: SOB (shortness of breath) Acute exacerbation of CHF (congestive heart failure) Qualifiers: Heart failure type: diastolic Qualified Code(s): I50.33 - Acute on chronic diastolic (congestive) heart failure - Discharge Dispostion Condition at time of disposition: Stable Decision to Admit order: Yes - Referrals Referrals: Araceli Dow MD [Primary Care Provider] - - Patient Instructions - Post Discharge Activity
[2018-02-09] MEDS ORDERED: ALBUTEROL SO4 2.5/IPRATROPIUM 0.5 INH SOL 3 ML VIAL.NEB. NEB ONE ×2 (07:54→08:07)
[2018-02-09] MEDS ORDERED: METOPROLOL TARTRATE 5 MG/5 ML VIAL IVPUSH ONE (07:55)
[2018-02-09] MEDS ORDERED: METOPROLOL TARTRATE 5 MG/5 ML VIAL ONE (08:07)
[2018-02-09 08:36] LABS: BASO % 0.6 % (0-2.0); EOS % 0.8 % (0-4.5); HEMATOCRIT 41.6 % (32.4-45.2); HEMOGLOBIN 14.6 GM/dL (10.7-15.3); LYMPH % 15.1 % (8-40); MCH 32.1 pg (25.7-33.7); MCHC 35.2 g/dl (32.0-36.0); MEAN CELL VOLUME 91.2 fl (80-96); MEAN PLT VOLUME 9.1 fl (7.5-11.1); MONO % 7.2 % (3.8-10.2); NEUT % 76.3 % (42.8-82.8); PLATELET COUNT 180 K/MM3 (134-434); RBC 4.56 M/mm3 (3.60-5.2); RDW 13.5 % (11.6-15.6); WHITE BLOOD COUNT 7.5 K/mm3 (4.0-10.0)
[2018-02-09 09:03] LABS: INR 1.59 (0.83-1.09); PROTHROMBIN TIME (PATIENT) 18.8 SEC (9.7-13.0)
[2018-02-09 09:05] LABS: URINE APPEARANCE CLEAR; URINE BILIRUBIN NEGATIVE (<2.0 mg/dL); URINE COLOR YELLOW; URINE GLUCOSE (UA) NEGATIVE (NEGATIVE); URINE KETONE NEGATIVE (NEGATIVE); URINE LEUK ESTERASE NEGATIVE (NEGATIVE); URINE NITRITE NEGATIVE (NEGATIVE); URINE PROTEIN 1+ (NEGATIVE)
[2018-02-09 09:12] LABS: URINE HYALINE CAST 4 /lpf; URINE MUCUS RARE
[2018-02-09 09:13] LABS: ALBUMIN 3.2 g/dl (3.4-5.0); ALK PHOS 159 U/L (45-117); ANION GAP 7 MMOL/L (8-16); BILIRUBIN,TOTAL 0.8 mg/dL (0.2-1); BLOOD UREA NITROGEN 12 mg/dL (7-18); CALCIUM 8.3 mg/dL (8.5-10.1); CHLORIDE 102 mmol/L (98-107); CO2 30 mmol/L (21-32); CREATININE 0.7 mg/dL (0.55-1.3); GLUCOSE,RANDOM 121 mg/dL (74-106); POTASSIUM 4.2 mmol/L (3.5-5.1); SGOT/AST 91 U/L (15-37); SGPT/ALT 105 U/L (13-61); SODIUM 139 mmol/L (136-145); TOT PROT 6.4 g/dl (6.4-8.2)
[2018-02-09] MEDS ORDERED: METOPROLOL TARTRATE 50 MG TABLET (FP) PO ONE (09:18)
--- NOTE | 2018-02-09 09:28 | PDOC ---
Attending Attestation - Resident Resident Name: JimIleana - ED Attending Attestation I have performed the following: I have examined & evaluated the patient, The case was reviewed & discussed with the resident, I agree w/resident's findings & plan, Exceptions are as noted - HPI HPI: 02/09/18 09:23 87-year-old female history of A. fib hypertension seizure disorder diabetes previous [place] prior surgical history of cholecystectomy hysterectomy here today complaining of right-sided pain and cough. Patient states she has had a cough for 3-4 days she was given an inhaler or nebulizer to use at home but is having difficulty figuring out the equipment at home does feel shortness of breath also complaining of right-sided lateral lower chest upper flank pain. Pain is worse with cough denies any recent leg swelling no history of PE or DVT patient is currently on Coumadin for her A. fib cough is nonproductive denies fevers chills no nausea no vomiting - Physicial Exam PE: 02/09/18 09:25 Awake alert no acute distress patient is coughing intermittently. Lungs are with crackles at bilateral bases no audible wheezing (post treatment (heart is irregularly tachycardic no murmurs rubs or gallops abdomen is soft and nontender there is right lateral lower rib tenderness extremities are warm and well perfused no appreciated edema no calf tenderness 2+ DP PT pulses neurologically the patient is alert and oriented 3 moves all 4 extremities speech is clear - Medical Decision Making 02/09/18 09:26 87-year-old female history of A. fib CHF hypertension seizure disorder and CAD here with right lateral chest pain shortness of breath and cough. She does have focal tenderness on exam differential diagnosis includes rib fracture, pneumonia , effusion, bronchitis, rib fracture from her coughing chest wall strain atypical ACS patient is in A. fib with RVR and presentation with a heart rate in the 120s states she did not take her medications this a.m. We'll give her home dose of metoprolol patient was given a DuoNeb for her bronchial cough and wheezing on initial exam by the resident. Chest x-ray to rule out pneumonia chest x-ray reveals bilateral congestion likely due to her A. fib with RVR. No focal pneumonia. Normal white count patient is afebrile will treat with a dose of Lasix rate control due to the chest pain and accommodation symptoms patient will be admitted to telemetry will discuss Dr. 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
[2018-02-09] MEDS ORDERED: METOPROLOL TARTRATE 50 MG TABLET (FP) ONE (09:45)
[2018-02-09] MEDS ORDERED: METOPROLOL TARTRATE 25 MG TABLET (FP) ONE (09:45)
[2018-02-09] MEDS ORDERED: FUROSEMIDE 40 MG/4 ML INJECTABLE VIAL IVPUSH ONE (09:58)
[2018-02-09] MEDS ORDERED: FUROSEMIDE 40 MG/4 ML INJECTABLE VIAL ONE (10:10)
[2018-02-09 10:47] LABS: N-TERMINAL BNP 2747.5 pg/ml (5-450)
--- NOTE | 2018-02-09 11:30 | CON.CARD ---
Consult Consult Specialty:: Cardiology Referred by:: Dr. Dow Reason for Consultation:: R chest pain, sob - History of Present Illness Chief Complaint: r flank pain, sob History of Present Illness: 87 year old woman with a PMHx of hypertension, DM, HLD, chronic atrial fibrillation on warfarin, chronic diastolic CHF, moderate to severe mitral regurgitation, CAD with mild anterior wall stress induced ischemia from nuclear stress test in June 2016, and seizure disorder admitted 11/02/2017 with worsening SOB over 2 days with associated intermittent chest pain, medically managed with Lasix and HR control, then again admitted with c/o dizziness now admitted with c /o 1 day h/o R flank pain radiating up to R chest with 3 day h/o cough, and mild exacerbation of chronic sob. Pt seen and examined today in nad. states she is feeling better since coming to Er. R flank pain is improved but still present. sob improving. no LE edema. no Substernal or L sided chest pain. She denies palpitations. No pnd, orthopnea or LE edema. 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's Cardio/Vascular: Yes: AFIB, CAD, CHF (Diastolic), HTN, Mitral Insufficiency ( moderate to severe mitral regurgitation) Pulmonary: Yes: Pneumonia Psych: Yes: Addictions Musculoskeletal: Yes: Chronic low back pain, Osteoarthritis Rheumatology: Yes: Other - Alcohol/Substance Use Hx Alcohol Use: No History of Substance Use: reports: None - Smoking History Smoking history: Never smoked Have you smoked in the past 12 months: No - Social History Usual Living Arrangement: Alone (lives alone in 2 family house with 18 stairs to enter) ADL: Independent (Previously Independent in ADLs/ IADLs, has cane and RW (both of which she uses intermittently)) History of Recent Travel: No Home Medications - Allergies Allergies/Adverse Reactions: Allergies Allergy/AdvReac Type Severity Reaction Status Date / Time levofloxacin [From Levaquin] Allergy Verified 02/09/18 06:37 lidocaine AdvReac Verified 02/09/18 06:37 - Home Medications Home Medications: Ambulatory Orders Cholecalciferol (Vitamin D3) [Vitamin D -] 0 unit PO DAILY 10/21/16 Glucosamine/MSM/Chondroitin A [Glucosamine Chondroit MSM Tab] 1 each PO DAILY Multivitamins [Multivit ([facility] Formulary)] 1 tab PO DAILY 10/21/16 Phenytoin Sodium Extended [Phenytek] 400 mg PO HS 10/21/16 Arformoterol Tartrate [Brovana -] 1 amp NEB BID amp 10/25/16 Atorvastatin Ca [Lipitor] 10 mg PO HS tablet 10/25/16 Latanoprost 0.005% Eye Drops [Xalatan 0.005% Eye Drops -] 1 drop OD HS drop 04/11 Amino Acids/Protein Hydrolys [Prosource No Carb Liquid Pkt] 30 ml PO BID@0800, 1730 packet 11/09/17 Arformoterol Tartrate [Brovana -] 1 amp NEB RBID amp 11/09/17 Atorvastatin Ca [Lipitor] 10 mg PO HS tablet 11/09/17 Furosemide [Lasix -] 40 mg PO DAILY tablet 11/09/17 Latanoprost 0.005% Eye Drops [Xalatan 0.005% Eye Drops -] 1 drop OD HS drops Multivitamins [Multivit ([facility] Formulary)] 1 tab PO DAILY tab 11/09/17 Phenol [Chloraseptic -] 1 spray MM Q6HPO PRN bottle 11/09/17 Warfarin Na [Coumadin -] 7 mg PO DAILY@1800 tablet 11/09/17 Acetaminophen [Tylenol .Regular Strength -] 650 mg PO Q6H PRN tablet 01/21/18 Enoxaparin [Lovenox -] 70 mg SQ Q12H #6 disp.syrin 01/21/18 Furosemide [Lasix -] 40 mg PO DAILY tablet 01/21/18 Lisinopril [Prinivil] 5 mg PO DAILY #30 tablet 01/21/18 Metoprolol Tartrate [Lopressor -] 75 mg PO BID #60 tablet 01/21/18 Phenytoin Na Extended [Dilantin -] 300 mg PO DAILY capsule 01/21/18 Warfarin Na [Coumadin -] 5 mg PO DAILY@1800 tablet 01/21/18 Family Disease History - Family Disease History Family History: Denies Review of Systems - Review of Systems Constitutional: denies: No Symptoms, Chills, Diaphoresis, Fever, Lethargy, Loss of Appetite, Malaise, Night Sweats, Unintentional Wgt. Loss, Weakness, Other Eyes: denies: No Symptoms, Blind Spots, Blurred Vision, Double Vision, Eye Pain , Floaters, Photophobia, Recent Change in Vision, Other HENT: denies: No Symptoms, Difficult Swallowing, Ear Discharge, Ear Pain, Epistaxis, Gingival Bleeding, Hearing Loss, Mouth Swelling, Nasal Congestion, Ocular Prosthesis, Throat Pain, Toothache, Ringing in Ears, Other Neck: denies: No Symptoms, Decreased ROM, Lumps, Pain on Movement, Stiffness, Swollen Glands, Tenderness, Other Cardiovascular: reports: Chest Pain, Shortness of Breath. denies: No Symptoms, Edema, Palpitations, Other Respiratory: reports: Cough, SOB, SOB on Exertion. denies: No Symptoms, Exercise Intolerance, Hemoptysis, Orthopnea, PND, Snoring, Wheezing, Other Gastrointestinal: reports: Abdominal Pain. denies: No Symptoms, Bloating, Constipation, Diarrhea, Dysphagia, Indigestion, Melena, Nausea, Rectal Bleeding , Vomiting, Vomiting Blood, Other Genitourinary: reports: Flank Pain, Pain. denies: No Symptoms, Burning, Discharge, Dysuria, Frequency, Hematuria, Incontinence, Lesions, Menses, Testicular Mass, Testicular Pain, Testicular Swelling, Urgency, Vaginal Bleeding , Other Breasts: denies: No Symptoms Reported, See HPI, Breast Implants, Discharge from Nipple, Lumps, Pain, Skin Changes, Other Musculoskeletal: reports: Back Pain. denies: No Symptoms, Crepitus, Decreased ROM, Extremity Pain, Joint Pain, Joint Swelling, Muscle Pain, Muscle Cramps, Muscle Weakness, Other Integumentary: denies: No Symptoms, Blister, Bruising, Change in Color, Eczema, Erythema, Incision, Lesions, Lump, Pallor, Pruritis, Rash, Wound, Other Neurological: denies: No Symptoms, Change in LOC, Change in Speech, Confusion, Dizziness, Headache, Incoordination, Numbness, Parasthesia, Pre-Existing Deficit , Seizure, Syncope, Tremors, Unsteady Gait, Weakness, Other Endocrine: denies: No Symptoms, Excessive Sweating, Flushing, Increased Hunger, Increased Thirst, Intolerance to Cold, Intolerance to Heat, Unexplained Weight Gain, Unexplained Weight Loss, Other Hematology/Lymphatic: denies: No Symptoms, Easily Bruised, Excessive Bleeding, Swollen Glands, Other Psychiatric: denies: No Symptoms, Altered Sleep Pattern, Anxiety, Depression, Hallucinations, Panic, Paranoia, Suicidal, Other - Risk Factors Known Risk Factors: Yes: Age, Hypercholesterolemia, Hypertension Vital Signs: Vital Signs Temperature 98.7 F 02/09/18 10:17 Pulse Rate 98 H 02/09/18 10:17 Respiratory Rate 22 H 02/09/18 10:17 Blood Pressure 162/90 02/09/18 10:17 O2 Sat by Pulse Oximetry (%) 100 02/09/18 10:17 Constitutional: Yes: No Distress, Calm Eyes: Yes: Conjunctiva Clear, EOM Intact HENT: Yes: Atraumatic, Normocephalic Neck: Yes: Supple, Trachea Midline Respiratory: Yes: Regular, Rales. No: Rhonchi, SOB, SOB on Exertion, Tachypnea , Wheezes Gastrointestinal: Yes: Normal Bowel Sounds, Soft. No: Distention, Tenderness Cardiovascular: Yes: Pulse Irregular. No: Regular Rate and Rhythm, Bradycardia , Tachycardia, Gallop, Rub, Varicosities, Other JVD: No Carotid Bruit: No PMI: Non-Displaced Heart Sounds: Yes: S1, S2. No: Split S2, S3, S4, Clicks, Gallop, Rub, Bruit Murmur: Yes: Systolic Murmur. No: Diastolic Murmur Musculoskeletal: Yes: Back Pain Extremities: Yes: WNL Edema: No Peripheral Pulses WNL: Yes Peripheral Pulses: 2+ Left Doralis Pedis, 2+ Right Dorsalis Pedis Neurological: Yes: Alert, Oriented Psychiatric: Yes: Alert, Oriented - Other Data Labs, Other Data: CBC, BMP 02/09/18 08:20 02/09/18 08:20 INR, PTT INR 1.59 (0.83-1.09) H 02/09/18 08:20 Troponin, BNP 02/09/18 08:20 Troponin I < 0.02 B-Natriuretic Peptide 2747.5 H Troponin, BNP 02/09/18 08:20 Troponin I < 0.02 B-Natriuretic Peptide 2747.5 H afib 121bpm lad, anteroseptal infarct age undetermined. Echo: Report Reviewed Imaging - Results Chest X-ray: Report Reviewed, Image Reviewed EKG: Report Reviewed, Image Reviewed Other: Report Reviewed, Image Reviewed Assessment/Plan 87 year old woman with a PMHx of hypertension, DM, HLD, chronic atrial fibrillation on warfarin, chronic diastolic CHF, moderate to severe mitral regurgitation, CAD with mild anterior wall stress induced ischemia from nuclear stress test in June 2016, and seizure disorder admitted 11/02/2017 with worsening SOB over 2 days with associated intermittent chest pain, medically managed with Lasix and HR control, then again admitted with c/o dizziness now admitted with c /o 1 day h/o R flank pain radiating up to R chest with 3 day h/o cough, and mild exacerbation of chronic sob. Pt seen and examined today in nad. states she is feeling better since coming to Er. R flank pain is improved but still present. sob improving. no LE edema. no Substernal or L sided chest pain. She denies palpitations. No pnd, orthopnea or LE edema. Repeat echocardiogram 11/03/2017: Normal LV size, with hyperkinetic wall motion and increased systolic function. LVEF > 70%. Mild RV dilatation with normal systolic function. Mild LA and RA dilatation. Moderate to severe MR. Severe TR. Mild pulm HTN, RVSP = 47 mmHg. R flank pain radiating to R chest -unlikely ACS -pain currently mild -pain is reproducible on palpation over lower R ribs and RUQ -no ischemia on ekg -cardiac enzymes wnl x 1 -possibly related to coughing -LFTs elevated -evaluate GI source Acute on Chronic diastolic CHF- moderate to severe MR contributes to her CHF exacerbations in the past -currently mild volume overloaded -given dose of IV lasix in ER -cont home Lasix dose, 40mg po daily -Monitor renal function and electrolytes, I/Os and daily weights -can give extra IV Lasix prn Atrial fibrillation with RVR-on prior admission improved with metoprolol 200mg bid -RVR in ER ekg 120bpm, hr has improved since then with doses of iv lopressor -currently on metoprolol 75mg po bid -would uptitrate metoprolol as needed for improved HR control -dose coumadin for INR 2-3 -Can dc tele when HR controlled
--- NOTE | 2018-02-09 13:03 | PN ---
Progress Note (short form) - Note Progress Note: PULMONARY CONSULTATION DICTATED 02/09/18 IMP DYSPNEA ACUTE ON CHRONIC CHF COUGH ? SECONDARY TO CHF,?BRONCHITIS AFIB WITH RVR ATYPICAL CP ASHD S/P ME SEIZURE DISORDER HTN PULMONARY HTN DM PLAN LASIX O2 INHALED BRONCHODILATORS RATE CONTROL PER CARDIOLOGY ANALGESICS ESR AC PER INR CHEST CT DAILY WT DR CAMACHO Problem List - Problems (1) Acute exacerbation of CHF (congestive heart failure) Code(s): I50.9 - HEART FAILURE, UNSPECIFIED Qualifiers: Heart failure type: diastolic Qualified Code(s): I50.33 - Acute on chronic diastolic (congestive) heart failure (2) SOB (shortness of breath) Code(s): R06.02 - SHORTNESS OF BREATH (3) ASHD (arteriosclerotic heart disease) Code(s): I25.10 - ATHSCL HEART DISEASE OF [place] CORONARY ARTERY W/O ANG PCTRS (4) Atrial fibrillation Code(s): I48.91 - UNSPECIFIED ATRIAL FIBRILLATION (5) CHF (congestive heart failure) Code(s): I50.9 - HEART FAILURE, UNSPECIFIED (6) Hypertension Code(s): I10 - ESSENTIAL (PRIMARY) HYPERTENSION Qualifiers: (7) Cough Code(s): R05 - COUGH (8) Pulmonary hypertension Code(s): I27.20 - PULMONARY HYPERTENSION, UNSPECIFIED
[2018-02-09] MEDS ORDERED: ACETAMINOPHEN 325 MG TABLET (FP) PO PRN (14:52)
--- NOTE | 2018-02-09 15:06 | HP ---
Admitting History and Physical - Primary Care Physician PCP: Araceli Dow - Admission Chief Complaint: COUGH AND R FLANK PAIN RADIATING TO CHEST AND BACK History of Present Illness: PATIENT IS AN 87 YEAR OLD FEMALE WITH PAST MEDICAL HISTORY OF A-FIB, HTN, SEIZURE DISORDER, DM, PREVIOUS [place], THAT PRESENTED TO ED AFTER WAKING UP THIS MORNING WITH SHARP PAIN TO R FLANK RADIATING TO CHEST AND BACK. EXPERIENCED DIFFICULTY BREATHING WITH SHARP PAIN. LABS FROM ED SHOW ELEVATED BNP. 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's Cardiovascular: Yes: AFIB, CAD, CHF (Diastolic), HTN, Mitral Insufficiency ( moderate to severe mitral regurgitation) Pulmonary: Yes: Pneumonia Psych: Yes: Addictions Musculoskeletal: Yes: Chronic low back pain, Osteoarthritis Rheumatology: Yes: Other - Past Surgical History Past Surgical History: Yes: Cholecystectomy, Hysterectomy - Smoking History Smoking history: Never smoked Have you smoked in the past 12 months: No - Alcohol/Substance Use Hx Alcohol Use: No History of Substance Use: reports: None - Social History ADL: Independent (Previously Independent in ADLs/ IADLs, has cane and RW (both of which she uses intermittently)) History of Recent Travel: No Home Medications - Allergies Allergies/Adverse Reactions: Allergies Allergy/AdvReac Type Severity Reaction Status Date / Time levofloxacin [From Levaquin] Allergy Verified 02/09/18 06:37 lidocaine AdvReac Verified 02/09/18 06:37 - Home Medications Home Medications: Ambulatory Orders Cholecalciferol (Vitamin D3) [Vitamin D -] 0 unit PO DAILY 10/21/16 Glucosamine/MSM/Chondroitin A [Glucosamine Chondroit MSM Tab] 1 each PO DAILY Multivitamins [Multivit ([facility] Formulary)] 1 tab PO DAILY 10/21/16 Phenytoin Sodium Extended [Phenytek] 400 mg PO HS 10/21/16 Arformoterol Tartrate [Brovana -] 1 amp NEB BID amp 10/25/16 Atorvastatin Ca [Lipitor] 10 mg PO HS tablet 10/25/16 Latanoprost 0.005% Eye Drops [Xalatan 0.005% Eye Drops -] 1 drop OD HS drop 04/11 Amino Acids/Protein Hydrolys [Prosource No Carb Liquid Pkt] 30 ml PO BID@0800, 1730 packet 11/09/17 Arformoterol Tartrate [Brovana -] 1 amp NEB RBID amp 11/09/17 Atorvastatin Ca [Lipitor] 10 mg PO HS tablet 11/09/17 Furosemide [Lasix -] 40 mg PO DAILY tablet 11/09/17 Latanoprost 0.005% Eye Drops [Xalatan 0.005% Eye Drops -] 1 drop OD HS drops Multivitamins [Multivit ([facility] Formulary)] 1 tab PO DAILY tab 11/09/17 Phenol [Chloraseptic -] 1 spray MM Q6HPO PRN bottle 11/09/17 Warfarin Na [Coumadin -] 7 mg PO DAILY@1800 tablet 11/09/17 Acetaminophen [Tylenol .Regular Strength -] 650 mg PO Q6H PRN tablet 01/21/18 Enoxaparin [Lovenox -] 70 mg SQ Q12H #6 disp.syrin 01/21/18 Furosemide [Lasix -] 40 mg PO DAILY tablet 01/21/18 Lisinopril [Prinivil] 5 mg PO DAILY #30 tablet 01/21/18 Metoprolol Tartrate [Lopressor -] 75 mg PO BID #60 tablet 01/21/18 Phenytoin Na Extended [Dilantin -] 300 mg PO DAILY capsule 01/21/18 Warfarin Na [Coumadin -] 5 mg PO DAILY@1800 tablet 01/21/18 Review of Systems - Review of Systems Constitutional: reports: No Symptoms Eyes: reports: No Symptoms HENT: reports: No Symptoms Neck: reports: No Symptoms Cardiovascular: reports: No Symptoms Respiratory: reports: Cough Gastrointestinal: reports: Abdominal Pain Genitourinary: reports: No Symptoms Breasts: reports: No Symptoms Reported Musculoskeletal: reports: Muscle Weakness Integumentary: reports: No Symptoms Neurological: reports: No Symptoms Endocrine: reports: No Symptoms Hematology/Lymphatic: reports: No Symptoms Psychiatric: reports: No Symptoms Physical Examination Vital Signs: Vital Signs Temperature 98.7 F 02/09/18 12:07 Pulse Rate 112 H 02/09/18 12:07 Respiratory Rate 22 H 02/09/18 12:07 Blood Pressure 140/77 02/09/18 12:07 O2 Sat by Pulse Oximetry (%) 100 02/09/18 12:07 Constitutional: Yes: No Distress, Calm Eyes: Yes: Conjunctiva Clear Neck: Yes: Supple Cardiovascular: Yes: Pulse Irregular Respiratory: Yes: Other (CRACKLES BILATERALLY ON AUSCULTATION) Gastrointestinal: Yes: Normal Bowel Sounds, Soft, Tenderness (UMBILICAL HERNIA) Musculoskeletal: Yes: Muscle Weakness Edema: No Neurological: Yes: Alert Psychiatric: Yes: Alert Labs: CBC, BMP 02/09/18 08:20 02/09/18 08:20 Problem List - Problems (1) Acute exacerbation of CHF (congestive heart failure) Code(s): I50.9 - HEART FAILURE, UNSPECIFIED Qualifiers: Heart failure type: diastolic Qualified Code(s): I50.33 - Acute on chronic diastolic (congestive) heart failure (2) Cough Code(s): R05 - COUGH (3) SOB (shortness of breath) Code(s): R06.02 - SHORTNESS OF BREATH (4) Atrial fibrillation Code(s): I48.91 - UNSPECIFIED ATRIAL FIBRILLATION (5) Hypertension Code(s): I10 - ESSENTIAL (PRIMARY) HYPERTENSION Qualifiers: Assessment/Plan PULM RECOMMENDATION APPRECIATED CONT LASIX O2 VIA NC PRN FOR SOB OR O2 <90% CONT WITH AC, DAILY INR TELEMETRY MONITORING, PENDING CARDIOLOGY CONSULT DAILY WEIGHTS CHEST CT SCAN PENDING WILL REPEAT BNP TO MONITOR FOR DOWNWARD TREND
--- NOTE | 2018-02-09 16:25 | EKG ---
Test Reason : Blood Pressure : / mmHG Vent. Rate : 121 BPM Atrial Rate : 357 BPM P-R Int : 000 ms QRS Dur : 084 ms QT Int : 334 ms P-R-T Axes : 000 -31 053 degrees QTc Int : 474 ms ATRIAL FIBRILLATION WITH RAPID VENTRICULAR RESPONSE LEFT AXIS DEVIATION ANTERIOR INFARCT , AGE UNDETERMINED ABNORMAL ECG Confirmed by MD ADELAIDE, CORY ([id number]) on 02/09/2018 4:25:03 PM Referred By: Confirmed By:CORY BRYSON MD
[2018-02-09 16:52] LABS: INR 1.68 (0.83-1.09); PROTHROMBIN TIME (PATIENT) 19.9 SEC (9.7-13.0)
[2018-02-09] MEDS: WARFARIN NA 5 MG TABLET (UD) PO SCH (17:28)
[2018-02-09] MEDS: AMINO ACIDS/PROTEIN HYDROLYS 30 ML LIQUID.PKT PO SCH (17:28)
[2018-02-09] MEDS: ATORVASTATIN CA 10 MG TABLET (FP) PO SCH (21:57)
[2018-02-09] MEDS: METOPROLOL TARTRATE 50 MG TABLET (FP) PO SCH (21:57)
[2018-02-09] MEDS: LATANOPROST 0.005% OPHTH SOLN 2.5ML BOTTLE OD SCH (21:58)
[2018-02-09] MEDS ORDERED: LATANOPROST 0.005% OPHTH SOLN 2.5ML BOTTLE OD SCH (22:00)
[2018-02-09] MEDS ORDERED: METOPROLOL TARTRATE 25 MG TABLET (FP) PO SCH (22:00)
[2018-02-10] MEDS: LEVALBUTEROL HCL 0.31 MG/3 ML VIAL.NEB IH PRN (03:57)
[2018-02-10] MEDS: METOPROLOL TARTRATE 50 MG TABLET (FP) PO SCH ×2 (08:37→13:48)
[2018-02-10] MEDS: AMINO ACIDS/PROTEIN HYDROLYS 30 ML LIQUID.PKT PO SCH ×3 (09:03→17:35)
[2018-02-10] MEDS: FUROSEMIDE 40 MG TABLET (FP) PO SCH (09:03)
[2018-02-10] MEDS: MULTIVITAMINS (DAILY MVI) TABLET (FP) PO SCH (09:04)
[2018-02-10] MEDS: LISINOPRIL 5 MG TABLET (FP) PO SCH (09:04)
[2018-02-10 09:40] LABS: INR 1.89 (0.83-1.09); PROTHROMBIN TIME (PATIENT) 22.4 SEC (9.7-13.0)
--- NOTE | 2018-02-10 10:39 | PN ---
Progress Note, Physician History of Present Illness: pulmonary alert,comfortable at rest,+ dyspnea with min exertion. pt remains in afib with rvr - Current Medication List Current Medications: Active Medications Acetaminophen (Tylenol -) 650 mg PO Q6H PRN PRN Reason: PAIN OR FEVER Amino Acids (Prosource No Carb Liquid Pkt) 30 ml PO BID@0800,1730 [facility] Last Admin: 02/10/18 09:03 Dose: 30 ml Atorvastatin Calcium (Lipitor -) 10 mg PO HS [facility] Last Admin: 02/09/18 21:57 Dose: 10 mg Furosemide (Lasix -) 40 mg PO DAILY [facility] Last Admin: 02/10/18 09:03 Dose: 40 mg Latanoprost (Xalatan 0.005% Eye Drops -) 1 drop OD HS [facility] Last Admin: 02/09/18 21:58 Dose: 1 drop Levalbuterol HCl (Xopenex) 0.31 mg IH Q8H PRN PRN Reason: ASTHMA Last Admin: 02/10/18 03:57 Dose: 0.31 mg Lisinopril (Prinivil) 5 mg PO DAILY [facility] Last Admin: 02/10/18 09:04 Dose: 5 mg Metoprolol Tartrate (Lopressor -) 75 mg PO BID [facility] Last Admin: 02/10/18 08:37 Dose: 75 mg Metoprolol Tartrate (Lopressor Injection -) 2.5 mg IVPUSH Q4H PRN PRN Reason: afib, tachycardia Multivitamins/Minerals/Vitamin C (Tab-A-Vit -) 1 tab PO DAILY [facility] Last Admin: 02/10/18 09:04 Dose: 1 tab Phenytoin Sodium (Dilantin -) 300 mg PO DAILY [facility] Warfarin Sodium (Coumadin -) 5 mg PO DAILY@1800 [facility] Last Admin: 02/09/18 17:28 Dose: 5 mg - Objective Vital Signs: Vital Signs Temperature 98 F 02/10/18 09:29 Pulse Rate 120 H 02/10/18 09:29 Respiratory Rate 20 02/10/18 09:29 Blood Pressure 144/82 02/10/18 09:29 O2 Sat by Pulse Oximetry (%) 98 02/10/18 09:00 Constitutional: Yes: Well Nourished, Calm Eyes: Yes: WNL HENT: Yes: WNL Neck: Yes: WNL Cardiovascular: Yes: Tachycardia, Pulse Irregular, S1, S2 Respiratory: Yes: Diminished Gastrointestinal: Yes: Normal Bowel Sounds, Soft Extremities: Yes: WNL Edema: No Labs: CBC, BMP Problem List - Problems (1) Acute exacerbation of CHF (congestive heart failure) Code(s): I50.9 - HEART FAILURE, UNSPECIFIED Qualifiers: Heart failure type: diastolic Qualified Code(s): I50.33 - Acute on chronic diastolic (congestive) heart failure (2) SOB (shortness of breath) Code(s): R06.02 - SHORTNESS OF BREATH (3) ASHD (arteriosclerotic heart disease) Code(s): I25.10 - ATHSCL HEART DISEASE OF [place] CORONARY ARTERY W/O ANG PCTRS (4) Atrial fibrillation Code(s): I48.91 - UNSPECIFIED ATRIAL FIBRILLATION (5) CHF (congestive heart failure) Code(s): I50.9 - HEART FAILURE, UNSPECIFIED (6) Hypertension Code(s): I10 - ESSENTIAL (PRIMARY) HYPERTENSION Qualifiers: (7) Cough Code(s): R05 - COUGH (8) Pulmonary hypertension Code(s): I27.20 - PULMONARY HYPERTENSION, UNSPECIFIED Assessment/Plan IMP DYSPNEA ACUTE ON CHRONIC CHF COUGH ? SECONDARY TO CHF,?BRONCHITIS AFIB WITH RVR ATYPICAL CP ASHD S/P SD SEIZURE DISORDER HTN PULMONARY HTN DM PLAN LASIX O2 INHALED BRONCHODILATORS RATE CONTROL PER CARDIOLOGY AC PER INR CHEST CT DAILY WT DR CAMACHO Problem List - Problems (1) Acute exacerbation of CHF (congestive heart failure) Code(s): I50.9 - HEART FAILURE, UNSPECIFIED Qualifiers: Heart failure type: diastolic Qualified Code(s): I50.33 - Acute on chronic diastolic (congestive) heart failure (2) SOB (shortness of breath) Code(s): R06.02 - SHORTNESS OF BREATH (3) ASHD (arteriosclerotic heart disease) Code(s): I25.10 - ATHSCL HEART DISEASE OF [place] CORONARY ARTERY W/O ANG PCTRS (4) Atrial fibrillation Code(s): I48.91 - UNSPECIFIED ATRIAL FIBRILLATION (5) CHF (congestive heart failure) Code(s): I50.9 - HEART FAILURE, UNSPECIFIED (6) Hypertension Code(s): I10 - ESSENTIAL (PRIMARY) HYPERTENSION Qualifiers: (7) Cough Code(s): R05 - COUGH (8) Pulmonary hypertension Code(s): I27.20 - PULMONARY HYPERTENSION, UNSPECIFIED
[2018-02-10] MEDS: METOPROLOL TARTRATE 5 MG/5 ML VIAL IVPUSH PRN (10:54)
[2018-02-10] MEDS ORDERED: METOPROLOL TARTRATE 50 MG TABLET (FP) PO SCH (11:12)
--- NOTE | 2018-02-10 11:15 | CONS ---
DATE OF CONSULTATION: 02/09/2018 PULMONARY CONSULTATION REFERRING PHYSICIAN: Araceli Dow MD HISTORY OF PRESENT ILLNESS: The patient is an 87-year-old black female known to me from previous hospitalization. She has a past medical history of atrial fibrillation, hypertension, seizure disorder, diabetes and arteriosclerotic heart disease. She is status post a myocardial infarction, cholecystectomy and hysterectomy. She was admitted to [facility] for a complaint of increasing cough and right-sided chest pain. The patient has had a cough for the past three to four days. The cough is nonproductive. The patient states that her chest pain is right-sided and increases with cough. She has no past history of DVT or PE. She denies any fevers, chills, nausea, vomiting or diaphoresis. The patient presented to the emergency room. On presentation there, she was felt to possibly be in heart failure. She was noted to have crackles but no audible wheezes. She was also noted to be in rapid atrial fibrillation and had apparently not taken her medications prior to her arrival in the emergency room. In the ER, she was administered metoprolol and a DuoNeb and was transferred to a medical floor for further management. A chest x-ray was performed and revealed no evidence of pneumonia. Her D-dimer was mildly elevated to greater than 2000. PAST MEDICAL HISTORY: Again, this includes atrial fibrillation, seizure disorder, hypertension, ASHD status post [place], diabetes. REVIEW OF SYSTEMS: Positive for shortness of breath, cough, right-sided chest pain. No fever, chills, nausea, vomiting, hemoptysis or abdominal pain. SOCIAL HISTORY: History of tobacco use many years ago. 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 No occupational exposures. MEDICATIONS: Medications administered in the emergency room included DuoNebs and Lopressor. Her medications prior to admission include vitamin D, glucosamine, multivitamins, , Brovana, Lipitor, eye drops, , amino acids, Lasix, , Coumadin, Lovenox, Lisinopril. PHYSICAL EXAMINATION: General: The patient is an elderly black female, awake and alert, in no acute distress. Vital Signs: She is afebrile. Heart rate 112 and irregular. Blood pressure is 140/77, respiratory rate 22, O2 saturation is 100% on 2 liters of oxygen. HEENT: Head is normocephalic, atraumatic. Neck: Supple. Heart: Irregular irregular, S1, S2. Chest: Bibasilar crackles. Abdomen: Soft. Bowel sounds are positive. Extremities: No cyanosis or edema. LABORATORY: WBC is 7.5, hemoglobin 14.6, hematocrit 41.6, platelet count of 180,000. INR is 1.59. BUN 7, creatinine 0.7, alkaline phosphatase 159, AST 105, ALT 91, BNP 2747. mild congestive changes, no infiltrates, no effusions. IMPRESSION: 1. Cough and dyspnea. 2. Atrial fibrillation with rapid ventricular response. 3. Likely underlying chronic obstructive pulmonary disease. 4. History of seizure disorder. 5. Diabetes. 6. Pulmonary hypertension. 7. Right-sided chest pain, likely musculoskeletal. PLAN: 1. Lasix. 2. Rate control as per Cardiology. 3. Supplemental O2. 4. Inhaled bronchodilators. 5. CT scan of the chest. 6. Continue anticoagulation as per INR. 7. Analgesics. DEYSI CAMACHO M.D. SADA/[id number]
--- NOTE | 2018-02-10 11:19 | PN ---
Progress Note, Physician Chief Complaint: PREVIOUS NOTES AND EVENTS REVIEWED CONT TO BE TACHYCARDIC, ON EXERTION HR INCREASE TO 130-140'S, DENIES CHEST PAIN , DENIES DYSPNEA History of Present Illness: A-FIB WITH RVR - Current Medication List Current Medications: Active Medications Acetaminophen (Tylenol -) 650 mg PO Q6H PRN PRN Reason: PAIN OR FEVER Amino Acids (Prosource No Carb Liquid Pkt) 30 ml PO BID@0800,1730 [facility] Last Admin: 02/10/18 09:03 Dose: 30 ml Atorvastatin Calcium (Lipitor -) 10 mg PO HS [facility] Last Admin: 02/09/18 21:57 Dose: 10 mg Furosemide (Lasix -) 40 mg PO DAILY [facility] Last Admin: 02/10/18 09:03 Dose: 40 mg Latanoprost (Xalatan 0.005% Eye Drops -) 1 drop OD HS [facility] Last Admin: 02/09/18 21:58 Dose: 1 drop Levalbuterol HCl (Xopenex) 0.31 mg IH Q8H PRN PRN Reason: ASTHMA Last Admin: 02/10/18 03:57 Dose: 0.31 mg Lisinopril (Prinivil) 5 mg PO DAILY [facility] Last Admin: 02/10/18 09:04 Dose: 5 mg Metoprolol Tartrate (Lopressor Injection -) 2.5 mg IVPUSH Q4H PRN PRN Reason: afib, tachycardia Last Admin: 02/10/18 10:54 Dose: 2.5 mg Metoprolol Tartrate (Lopressor -) 100 mg PO BID [facility] Multivitamins/Minerals/Vitamin C (Tab-A-Vit -) 1 tab PO DAILY [facility] Last Admin: 02/10/18 09:04 Dose: 1 tab Phenytoin Sodium (Dilantin -) 300 mg PO DAILY [facility] Warfarin Sodium (Coumadin -) 5 mg PO DAILY@1800 [facility] Last Admin: 02/09/18 17:28 Dose: 5 mg - Objective Vital Signs: Vital Signs Temperature 98 F 02/10/18 09:29 Pulse Rate 116 H 02/10/18 10:54 Respiratory Rate 20 02/10/18 09:29 Blood Pressure 146/80 02/10/18 10:54 O2 Sat by Pulse Oximetry (%) 98 02/10/18 09:00 Constitutional: Yes: Well Nourished, No Distress Neck: Yes: Supple Cardiovascular: Yes: Tachycardia, Pulse Irregular Respiratory: Yes: Regular, Diminished Gastrointestinal: Yes: Normal Bowel Sounds, Soft, Tenderness (LLQ) Musculoskeletal: Yes: Muscle Weakness Extremities: Yes: WNL Edema: No Neurological: Yes: Alert, Oriented Psychiatric: Yes: Alert, Oriented Labs: CBC, BMP 02/09/18 08:20 02/09/18 08:20 INR, PTT INR 1.89 (0.83-1.09) H 02/10/18 09:05 Problem List - Problems (1) Acute exacerbation of CHF (congestive heart failure) Code(s): I50.9 - HEART FAILURE, UNSPECIFIED Qualifiers: Heart failure type: diastolic Qualified Code(s): I50.33 - Acute on chronic diastolic (congestive) heart failure (2) Cough Code(s): R05 - COUGH (3) SOB (shortness of breath) Code(s): R06.02 - SHORTNESS OF BREATH (4) Atrial fibrillation Code(s): I48.91 - UNSPECIFIED ATRIAL FIBRILLATION (5) Hypertension Code(s): I10 - ESSENTIAL (PRIMARY) HYPERTENSION Qualifiers: Assessment/Plan PULM RECOMMENDATION APPRECIATED CONT LASIX O2 VIA NC PRN FOR SOB OR O2 <90% CONT WITH AC, DAILY INR TELEMETRY MONITORING INCREASE TO METOPROLOL 100MG BID LOPRESSOR 2.5MG IVP Q4H PRN FOR HR >100, HOLD IF HR <100 AND/OR SYSTOLIC BP <[address] SCAN PENDING WILL REPEAT BNP TO MONITOR FOR DOWNWARD TREND CBC, CMP ORDERED
[2018-02-10] MEDS ORDERED: PT OWN MED DRAWER 7, Y5N ONE ×2 (14:28→21:03)
[2018-02-10] MEDS: PHENYTOIN NA EXTENDED 100 MG CAPSULE (FP) PO SCH (14:30)
[2018-02-10] MEDS ORDERED: FUROSEMIDE 40 MG/4 ML INJECTABLE VIAL IVPUSH ONE (15:00)
--- NOTE | 2018-02-10 15:48 | PN ---
Progress Note, Physician History of Present Illness: seen and examined today in nad. feeling better, no further flank or chest pain, sob still present but improving. - Current Medication List Current Medications: Active Medications Acetaminophen (Tylenol -) 650 mg PO Q6H PRN PRN Reason: PAIN OR FEVER Amino Acids (Prosource No Carb Liquid Pkt) 30 ml PO BID@0800,1730 [facility] Last Admin: 02/10/18 14:29 Dose: Not Given Atorvastatin Calcium (Lipitor -) 10 mg PO HS [facility] Last Admin: 02/09/18 21:57 Dose: 10 mg Furosemide (Lasix -) 40 mg PO DAILY [facility] Last Admin: 02/10/18 09:03 Dose: 40 mg Latanoprost (Xalatan 0.005% Eye Drops -) 1 drop OD HS [facility] Last Admin: 02/09/18 21:58 Dose: 1 drop Levalbuterol HCl (Xopenex) 0.31 mg IH Q8H PRN PRN Reason: ASTHMA Last Admin: 02/10/18 03:57 Dose: 0.31 mg Lisinopril (Prinivil) 5 mg PO DAILY [facility] Last Admin: 02/10/18 09:04 Dose: 5 mg Metoprolol Tartrate (Lopressor Injection -) 2.5 mg IVPUSH Q4H PRN PRN Reason: afib, tachycardia Last Admin: 02/10/18 10:54 Dose: 2.5 mg Metoprolol Tartrate (Lopressor -) 100 mg PO BID [facility] Multivitamins/Minerals/Vitamin C (Tab-A-Vit -) 1 tab PO DAILY [facility] Last Admin: 02/10/18 09:04 Dose: 1 tab Phenytoin Sodium (Dilantin -) 300 mg PO DAILY [facility] Last Admin: 02/10/18 14:30 Dose: 300 mg Warfarin Sodium (Coumadin -) 5 mg PO DAILY@1800 [facility] Last Admin: 02/09/18 17:28 Dose: 5 mg - Objective Vital Signs: Vital Signs Temperature 98.4 F 02/10/18 15:40 Pulse Rate 101 H 02/10/18 15:40 Respiratory Rate 20 02/10/18 15:40 Blood Pressure 146/89 02/10/18 15:40 O2 Sat by Pulse Oximetry (%) 98 02/10/18 09:00 Constitutional: Yes: No Distress, Calm Eyes: Yes: Conjunctiva Clear, EOM Intact HENT: Yes: Atraumatic, Normocephalic Neck: Yes: Supple, Trachea Midline Cardiovascular: Yes: Pulse Irregular, S1, S2. No: Regular Rate and Rhythm, Bradycardia, Tachycardia, Bruit, JVD, Gallop, Murmur, Rub, S3, S4, Varicosities Respiratory: Yes: Regular, Diminished, On Nasal O2, Rales. No: Rhonchi, SOB, Wheezes Gastrointestinal: Yes: Normal Bowel Sounds, Soft. No: Distention, Tenderness Musculoskeletal: Yes: WNL Extremities: Yes: WNL Edema: No Peripheral Pulses WNL: Yes Peripheral Pulses: Left Doralis Pedis: 2+, Right Dorsalis Pedis: 2+ Neurological: Yes: Alert, Oriented Psychiatric: Yes: Alert, Oriented Labs: CBC, BMP 02/09/18 08:20 02/09/18 08:20 INR, PTT INR 1.89 (0.83-1.09) H 02/10/18 09:05 - ....Imaging Chest X-ray: Report Reviewed, Image Reviewed EKG: Report Reviewed, Image Reviewed Other: Report Reviewed, Image Reviewed (tele-AFib, HR currently adequately controlled, periods of RVR) Assessment/Plan 87 year old woman with a PMHx of hypertension, DM, HLD, chronic atrial fibrillation on warfarin, chronic diastolic CHF, moderate to severe mitral regurgitation, CAD with mild anterior wall stress induced ischemia from nuclear stress test in June 2016, and seizure disorder admitted 11/02/2017 with worsening SOB over 2 days with associated intermittent chest pain, medically managed with Lasix and HR control, then again admitted with c/o dizziness now admitted with c /o 1 day h/o R flank pain radiating up to R chest with 3 day h/o cough, and mild exacerbation of chronic sob. Repeat echocardiogram 11/03/2017: Normal LV size, with hyperkinetic wall motion and increased systolic function. LVEF > 70%. Mild RV dilatation with normal systolic function. Mild LA and RA dilatation. Moderate to severe MR. Severe TR. Mild pulm HTN, RVSP = 47 mmHg. R flank pain radiating to R chest-resolved -unlikely ACS -no ischemia on ekg -cardiac enzymes wnl x 1 -possibly related to coughing -LFTs elevated -evaluate GI source Acute on Chronic diastolic CHF- moderate to severe MR contributes to her CHF exacerbations in the past -currently remains mild volume overloaded, sob improving but still present -given dose of IV lasix in ER will give additional dose today -otherwise cont home Lasix dose, 40mg po daily -Monitor renal function and electrolytes, I/Os and daily weights -can give additional extra IV Lasix prn Atrial fibrillation with RVR-on prior admission improved with metoprolol 200mg bid -periods of RVR currently adequately controlled -would uptitrate metoprolol as needed for improved HR control, increased to 100mg bid this am -dose coumadin for INR 2-3 -Can dc tele when HR controlled
[2018-02-10] MEDS: WARFARIN NA 5 MG TABLET (UD) PO SCH (17:35)
[2018-02-10] MEDS: LATANOPROST 0.005% OPHTH SOLN 2.5ML BOTTLE OD SCH (21:05)
[2018-02-10] MEDS: ATORVASTATIN CA 10 MG TABLET (FP) PO SCH (21:05)
[2018-02-11 06:40] LABS: HEMATOCRIT 38.5 % (32.4-45.2); HEMOGLOBIN 13.7 GM/dL (10.7-15.3); MCH 32.2 pg (25.7-33.7); MCHC 35.6 g/dl (32.0-36.0); MEAN CELL VOLUME 90.4 fl (80-96); PLATELET COUNT 181 K/MM3 (134-434); RBC 4.26 M/mm3 (3.60-5.2); RDW 13.5 % (11.6-15.6); WHITE BLOOD COUNT 7.5 K/mm3 (4.0-10.0)
[2018-02-11 07:15] LABS: ALK PHOS 148 U/L (45-117); ANION GAP 6 MMOL/L (8-16); BLOOD UREA NITROGEN 13 mg/dL (7-18); CALCIUM 7.8 mg/dL (8.5-10.1); CHLORIDE 104 mmol/L (98-107); CO2 30 mmol/L (21-32); CREATININE 0.6 mg/dL (0.55-1.3); GLUCOSE,RANDOM 118 mg/dL (74-106); N-TERMINAL BNP 2544.9 pg/ml (5-450); POTASSIUM 3.1 mmol/L (3.5-5.1); SGOT/AST 35 U/L (15-37); SGPT/ALT 70 U/L (13-61); SODIUM 139 mmol/L (136-145); TOT PROT 6.1 g/dl (6.4-8.2)
[2018-02-11] MEDS ORDERED: ARFORMOTEROL TARTRATE 15 MCG/2 ML VIAL NEB ONE (07:50)
[2018-02-11] MEDS: LEVALBUTEROL HCL 0.31 MG/3 ML VIAL.NEB IH PRN ×2 (07:50→22:49)
--- NOTE | 2018-02-11 08:08 | PN ---
Progress Note, Physician History of Present Illness: c/o sob and palpitations - Current Medication List Current Medications: Active Medications Acetaminophen (Tylenol -) 650 mg PO Q6H PRN PRN Reason: PAIN OR FEVER Amino Acids (Prosource No Carb Liquid Pkt) 30 ml PO BID@0800,1730 [facility] Last Admin: 02/10/18 17:35 Dose: 30 ml Atorvastatin Calcium (Lipitor -) 10 mg PO HS [facility] Last Admin: 02/10/18 21:05 Dose: 10 mg Furosemide (Lasix -) 40 mg PO DAILY [facility] Last Admin: 02/10/18 09:03 Dose: 40 mg Latanoprost (Xalatan 0.005% Eye Drops -) 1 drop OD HS [facility] Last Admin: 02/10/18 21:05 Dose: 1 drop Levalbuterol HCl (Xopenex) 0.31 mg IH Q8H PRN PRN Reason: ASTHMA Last Admin: 02/10/18 03:57 Dose: 0.31 mg Lisinopril (Prinivil) 5 mg PO DAILY [facility] Last Admin: 02/10/18 09:04 Dose: 5 mg Metoprolol Tartrate (Lopressor Injection -) 2.5 mg IVPUSH Q4H PRN PRN Reason: afib, tachycardia Last Admin: 02/10/18 10:54 Dose: 2.5 mg Metoprolol Tartrate (Lopressor -) 100 mg PO BID [facility] Last Admin: 02/10/18 21:05 Dose: 100 mg Multivitamins/Minerals/Vitamin C (Tab-A-Vit -) 1 tab PO DAILY [facility] Last Admin: 02/10/18 09:04 Dose: 1 tab Phenytoin Sodium (Dilantin -) 300 mg PO DAILY [facility] Last Admin: 02/10/18 14:30 Dose: 300 mg Warfarin Sodium (Coumadin -) 5 mg PO DAILY@1800 [facility] Last Admin: 02/10/18 17:35 Dose: 5 mg - Objective Vital Signs: Vital Signs Temperature 99 F 02/11/18 05:31 Pulse Rate 118 H 18 05:31 Respiratory Rate 20 02/11/18 05:31 Blood Pressure 152/96 02/11/18 05:31 O2 Sat by Pulse Oximetry (%) 98 02/10/18 21:00 Cardiovascular: Yes: Tachycardia, Pulse Irregular, S1, S2 Respiratory: Yes: Diminished Gastrointestinal: Yes: Normal Bowel Sounds, Soft Labs: CBC, BMP 02/11/18 05:30 02/11/18 05:30 INR, PTT INR 1.89 (0.83-1.09) H 02/10/18 09:05 Problem List - Problems (1) Acute exacerbation of CHF (congestive heart failure) Assessment/Plan: -Lasix -cxr Code(s): I50.9 - HEART FAILURE, UNSPECIFIED Qualifiers: Heart failure type: diastolic Qualified Code(s): I50.33 - Acute on chronic diastolic (congestive) heart failure (2) Atrial fibrillation Assessment/Plan: -Rapid -Increase metoprolol 150 bid -give dig now Code(s): I48.91 - UNSPECIFIED ATRIAL FIBRILLATION (3) Hypertension Assessment/Plan: -monitor on meds Code(s): I10 - ESSENTIAL (PRIMARY) HYPERTENSION Qualifiers: (4) SOB (shortness of breath) Assessment/Plan: Follow ce and ekg -Cxr Code(s): R06.02 - SHORTNESS OF BREATH
[2018-02-11] MEDS: AMINO ACIDS/PROTEIN HYDROLYS 30 ML LIQUID.PKT PO SCH ×2 (08:41→16:58)
[2018-02-11] MEDS: FUROSEMIDE 40 MG TABLET (FP) PO SCH (08:41)
[2018-02-11] MEDS: METOPROLOL TARTRATE 5 MG/5 ML VIAL IVPUSH PRN (08:42)
[2018-02-11] MEDS: METOPROLOL TARTRATE 50 MG TABLET (FP) PO SCH ×3 (08:42→21:21)
[2018-02-11] MEDS: LISINOPRIL 5 MG TABLET (FP) PO SCH ×2 (08:42→10:06)
[2018-02-11] MEDS: FUROSEMIDE 40 MG/4 ML INJECTABLE VIAL IVPUSH SCH ×2 (08:47→10:06)
[2018-02-11] MEDS ORDERED: FUROSEMIDE 40 MG/4 ML INJECTABLE VIAL ONE (08:47)
[2018-02-11] MEDS ORDERED: DIGOXIN 0.5 MG/2 ML AMPUL IVPUSH ONE (09:00)
[2018-02-11 09:08] LABS: INR 1.83 (0.83-1.09); PROTHROMBIN TIME (PATIENT) 21.7 SEC (9.7-13.0)
[2018-02-11] MEDS: MULTIVITAMINS (DAILY MVI) TABLET (FP) PO SCH (10:06)
[2018-02-11] MEDS: PHENYTOIN NA EXTENDED 100 MG CAPSULE (FP) PO SCH (10:06)
--- NOTE | 2018-02-11 12:01 | EKG ---
Test Reason : Blood Pressure : / mmHG Vent. Rate : 106 BPM Atrial Rate : 104 BPM P-R Int : 000 ms QRS Dur : 088 ms QT Int : 298 ms P-R-T Axes : 000 -09 028 degrees QTc Int : 395 ms ATRIAL FIBRILLATION WITH RAPID VENTRICULAR RESPONSE WITH PREMATURE VENTRICULAR OR ABERRANTLY CONDUCTED COMPLEXES ABNORMAL ECG WHEN COMPARED WITH ECG OF 09-FEB-2018 06:42, NO SIGNIFICANT CHANGE WAS FOUND Confirmed by DONTE ROJAS, ROGER ([id number]) on 02/11/2018 12:01:11 PM Referred By: KINGS GEORGE Confirmed By:ROGER KENT MD
--- NOTE | 2018-02-11 12:06 | PN ---
Progress Note (short form) - Note Progress Note: PULMONARY States breathing is improving but still with periods of rapid atrial fibrillation. CT chest with small effusions and areas of atelectasis. Vital Signs Period Temp Pulse Resp BP Sys/Herrera Pulse Ox Last 24 Hr 97.6 F-99 F 97-140 20-20 136-169/83-100 98-98 Gen: NAD in chair Heart: irregular Lung: decreased breath sounds at the bases Abd: soft, nontender Ext: no edema CBC, BMP 02/11/18 05:30 02/11/18 05:30 Active Medications Acetaminophen (Tylenol -) 650 mg PO Q6H PRN PRN Reason: PAIN OR FEVER Amino Acids (Prosource No Carb Liquid Pkt) 30 ml PO BID@0800,1730 [facility] Last Admin: 02/11/18 08:41 Dose: 30 ml Atorvastatin Calcium (Lipitor -) 10 mg PO HS [facility] Last Admin: 02/10/18 21:05 Dose: 10 mg Furosemide (Lasix Injection -) 40 mg IVPUSH DAILY [facility] Last Admin: 02/11/18 10:06 Dose: Not Given Latanoprost (Xalatan 0.005% Eye Drops -) 1 drop OD HS [facility] Last Admin: 02/10/18 21:05 Dose: 1 drop Levalbuterol HCl (Xopenex) 0.31 mg IH Q8H PRN PRN Reason: ASTHMA Last Admin: 02/11/18 07:50 Dose: 0.31 mg Lisinopril (Prinivil) 5 mg PO DAILY [facility] Last Admin: 02/11/18 10:06 Dose: Not Given Metoprolol Tartrate (Lopressor Injection -) 2.5 mg IVPUSH Q4H PRN PRN Reason: afib, tachycardia Last Admin: 02/11/18 08:42 Dose: 2.5 mg Metoprolol Tartrate (Lopressor -) 150 mg PO BID [facility] Last Admin: 02/11/18 10:06 Dose: Not Given Multivitamins/Minerals/Vitamin C (Tab-A-Vit -) 1 tab PO DAILY [facility] Last Admin: 02/11/18 10:06 Dose: 1 tab Phenytoin Sodium (Dilantin -) 300 mg PO DAILY [facility] Last Admin: 02/11/18 10:06 Dose: 300 mg Warfarin Sodium (Coumadin -) 5 mg PO DAILY@1800 [facility] Last Admin: 02/10/18 17:35 Dose: 5 mg A/P Acute on Chronic Diastolic Heart Failure Severe Mitral Regurgitation Atrial Fibrillation with RVR Pulmonary HTN CAD HTN DM Seizure Disorder - continue lasix - monitor urine output, creatinine - rate control - continue anticoagulation - minimize beta agonists - O2 to keep SpO2 >90%
[2018-02-11] MEDS: WARFARIN NA 5 MG TABLET (UD) PO SCH ×2 (16:58→17:00)
--- NOTE | 2018-02-11 19:01 | PN ---
Progress Note, Physician Chief Complaint: The patient appears comfortable. She has improved SOB. No palpitation or chest pain. Tele shows atrial fibrillation with improved VR control. VPCs. History of Present Illness: 87 year old woman with a PMHx of hypertension, DM, HLD, chronic atrial fibrillation on warfarin, chronic diastolic CHF, moderate to severe mitral regurgitation, CAD with mild anterior wall stress induced ischemia from nuclear stress test in June 2016, and seizure disorder admitted 11/02/2017 with worsening SOB over 2 days with associated intermittent chest pain, medically managed with Lasix and HR control, then again admitted 02/09/2018 with dizziness and one day of flank pain radiating up to R chest with 3 day h/o cough, and mild exacerbation of chronic sob. Repeat echocardiogram 11/03/2017: Normal LV size, with hyperkinetic wall motion and increased systolic function. LVEF > 70%. Mild RV dilatation with normal systolic function. Mild LA and RA dilatation. Moderate to severe MR. Severe TR. Mild pulm HTN, RVSP = 47 mmHg. R flank pain radiating to R chest-resolved -unlikely ACS -no ischemia on ekg -cardiac enzymes wnl x 1 -possibly related to coughing -LFTs elevated -evaluate GI source - Current Medication List Current Medications: Active Medications Acetaminophen (Tylenol -) 650 mg PO Q6H PRN PRN Reason: PAIN OR FEVER Amino Acids (Prosource No Carb Liquid Pkt) 30 ml PO BID@0800,1730 [facility] Last Admin: 02/11/18 16:58 Dose: 30 ml Atorvastatin Calcium (Lipitor -) 10 mg PO HS [facility] Last Admin: 02/10/18 21:05 Dose: 10 mg Furosemide (Lasix Injection -) 40 mg IVPUSH DAILY [facility] Last Admin: 02/11/18 10:06 Dose: Not Given Latanoprost (Xalatan 0.005% Eye Drops -) 1 drop OD HS [facility] Last Admin: 02/10/18 21:05 Dose: 1 drop Levalbuterol HCl (Xopenex) 0.31 mg IH Q8H PRN PRN Reason: ASTHMA Last Admin: 02/11/18 07:50 Dose: 0.31 mg Lisinopril (Prinivil) 5 mg PO DAILY [facility] Last Admin: 02/11/18 10:06 Dose: Not Given Metoprolol Tartrate (Lopressor Injection -) 2.5 mg IVPUSH Q4H PRN PRN Reason: afib, tachycardia Last Admin: 02/11/18 08:42 Dose: 2.5 mg Metoprolol Tartrate (Lopressor -) 150 mg PO BID [facility] Last Admin: 02/11/18 10:06 Dose: Not Given Multivitamins/Minerals/Vitamin C (Tab-A-Vit -) 1 tab PO DAILY [facility] Last Admin: 02/11/18 10:06 Dose: 1 tab Phenytoin Sodium (Dilantin -) 300 mg PO DAILY [facility] Last Admin: 02/11/18 10:06 Dose: 300 mg Warfarin Sodium (Coumadin -) 5 mg PO DAILY@1800 [facility] Last Admin: 02/11/18 17:00 Dose: Not Given - Objective Vital Signs: Vital Signs Temperature 97.9 F 02/11/18 14:00 Pulse Rate 105 H 02/11/18 14:00 Respiratory Rate 20 02/11/18 09:00 Blood Pressure 127/29 L 02/11/18 14:00 O2 Sat by Pulse Oximetry (%) 98 02/11/18 09:00 General: Well developed. Well nourished. No acute distress. Head: Normocephalic. Atraumatic, Eyes: PERRLA, EOMI. Sclerae anicteric. Conjunctivae clear. Neck: Supple. No JVD. No bruits. Heart: Normal S1, S2: Irregular rhythm and rate. II/ holosystolic murmur. No gallop or rub. Lungs: Symmetrical poor air entry with prolonged expiration. No crackle. No wheezing or rhonchi. Abdomen: Soft. Bowel sound positive. Non tender. No masses. Extremities: No edema. No clubbing or cyanosis. PD 2+, equal bilaterally. Neuro: Intact, no focal findings. AAO X3. Labs: CBC, BMP 02/11/18 05:30 02/11/18 05:30 INR, PTT INR 1.83 (0.83-1.09) H 02/11/18 05:30 Assessment/Plan 87 year old woman with a PMHx of hypertension, DM, HLD, chronic atrial fibrillation on warfarin, chronic diastolic CHF, moderate to severe mitral regurgitation, CAD with mild anterior wall stress induced ischemia from nuclear stress test in June 2016, and seizure disorder admitted 11/02/2017 with worsening SOB over 2 days with associated intermittent chest pain, medically managed with Lasix and HR control, then again admitted with c/o dizziness now admitted with c /o 1 day h/o R flank pain radiating up to R chest with 3 day h/o cough, and mild exacerbation of chronic sob. Repeat echocardiogram 11/03/2017: Normal LV size, with hyperkinetic wall motion and increased systolic function. LVEF > 70%. Mild RV dilatation with normal systolic function. Mild LA and RA dilatation. Moderate to severe MR. Severe TR. Mild pulm HTN, RVSP = 47 mmHg. 1) Atrial fibrillation with RVR-on prior admission improved with metoprolol 200mg bid -periods of RVR and VPCs. -would increase metoprolol to 200 mg BID for VR and BP control. -dose coumadin for INR 2-3 -continue tele. 2) Acute on Chronic diastolic CHF- moderate to severe MR contributes to her CHF exacerbations in the past -currently remains euvolemic, sob improving -may change IV IV lasix to PO 40 mg BID -Monitor renal function and electrolytes, I/Os and daily weights. We will follow with you.
[2018-02-11] MEDS: LATANOPROST 0.005% OPHTH SOLN 2.5ML BOTTLE OD SCH (21:21)
[2018-02-11] MEDS: ATORVASTATIN CA 10 MG TABLET (FP) PO SCH (21:21)
[2018-02-12] MEDS: LEVALBUTEROL HCL 0.31 MG/3 ML VIAL.NEB IH PRN (05:39)
[2018-02-12 07:44] LABS: INR 1.75 (0.83-1.09); PROTHROMBIN TIME (PATIENT) 20.8 SEC (9.7-13.0)
[2018-02-12 10:36] LABS: ALBUMIN 2.8 g/dl (3.4-5.0); ALK PHOS 132 U/L (45-117); ANION GAP 10 MMOL/L (8-16); BILIRUBIN,TOTAL 0.8 mg/dL (0.2-1); BLOOD UREA NITROGEN 15 mg/dL (7-18); CALCIUM 8.6 mg/dL (8.5-10.1); CHLORIDE 101 mmol/L (98-107); CO2 29 mmol/L (21-32); CREATININE 0.6 mg/dL (0.55-1.3); GLUCOSE,RANDOM 102 mg/dL (74-106); POTASSIUM 3.1 mmol/L (3.5-5.1); SGOT/AST 33 U/L (15-37); SGPT/ALT 57 U/L (13-61); SODIUM 140 mmol/L (136-145); TOT PROT 5.8 g/dl (6.4-8.2)
[2018-02-12] MEDS: LISINOPRIL 5 MG TABLET (FP) PO SCH (10:45)
[2018-02-12] MEDS: PHENYTOIN NA EXTENDED 100 MG CAPSULE (FP) PO SCH (10:45)
[2018-02-12] MEDS: FUROSEMIDE 40 MG/4 ML INJECTABLE VIAL IVPUSH SCH (10:46)
[2018-02-12] MEDS: AMINO ACIDS/PROTEIN HYDROLYS 30 ML LIQUID.PKT PO SCH ×2 (10:46→17:45)
[2018-02-12] MEDS: MULTIVITAMINS (DAILY MVI) TABLET (FP) PO SCH (10:46)
[2018-02-12] MEDS: METOPROLOL TARTRATE 50 MG TABLET (FP) PO SCH ×2 (10:46→21:41)
--- NOTE | 2018-02-12 10:54 | PN ---
Progress Note, Physician History of Present Illness: pulmonary alert,oob-chair,less dyspneic - Current Medication List Current Medications: Active Medications Acetaminophen (Tylenol -) 650 mg PO Q6H PRN PRN Reason: PAIN OR FEVER Amino Acids (Prosource No Carb Liquid Pkt) 30 ml PO BID@0800,1730 [facility] Last Admin: 02/12/18 10:46 Dose: 30 ml Atorvastatin Calcium (Lipitor -) 10 mg PO HS [facility] Last Admin: 02/11/18 21:21 Dose: 10 mg Furosemide (Lasix Injection -) 40 mg IVPUSH DAILY [facility] Last Admin: 02/12/18 10:46 Dose: 40 mg Latanoprost (Xalatan 0.005% Eye Drops -) 1 drop OD HS [facility] Last Admin: 02/11/18 21:21 Dose: 1 drop Levalbuterol HCl (Xopenex) 0.31 mg IH Q8H PRN PRN Reason: ASTHMA Last Admin: 02/12/18 05:39 Dose: 0.31 mg Lisinopril (Prinivil) 5 mg PO DAILY [facility] Last Admin: 02/12/18 10:45 Dose: 5 mg Metoprolol Tartrate (Lopressor Injection -) 2.5 mg IVPUSH Q4H PRN PRN Reason: afib, tachycardia Last Admin: 02/11/18 08:42 Dose: 2.5 mg Metoprolol Tartrate (Lopressor -) 150 mg PO BID [facility] Last Admin: 02/12/18 10:46 Dose: 150 mg Multivitamins/Minerals/Vitamin C (Tab-A-Vit -) 1 tab PO DAILY [facility] Last Admin: 02/12/18 10:46 Dose: 1 tab Phenytoin Sodium (Dilantin -) 300 mg PO DAILY [facility] Last Admin: 02/12/18 10:45 Dose: 300 mg Warfarin Sodium (Coumadin -) 5 mg PO DAILY@1800 [facility] Last Admin: 02/11/18 17:00 Dose: Not Given - Objective Vital Signs: Vital Signs Temperature 98.4 F 02/12/18 06:00 Pulse Rate 102 H 02/12/18 06:00 Respiratory Rate 20 02/12/18 06:00 Blood Pressure 148/78 02/12/18 06:00 O2 Sat by Pulse Oximetry (%) 98 02/11/18 21:00 Constitutional: Yes: Well Nourished, Calm Eyes: Yes: WNL HENT: Yes: WNL Neck: Yes: WNL Cardiovascular: Yes: Pulse Irregular, S1, S2 Respiratory: Yes: Diminished Gastrointestinal: Yes: Normal Bowel Sounds, Soft Extremities: Yes: WNL Edema: No Labs: CBC, BMP 02/11/18 05:30 02/12/18 06:28 INR, PTT INR 1.75 (0.83-1.09) H 02/12/18 06:28 Problem List - Problems (1) Acute exacerbation of CHF (congestive heart failure) Code(s): I50.9 - HEART FAILURE, UNSPECIFIED Qualifiers: Heart failure type: diastolic Qualified Code(s): I50.33 - Acute on chronic diastolic (congestive) heart failure (2) SOB (shortness of breath) Code(s): R06.02 - SHORTNESS OF BREATH (3) ASHD (arteriosclerotic heart disease) Code(s): I25.10 - ATHSCL HEART DISEASE OF [place] CORONARY ARTERY W/O ANG PCTRS (4) Atrial fibrillation Code(s): I48.91 - UNSPECIFIED ATRIAL FIBRILLATION (5) CHF (congestive heart failure) Code(s): I50.9 - HEART FAILURE, UNSPECIFIED (6) Hypertension Code(s): I10 - ESSENTIAL (PRIMARY) HYPERTENSION Qualifiers: (7) Cough Code(s): R05 - COUGH (8) Pulmonary hypertension Code(s): I27.20 - PULMONARY HYPERTENSION, UNSPECIFIED Assessment/Plan IMP DYSPNEA IMPROVING ACUTE ON CHRONIC CHF COUGH ? SECONDARY TO CHF,?BRONCHITIS AFIB WITH RVR ATYPICAL CP ASHD S/P WI SEIZURE DISORDER HTN PULMONARY HTN DM PLAN LASIX O2 INHALED BRONCHODILATORS RATE CONTROL PER CARDIOLOGY AC PER INR DAILY WT DR CAMACHO Problem List - Problems (1) Acute exacerbation of CHF (congestive heart failure) Code(s): I50.9 - HEART FAILURE, UNSPECIFIED Qualifiers: Heart failure type: diastolic Qualified Code(s): I50.33 - Acute on chronic diastolic (congestive) heart failure (2) SOB (shortness of breath) Code(s): R06.02 - SHORTNESS OF BREATH (3) ASHD (arteriosclerotic heart disease) Code(s): I25.10 - ATHSCL HEART DISEASE OF [place] CORONARY ARTERY W/O ANG PCTRS (4) Atrial fibrillation Code(s): I48.91 - UNSPECIFIED ATRIAL FIBRILLATION (5) CHF (congestive heart failure) Code(s): I50.9 - HEART FAILURE, UNSPECIFIED (6) Hypertension Code(s): I10 - ESSENTIAL (PRIMARY) HYPERTENSION Qualifiers: (7) Cough Code(s): R05 - COUGH (8) Pulmonary hypertension Code(s): I27.20 - PULMONARY HYPERTENSION, UNSPECIFIED
--- NOTE | 2018-02-12 11:17 | PN ---
Progress Note, Physician History of Present Illness: less sob and palpitations - Current Medication List Current Medications: Active Medications Acetaminophen (Tylenol -) 650 mg PO Q6H PRN PRN Reason: PAIN OR FEVER Amino Acids (Prosource No Carb Liquid Pkt) 30 ml PO BID@0800,1730 [facility] Last Admin: 02/12/18 10:46 Dose: 30 ml Atorvastatin Calcium (Lipitor -) 10 mg PO HS [facility] Last Admin: 02/11/18 21:21 Dose: 10 mg Furosemide (Lasix Injection -) 40 mg IVPUSH DAILY [facility] Last Admin: 02/12/18 10:46 Dose: 40 mg Latanoprost (Xalatan 0.005% Eye Drops -) 1 drop OD HS [facility] Last Admin: 02/11/18 21:21 Dose: 1 drop Levalbuterol HCl (Xopenex) 0.31 mg IH Q8H PRN PRN Reason: ASTHMA Last Admin: 02/12/18 05:39 Dose: 0.31 mg Lisinopril (Prinivil) 5 mg PO DAILY [facility] Last Admin: 02/12/18 10:45 Dose: 5 mg Metoprolol Tartrate (Lopressor Injection -) 2.5 mg IVPUSH Q4H PRN PRN Reason: afib, tachycardia Last Admin: 02/11/18 08:42 Dose: 2.5 mg Metoprolol Tartrate (Lopressor -) 150 mg PO BID [facility] Last Admin: 02/12/18 10:46 Dose: 150 mg Multivitamins/Minerals/Vitamin C (Tab-A-Vit -) 1 tab PO DAILY [facility] Last Admin: 02/12/18 10:46 Dose: 1 tab Phenytoin Sodium (Dilantin -) 300 mg PO DAILY [facility] Last Admin: 02/12/18 10:45 Dose: 300 mg Warfarin Sodium (Coumadin -) 5 mg PO DAILY@1800 [facility] Last Admin: 02/11/18 17:00 Dose: Not Given - Objective Vital Signs: Vital Signs Temperature 98.4 F 02/12/18 06:00 Pulse Rate 102 H 02/12/18 06:00 Respiratory Rate 20 02/12/18 06:00 Blood Pressure 148/78 02/12/18 06:00 O2 Sat by Pulse Oximetry (%) 98 02/11/18 21:00 Cardiovascular: Yes: Pulse Irregular, S1, S2 Respiratory: Yes: On Nasal O2, Rales Gastrointestinal: Yes: Normal Bowel Sounds, Soft Edema: No Labs: CBC, BMP 02/11/18 05:30 02/12/18 06:28 INR, PTT INR 1.75 (0.83-1.09) H 02/12/18 06:28 Problem List - Problems (1) Acute exacerbation of CHF (congestive heart failure) Assessment/Plan: -Lasix -cxr noted Code(s): I50.9 - HEART FAILURE, UNSPECIFIED Qualifiers: Heart failure type: diastolic Qualified Code(s): I50.33 - Acute on chronic diastolic (congestive) heart failure (2) Atrial fibrillation Assessment/Plan: -Improved -Increase metoprolol 150 bid - Code(s): I48.91 - UNSPECIFIED ATRIAL FIBRILLATION (3) Hypertension Assessment/Plan: -monitor on meds Code(s): I10 - ESSENTIAL (PRIMARY) HYPERTENSION Qualifiers: (4) SOB (shortness of breath) Assessment/Plan: Improved -Cxr Code(s): R06.02 - SHORTNESS OF BREATH
[2018-02-12] MEDS ORDERED: KCL 10 MEQ IVPB 10 MEQ/100 ML INFUS.BAG IVPB SCH (11:30)
[2018-02-12] MEDS: POTASSIUM CHLORIDE TABS 20 MEQ TABLET.ER (FP) PO SCH (11:39)
[2018-02-12] MEDS ORDERED: POTASSIUM CHLORIDE TABS 20 MEQ TABLET.ER (FP) PO ONE (14:00)
--- NOTE | 2018-02-12 15:02 | PN ---
Progress Note, Physician Chief Complaint: The patient appears comfortable. She has improved SOB. No palpitation or chest pain. Tele shows sinus rhythm with mild bradycardia from midnight till 2:00 PM. She has recurrent afib with controlled VR now. History of Present Illness: 87 year old woman with a PMHx of hypertension, DM, HLD, chronic atrial fibrillation on warfarin, chronic diastolic CHF, moderate to severe mitral regurgitation, CAD with mild anterior wall stress induced ischemia from nuclear stress test in June 2016, and seizure disorder admitted 11/02/2017 with worsening SOB over 2 days with associated intermittent chest pain, medically managed with Lasix and HR control, then again admitted 02/09/2018 with dizziness and one day of flank pain radiating up to R chest with 3 day h/o cough, and mild exacerbation of chronic sob. Repeat echocardiogram 11/03/2017: Normal LV size, with hyperkinetic wall motion and increased systolic function. LVEF > 70%. Mild RV dilatation with normal systolic function. Mild LA and RA dilatation. Moderate to severe MR. Severe TR. Mild pulm HTN, RVSP = 47 mmHg. She has paroxysmal atrial fibrillation with evidence of mild sinus bradycardia when she was in sinus. - Current Medication List Current Medications: Active Medications Acetaminophen (Tylenol -) 650 mg PO Q6H PRN PRN Reason: PAIN OR FEVER Amino Acids (Prosource No Carb Liquid Pkt) 30 ml PO BID@0800,1730 [facility] Last Admin: 02/12/18 10:46 Dose: 30 ml Atorvastatin Calcium (Lipitor -) 10 mg PO HS [facility] Last Admin: 02/11/18 21:21 Dose: 10 mg Furosemide (Lasix Injection -) 40 mg IVPUSH DAILY [facility] Last Admin: 02/12/18 10:46 Dose: 40 mg Latanoprost (Xalatan 0.005% Eye Drops -) 1 drop OD HS [facility] Last Admin: 02/11/18 21:21 Dose: 1 drop Levalbuterol HCl (Xopenex) 0.31 mg IH Q8H PRN PRN Reason: ASTHMA Last Admin: 02/12/18 05:39 Dose: 0.31 mg Lisinopril (Prinivil) 5 mg PO DAILY [facility] Last Admin: 02/12/18 10:45 Dose: 5 mg Metoprolol Tartrate (Lopressor Injection -) 2.5 mg IVPUSH Q4H PRN PRN Reason: afib, tachycardia Last Admin: 02/11/18 08:42 Dose: 2.5 mg Metoprolol Tartrate (Lopressor -) 150 mg PO BID [facility] Last Admin: 02/12/18 10:46 Dose: 150 mg Multivitamins/Minerals/Vitamin C (Tab-A-Vit -) 1 tab PO DAILY [facility] Last Admin: 02/12/18 10:46 Dose: 1 tab Phenytoin Sodium (Dilantin -) 300 mg PO DAILY [facility] Last Admin: 02/12/18 10:45 Dose: 300 mg Potassium Chloride (K-Dur -) 20 meq PO DAILY [facility] Last Admin: 02/12/18 11:39 Dose: 20 meq Warfarin Sodium (Coumadin -) 5 mg PO DAILY@1800 [facility] Last Admin: 02/11/18 17:00 Dose: Not Given - Objective Vital Signs: Vital Signs Temperature 98.2 F 02/12/18 14:00 Pulse Rate 101 H 02/12/18 14:00 Respiratory Rate 20 02/12/18 14:00 Blood Pressure 140/88 02/12/18 14:00 O2 Sat by Pulse Oximetry (%) 97 02/12/18 10:00 General: Well developed. Well nourished. No acute distress. Head: Normocephalic. Atraumatic, Eyes: PERRLA, EOMI. Sclerae anicteric. Conjunctivae clear. Neck: Supple. No JVD. No bruits. Heart: Normal S1, S2: Irregular rhythm and rate. II/ holosystolic murmur. No gallop or rub. Lungs: Symmetrical poor air entry with prolonged expiration. No crackle. No wheezing or rhonchi. Abdomen: Soft. Bowel sound positive. Non tender. No masses. Extremities: No edema. No clubbing or cyanosis. PD 2+, equal bilaterally. Neuro: Intact, no focal findings. AAO X3. Labs: CBC, BMP 02/11/18 05:30 02/12/18 06:28 INR, PTT INR 1.75 (0.83-1.09) H 02/12/18 06:28 Assessment/Plan 87 year old woman with a PMHx of hypertension, DM, HLD, atrial fibrillation on warfarin, chronic diastolic CHF, moderate to severe mitral regurgitation, CAD with mild anterior wall stress induced ischemia from nuclear stress test in June 2016, and seizure disorder admitted 11/02/2017 with worsening SOB over 2 days with associated intermittent chest pain, medically managed with Lasix and HR control, then again admitted with c/o dizziness now admitted with c/o 1 day h/o R flank pain radiating up to R chest with 3 day h/o cough, and mild exacerbation of chronic sob. Repeat echocardiogram 11/03/2017: Normal LV size, with hyperkinetic wall motion and increased systolic function. LVEF > 70%. Mild RV dilatation with normal systolic function. Mild LA and RA dilatation. Moderate to severe MR. Severe TR. Mild pulm HTN, RVSP = 47 mmHg. 1) Atrial fibrillation with RVR-on prior admission improved with metoprolol current regimen. Evidence of mild sinus bradycardia when she was in sinus. -Paroxysmal atrial fibrillation with evidence of mild sinus bradycardia when she was in sinus. Current VR is adequately controlled. -Continue metoprolol 150 mg BID. -Dose coumadin for INR 2-3 -May discontinue tele. 2) Acute on Chronic diastolic CHF- moderate to severe MR contributes to her CHF exacerbations in the past -currently remains euvolemic, sob improving -may change IV IV lasix to PO 40 mg BID Outpatient cardiac follow up. Please call us for reconsult as needed.
[2018-02-12] MEDS: WARFARIN NA 5 MG TABLET (UD) PO SCH (17:45)
[2018-02-12] MEDS: ATORVASTATIN CA 10 MG TABLET (FP) PO SCH (21:41)
[2018-02-12] MEDS: LATANOPROST 0.005% OPHTH SOLN 2.5ML BOTTLE OD SCH (21:42)
[2018-02-13 08:39] LABS: ANION GAP 9 MMOL/L (8-16); BLOOD UREA NITROGEN 19 mg/dL (7-18); CALCIUM 8.5 mg/dL (8.5-10.1); CHLORIDE 103 mmol/L (98-107); CO2 29 mmol/L (21-32); CREATININE 0.8 mg/dL (0.55-1.3); GLUCOSE,RANDOM 120 mg/dL (74-106); SODIUM 141 mmol/L (136-145)
[2018-02-13] MEDS: POTASSIUM CHLORIDE TABS 20 MEQ TABLET.ER (FP) PO SCH ×2 (08:58→09:09)
[2018-02-13] MEDS: METOPROLOL TARTRATE 50 MG TABLET (FP) PO SCH ×2 (08:58→09:09)
[2018-02-13] MEDS: MULTIVITAMINS (DAILY MVI) TABLET (FP) PO SCH ×2 (08:58→09:09)
[2018-02-13] MEDS: LISINOPRIL 5 MG TABLET (FP) PO SCH (08:59)
[2018-02-13] MEDS: AMINO ACIDS/PROTEIN HYDROLYS 30 ML LIQUID.PKT PO SCH (08:59)
[2018-02-13] MEDS ORDERED: PT OWN MED DRAWER 7, Y5N ONE (09:25)
[2018-02-13] MEDS ORDERED: LOSARTAN POTASSIUM 50 MG TABLET (FP) PO SCH (10:00)
[2018-02-13] MEDS ORDERED: FUROSEMIDE 40 MG TABLET (FP) PO SCH (10:00)
[2018-02-13] MEDS: PHENYTOIN NA EXTENDED 100 MG CAPSULE (FP) PO SCH (10:13)
[2018-02-13 12:50] LABS: INR 1.82 (0.83-1.09); PROTHROMBIN TIME (PATIENT) 21.6 SEC (9.7-13.0)
--- NOTE | 2018-02-13 12:55 | PN ---
Progress Note (short form) - Note Progress Note: PULMONARY States breathing is improving, heart rates better controlled. Vital Signs Period Temp Pulse Resp BP Sys/Herrera Pulse Ox Last 24 Hr 98.2 F-98.7 F 98-114 18-20 138-158/88-116 97-97 Gen: ambulating in halls Heart: irregular Lung: decreased breath sounds at the bases Abd: soft, nontender Ext: no edema CBC, BMP 02/11/18 05:30 02/13/18 05:50 Active Medications Acetaminophen (Tylenol -) 650 mg PO Q6H PRN PRN Reason: PAIN OR FEVER Amino Acids (Prosource No Carb Liquid Pkt) 30 ml PO BID@0800,1730 [facility]S AT [facility] Last Admin: 02/13/18 08:59 Dose: 30 ml Atorvastatin Calcium (Lipitor -) 10 mg PO HS [facility]S AT [facility] Last Admin: 02/12/18 21:41 Dose: 10 mg Furosemide (Lasix -) 40 mg PO DAILY [facility]S AT [facility] Last Admin: 02/13/18 08:59 Dose: 40 mg Latanoprost (Xalatan 0.005% Eye Drops -) 1 drop OD HS [facility]S AT [facility] Last Admin: 02/12/18 21:42 Dose: 1 drop Levalbuterol HCl (Xopenex) 0.31 mg IH Q8H PRN PRN Reason: ASTHMA Last Admin: 02/12/18 05:39 Dose: 0.31 mg Lisinopril (Prinivil) 5 mg PO DAILY [facility] 234 [facility]S AT [facility] Last Admin: 02/13/18 08:59 Dose: 5 mg Losartan Potassium (Cozaar -) 50 mg PO DAILY [facility] 234 [facility]S AT [facility] Metoprolol Tartrate (Lopressor Injection -) 2.5 mg IVPUSH Q4H PRN PRN Reason: afib, tachycardia Last Admin: 02/11/18 08:42 Dose: 2.5 mg Metoprolol Tartrate (Lopressor -) 200 mg PO BID [facility]S AT [facility] Last Admin: 02/13/18 09:09 Dose: Not Given Multivitamins/Minerals/Vitamin C (Tab-A-Vit -) 1 tab PO DAILY [facility] Last Admin: 02/13/18 09:09 Dose: Not Given Phenytoin Sodium (Dilantin -) 300 mg PO DAILY [facility] 234 [facility]S AT [facility] Last Admin: 02/12/18 10:45 Dose: 300 mg Potassium Chloride (K-Dur -) 20 meq PO DAILY [facility]S AT [facility] Last Admin: 02/13/18 09:09 Dose: Not Given Warfarin Sodium (Coumadin -) 5 mg PO DAILY@1800 [facility] 234 [facility]S AT [facility] Last Admin: 02/12/18 17:45 Dose: 5 mg A/P Acute on Chronic Diastolic Heart Failure Severe Mitral Regurgitation Atrial Fibrillation with RVR Pulmonary HTN CAD HTN DM Seizure Disorder - continue lasix - monitor urine output, creatinine - rate control - continue anticoagulation - minimize beta agonists - O2 to keep SpO2 >90% - can d/c home from pulmonary standpoint
--- NOTE | 2018-02-13 14:23 | DS ---
Physical Examination Vital Signs: Vital Signs Temperature 98.7 F 02/13/18 10:00 Pulse Rate 102 H 02/13/18 10:00 Respiratory Rate 20 02/13/18 10:00 Blood Pressure 150/92 02/13/18 10:00 O2 Sat by Pulse Oximetry (%) 97 02/13/18 10:00 Findings/Remarks: 87 y/o female admitted for afib with rvr with HR in 130-140s on admission. Rate control improved with Metoprolol 200mg BID. Currently denies chest pain, SOB, palpitations. Constitutional: Yes: Well Nourished, No Distress, Calm Cardiovascular: Yes: Regular Rate and Rhythm Respiratory: Yes: Regular, CTA Bilaterally Gastrointestinal: Yes: WNL, Soft Musculoskeletal: Yes: Muscle Weakness Extremities: Yes: WNL Edema: No Neurological: Yes: Alert, Oriented Psychiatric: Yes: Alert, Oriented Labs: CBC, BMP 02/11/18 05:30 02/13/18 05:50 Discharge Summary Reason For Visit: CHF,A FIB,HYPERTENSION Current Active Problems Acute exacerbation of CHF (congestive heart failure) (Acute) Cough (Acute) Pulmonary hypertension (Acute) SOB (shortness of breath) (Acute) Condition: Improved - Instructions Diet, Activity, Other Instructions: Follow up with PCP and zone maintenance technician within 3-4 days cont to take home meds as prescribed cont coumadin, monitor for bleeding Referrals: Araceli Dow MD [Primary Care Provider] - Disposition: HOME - Home Medications Comprehensive Discharge Medication List: Ambulatory Orders Cholecalciferol (Vitamin D3) [Vitamin D -] 0 unit PO DAILY 10/21/16 Glucosamine/MSM/Chondroitin A [Glucosamine Chondroit MSM Tab] 1 each PO DAILY Multivitamins [Multivit ([facility] Formulary)] 1 tab PO DAILY 10/21/16 Phenytoin Sodium Extended [Phenytek] 400 mg PO HS 10/21/16 Arformoterol Tartrate [Brovana -] 1 amp NEB BID amp 10/25/16 Atorvastatin Ca [Lipitor] 10 mg PO HS tablet 10/25/16 Latanoprost 0.005% Eye Drops [Xalatan 0.005% Eye Drops -] 1 drop OD HS drop 04/11 Amino Acids/Protein Hydrolys [Prosource No Carb Liquid Pkt] 30 ml PO BID@0800, 1730 packet 11/09/17 Arformoterol Tartrate [Brovana -] 1 amp NEB RBID amp 11/09/17 Atorvastatin Ca [Lipitor] 10 mg PO HS tablet 11/09/17 Furosemide [Lasix -] 40 mg PO DAILY tablet 11/09/17 Latanoprost 0.005% Eye Drops [Xalatan 0.005% Eye Drops -] 1 drop OD HS drops Multivitamins [Multivit ([facility] Formulary)] 1 tab PO DAILY tab 11/09/17 Phenol [Chloraseptic -] 1 spray MM Q6HPO PRN bottle 11/09/17 Warfarin Na [Coumadin -] 7 mg PO DAILY@1800 tablet 11/09/17 Acetaminophen [Tylenol .Regular Strength -] 650 mg PO Q6H PRN tablet 01/21/18 Enoxaparin [Lovenox -] 70 mg SQ Q12H #6 disp.syrin 01/21/18 Furosemide [Lasix -] 40 mg PO DAILY tablet 01/21/18 Lisinopril [Prinivil] 5 mg PO DAILY #30 tablet 01/21/18 Metoprolol Tartrate [Lopressor -] 75 mg PO BID #60 tablet 01/21/18 Phenytoin Na Extended [Dilantin -] 300 mg PO DAILY capsule 01/21/18 Warfarin Na [Coumadin -] 5 mg PO DAILY@1800 tablet 01/21/18
[2018-02-13 15:16] VITALS: BP 137/93; PULSE 104; TEMP 98.1
== END 2018-02-13 17:30 | disposition home or self-care (01) | DRG 308 ==
LOC: JER 06:27 → JERBED 09:25 → OBSVTOIN 09:25 → J4W 10:53 → JERBED 10:53 → J4W 11:26
PROVIDERS: ADMIT Family Medicine; ATTEND Family Medicine
DX: I48.0 Paroxysmal atrial fibrillation (principal); I50.33 Acute on chronic diastolic (congestive) heart failure; E11.9 Type 2 diabetes mellitus without complications; E78.00 Pure hypercholesterolemia, unspecified; I10 Essential (primary) hypertension; I11.0 Hypertensive heart disease with heart failure; G40.909 Epilepsy, unspecified, not intractable, without status epilepticus; I25.2 Old myocardial infarction; I25.10 Atherosclerotic heart disease of native coronary artery without angina pectoris; I34.0 Nonrheumatic mitral (valve) insufficiency; M54.5 Low back pain; M19.90 Unspecified osteoarthritis, unspecified site; I27.20 Pulmonary hypertension, unspecified; R07.89 Other chest pain; R06.02 Shortness of breath
CPT/HCPCS: 36415; 71045-TC-FY; 71046-TC-FY; 71250-TC; 76700-TC; 80048; 80053; 81003; 81015; 82550; 83880; 84484; 85025; 85027; 85610; 85651; 93005; 93010; 97116-GP; 97161-GP; 99283-25

== ENCOUNTER 2018-04-08 13:53 | Inpatient (IN) | payer OTHER, MEDICARE ==
--- NOTE | 2018-04-08 14:16 | PDOC ---
History of Present Illness - General Chief Complaint: Edema Stated Complaint: SOB,SWELLING OF THE LEGS Time Seen by Provider: 04/08/18 14:00 History Source: Patient Exam Limitations: No Limitations - History of Present Illness Initial Comments: 88 yo F w a pmh of CHF (diastolic), CAD, A-fib, Mitral Insufficiency (moderate to severe mitral regurgitation), HTN, seizure disorder, DM, previous MN, PNA, chronic low back pain, and osteoarthritis presents to the ER sent from Dr. Dow's office. The patient reports that they took a fingerstick blood measurement at Dr. Dow's office which showed her INR was subtherapeutic considering she takes warfarin for permanent anticoagulation. She says that her blood pressure was also elevated at Dr. Dow's office. She says she has generally been compliant with taking her meds but did not take her medications today because she was going to the doctors office and planned on taking them when she got home. The patient endorses generalized fatigue over the past few weeks as well as SOB, worsening dyspnea on exertion and bilateral leg swelling. The patient also states that her urine has been very dark recently and has a very funky abnormal smell to it, however she denies dysuria, frequency, or urgency. Patient denies having chest pain, back pain, headache, blurry vision, abdominal pain, fevers, chills, infections, vertigo, dizziness, lightheadedness, arm swelling, numbness, or tingling. PCP: Araceli Dow PSH: Cholecystectomy, hysterecomy Social Hx: Denies smoking, drinking, or other substance usage. Independent ( Previously Independent in ADLs/ IADLs, has cane and RW (both of which she uses intermittently)) Allergies: Levofloxacin, lidocaine Past History - Past Medical History Allergies/Adverse Reactions: Allergies Allergy/AdvReac Type Severity Reaction Status Date / Time levofloxacin [From Levaquin] Allergy Verified 02/09/18 06:37 lidocaine AdvReac Verified 02/09/18 06:37 Home Medications: Ambulatory Orders Cholecalciferol (Vitamin D3) [Vitamin D -] 0 unit PO DAILY 10/21/16 Glucosamine/MSM/Chondroitin A [Glucosamine Chondroit MSM Tab] 1 each PO DAILY Phenytoin Sodium Extended [Phenytek] 400 mg PO HS 10/21/16 Arformoterol Tartrate [Brovana -] 1 amp NEB BID amp 10/25/16 Arformoterol Tartrate [Brovana -] 1 amp NEB RBID amp 11/09/17 Enoxaparin [Lovenox -] 70 mg SQ Q12H #6 disp.syrin 01/21/18 Furosemide [Lasix -] 40 mg PO DAILY tablet 01/21/18 Acetaminophen [Tylenol .Regular Strength -] 650 mg PO Q6H PRN tablet 02/13/18 Amino Acids/Protein Hydrolys [Prosource No Carb Liquid Pkt] 30 ml PO BID@0800, 1730 packet 02/13/18 Atorvastatin Ca [Lipitor] 10 mg PO HS tablet 02/13/18 Latanoprost 0.005% Eye Drops [Xalatan 0.005% Eye Drops -] 1 drop OD HS drops Lisinopril [Prinivil] 5 mg PO DAILY tablet 02/13/18 Losartan Potassium [Cozaar -] 50 mg PO DAILY #30 tablet 02/13/18 Metoprolol Tartrate [Lopressor -] 200 mg PO BID #60 tablet 02/13/18 Multivitamins [Multivit ([facility] Formulary)] 1 tab PO DAILY tab 02/13/18 Phenytoin Na Extended [Dilantin -] 300 mg PO DAILY #30 capsule 02/13/18 Warfarin Na [Coumadin -] 5 mg PO DAILY@1800 tablet 02/13/18 Cardiac Disorders: Yes (afib) COPD: No CHF: Yes Diabetes: Yes (borderline) HTN: Yes Hypercholesterolemia: Yes Seizures: Yes - Surgical History Abdominal Surgery: Yes (hysterectomy) Cholecystectomy: Yes - Immunization History Immunization Up to Date: No - Suicide/Smoking/Psychosocial Hx Smoking History: Never smoked Have you smoked in the past 12 months: No Hx Alcohol Use: No Drug/Substance Use Hx: No Substance Use Type: None Hx Substance Use Treatment: No Review of Systems - Review of Systems Able to Perform ROS?: Yes Comments:: CONSTITUTIONAL: Present: fatigue Absent: fever, no chills EYES: Absent: visual changes ENT: Absent: ear pain, no sore throat CARDIOVASCULAR: Absent: chest pain, no palpitations RESPIRATORY: Present: SOB Absent: cough GI: Absent: abdominal pain, no nausea, no vomiting, no constipation, no diarrhea GENITOURINARY: Absent: dysuria, no frequency, no hematuria MUSKULOSKELETAL: Absent: back pain, no arthralgia, no myalgia SKIN: Absent: rash NEURO: Absent: headache *Physical Exam - Physical Exam Comments: VS: Hypertensive, tachycardic. Rectal Temp: 98.6 GENERAL: Well developed, well nourished. Awake and alert. No acute distress. HEENT: Torus Palatinus. Normocephalic, atraumatic. PERRLA, EOMI. No conjunctival pallor. Sclera are non-icteric. Moist mucous membranes. Posterior Oropharynx is mildly erythematous. NECK: Supple. Full ROM. No JVD. No thyromegaly. No lymphadenopathy. CARDIOVASCULAR: Tachycardic rate and irregular rhythm. Holosystolic blowing murmur most prominent at heart base. + S4. Distal pulses are 1+ and symmetric. PULMONARY: There are crackles midway up the left lung, decreased breath sounds and faint crackles in the right base. No evidence of respiratory distress. No wheezing, rales or rhonchi. ABDOMINAL: Soft. Non-tender. Non-distended. No rebound or guarding. No organomegaly. Normoactive bowel sounds. Patient is wearing a brace as treatment for an abdominal hernia. MUSCULOSKELETAL Normal range of motion at all joints. Many rory and heberden nodes. No tenderness. No CVA tenderness. EXTREMITIES: 1+ edema b/l in the legs. No cyanosis. No clubbing. No calf tenderness. SKIN: Warm and dry. Normal capillary refill. No rashes. No jaundice. NEUROLOGICAL: Alert, awake, appropriate. Cranial nerves 2-12 intact. Normal speech. Gait is normal without ataxia. PSYCHIATRIC: Patient is a bit sad. Cooperative. Good eye contact. Appropriate mood and affect. Rectal Exam: positive: normal rectal tone, hemorrhoids ED Treatment Course - LABORATORY CBC & Chemistry Diagram: 04/08/18 13:09 04/08/18 15:10 Medical Decision Making - Medical Decision Making 88 yo F w a pmh of CHF (diastolic), CAD, A-fib, Mitral Insufficiency (moderate to severe mitral regurgitation), HTN, seizure disorder, DM, previous MN, PNA, chronic low back pain, and osteoarthritis presents to the ER sent from Dr. Dow's office. The patient reports that they took a fingerstick blood measurement at Dr. Dow's office which showed her INR was subtherapeutic considering she takes warfarin for permanent anticoagulation. She says that her blood pressure was also elevated at Dr. Dow's office. She says she has generally been compliant with taking her meds but did not take her medications today because she was going to the doctors office and planned on taking them when she got home. The patient endorses generalized fatigue over the past few weeks as well as SOB, worsening dyspnea on exertion and bilateral leg swelling. The patient also states that her urine has been very dark recently and has a very funky abnormal smell to it, however she denies dysuria, frequency, or urgency. VS: Hypertensive 170/110, tachycardic to 120's, tachypneic to 22, hypoxic to 95. DDx IBNLT: Heart failure exacerbation, A-fib with RVR, worsening mitral regurgitation, pulmonary edema, pleural effusion, infection - PNA vs UTI vs influenza vs URI, medication non-compliance, ACS/MN Plan: Labs, Urine, CXR, EKG, Rectal temp, continuous cardiac monitoring, re- assess. Labs show elevated BP and subtherapeutic INR. CXR shows bilateral pleural effusions Left much more than Right. Will Admit patient for further care. *DC/Admit/Observation/Transfer Diagnosis at time of Disposition: Pleural effusion Acute exacerbation of CHF (congestive heart failure) Qualifiers: Heart failure type: diastolic Qualified Code(s): I50.33 - Acute on chronic diastolic (congestive) heart failure - Discharge Dispostion Condition at time of disposition: Stable Decision to Admit order: Yes - Referrals Referrals: Araceli Dow MD [Primary Care Provider] - - Patient Instructions - Post Discharge Activity
--- NOTE | 2018-04-08 14:32 | PDOC ---
Attending Attestation - Resident Resident Name: HeavenbillBilly - ED Attending Attestation I have performed the following: I have examined & evaluated the patient, The case was reviewed & discussed with the resident, I agree w/resident's findings & plan, Exceptions are as noted - HPI HPI: 04/08/18 15:19 88y F hx of diastolic chf, mitral regurg, cad, afib on coumadin, htn, hl, oa, chronic [facility] was found INR was subtherapeutic, was noted to be hypertensive. Pt notes some LANE for the past few few weeks and increased leg swelling, orthopnea, without associated cp, diaphoresis n/v, hemoptysis. she denie sdiarrhea, black stool, melena. endorses dark urine, states she does not drink very much due to uncertainty with how much fluid she can actually drink. PMD Dr. Dow - Physicial Exam PE: 04/08/18 16:04 GENERAL: The patient is awake, alert, and fully oriented, Nontoxic - in no acute distress. HEAD: Normocephalic, atraumatic. EYES: extraocular movements intact, sclera anicteric, conjunctiva clear. ENT: Normal voice, Moist mucous membranes. NECK: Normal range of motion, supple LUNGS: rales b/l u pto midlung, HEART: Regular rate and rhythm, normal S1 and S2 without murmur, rub or gallop. ABDOMEN: Soft, nontender, normoactive bowel sounds. No guarding, no rebound. No CVA tenderness EXTREMITIES: Normal range of motion, +2 pitting edema b/l NEUROLOGICAL: No facial assymetry, Normal speech, PSYCH: Normal mood, normal affect. SKIN: Warm, Dry, normal turgor, - Medical Decision Making 04/08/18 16:04 suspect possible chf exacerbation, possibly driven by afib w/ rvr, consider renal insufficiency, acs, metabolic dernagement, anemia, occult infection 04/08/18 18:00 labs reviewed bnp elevated will admit for further mangement <Nigel Huerta - Last Filed: 04/08/18 17:47> - Medical Decision Making EXAM#: TYPE/EXAM: RESULT: [id number] US/ABDOMEN US -LIMITED Right upper quadrant abdomen ultrasound Clinical information: evaluate for hepatic congestion, fatty liver IMPRESSION: Right pleural effusion. Possible mild hepatic vein dilatation. Equivocal minimal hepatic surface irregularity possibly due to cirrhosis. No sonographic evidence of hepatic steatosis. Status post cholecystectomy. There is no definite biliary tract dilatation. Reported By: Jeff Gupta MD 04/08/18 20:23 EXAM#: TYPE/EXAM: RESULT: [id number] US/DUPLEX VASCUL US-2LEGS Bilateral lower extremity venous ultrasound Clinical information given: edema, evaluate for DVT Impression: No DVT is identified involving either leg. Please see above. Reported By: Jeff Gupta MD 04/08/18 20:12 04/08/18 21:45 Documentation prepared by LAUREN Turner, acting as biomedical manager for Nigel Huerta MD. <Martita Valentin - Last Filed: 04/08/18 21:47>
[2018-04-08 15:37] LABS: BASO % 0.6 % (0-2.0); EOS % 0.2 % (0-4.5); HEMATOCRIT 47.3 % (32.4-45.2); HEMOGLOBIN 16.2 GM/dL (10.7-15.3); MCH 32.8 pg (25.7-33.7); MCHC 34.3 g/dl (32.0-36.0); MEAN CELL VOLUME 95.8 fl (80-96); MEAN PLT VOLUME 9.5 fl (7.5-11.1); MONO % 8.3 % (3.8-10.2); NEUT % 68.9 % (42.8-82.8); PLATELET COUNT 164 K/MM3 (134-434); RBC 4.94 M/mm3 (3.60-5.2); RDW 14.5 % (11.6-15.6); WHITE BLOOD COUNT 7.6 K/mm3 (4.0-10.0)
[2018-04-08 15:43] LABS: ALBUMIN 3.2 g/dl (3.4-5.0); ALK PHOS 135 U/L (45-117); ANION GAP 7 MMOL/L (8-16); BILIRUBIN,TOTAL 1.4 mg/dL (0.2-1); BLOOD UREA NITROGEN 13 mg/dL (7-18); CALCIUM 8.6 mg/dL (8.5-10.1); CHLORIDE 101 mmol/L (98-107); CO2 31 mmol/L (21-32); CREATININE 0.9 mg/dL (0.55-1.3); GLUCOSE,RANDOM 104 mg/dL (74-106); MAGNESIUM 2.2 mg/dL (1.8-2.4); N-TERMINAL BNP 4178.5 pg/ml (5-450); POTASSIUM 3.9 mmol/L (3.5-5.1); SGOT/AST 62 U/L (15-37); SGPT/ALT 74 U/L (13-61); SODIUM 138 mmol/L (136-145); TOT PROT 6.4 g/dl (6.4-8.2)
[2018-04-08 15:43] LABS: INR 1.78 (0.83-1.09); PROTHROMBIN TIME (PATIENT) 21.1 SEC (9.7-13.0)
[2018-04-08 15:45] LABS: ACTIVATED PTT 31.2 SECONDS (25.2-36.5)
--- NOTE | 2018-04-08 16:04 | HP ---
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's Cardiovascular: Yes: AFIB, CAD, CHF (Diastolic), HTN, Mitral Insufficiency ( moderate to severe mitral regurgitation) Pulmonary: Yes: Pneumonia Psych: Yes: Addictions Musculoskeletal: Yes: Chronic low back pain, Osteoarthritis Rheumatology: Yes: Other - Past Surgical History Past Surgical History: Yes: Cholecystectomy, Hysterectomy - Smoking History Smoking history: Never smoked Have you smoked in the past 12 months: No - Alcohol/Substance Use Hx Alcohol Use: No History of Substance Use: reports: None - Social History ADL: Independent (Previously Independent in ADLs/ IADLs, has cane and RW (both of which she uses intermittently)) History of Recent Travel: No Home Medications - Allergies Allergies/Adverse Reactions: Allergies Allergy/AdvReac Type Severity Reaction Status Date / Time levofloxacin [From Levaquin] Allergy Verified 02/09/18 06:37 lidocaine AdvReac Verified 02/09/18 06:37 - Home Medications Home Medications: Ambulatory Orders Cholecalciferol (Vitamin D3) [Vitamin D -] 0 unit PO DAILY 10/21/16 Glucosamine/MSM/Chondroitin A [Glucosamine Chondroit MSM Tab] 1 each PO DAILY Phenytoin Sodium Extended [Phenytek] 400 mg PO HS 10/21/16 Arformoterol Tartrate [Brovana -] 1 amp NEB BID amp 10/25/16 Arformoterol Tartrate [Brovana -] 1 amp NEB RBID amp 11/09/17 Enoxaparin [Lovenox -] 70 mg SQ Q12H #6 disp.syrin 01/21/18 Furosemide [Lasix -] 40 mg PO DAILY tablet 01/21/18 Acetaminophen [Tylenol .Regular Strength -] 650 mg PO Q6H PRN tablet 02/13/18 Amino Acids/Protein Hydrolys [Prosource No Carb Liquid Pkt] 30 ml PO BID@0800, 1730 packet 02/13/18 Atorvastatin Ca [Lipitor] 10 mg PO HS tablet 02/13/18 Latanoprost 0.005% Eye Drops [Xalatan 0.005% Eye Drops -] 1 drop OD HS drops Lisinopril [Prinivil] 5 mg PO DAILY tablet 02/13/18 Losartan Potassium [Cozaar -] 50 mg PO DAILY #30 tablet 02/13/18 Metoprolol Tartrate [Lopressor -] 200 mg PO BID #60 tablet 02/13/18 Multivitamins [Multivit ([facility] Formulary)] 1 tab PO DAILY tab 02/13/18 Phenytoin Na Extended [Dilantin -] 300 mg PO DAILY #30 capsule 02/13/18 Warfarin Na [Coumadin -] 5 mg PO DAILY@1800 tablet 02/13/18 Review of Systems - Review of Systems Respiratory: reports: SOB Musculoskeletal: reports: Other (leg swelling) Physical Examination Vital Signs: Vital Signs Temperature 98.6 F 04/08/18 15:15 Pulse Rate 103 H 04/08/18 13:53 Respiratory Rate 16 04/08/18 13:53 Blood Pressure 171/108 H 04/08/18 13:53 O2 Sat by Pulse Oximetry (%) 100 04/08/18 15:55 Constitutional: Yes: Calm Cardiovascular: Yes: Pulse Irregular, S1, S2 Respiratory: Yes: Rales Gastrointestinal: Yes: Normal Bowel Sounds, Soft Edema: Yes Labs: CBC, BMP 04/08/18 13:09 04/08/18 15:10 Imaging - Results Chest X-ray: Pending Problem List - Problems (1) Acute exacerbation of CHF (congestive heart failure) Assessment/Plan: tele daily weight echo dr clayton tovar monitor lytes iv lasix 40mg bid \elevated lft secondary to hepatic congestin will montior check liver sono Code(s): I50.9 - HEART FAILURE, UNSPECIFIED Qualifiers: Heart failure type: diastolic Qualified Code(s): I50.33 - Acute on chronic diastolic (congestive) heart failure (2) Atrial fibrillation Assessment/Plan: couamdin metoprolol monitor inr Code(s): I48.91 - UNSPECIFIED ATRIAL FIBRILLATION (3) Hypertension Assessment/Plan: losatan metoprolol Code(s): I10 - ESSENTIAL (PRIMARY) HYPERTENSION Qualifiers:
[2018-04-08] MEDS ORDERED: METOPROLOL TARTRATE 50 MG TABLET (FP) PO SCH (16:25)
[2018-04-08] MEDS ORDERED: FUROSEMIDE 40 MG/4 ML INJECTABLE VIAL IVPUSH SCH (16:30)
[2018-04-08] MEDS ORDERED: LISINOPRIL 5 MG TABLET (FP) ONE (16:38)
[2018-04-08] MEDS ORDERED: WARFARIN NA 5 MG TABLET (UD) PO SCH (18:00)
[2018-04-08] MEDS: LISINOPRIL 10 MG TABLET (FP) PO SCH (18:15)
[2018-04-08] MEDS: FUROSEMIDE 40 MG/4 ML INJECTABLE VIAL IVPUSH SCH (18:15)
[2018-04-08] MEDS: LOSARTAN POTASSIUM 50 MG TABLET (FP) PO SCH (18:15)
[2018-04-09] MEDS: FUROSEMIDE 40 MG/4 ML INJECTABLE VIAL IVPUSH SCH ×2 (06:07→14:34)
[2018-04-09] MEDS: LISINOPRIL 10 MG TABLET (FP) PO SCH (06:07)
[2018-04-09 07:37] LABS: HEMOGLOBIN 14.3 GM/dL (10.7-15.3); MCH 32.3 pg (25.7-33.7); MEAN PLT VOLUME 9.2 fl (7.5-11.1); PLATELET COUNT 155 K/MM3 (134-434); RBC 4.42 M/mm3 (3.60-5.2); WHITE BLOOD COUNT 6.2 K/mm3 (4.0-10.0)
[2018-04-09 07:51] LABS: INR 1.51 (0.83-1.09); PROTHROMBIN TIME (PATIENT) 17.9 SEC (9.7-13.0)
[2018-04-09 08:05] LABS: ALBUMIN 2.9 g/dl (3.4-5.0); ALK PHOS 121 U/L (45-117); ANION GAP 6 MMOL/L (8-16); BILIRUBIN,TOTAL 1.3 mg/dL (0.2-1); BLOOD UREA NITROGEN 13 mg/dL (7-18); CALCIUM 8.2 mg/dL (8.5-10.1); CHLORIDE 103 mmol/L (98-107); CHOLESTEROL 128 mg/dL (50-200); CO2 33 mmol/L (21-32); CREATININE 0.9 mg/dL (0.55-1.3); GLUCOSE,RANDOM 81 mg/dL (74-106); HDL CHOLESTEROL 47 mg/dL (40-60); N-TERMINAL BNP 3857.8 pg/ml (5-450); POTASSIUM 3.1 mmol/L (3.5-5.1); SGOT/AST 45 U/L (15-37); SGPT/ALT 62 U/L (13-61); SODIUM 142 mmol/L (136-145); TOT PROT 5.6 g/dl (6.4-8.2); TRIGLYCERIDES 87 mg/dL (0-150)
[2018-04-09] MEDS ORDERED: METOPROLOL TARTRATE 50 MG TABLET (FP) PO SCH (10:00)
--- NOTE | 2018-04-09 10:21 | ECHO ---
Name: RANJAN COOK Exam:Adult Echocardiogram Study Date: 04/09/2018 08:33 AM Age: 88 yrs Reason For Study: Wall Motion Height: 61 in Weight: 150 lb BSA: 1.7 m2 MMode/2D Measurements & Calculations IVSd: 0.95 cm Ao root diam: 2.6 cm LVIDd: 3.4 cm LA dimension: 4.0 cm LVIDs: 2.2 cm LVPWd: 0.98 cm LVPWs: 1.3 cm EDV(Teich): 48.9 ml ESV(Teich): 16.1 ml LVOT diam: 2.0 cm LAV (MOD-bp): 58.0 ml Doppler Measurements & Calculations Ao V2 max: 117.3 cm/sec LV V1 max P.3 mmHg Ao max P.5 mmHg LV V1 max: 75.0 cm/sec MANISHA(V,D): 2.0 cm2 MR max gio: 523.7 cm/sec TR max gio: 321.6 cm/sec MR max P.0 mmHg TR max P.5 mmHg PA V2 max: 84.8 cm/sec Med Peak E' Gio: 4.8 cm/sec PA max P.9 mmHg Lat Peak E' Gio: 9.1 cm/sec Left Ventricle Mild basal septal hypertrophy. Left ventricular systolic function is normal. Ejection Fraction = 50-5 5%. Flattened septum is consistent with RV pressure overload. Right Ventricle The right ventricle is mildly dilated. The right ventricular systolic function is mild to moderately reduced. Atria The left atrium is mildly dilated. The right atrium is mildly dilated. Mitral Valve There is mild mitral annular calcification. The mitral valve leaflets appear thickened, but open well . There is no mitral valve stenosis. There is moderate mitral regurgitation. The mitral regurgitant jet is eccentrically directed. Tricuspid Valve The tricuspid valve is not well visualized, but is grossly normal. There is moderate tricuspid regurg itation. Right ventricular systolic pressure is elevated at 40-50mmHg. There is moderate pulmonary hypertensio n. Aortic Valve There is mild aortic sclerosis.;. No hemodynamically significant valvular aortic stenosis. No aortic regurgitation is present. Pulmonic Valve The pulmonic valve is not well seen, but is grossly normal. There is no pulmonic valvular stenosis. Great Vessels The aortic root is normal size. Pericardium/Pleura There is no pericardial effusion. Interpretation Summary Mild basal septal hypertrophy. Left ventricular systolic function is normal. Ejection Fraction = 50-55%. The right ventricle is mildly dilated. The right ventricular systolic function is mild to moderately reduced. The left atrium is mildly dilated. The right atrium is mildly dilated. There is mild mitral annular calcification. The mitral valve leaflets appear thickened, but open well. There is moderate mitral regurgitation. The mitral regurgitant jet is eccentrically directed. There is moderate tricuspid regurgitation. Right ventricular systolic pressure is elevated at 40-50mmHg. There is moderate pulmonary hypertension. There is mild aortic sclerosis.; There is no pericardial effusion. MD Dotson *Chandrakant 04/09/2018 10:21 AM
[2018-04-09] MEDS ORDERED: PT OWN MED DRAWER 7, Y5N ONE (10:23)
[2018-04-09] MEDS: LOSARTAN POTASSIUM 50 MG TABLET (FP) PO SCH (10:34)
[2018-04-09] MEDS ORDERED: POTASSIUM CHLORIDE TABS 20 MEQ TABLET.ER (FP) PO ONE (10:45)
[2018-04-09] MEDS: PHENYTOIN NA EXTENDED 100 MG CAPSULE (FP) PO SCH (11:15)
--- NOTE | 2018-04-09 12:53 | EKG ---
Test Reason : Blood Pressure : / mmHG Vent. Rate : 116 BPM Atrial Rate : 174 BPM P-R Int : 000 ms QRS Dur : 078 ms QT Int : 328 ms P-R-T Axes : 000 -18 149 degrees QTc Int : 455 ms ATRIAL FIBRILLATION WITH RAPID VENTRICULAR RESPONSE WITH PREMATURE VENTRICULAR OR ABERRANTLY CONDUCTED COMPLEXES ANTEROSEPTAL INFARCT , AGE UNDETERMINED ABNORMAL ECG WHEN COMPARED WITH ECG OF 11-FEB-2018 09:03, T WAVE INVERSION MORE EVIDENT IN LATERAL LEADS Confirmed by KATIA GAINES MD ([id number]) on 04/09/2018 12:53:01 PM Referred By: Confirmed By:KATIA GAINES MD
--- NOTE | 2018-04-09 12:57 | PN ---
Progress Note, Physician Chief Complaint: patient feeling better today breathing better leg edema reducing HR better controlled - Current Medication List Current Medications: Active Medications Furosemide (Lasix Injection -) 40 mg IVPUSH BIDLASIX [facility] Last Admin: 04/09/18 06:07 Dose: 40 mg Lisinopril (Prinivil) 10 mg PO DAILY@0600 [facility] Last Admin: 04/09/18 06:07 Dose: 10 mg Losartan Potassium (Cozaar -) 100 mg PO DAILY [facility] Last Admin: 04/09/18 10:34 Dose: 100 mg Metoprolol Tartrate (Lopressor -) 100 mg PO DAILY [facility] Last Admin: 04/09/18 10:36 Dose: 100 mg Phenytoin Sodium (Dilantin -) 300 mg PO DAILY [facility] Last Admin: 04/09/18 11:15 Dose: 300 mg Warfarin Sodium (Coumadin -) 5 mg PO DAILY@1800 [facility] Last Admin: 04/08/18 18:21 Dose: 5 mg - Objective Vital Signs: Vital Signs Temperature 97.9 F 04/09/18 05:58 Pulse Rate 103 H 04/09/18 05:58 Respiratory Rate 20 04/09/18 05:58 Blood Pressure 138/89 04/09/18 05:58 O2 Sat by Pulse Oximetry (%) 98 04/08/18 19:30 Constitutional: Yes: Calm Cardiovascular: Yes: Pulse Irregular, S1, S2 Respiratory: Yes: Rales Gastrointestinal: Yes: Normal Bowel Sounds, Soft Edema: Yes (reduced) Neurological: Yes: Alert, Oriented Labs: CBC, BMP 04/09/18 06:22 04/09/18 06:22 INR, PTT INR 1.51 (0.83-1.09) H 04/09/18 06:22 Problem List - Problems (1) Acute exacerbation of CHF (congestive heart failure) Assessment/Plan: tele daily weight echo noted dr clayton tovar monitor lytes iv lasix 40mg bid \elevated lft secondary to hepatic congestion will monitor check liver sono noted right pleural effusion and irregularity of hepatic surface Code(s): I50.9 - HEART FAILURE, UNSPECIFIED Qualifiers: Heart failure type: diastolic Qualified Code(s): I50.33 - Acute on chronic diastolic (congestive) heart failure (2) Atrial fibrillation Assessment/Plan: couamdin- inc couamdin dose metoprolol monitor inr Code(s): I48.91 - UNSPECIFIED ATRIAL FIBRILLATION (3) Hypertension Assessment/Plan: losatan metoprolol Code(s): I10 - ESSENTIAL (PRIMARY) HYPERTENSION Qualifiers:
--- NOTE | 2018-04-09 15:55 | CON.CARD ---
Consult Consult Specialty:: Cardiology Reason for Consultation:: Edema and Rapid Afib/ - History of Present Illness History of Present Illness: 88 F with Afib on AC, DM, HLD, with previous heart failure admissions. She has noted 2 weeks of increased swelling of her legs and increased dyspnea with effort. Noted to have rapid Afib and sings of volume overload which have improved after medications were started. She reports compliance with medications although not compliant with dietary sodium restriction. Echocardiogram with moderate to severe MR and TR. Normal biventricular function. 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's Cardio/Vascular: Yes: AFIB, CAD, CHF (Diastolic), HTN, Mitral Insufficiency ( moderate to severe mitral regurgitation) Pulmonary: Yes: Pneumonia Psych: Yes: Addictions Musculoskeletal: Yes: Chronic low back pain, Osteoarthritis Rheumatology: Yes: Other - Past Surgical History Past Surgical History: Yes: Cholecystectomy, Hysterectomy - Alcohol/Substance Use Hx Alcohol Use: No History of Substance Use: reports: None - Smoking History Smoking history: Never smoked Have you smoked in the past 12 months: No - Social History Usual Living Arrangement: Alone (lives alone in 2 family house with 18 stairs to enter) ADL: Independent (Previously Independent in ADLs/ IADLs, has cane and RW (both of which she uses intermittently)) History of Recent Travel: No Home Medications - Allergies Allergies/Adverse Reactions: Allergies Allergy/AdvReac Type Severity Reaction Status Date / Time levofloxacin [From Levaquin] Allergy Verified 02/09/18 06:37 lidocaine AdvReac Verified 02/09/18 06:37 - Home Medications Home Medications: Ambulatory Orders Cholecalciferol (Vitamin D3) [Vitamin D -] 0 unit PO DAILY 10/21/16 Glucosamine/MSM/Chondroitin A [Glucosamine Chondroit MSM Tab] 1 each PO DAILY Phenytoin Sodium Extended [Phenytek] 400 mg PO HS 10/21/16 Arformoterol Tartrate [Brovana -] 1 amp NEB BID amp 10/25/16 Arformoterol Tartrate [Brovana -] 1 amp NEB RBID amp 11/09/17 Enoxaparin [Lovenox -] 70 mg SQ Q12H #6 disp.syrin 01/21/18 Furosemide [Lasix -] 40 mg PO DAILY tablet 01/21/18 Acetaminophen [Tylenol .Regular Strength -] 650 mg PO Q6H PRN tablet 02/13/18 Amino Acids/Protein Hydrolys [Prosource No Carb Liquid Pkt] 30 ml PO BID@0800, 1730 packet 02/13/18 Atorvastatin Ca [Lipitor] 10 mg PO HS tablet 02/13/18 Latanoprost 0.005% Eye Drops [Xalatan 0.005% Eye Drops -] 1 drop OD HS drops Lisinopril [Prinivil] 5 mg PO DAILY tablet 02/13/18 Losartan Potassium [Cozaar -] 50 mg PO DAILY #30 tablet 02/13/18 Metoprolol Tartrate [Lopressor -] 200 mg PO BID #60 tablet 02/13/18 Multivitamins [Multivit ([facility] Formulary)] 1 tab PO DAILY tab 02/13/18 Phenytoin Na Extended [Dilantin -] 300 mg PO DAILY #30 capsule 02/13/18 Warfarin Na [Coumadin -] 5 mg PO DAILY@1800 tablet 02/13/18 Review of Systems - Review of Systems Constitutional: denies: Chills, Diaphoresis, Fever, Lethargy, Loss of Appetite HENT: reports: No Symptoms Neck: reports: No Symptoms Cardiovascular: reports: Edema, Shortness of Breath. denies: Chest Pain Respiratory: reports: Cough, Exercise Intolerance, SOB on Exertion Genitourinary: reports: No Symptoms Vital Signs: Vital Signs Temperature 98.0 F 04/09/18 13:34 Pulse Rate 90 04/09/18 13:34 Respiratory Rate 20 04/09/18 13:34 Blood Pressure 149/78 04/09/18 13:34 O2 Sat by Pulse Oximetry (%) 98 04/09/18 09:00 Constitutional: Yes: Well Nourished, No Distress Eyes: Yes: Conjunctiva Clear, EOM Intact HENT: Yes: Atraumatic, Normocephalic Neck: Yes: Supple, Trachea Midline Respiratory: Yes: Regular, Rales, SOB Gastrointestinal: Yes: Normal Bowel Sounds, Soft Cardiovascular: Yes: Pulse Irregular JVD: Yes Carotid Bruit: No Heart Sounds: Yes: S1, S2 Murmur: Yes: Systolic Murmur Edema: Yes Edema: LLE: 1+, RLE: 1+ - Other Data Labs, Other Data: CBC, BMP 04/09/18 06:22 04/09/18 06:22 INR, PTT INR 1.51 (0.83-1.09) H 04/09/18 06:22 Troponin, BNP 04/09/18 06:22 Troponin I 0.03 B-Natriuretic Peptide 3857.8 H Troponin, BNP 04/09/18 06:22 Troponin I 0.03 B-Natriuretic Peptide 3857.8 H Echo: Report Reviewed (Moderate MR. Normal LV RV function moderate PASP elevation.) Problem List - Problems (1) Acute exacerbation of CHF (congestive heart failure) Code(s): I50.9 - HEART FAILURE, UNSPECIFIED Qualifiers: Heart failure type: diastolic Qualified Code(s): I50.33 - Acute on chronic diastolic (congestive) heart failure Assessment/Plan 88 F with Afib on AC, DM, HLD, with previous heart failure admissions. She has noted 2 weeks of increased swelling of her legs and increased dyspnea with effort. Noted to have rapid Afib and sings of volume overload which have improved after medications were started. She reports compliance with medications although not compliant with dietary sodium restriction. Moderate MR TR. Heart failure with preserved EF and rapid Afib. 1. CHF due to HFpEF: * Continue IV lasix. * She on both CARLEE and ARB. Will DC lisinopril * If further BP therapy is needed will consider adding CCB * Eitiology of CHF exacerbation may be dietary and perhaps medication non- compliance. 2. Afib. * Continue coumadin to INR 2-3 * Change metoprolol 100mg bid/ * Monitor on telemetry.
[2018-04-09] MEDS: WARFARIN NA 3 MG TABLET PO SCH (17:23)
[2018-04-09] MEDS: METOPROLOL TARTRATE 50 MG TABLET (FP) PO SCH (21:50)
[2018-04-09] MEDS: ENOXAPARIN NA (PORCINE) 80 MG/0.8 ML DISP.SYRIN SQ SCH (21:50)
[2018-04-09] MEDS: LATANOPROST 0.005% OPHTH SOLN 2.5ML BOTTLE OD SCH (22:20)
[2018-04-10] MEDS: FUROSEMIDE 40 MG/4 ML INJECTABLE VIAL IVPUSH SCH ×2 (06:23→13:48)
[2018-04-10] MEDS: ENOXAPARIN NA (PORCINE) 80 MG/0.8 ML DISP.SYRIN SQ SCH ×2 (06:24→18:17)
[2018-04-10 07:27] LABS: BASO % 0.6 % (0-2.0); EOS % 1.4 % (0-4.5); HEMATOCRIT 41.2 % (32.4-45.2); HEMOGLOBIN 14.1 GM/dL (10.7-15.3); LYMPH % 27.7 % (8-40); MCH 32.6 pg (25.7-33.7); MCHC 34.2 g/dl (32.0-36.0); MEAN CELL VOLUME 95.2 fl (80-96); MEAN PLT VOLUME 9.1 fl (7.5-11.1); MONO % 9.8 % (3.8-10.2); NEUT % 60.5 % (42.8-82.8); PLATELET COUNT 152 K/MM3 (134-434); RBC 4.32 M/mm3 (3.60-5.2); RDW 14.9 % (11.6-15.6); WHITE BLOOD COUNT 5.8 K/mm3 (4.0-10.0)
[2018-04-10 07:58] LABS: INR 1.65 (0.83-1.09); PROTHROMBIN TIME (PATIENT) 19.6 SEC (9.7-13.0)
--- NOTE | 2018-04-10 08:39 | PN ---
Progress Note, Physician Chief Complaint: awake alert events and notes reviewed denies chest pain c/o leg pain and fatigue - Current Medication List Current Medications: Active Medications Enoxaparin Sodium (Lovenox -) 70 mg SQ BID@0700,1900 [facility] Last Admin: 04/10/18 06:24 Dose: 70 mg Furosemide (Lasix Injection -) 40 mg IVPUSH BIDLASIX [facility] Last Admin: 04/10/18 06:23 Dose: 40 mg Latanoprost (Xalatan 0.005% Eye Drops -) 1 drop OD HS [facility] Last Admin: 04/09/18 22:20 Dose: 1 drop Losartan Potassium (Cozaar -) 100 mg PO DAILY [facility] Last Admin: 04/09/18 10:34 Dose: 100 mg Metoprolol Tartrate (Lopressor -) 100 mg PO BID [facility] Last Admin: 04/09/18 21:50 Dose: 100 mg Phenytoin Sodium (Dilantin -) 300 mg PO DAILY [facility] Last Admin: 04/09/18 11:15 Dose: 300 mg Potassium Chloride (K-Dur -) 20 meq PO DAILY [facility] Warfarin Sodium (Coumadin -) 6 mg PO DAILY@1800 [facility] Last Admin: 04/09/18 17:23 Dose: 6 mg - Objective Vital Signs: Vital Signs Temperature 98.4 F 04/10/18 06:30 Pulse Rate 93 H 04/10/18 06:30 Respiratory Rate 18 04/10/18 06:30 Blood Pressure 152/86 04/10/18 06:30 O2 Sat by Pulse Oximetry (%) 98 04/09/18 21:00 Constitutional: Yes: Mild Distress Eyes: Yes: WNL HENT: Yes: WNL Neck: Yes: WNL Cardiovascular: Yes: Pulse Irregular Respiratory: Yes: CTA Bilaterally Gastrointestinal: Yes: WNL Genitourinary: Yes: WNL Musculoskeletal: Yes: Muscle Pain, Muscle Weakness Extremities: Yes: WNL Edema: No Peripheral Pulses WNL: Yes Integumentary: Yes: WNL Wound/Incision: Yes: Clean/Dry Neurological: Yes: WNL ...Motor Strength: WNL Psychiatric: Yes: WNL Labs: CBC, BMP 04/10/18 07:00 INR, PTT INR 1.65 (0.83-1.09) H 04/10/18 07:00 Problem List - Problems (1) Acute exacerbation of CHF (congestive heart failure) Code(s): I50.9 - HEART FAILURE, UNSPECIFIED Qualifiers: Heart failure type: diastolic Qualified Code(s): I50.33 - Acute on chronic diastolic (congestive) heart failure (2) Pleural effusion Code(s): J90 - PLEURAL EFFUSION, NOT ELSEWHERE CLASSIFIED (3) Atrial fibrillation Code(s): I48.91 - UNSPECIFIED ATRIAL FIBRILLATION (4) Calf pain Code(s): M79.669 - PAIN IN UNSPECIFIED LOWER LEG Qualifiers: Laterality: right Qualified Code(s): M79.661 - Pain in right lower leg (5) Decreased ambulation status Code(s): R68.89 - OTHER GENERAL SYMPTOMS AND SIGNS (6) SOB (shortness of breath) Code(s): R06.02 - SHORTNESS OF BREATH Assessment/Plan PHENYTOIN IV 100MG X 1 LOVENOX SQ BOTH FOR SUBTHERAPEUTIC PHENYTOIN AND INR CONTINUE PO DILANTIN AND COUMADIN CHECK DAILY INR REPEAT DILANTIN LEVEL IV LASIX WITH POTASSIUM SUPPLEMENTS MONITOR ON TELE CARDIO/NEURO F/U
[2018-04-10 08:44] LABS: ALBUMIN 2.7 g/dl (3.4-5.0); ALK PHOS 118 U/L (45-117); ANION GAP 7 MMOL/L (8-16); BLOOD UREA NITROGEN 13 mg/dL (7-18); CALCIUM 8.3 mg/dL (8.5-10.1); CHLORIDE 104 mmol/L (98-107); CO2 32 mmol/L (21-32); CREATININE 0.8 mg/dL (0.55-1.3); GLUCOSE,RANDOM 90 mg/dL (74-106); POTASSIUM 3.5 mmol/L (3.5-5.1); SGOT/AST 45 U/L (15-37); SGPT/ALT 60 U/L (13-61); SODIUM 143 mmol/L (136-145); TOT PROT 5.4 g/dl (6.4-8.2)
[2018-04-10] MEDS ORDERED: PHENYTOIN SODIUM 100 MG/2 ML VIAL IVPB ONE (08:58)
[2018-04-10] MEDS: POTASSIUM CHLORIDE TABS 20 MEQ TABLET.ER (FP) PO SCH (09:57)
[2018-04-10] MEDS: LOSARTAN POTASSIUM 50 MG TABLET (FP) PO SCH (09:57)
[2018-04-10] MEDS: METOPROLOL TARTRATE 50 MG TABLET (FP) PO SCH ×2 (09:57→21:34)
[2018-04-10] MEDS: PHENYTOIN NA EXTENDED 100 MG CAPSULE (FP) PO SCH (09:58)
--- NOTE | 2018-04-10 10:40 | CONSULT ---
Consult - text type - Consultation Consultation Note: Neurology History of Present Illness - General Chief Complaint: Edema Stated Complaint: SOB,SWELLING OF THE LEGS - History of Present Illness Initial Comments: 88 yo F w a pmh of CHF (diastolic), CAD, A-fib, Mitral Insufficiency (moderate to severe mitral regurgitation), HTN, seizure disorder, DM, previous AK, PNA, chronic low back pain, and osteoarthritis presents to the ER sent from Dr. Dow's office on day of admission. The patient reports that they took a fingerstick blood measurement at Dr. Dow's office which showed her INR was subtherapeutic considering she takes warfarin for permanent anticoagulation. She says that her blood pressure was also elevated at Dr. Dow's office. She says she has generally been compliant with taking her meds but did not take her medications today because she was going to the doctors office and planned on taking them when she got home. The patient endorses generalized fatigue over the past few weeks as well as SOB, worsening dyspnea on exertion and bilateral leg swelling. The patient also states that her urine has been very dark recently and has a very funky abnormal smell to it, however she denies dysuria, frequency, or urgency. Dilantin level 2.3 subtheraputic but no seizure activity. On Dilantin 300mg daily. Past History - Past Medical History Cardiac Disorders: Yes (afib) COPD: No CHF: Yes Diabetes: Yes (borderline) HTN: Yes Hypercholesterolemia: Yes Seizures: Yes - Surgical History Abdominal Surgery: Yes (hysterectomy) Cholecystectomy: Yes - Immunization History Immunization Up to Date: No - Suicide/Smoking/Psychosocial Hx Smoking History: Never smoked Have you smoked in the past 12 months: No Hx Alcohol Use: No Drug/Substance Use Hx: No Substance Use Type: None Hx Substance Use Treatment: No Allergies/Adverse Reactions: Allergies Allergy/AdvReac Type Severity Reaction Status Date / Time levofloxacin [From Levaquin] Allergy Verified 02/09/18 06:37 lidocaine AdvReac Verified 02/09/18 06:37 Home Medications: Ambulatory Orders Cholecalciferol (Vitamin D3) [Vitamin D -] 0 unit PO DAILY 10/21/16 Glucosamine/MSM/Chondroitin A [Glucosamine Chondroit MSM Tab] 1 each PO DAILY Phenytoin Sodium Extended [Phenytek] 400 mg PO HS 08/29/17 Arformoterol Tartrate [Brovana -] 1 amp NEB BID amp 10/25/16 Arformoterol Tartrate [Brovana -] 1 amp NEB RBID amp 11/09/17 Enoxaparin [Lovenox -] 70 mg SQ Q12H #6 disp.syrin 01/21/18 Furosemide [Lasix -] 40 mg PO DAILY tablet 01/21/18 Acetaminophen [Tylenol .Regular Strength -] 650 mg PO Q6H PRN tablet 02/13/18 Amino Acids/Protein Hydrolys [Prosource No Carb Liquid Pkt] 30 ml PO BID@0800, 1730 packet 02/13/18 Atorvastatin Ca [Lipitor] 10 mg PO HS tablet 02/13/18 Latanoprost 0.005% Eye Drops [Xalatan 0.005% Eye Drops -] 1 drop OD HS drops Lisinopril [Prinivil] 5 mg PO DAILY tablet 02/13/18 Losartan Potassium [Cozaar -] 50 mg PO DAILY #30 tablet 02/13/18 Metoprolol Tartrate [Lopressor -] 200 mg PO BID #60 tablet 02/13/18 Multivitamins [Multivit ([facility] Formulary)] 1 tab PO DAILY tab 02/13/18 Phenytoin Na Extended [Dilantin -] 300 mg PO DAILY #30 capsule 02/13/18 Warfarin Na [Coumadin -] 5 mg PO DAILY@1800 tablet 02/13/18 Review of Systems CONSTITUTIONAL: Present: fatigue Absent: fever, no chills EYES: Absent: visual changes ENT: Absent: ear pain, no sore throat CARDIOVASCULAR: Absent: chest pain, no palpitations RESPIRATORY: Present: SOB Absent: cough GI: Absent: abdominal pain, no nausea, no vomiting, no constipation, no diarrhea GENITOURINARY: Absent: dysuria, no frequency, no hematuria MUSKULOSKELETAL: Absent: back pain, no arthralgia, no myalgia SKIN: Absent: rash NEURO: Absent: headache *Physical Exam Vital Signs Temperature 98.4 F 04/10/18 06:30 Pulse Rate 93 H 04/10/18 06:30 Respiratory Rate 18 04/10/18 06:30 Blood Pressure 152/86 04/10/18 06:30 O2 Sat by Pulse Oximetry (%) 98 04/09/18 21:00 GENERAL: Well developed, well nourished. Awake and alert. No acute distress. HEENT: Torus Palatinus. Normocephalic, atraumatic. PERRLA, EOMI. No conjunctival pallor. Sclera are non-icteric. Moist mucous membranes. Posterior Oropharynx is mildly erythematous. NECK: Supple. Full ROM. No JVD. No thyromegaly. No lymphadenopathy. CARDIOVASCULAR: Tachycardic rate and irregular rhythm. Holosystolic blowing murmur most prominent at heart base. + S4. Distal pulses are 1+ and symmetric. PULMONARY: There are crackles midway up the left lung, decreased breath sounds and faint crackles in the right base. No evidence of respiratory distress. No wheezing, rales or rhonchi. ABDOMINAL: Soft. Non-tender. Non-distended. No rebound or guarding. No organomegaly. Normoactive bowel sounds. Patient is wearing a brace as treatment for an abdominal hernia. MUSCULOSKELETAL Normal range of motion at all joints. Many rory and heberden nodes. No tenderness. No CVA tenderness. EXTREMITIES: 1+ edema b/l in the legs. No cyanosis. No clubbing. No calf tenderness. SKIN: Warm and dry. Normal capillary refill. No rashes. No jaundice. NEUROLOGICAL: Alert, awake, appropriate. Cranial nerves 2-12 intact. Normal speech. Gait is normal without ataxia. PSYCHIATRIC: Patient is a bit sad. Cooperative. Good eye contact. Appropriate mood and affect. - LABORATORY CBC & Chemistry Diagram: CBCD WBC 5.8 K/mm3 (4.0-10.0) 04/10/18 07:00 RBC 4.32 M/mm3 (3.60-5.2) 04/10/18 07:00 Hgb 14.1 GM/dL (10.7-15.3) 04/10/18 07:00 Hct 41.2 % (32.4-45.2) 04/10/18 07:00 MCV 95.2 fl (80-96) 04/10/18 07:00 MCHC 34.2 g/dl (32.0-36.0) 04/10/18 07:00 RDW 14.9 % (11.6-15.6) 04/10/18 07:00 Plt Count 152 K/MM3 (134-434) 04/10/18 07:00 MPV 9.1 fl (7.5-11.1) 04/10/18 07:00 CMP Sodium 143 mmol/L (136-145) 04/10/18 07:00 Potassium 3.5 mmol/L (3.5-5.1) 04/10/18 07:00 Chloride 104 mmol/L (98-107) 04/10/18 07:00 Carbon Dioxide 32 mmol/L (21-32) 04/10/18 07:00 Anion Gap 7 MMOL/L (8-16) L 04/10/18 07:00 BUN 13 mg/dL (7-18) 04/10/18 07:00 Creatinine 0.8 mg/dL (0.55-1.3) 04/10/18 07:00 Creat Clearance w eGFR > 60 (>60) 04/10/18 07:00 Random Glucose 90 mg/dL (74-106) 04/10/18 07:00 Calcium 8.3 mg/dL (8.5-10.1) L 04/10/18 07:00 Total Bilirubin 1.0 mg/dL (0.2-1) 04/10/18 07:00 AST 45 U/L (15-37) H 04/10/18 07:00 ALT 60 U/L (13-61) 04/10/18 07:00 Alkaline Phosphatase 118 U/L (45-117) H 04/10/18 07:00 Total Protein 5.4 g/dl (6.4-8.2) L 04/10/18 07:00 Albumin 2.7 g/dl (3.4-5.0) L 04/10/18 07:00 CARDIAC ENZYMES Creatine Kinase 308 U/L (26-192) H 04/09/18 06:22 Troponin I 0.03 ng/ml (0.00-0.05) 04/09/18 06:22 Diagnostics: Vascular study - completed Ultrasound Limited - completed Plan/Assessment 88 yo F w a pmh of CHF (diastolic), CAD, A-fib, Mitral Insufficiency (moderate to severe mitral regurgitation), HTN, seizure disorder, DM, previous AK, PNA, chronic low back pain, and osteoarthritis presents to the ER sent from Dr. Dow's office on day of admission. The patient reports that they took a fingerstick blood measurement at Dr. Dow's office which showed her INR was subtherapeutic considering she takes warfarin for permanent anticoagulation. She says that her blood pressure was also elevated at Dr. Dow's office. She says she has generally been compliant with taking her meds but did not take her medications today because she was going to the doctors office and planned on taking them when she got home. The patient endorses generalized fatigue over the past few weeks as well as SOB, worsening dyspnea on exertion and bilateral leg swelling. The patient also states that her urine has been very dark recently and has a very funky abnormal smell to it, however she denies dysuria, frequency, or urgency. Dilantin level 2.3 subtheraputic but no seizure activity. On Dilantin 300mg daily. Can continue this for now, medication compliance recommended. Can repeat level in 4 weeks or sooner if clinically indicated.
[2018-04-10 15:39] LABS: URINE APPEARANCE CLEAR; URINE BILIRUBIN NEGATIVE (<2.0 mg/dL); URINE COLOR LTYELLOW; URINE GLUCOSE (UA) NEGATIVE (NEGATIVE); URINE KETONE NEGATIVE (NEGATIVE); URINE LEUK ESTERASE NEGATIVE (NEGATIVE); URINE NITRITE NEGATIVE (NEGATIVE); URINE PROTEIN NEGATIVE (NEGATIVE)
[2018-04-10] MEDS: WARFARIN NA 3 MG TABLET PO SCH (18:16)
--- NOTE | 2018-04-10 20:40 | PN ---
Progress Note, Physician Chief Complaint: Lower extremity edema History of Present Illness: This is an 88 year old female with a PMH of AFIB on AC, DM, HLD, and CHF. She presented now with a 2 week history of increasing lower extremity edema and LANE. She was noted to have rapid rates of AFIB. She has improved with diuretic therapy. - Current Medication List Current Medications: Active Medications Enoxaparin Sodium (Lovenox -) 70 mg SQ BID@0700,1900 [facility] Last Admin: 04/10/18 18:17 Dose: 70 mg Furosemide (Lasix Injection -) 40 mg IVPUSH BIDLASIX [facility] Last Admin: 04/10/18 13:48 Dose: 40 mg Latanoprost (Xalatan 0.005% Eye Drops -) 1 drop OD HS [facility] Last Admin: 04/09/18 22:20 Dose: 1 drop Losartan Potassium (Cozaar -) 100 mg PO DAILY [facility] Last Admin: 04/10/18 09:57 Dose: 100 mg Metoprolol Tartrate (Lopressor -) 100 mg PO BID [facility] Last Admin: 04/10/18 09:57 Dose: 100 mg Phenytoin Sodium (Dilantin -) 300 mg PO DAILY [facility] Last Admin: 04/10/18 09:58 Dose: 300 mg Potassium Chloride (K-Dur -) 20 meq PO DAILY [facility] Last Admin: 04/10/18 09:57 Dose: 20 meq Warfarin Sodium (Coumadin -) 6 mg PO DAILY@1800 [facility] Last Admin: 04/10/18 18:16 Dose: 6 mg - Objective Vital Signs: Vital Signs Temperature 98.1 F 04/10/18 18:00 Pulse Rate 100 H 04/10/18 18:00 Respiratory Rate 20 04/10/18 18:00 Blood Pressure 156/118 H 04/10/18 18:00 O2 Sat by Pulse Oximetry (%) 98 04/10/18 09:00 Constitutional: Yes: Well Nourished Eyes: Yes: WNL Neck: Yes: WNL Cardiovascular: Yes: Pulse Irregular (NL S1S2, no 2/6 HSM apex to axilla.) Respiratory: Yes: CTA Bilaterally Gastrointestinal: Yes: Normal Bowel Sounds Edema: LLE: Trace, RLE: Trace Neurological: Yes: Alert, Oriented (Grossly non focal) Labs: CBC, BMP 04/10/18 07:00 04/10/18 07:00 INR, PTT INR 1.65 (0.83-1.09) H 04/10/18 07:00 Assessment/Plan 88 F with Afib on AC, DM, HLD, with previous heart failure admissions. She has noted 2 weeks of increased swelling of her legs and increased dyspnea with effort. Noted to have rapid Afib and sings of volume overload which have improved after medications were started. She reports compliance with medications although not compliant with dietary sodium restriction. Moderate MR and TR on echo. Heart failure with preserved EF and rapid Afib. 1. CHF due to HFpEF: Continues on Lasix 40 mg daily Following Wt's/Lytes/I's/O's Continue BB/ARB Consider switching to PO Lasix tomorrow 2. Afib. Continue BB for rate control Continue Coumadin to an INR goal of 2 - 3 Lovenox bridge
[2018-04-10] MEDS: LATANOPROST 0.005% OPHTH SOLN 2.5ML BOTTLE OD SCH (21:34)
[2018-04-11] MEDS: ENOXAPARIN NA (PORCINE) 80 MG/0.8 ML DISP.SYRIN SQ SCH (06:24)
[2018-04-11] MEDS: FUROSEMIDE 40 MG/4 ML INJECTABLE VIAL IVPUSH SCH ×2 (06:24→15:13)
[2018-04-11 07:20] LABS: INR 2.01 (0.83-1.09); PROTHROMBIN TIME (PATIENT) 23.9 SEC (9.7-13.0)
[2018-04-11 07:48] LABS: ANION GAP 8 MMOL/L (8-16); BLOOD UREA NITROGEN 13 mg/dL (7-18); CALCIUM 8.2 mg/dL (8.5-10.1); CHLORIDE 105 mmol/L (98-107); CO2 32 mmol/L (21-32); CREATININE 0.8 mg/dL (0.55-1.3); GLUCOSE,RANDOM 87 mg/dL (74-106); POTASSIUM 3.1 mmol/L (3.5-5.1); SODIUM 144 mmol/L (136-145)
--- NOTE | 2018-04-11 09:34 | PN ---
Progress Note, Physician Chief Complaint: AWAKE ALERT FEELING BETTER - Current Medication List Current Medications: Active Medications Enoxaparin Sodium (Lovenox -) 70 mg SQ BID@0700,1900 [facility] Last Admin: 04/11/18 06:24 Dose: 70 mg Furosemide (Lasix Injection -) 40 mg IVPUSH BIDLASIX [facility] Last Admin: 04/11/18 06:24 Dose: 40 mg Latanoprost (Xalatan 0.005% Eye Drops -) 1 drop OD HS [facility] Last Admin: 04/10/18 21:34 Dose: 1 drop Losartan Potassium (Cozaar -) 100 mg PO DAILY [facility] Last Admin: 04/10/18 09:57 Dose: 100 mg Metoprolol Tartrate (Lopressor -) 100 mg PO BID [facility] Last Admin: 04/10/18 21:34 Dose: 100 mg Phenytoin Sodium (Dilantin -) 300 mg PO DAILY [facility] Last Admin: 04/10/18 09:58 Dose: 300 mg Potassium Chloride (K-Dur -) 20 meq PO DAILY [facility] Last Admin: 04/10/18 09:57 Dose: 20 meq Warfarin Sodium (Coumadin -) 6 mg PO DAILY@1800 [facility] Last Admin: 04/10/18 18:16 Dose: 6 mg - Objective Vital Signs: Vital Signs Temperature 97.7 F 04/11/18 06:00 Pulse Rate 95 H 04/11/18 06:00 Respiratory Rate 20 04/11/18 06:00 Blood Pressure 156/101 H 04/11/18 06:00 O2 Sat by Pulse Oximetry (%) 96 04/10/18 21:00 Constitutional: Yes: Mild Distress Eyes: Yes: WNL HENT: Yes: WNL, Tonsillar Exudate Cardiovascular: Yes: Pulse Irregular Respiratory: Yes: Diminished, On Nasal O2 Gastrointestinal: Yes: Soft Genitourinary: Yes: WNL Musculoskeletal: Yes: WNL Extremities: Yes: WNL Edema: Yes Edema: LLE: 1+, RLE: 1+ Peripheral Pulses WNL: Yes Integumentary: Yes: WNL Wound/Incision: Yes: Clean/Dry Neurological: Yes: WNL ...Motor Strength: WNL Psychiatric: Yes: WNL Labs: CBC, BMP 04/10/18 07:00 04/11/18 05:15 INR, PTT INR 2.01 (0.83-1.09) H 04/11/18 05:15 Problem List - Problems (1) Acute exacerbation of CHF (congestive heart failure) Code(s): I50.9 - HEART FAILURE, UNSPECIFIED Qualifiers: Heart failure type: diastolic Qualified Code(s): I50.33 - Acute on chronic diastolic (congestive) heart failure (2) Pleural effusion Code(s): J90 - PLEURAL EFFUSION, NOT ELSEWHERE CLASSIFIED (3) Atrial fibrillation Code(s): I48.91 - UNSPECIFIED ATRIAL FIBRILLATION (4) Calf pain Code(s): M79.669 - PAIN IN UNSPECIFIED LOWER LEG Qualifiers: Laterality: right Qualified Code(s): M79.661 - Pain in right lower leg (5) Decreased ambulation status Code(s): R68.89 - OTHER GENERAL SYMPTOMS AND SIGNS (6) SOB (shortness of breath) Code(s): R06.02 - SHORTNESS OF BREATH Assessment/Plan REPLETE KCL IV LASIX FOR CARDIAC DECOMPENSATION LEG EDEMA ELEVATE LEGS OOB TO CHAIR CARDIOLOGY F/U APPRECIATED
[2018-04-11] MEDS ORDERED: ACETAMINOPHEN 325 MG TABLET (FP) PO PRN (09:39)
[2018-04-11] MEDS ORDERED: POTASSIUM CHLORIDE TABS 20 MEQ TABLET.ER (FP) PO ONE (09:45)
[2018-04-11] MEDS: METOPROLOL TARTRATE 50 MG TABLET (FP) PO SCH ×2 (10:34→22:23)
[2018-04-11] MEDS: POTASSIUM CHLORIDE TABS 20 MEQ TABLET.ER (FP) PO SCH (10:34)
[2018-04-11] MEDS: LOSARTAN POTASSIUM 50 MG TABLET (FP) PO SCH (10:34)
[2018-04-11] MEDS: PHENYTOIN NA EXTENDED 100 MG CAPSULE (FP) PO SCH (10:35)
--- NOTE | 2018-04-11 11:03 | PN ---
Progress Note (short form) - Note Progress Note: Neurology History of Present Illness - General Chief Complaint: Edema Stated Complaint: SOB,SWELLING OF THE LEGS - History of Present Illness 88 yo F w a pmh of CHF (diastolic), CAD, A-fib, Mitral Insufficiency (moderate to severe mitral regurgitation), HTN, seizure disorder, DM, previous SC, PNA, chronic low back pain, and osteoarthritis presents to the ER sent from Dr. Dow's office on day of admission. The patient reported that they took a fingerstick blood measurement at Dr. Dow's office which showed her INR was subtherapeutic considering she takes warfarin for permanent anticoagulation. She stated that her blood pressure was also elevated at Dr. Dow's office. Stated, she has generally been compliant with taking her meds but did not take her medications on day of admission because she was going to the doctors office and planned on taking them when she got home. The patient endorsed generalized fatigue over the past few weeks as well as SOB, worsening dyspnea on exertion and bilateral leg swelling. The patient also stated that her urine has been very dark recently and has a very funky abnormal smell to it, however she denies dysuria, frequency, or urgency. Dilantin level 2.3 subtheraputic but no seizure activity. On Dilantin 300mg daily. On further questioning, last time she had seizure like event was reportedly 12 years ago and she reports maintaining consciousness. Dr. Rm is her neurologist and has been following her and continues current regiment, which we will continue as inpatient. She was in agreement. Allergies/Adverse Reactions: Allergies Allergy/AdvReac Type Severity Reaction Status Date / Time levofloxacin [From Levaquin] Allergy Verified 02/09/18 06:37 lidocaine AdvReac Verified 02/09/18 06:37 Active Medications Acetaminophen (Tylenol -) 650 mg PO Q6H PRN PRN Reason: PAIN OR FEVER Arformoterol Tartrate (Brovana (Restricted To Pulmonology/Resp) -) 1 amp NEB RBID [facility] Furosemide (Lasix Injection -) 40 mg IVPUSH BIDLASIX [facility] Last Admin: 04/11/18 06:24 Dose: 40 mg Latanoprost (Xalatan 0.005% Eye Drops -) 1 drop OD HS [facility] Last Admin: 04/10/18 21:34 Dose: 1 drop Losartan Potassium (Cozaar -) 100 mg PO DAILY [facility] Last Admin: 04/11/18 10:34 Dose: 100 mg Metoprolol Tartrate (Lopressor -) 100 mg PO BID [facility] Last Admin: 04/11/18 10:34 Dose: 100 mg Phenytoin Sodium (Dilantin -) 300 mg PO DAILY [facility] Last Admin: 04/11/18 10:35 Dose: 300 mg Potassium Chloride (K-Dur -) 20 meq PO DAILY [facility] Last Admin: 04/10/18 09:57 Dose: 20 meq Warfarin Sodium (Coumadin -) 6 mg PO DAILY@1800 [facility] Last Admin: 04/10/18 18:16 Dose: 6 mg *Physical Exam Vital Signs Temperature 98.0 F 04/11/18 10:32 Pulse Rate 100 H 04/11/18 10:32 Respiratory Rate 18 04/11/18 10:32 Blood Pressure 146/90 04/11/18 10:32 O2 Sat by Pulse Oximetry (%) 96 04/10/18 21:00 GENERAL: Well developed, well nourished. Awake and alert. No acute distress. HEENT: Torus Palatinus. Normocephalic, atraumatic. PERRLA, EOMI. No conjunctival pallor. Sclera are non-icteric. Moist mucous membranes. Posterior Oropharynx is mildly erythematous. NECK: Supple. Full ROM. No JVD. No thyromegaly. No lymphadenopathy. CARDIOVASCULAR: Tachycardic rate and irregular rhythm. Holosystolic blowing murmur most prominent at heart base. + S4. Distal pulses are 1+ and symmetric. PULMONARY: There are crackles midway up the left lung, decreased breath sounds and faint crackles in the right base. No evidence of respiratory distress. No wheezing, rales or rhonchi. ABDOMINAL: Soft. Non-tender. Non-distended. No rebound or guarding. No organomegaly. Normoactive bowel sounds. Patient is wearing a brace as treatment for an abdominal hernia. MUSCULOSKELETAL Normal range of motion at all joints. Many rory and heberden nodes. No tenderness. No CVA tenderness. EXTREMITIES: 1+ edema b/l in the legs. No cyanosis. No clubbing. No calf tenderness. SKIN: Warm and dry. Normal capillary refill. No rashes. No jaundice. NEUROLOGICAL: Alert, awake, appropriate. Cranial nerves 2-12 intact. Normal speech. Gait is normal without ataxia. PSYCHIATRIC: Patient is a bit sad. Cooperative. Good eye contact. Appropriate mood and affect. - LABORATORY CBC & Chemistry Diagram: CBCD WBC 5.8 K/mm3 (4.0-10.0) 04/10/18 07:00 RBC 4.32 M/mm3 (3.60-5.2) 04/10/18 07:00 Hgb 14.1 GM/dL (10.7-15.3) 04/10/18 07:00 Hct 41.2 % (32.4-45.2) 04/10/18 07:00 MCV 95.2 fl (80-96) 04/10/18 07:00 MCHC 34.2 g/dl (32.0-36.0) 04/10/18 07:00 RDW 14.9 % (11.6-15.6) 04/10/18 07:00 Plt Count 152 K/MM3 (134-434) 04/10/18 07:00 MPV 9.1 fl (7.5-11.1) 04/10/18 07:00 CMP Sodium 144 mmol/L (136-145) 04/11/18 05:15 Potassium 3.1 mmol/L (3.5-5.1) L 04/11/18 05:15 Chloride 105 mmol/L (98-107) 04/11/18 05:15 Carbon Dioxide 32 mmol/L (21-32) 04/11/18 05:15 Anion Gap 8 MMOL/L (8-16) 04/11/18 05:15 BUN 13 mg/dL (7-18) 04/11/18 05:15 Creatinine 0.8 mg/dL (0.55-1.3) 04/11/18 05:15 Creat Clearance w eGFR > 60 (>60) 04/11/18 05:15 Random Glucose 87 mg/dL (74-106) 04/11/18 05:15 Calcium 8.2 mg/dL (8.5-10.1) L 04/11/18 05:15 Total Bilirubin 1.0 mg/dL (0.2-1) 04/10/18 07:00 AST 45 U/L (15-37) H 04/10/18 07:00 ALT 60 U/L (13-61) 04/10/18 07:00 Alkaline Phosphatase 118 U/L (45-117) H 04/10/18 07:00 Total Protein 5.4 g/dl (6.4-8.2) L 04/10/18 07:00 Albumin 2.7 g/dl (3.4-5.0) L 04/10/18 07:00 CARDIAC ENZYMES Creatine Kinase 308 U/L (26-192) H 04/09/18 06:22 Troponin I 0.03 ng/ml (0.00-0.05) 04/09/18 06:22 Diagnostics: Vascular study - completed Ultrasound Limited - completed Plan/Assessment 88 yo F w a pmh of CHF (diastolic), CAD, A-fib, Mitral Insufficiency (moderate to severe mitral regurgitation), HTN, seizure disorder, DM, previous SC, PNA, chronic low back pain, and osteoarthritis presents to the ER sent from Dr. Dow's office on day of admission. The patient reported that they took a fingerstick blood measurement at Dr. Dow's office which showed her INR was subtherapeutic considering she takes warfarin for permanent anticoagulation. She stated that her blood pressure was also elevated at Dr. Dow's office. Stated she has generally been compliant with taking her meds but did not take her medications today because she was going to the doctors office and planned on taking them when she got home. The patient endorsed generalized fatigue over the past few weeks as well as SOB, worsening dyspnea on exertion and bilateral leg swelling. The patient also states that her urine has been very dark recently and has a very funky abnormal smell to it, however she denies dysuria, frequency, or urgency. Dilantin level 2.3 subtheraputic but no seizure activity. On Dilantin 300mg daily. On further questioning, last time she had seizure like event was reportedly 12 years ago and she reports maintaining consciousness. Dr. Rm is her neurologist and has been following her and continues current regiment, which we will continue as inpatient. She was in agreement. Medication compliance recommended. Can repeat level in 4 weeks or sooner if clinically indicated.
[2018-04-11] MEDS: WARFARIN NA 3 MG TABLET PO SCH (17:24)
[2018-04-11] MEDS: ARFORMOTEROL TARTRATE 15 MCG/2 ML VIAL NEB SCH (20:46)
[2018-04-11] MEDS: LATANOPROST 0.005% OPHTH SOLN 2.5ML BOTTLE OD SCH (22:23)
[2018-04-12] MEDS: FUROSEMIDE 40 MG/4 ML INJECTABLE VIAL IVPUSH SCH ×2 (06:25→13:03)
[2018-04-12 07:33] LABS: HEMATOCRIT 41.6 % (32.4-45.2); HEMOGLOBIN 14.2 GM/dL (10.7-15.3); MCH 32.7 pg (25.7-33.7); MCHC 34.2 g/dl (32.0-36.0); MEAN CELL VOLUME 95.7 fl (80-96); MEAN PLT VOLUME 9.4 fl (7.5-11.1); PLATELET COUNT 145 K/MM3 (134-434); RBC 4.35 M/mm3 (3.60-5.2); RDW 14.7 % (11.6-15.6); WHITE BLOOD COUNT 5.4 K/mm3 (4.0-10.0)
[2018-04-12 07:48] LABS: ANION GAP 7 MMOL/L (8-16); BLOOD UREA NITROGEN 14 mg/dL (7-18); CALCIUM 8.4 mg/dL (8.5-10.1); CHLORIDE 103 mmol/L (98-107); CO2 33 mmol/L (21-32); CREATININE 0.8 mg/dL (0.55-1.3); GLUCOSE,RANDOM 88 mg/dL (74-106); POTASSIUM 3.2 mmol/L (3.5-5.1); SODIUM 143 mmol/L (136-145)
[2018-04-12] MEDS: ARFORMOTEROL TARTRATE 15 MCG/2 ML VIAL NEB SCH ×2 (07:56→20:03)
[2018-04-12 08:09] LABS: INR 2.09 (0.83-1.09); PROTHROMBIN TIME (PATIENT) 24.9 SEC (9.7-13.0)
--- NOTE | 2018-04-12 09:54 | PN ---
Progress Note, Physician - Current Medication List Current Medications: Active Medications Acetaminophen (Tylenol -) 650 mg PO Q6H PRN PRN Reason: PAIN OR FEVER Arformoterol Tartrate (Brovana (Restricted To Pulmonology/Resp) -) 1 amp NEB RBID [facility] Last Admin: 04/12/18 07:56 Dose: 1 amp Furosemide (Lasix Injection -) 40 mg IVPUSH BIDLASIX [facility] Last Admin: 04/12/18 06:25 Dose: 40 mg Latanoprost (Xalatan 0.005% Eye Drops -) 1 drop OD HS [facility] Last Admin: 04/11/18 22:23 Dose: 1 drop Losartan Potassium (Cozaar -) 100 mg PO DAILY [facility] Last Admin: 04/11/18 10:34 Dose: 100 mg Metoprolol Tartrate (Lopressor -) 100 mg PO BID [facility] Last Admin: 04/11/18 22:23 Dose: 100 mg Phenytoin Sodium (Dilantin -) 300 mg PO DAILY [facility] Last Admin: 04/11/18 10:35 Dose: 300 mg Potassium Chloride (K-Dur -) 20 meq PO DAILY [facility] Last Admin: 04/11/18 10:34 Dose: Not Given Warfarin Sodium (Coumadin -) 6 mg PO DAILY@1800 [facility] Last Admin: 04/11/18 17:24 Dose: 6 mg - Objective Vital Signs: Vital Signs Temperature 97.7 F 04/12/18 06:00 Pulse Rate 102 H 04/12/18 06:00 Respiratory Rate 18 04/12/18 06:00 Blood Pressure 158/98 04/12/18 06:00 O2 Sat by Pulse Oximetry (%) 95 04/11/18 21:00 Cardiovascular: Yes: S1, S2 Respiratory: Yes: Regular, CTA Bilaterally Edema: Yes Edema: LLE: 2+, RLE: 2+ Labs: CBC, BMP 04/12/18 05:25 04/12/18 05:25 INR, PTT INR 2.09 (0.83-1.09) H 04/12/18 05:25 Problem List - Problems (1) Acute exacerbation of CHF (congestive heart failure) Assessment/Plan: tele daily weight echo noted monitor lytes iv lasix 40mg bid elevated lft secondary to hepatic congestion will monitor check liver sono noted right pleural effusion and irregularity of hepatic surface Code(s): I50.9 - HEART FAILURE, UNSPECIFIED Qualifiers: Heart failure type: diastolic Qualified Code(s): I50.33 - Acute on chronic diastolic (congestive) heart failure (2) Atrial fibrillation Assessment/Plan: Coumadin- metoprolol monitor inr Code(s): I48.91 - UNSPECIFIED ATRIAL FIBRILLATION
[2018-04-12] MEDS: METOPROLOL TARTRATE 50 MG TABLET (FP) PO SCH ×2 (10:14→22:05)
[2018-04-12] MEDS: LOSARTAN POTASSIUM 50 MG TABLET (FP) PO SCH (10:14)
[2018-04-12] MEDS: PHENYTOIN NA EXTENDED 100 MG CAPSULE (FP) PO SCH (10:15)
[2018-04-12] MEDS: POTASSIUM CHLORIDE TABS 20 MEQ TABLET.ER (FP) PO SCH (10:15)
--- NOTE | 2018-04-12 14:29 | PN ---
Progress Note, Physician Chief Complaint: Diuresing but still overloaded Afib with HR 80-120 no pauses History of Present Illness: 88 F with Afib on AC, DM, HLD, with previous heart failure admissions. She has noted 2 weeks of increased swelling of her legs and increased dyspnea with effort. Noted to have rapid Afib and sings of volume overload which have improved after medications were started. She reports compliance with medications although not compliant with dietary sodium restriction. Moderate MR and TR on echo. Heart failure with preserved EF and rapid Afib. - Current Medication List Current Medications: Active Medications Acetaminophen (Tylenol -) 650 mg PO Q6H PRN PRN Reason: PAIN OR FEVER Arformoterol Tartrate (Brovana (Restricted To Pulmonology/Resp) -) 1 amp NEB RBID [facility] Last Admin: 04/12/18 07:56 Dose: 1 amp Furosemide (Lasix Injection -) 40 mg IVPUSH BIDLASIX [facility] Last Admin: 04/12/18 13:03 Dose: 40 mg Latanoprost (Xalatan 0.005% Eye Drops -) 1 drop OD HS [facility] Last Admin: 04/11/18 22:23 Dose: 1 drop Losartan Potassium (Cozaar -) 100 mg PO DAILY [facility] Last Admin: 04/12/18 10:14 Dose: 100 mg Metoprolol Tartrate (Lopressor -) 100 mg PO BID [facility] Last Admin: 04/12/18 10:14 Dose: 100 mg Phenytoin Sodium (Dilantin -) 300 mg PO DAILY [facility] Last Admin: 04/12/18 10:15 Dose: 300 mg Potassium Chloride (K-Dur -) 20 meq PO DAILY [facility] Last Admin: 04/12/18 10:15 Dose: 20 meq Warfarin Sodium (Coumadin -) 6 mg PO DAILY@1800 [facility] Last Admin: 04/11/18 17:24 Dose: 6 mg - Objective Vital Signs: Vital Signs Temperature 97.5 F L 04/12/18 10:00 Pulse Rate 109 H 04/12/18 10:00 Respiratory Rate 18 04/12/18 10:00 Blood Pressure 157/99 04/12/18 10:00 O2 Sat by Pulse Oximetry (%) 95 04/12/18 09:00 Constitutional: Yes: No Distress Neck: Yes: Supple Cardiovascular: Yes: JVD, S1, S2. No: Regular Rate and Rhythm Respiratory: Yes: Rales (bibasilar) Gastrointestinal: Yes: Soft Edema: Yes Edema: LLE: 1+, RLE: 1+ Labs: CBC, BMP 04/12/18 05:25 04/12/18 05:25 INR, PTT INR 2.09 (0.83-1.09) H 04/12/18 05:25 Assessment/Plan 88 F with Afib on AC, DM, HLD, with previous heart failure admissions. She has noted 2 weeks of increased swelling of her legs and increased dyspnea with effort. Noted to have rapid Afib and sings of volume overload which have improved after medications were started. She reports compliance with medications although not compliant with dietary sodium restriction. Moderate MR and TR on echo. Heart failure with preserved EF and rapid Afib. 1. CHF due to HFpEF: Continue on Lasix 40 mg IV bid Following Wt's/Lytes/I's/O's Continue BB/ARB Replete K 2. Afib. Continue BB for rate control. Increase metoprolol to 125mg q12 Continue Coumadin to an INR goal of 2 - 3
--- NOTE | 2018-04-12 16:40 | PN ---
Progress Note (short form) - Note Progress Note: NEUROLOGY PROGRESS Dr. Setwart's coverage consult is greatly appreciated. This 88 YO RH woman lives alone. 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 Was on Dilantin 200 q 12 hrs for many years but recently reduced during last hospitalization for confusion and unsteadiness. Remains seizure free on Dilantin 300 mg/day. Now admitted with leg swelling, improved with diuresis. Non-focal exam. Normal MS/speech. No nystagmus or dystaxia. IMP: Seizure disorder. Brain tumor/ meningioma. SUGGEST: Continue Dilantin 300 mg QHS OK to D/C to home. Neuro f/u as out patient. Thank you very much, Laci Rm MD
[2018-04-12] MEDS: WARFARIN NA 3 MG TABLET PO SCH (17:28)
[2018-04-12] MEDS: LATANOPROST 0.005% OPHTH SOLN 2.5ML BOTTLE OD SCH (22:05)
[2018-04-13] MEDS: FUROSEMIDE 40 MG/4 ML INJECTABLE VIAL IVPUSH SCH ×2 (06:54→13:02)
--- NOTE | 2018-04-13 08:37 | PN ---
Progress Note, Physician - Current Medication List Current Medications: Active Medications Acetaminophen (Tylenol -) 650 mg PO Q6H PRN PRN Reason: PAIN OR FEVER Arformoterol Tartrate (Brovana (Restricted To Pulmonology/Resp) -) 1 amp NEB RBID [facility] Last Admin: 04/12/18 20:03 Dose: 1 amp Furosemide (Lasix Injection -) 40 mg IVPUSH BIDLASIX [facility] Last Admin: 04/13/18 06:54 Dose: 40 mg Latanoprost (Xalatan 0.005% Eye Drops -) 1 drop OD HS [facility] Last Admin: 04/12/18 22:05 Dose: 1 drop Losartan Potassium (Cozaar -) 100 mg PO DAILY [facility] Last Admin: 04/12/18 10:14 Dose: 100 mg Metoprolol Tartrate (Lopressor -) 100 mg PO BID [facility] Last Admin: 04/12/18 22:05 Dose: 100 mg Phenytoin Sodium (Dilantin -) 300 mg PO DAILY [facility] Last Admin: 04/12/18 10:15 Dose: 300 mg Potassium Chloride (K-Dur -) 20 meq PO DAILY [facility] Last Admin: 04/12/18 10:15 Dose: 20 meq Warfarin Sodium (Coumadin -) 6 mg PO DAILY@1800 [facility] Last Admin: 04/12/18 17:28 Dose: 6 mg - Objective Vital Signs: Vital Signs Temperature 97.8 F 04/13/18 06:00 Pulse Rate 84 04/13/18 06:00 Respiratory Rate 20 04/13/18 06:00 Blood Pressure 167/107 H 04/13/18 06:00 O2 Sat by Pulse Oximetry (%) 96 04/12/18 21:00 Cardiovascular: Yes: S1, S2 Respiratory: Yes: Regular, CTA Bilaterally Gastrointestinal: Yes: Normal Bowel Sounds, Soft Edema: Yes Labs: CBC, BMP 04/12/18 05:25 04/12/18 05:25 INR, PTT INR 2.09 (0.83-1.09) H 04/12/18 05:25 Problem List - Problems (1) Acute exacerbation of CHF (congestive heart failure) Assessment/Plan: tele daily weight echo noted monitor lytes iv lasix 40mg bid elevated lft secondary to hepatic congestion will monitor check liver sono noted right pleural effusion and irregularity of hepatic surface Code(s): I50.9 - HEART FAILURE, UNSPECIFIED Qualifiers: Qualified Code(s): I50.33 - Acute on chronic diastolic (congestive) heart failure (2) Atrial fibrillation Assessment/Plan: Coumadin- metoprolol increase to 125 bid monitor inr INR, PTT INR 2.09 (0.83-1.09) H 04/12/18 05:25 Code(s): I48.91 - UNSPECIFIED ATRIAL FIBRILLATION
[2018-04-13] MEDS: ARFORMOTEROL TARTRATE 15 MCG/2 ML VIAL NEB SCH ×2 (08:50→21:10)
[2018-04-13] MEDS ORDERED: METOPROLOL TARTRATE 50 MG TABLET (FP) PO SCH (09:58)
--- NOTE | 2018-04-13 10:01 | PN ---
Progress Note, Physician Chief Complaint: The patient appears comfortable at the time of exam. She reports no palpitation , SOB at rest or chest pain. Tele shows persistent atrial fibrillation with episodes of rapid VR, up to 120s BPM. History of Present Illness: 88 year-old woman with chronic Afib on AC, DM, HLD and chronic diastolic CHF, with previous heart failure admissions readmitted with 2 weeks of increased swelling of her legs and worsening dyspnea with effort. Noted to have rapid Afib and signs of volume overload which have improved after medications were started. - Current Medication List Current Medications: Active Medications Acetaminophen (Tylenol -) 650 mg PO Q6H PRN PRN Reason: PAIN OR FEVER Arformoterol Tartrate (Brovana (Restricted To Pulmonology/Resp) -) 1 amp NEB RBID [facility] Last Admin: 04/12/18 20:03 Dose: 1 amp Furosemide (Lasix Injection -) 40 mg IVPUSH BIDLASIX [facility] Last Admin: 04/13/18 06:54 Dose: 40 mg Latanoprost (Xalatan 0.005% Eye Drops -) 1 drop OD HS [facility] Last Admin: 04/12/18 22:05 Dose: 1 drop Losartan Potassium (Cozaar -) 100 mg PO DAILY [facility] Last Admin: 04/12/18 10:14 Dose: 100 mg Metoprolol Tartrate (Lopressor -) 100 mg PO BID [facility] Last Admin: 04/12/18 22:05 Dose: 100 mg Phenytoin Sodium (Dilantin -) 300 mg PO DAILY [facility] Last Admin: 04/12/18 10:15 Dose: 300 mg Potassium Chloride (K-Dur -) 20 meq PO DAILY [facility] Last Admin: 04/12/18 10:15 Dose: 20 meq Warfarin Sodium (Coumadin -) 6 mg PO DAILY@1800 [facility] Last Admin: 04/12/18 17:28 Dose: 6 mg - Objective Vital Signs: Vital Signs Temperature 97.8 F 04/13/18 06:00 Pulse Rate 84 04/13/18 06:00 Respiratory Rate 20 04/13/18 06:00 Blood Pressure 167/107 H 04/13/18 06:00 O2 Sat by Pulse Oximetry (%) 96 04/12/18 21:00 General: Well developed. Well nourished. No acute distress. Head: Normocephalic. Atraumatic, Eyes: PERRLA, EOMI. Sclerae anicteric. Conjunctivae clear. Neck: Supple. No JVD. No bruits. Heart: Normal S1, S2: Irregular rhythm and tachycardia. No murmur. No gallop or rub. Lungs: Symmetrical air entry. Clear to auscultation. No crackles. No wheezing or rhonchi. Abdomen: Soft. Bowel sound positive. Non tender. No masses. Extremities: 1+ edema. No clubbing or cyanosis. PD 2+, equal bilaterally. Neuro: Intact, no focal findings. AAO X3. Labs: CBC, BMP 04/12/18 05:25 04/12/18 05:25 INR, PTT INR 2.09 (0.83-1.09) H 04/12/18 05:25 Assessment/Plan 88 year-old woman with chronic Afib on AC, DM, HLD and chronic diastolic CHF, with previous heart failure admissions readmitted with 2 weeks of increased swelling of her legs and worsening dyspnea with effort. Noted to have rapid Afib and signs of volume overload which have improved after medications were started. 1. Acute on chronic diastolic CHF: Improved dyspnea with clear lungs. But still has significant leg edema. Continue on Lasix 40 mg IV bid Following Wt's/Lytes/I's/O's Continue BB/ARB Replete K 2. Persistent Afib with episodes of rapid VR. Increase metoprolol tartrate to 150 mg BID for better VR control. Continue Coumadin to an INR goal of 2 - 3 3) HTN: BP is elevated. Increase metoprolol tartrate to 150 mg BID.
[2018-04-13] MEDS: PHENYTOIN NA EXTENDED 100 MG CAPSULE (FP) PO SCH (10:13)
[2018-04-13] MEDS: POTASSIUM CHLORIDE TABS 20 MEQ TABLET.ER (FP) PO SCH (10:14)
[2018-04-13] MEDS: LOSARTAN POTASSIUM 50 MG TABLET (FP) PO SCH (10:15)
[2018-04-13] MEDS ORDERED: METOPROLOL TARTRATE 25 MG TABLET (FP) ONE ×2 (12:14→20:47)
[2018-04-13] MEDS: METOPROLOL TARTRATE 100 MG, METOPROLOL TARTRATE 25 MG PO SCH ×2 (12:17→21:11)
[2018-04-13] MEDS: hydrALAZINE HCL 25 MG TABLET (FP) PO SCH ×2 (13:02→21:12)
[2018-04-13 14:41] LABS: INR 2.42 (0.83-1.09); PROTHROMBIN TIME (PATIENT) 28.8 SEC (9.7-13.0)
[2018-04-13] MEDS: WARFARIN NA 3 MG TABLET PO SCH (18:03)
[2018-04-13] MEDS ORDERED: METOPROLOL TARTRATE 50 MG TABLET (FP) ONE (20:47)
[2018-04-13] MEDS: LATANOPROST 0.005% OPHTH SOLN 2.5ML BOTTLE OD SCH (21:12)
[2018-04-14] MEDS: FUROSEMIDE 40 MG/4 ML INJECTABLE VIAL IVPUSH SCH ×2 (05:59→13:00)
[2018-04-14] MEDS: hydrALAZINE HCL 25 MG TABLET (FP) PO SCH ×3 (05:59→21:11)
[2018-04-14] MEDS: ARFORMOTEROL TARTRATE 15 MCG/2 ML VIAL NEB SCH ×2 (07:30→20:38)
[2018-04-14] MEDS ORDERED: METOPROLOL TARTRATE 25 MG TABLET (FP) ONE (09:46)
[2018-04-14] MEDS ORDERED: PT OWN MED DRAWER 7, Y5N ONE (09:47)
[2018-04-14] MEDS ORDERED: METOPROLOL TARTRATE 50 MG TABLET (FP) ONE (09:47)
[2018-04-14] MEDS: PHENYTOIN NA EXTENDED 100 MG CAPSULE (FP) PO SCH (09:49)
[2018-04-14] MEDS: POTASSIUM CHLORIDE TABS 20 MEQ TABLET.ER (FP) PO SCH (09:49)
[2018-04-14] MEDS: LOSARTAN POTASSIUM 50 MG TABLET (FP) PO SCH (09:50)
[2018-04-14] MEDS: METOPROLOL TARTRATE 100 MG, METOPROLOL TARTRATE 25 MG PO SCH (09:50)
[2018-04-14] MEDS ORDERED: METOPROLOL TARTRATE 100 MG, METOPROLOL TARTRATE 25 MG PO SCH (10:00)
--- NOTE | 2018-04-14 11:46 | PN ---
Progress Note, Physician - Current Medication List Current Medications: Active Medications Acetaminophen (Tylenol -) 650 mg PO Q6H PRN PRN Reason: PAIN OR FEVER Arformoterol Tartrate (Brovana (Restricted To Pulmonology/Resp) -) 1 amp NEB RBID [facility] Last Admin: 04/14/18 07:30 Dose: 1 amp Furosemide (Lasix Injection -) 40 mg IVPUSH BIDLASIX [facility] Last Admin: 04/14/18 05:59 Dose: 40 mg Hydralazine HCl (Apresoline -) 25 mg PO TID [facility] Last Admin: 04/14/18 05:59 Dose: 25 mg Latanoprost (Xalatan 0.005% Eye Drops -) 1 drop OD HS [facility] Last Admin: 04/13/18 21:12 Dose: 1 drop Losartan Potassium (Cozaar -) 100 mg PO DAILY [facility] Last Admin: 04/14/18 09:50 Dose: 100 mg Metoprolol Tartrate 100 mg/ (Metoprolol Tartrate 25 mg) 125 mg PO BID [facility] Last Admin: 04/14/18 09:50 Dose: 125 mg Phenytoin Sodium (Dilantin -) 300 mg PO DAILY [facility] Last Admin: 04/14/18 09:49 Dose: 300 mg Potassium Chloride (K-Dur -) 20 meq PO DAILY [facility] Last Admin: 04/14/18 09:49 Dose: 20 meq Warfarin Sodium (Coumadin -) 6 mg PO DAILY@1800 [facility] Last Admin: 04/13/18 18:03 Dose: 6 mg - Objective Vital Signs: Vital Signs Temperature 97 F L 04/14/18 08:30 Pulse Rate 105 H 04/14/18 08:30 Respiratory Rate 16 04/14/18 08:30 Blood Pressure 127/74 04/14/18 08:30 O2 Sat by Pulse Oximetry (%) 96 04/14/18 08:30 Cardiovascular: Yes: Tachycardia, Pulse Irregular, S1, S2 Respiratory: Yes: Regular, CTA Bilaterally Edema: Yes Labs: CBC, BMP 04/12/18 05:25 04/12/18 05:25 INR, PTT INR 2.42 (0.83-1.09) H 04/13/18 13:52 Problem List - Problems (1) Acute exacerbation of CHF (congestive heart failure) Assessment/Plan: tele daily weight echo noted monitor lytes iv lasix 40mg bid elevated lft secondary to hepatic congestion will monitor check liver sono noted right pleural effusion and irregularity of hepatic surface Code(s): I50.9 - HEART FAILURE, UNSPECIFIED Qualifiers: Heart failure type: diastolic Qualified Code(s): I50.33 - Acute on chronic diastolic (congestive) heart failure (2) Atrial fibrillation Assessment/Plan: Coumadin- metoprolol increase to 150 bid monitor inr INR, PTT INR 2.09 (0.83-1.09) H 04/12/18 05:25 Code(s): I48.91 - UNSPECIFIED ATRIAL FIBRILLATION
--- NOTE | 2018-04-14 13:34 | PN ---
Progress Note, Physician Chief Complaint: No complaints Afib VR 80-130 History of Present Illness: 88 F with Afib on AC, DM, HLD, with previous heart failure admissions. She has noted 2 weeks of increased swelling of her legs and increased dyspnea with effort. Noted to have rapid Afib and sings of volume overload which have improved after medications were started. She reports compliance with medications although not compliant with dietary sodium restriction. Moderate MR and TR on echo. Heart failure with preserved EF and rapid Afib. - Current Medication List Current Medications: Active Medications Acetaminophen (Tylenol -) 650 mg PO Q6H PRN PRN Reason: PAIN OR FEVER Arformoterol Tartrate (Brovana (Restricted To Pulmonology/Resp) -) 1 amp NEB RBID [facility] Last Admin: 04/14/18 07:30 Dose: 1 amp Furosemide (Lasix Injection -) 40 mg IVPUSH BIDLASIX [facility] Last Admin: 04/14/18 05:59 Dose: 40 mg Hydralazine HCl (Apresoline -) 25 mg PO TID [facility] Last Admin: 04/14/18 05:59 Dose: 25 mg Latanoprost (Xalatan 0.005% Eye Drops -) 1 drop OD HS [facility] Last Admin: 04/13/18 21:12 Dose: 1 drop Losartan Potassium (Cozaar -) 100 mg PO DAILY [facility] Last Admin: 04/14/18 09:50 Dose: 100 mg Metoprolol Tartrate (Lopressor -) 150 mg PO BID [facility] Phenytoin Sodium (Dilantin -) 300 mg PO DAILY [facility] Last Admin: 04/14/18 09:49 Dose: 300 mg Potassium Chloride (K-Dur -) 20 meq PO DAILY [facility] Last Admin: 04/14/18 09:49 Dose: 20 meq Warfarin Sodium (Coumadin -) 6 mg PO DAILY@1800 [facility] Last Admin: 04/13/18 18:03 Dose: 6 mg - Objective Vital Signs: Vital Signs Temperature 97 F L 04/14/18 08:30 Pulse Rate 105 H 04/14/18 08:30 Respiratory Rate 16 04/14/18 08:30 Blood Pressure 127/74 04/14/18 08:30 O2 Sat by Pulse Oximetry (%) 96 04/14/18 08:30 Constitutional: Yes: No Distress Neck: Yes: Supple Cardiovascular: Yes: Tachycardia, Pulse Irregular, S1, S2 Respiratory: Yes: CTA Bilaterally Gastrointestinal: Yes: Soft Edema: LLE: 1+, RLE: 1+ Labs: CBC, BMP 04/12/18 05:25 04/12/18 05:25 INR, PTT INR 2.42 (0.83-1.09) H 04/13/18 13:52 Assessment/Plan 88 year-old woman with chronic Afib on AC, DM, HLD and chronic diastolic CHF, with previous heart failure admissions readmitted with 2 weeks of increased swelling of her legs and worsening dyspnea with effort. Noted to have rapid Afib and signs of volume overload which have improved after medications were started. 1. Acute on chronic diastolic CHF: Improved dyspnea with clear lungs. But still has significant leg edema. Continue on Lasix 40 mg IV bid Following Wt's/Lytes/I's/O's Continue BB/ARB Replete K and monitor closely 2. Persistent Afib with episodes of rapid VR. Increase metoprolol tartrate to 150 mg BID for better VR control. Continue Coumadin to an INR goal of 2 - 3 3) HTN: Increase metoprolol tartrate to 150 mg BID.
[2018-04-14] MEDS ORDERED: POTASSIUM CHLORIDE TABS 20 MEQ TABLET.ER (FP) PO ONE (14:45)
[2018-04-14] MEDS: METOPROLOL TARTRATE 50 MG TABLET (FP) PO SCH (21:11)
[2018-04-14] MEDS: LATANOPROST 0.005% OPHTH SOLN 2.5ML BOTTLE OD SCH (21:13)
[2018-04-15] MEDS: FUROSEMIDE 40 MG/4 ML INJECTABLE VIAL IVPUSH SCH ×2 (05:57→15:47)
[2018-04-15] MEDS: hydrALAZINE HCL 25 MG TABLET (FP) PO SCH ×3 (05:58→21:16)
[2018-04-15 07:30] LABS: INR 1.85 (0.83-1.09)
[2018-04-15 07:41] LABS: ANION GAP 8 MMOL/L (8-16); BLOOD UREA NITROGEN 16 mg/dL (7-18); CALCIUM 8.2 mg/dL (8.5-10.1); CHLORIDE 105 mmol/L (98-107); CO2 31 mmol/L (21-32); CREATININE 0.8 mg/dL (0.55-1.3); GLUCOSE,RANDOM 93 mg/dL (74-106); POTASSIUM 3.5 mmol/L (3.5-5.1); SODIUM 143 mmol/L (136-145)
[2018-04-15] MEDS: ARFORMOTEROL TARTRATE 15 MCG/2 ML VIAL NEB SCH ×2 (08:00→20:20)
[2018-04-15] MEDS ORDERED: PT OWN MED DRAWER 7, Y5N ONE (09:50)
[2018-04-15] MEDS: METOPROLOL TARTRATE 50 MG TABLET (FP) PO SCH ×2 (10:42→21:16)
[2018-04-15] MEDS: POTASSIUM CHLORIDE TABS 10 MEQ TABLET.ER (FP) PO SCH (10:45)
[2018-04-15] MEDS: PHENYTOIN NA EXTENDED 100 MG CAPSULE (FP) PO SCH (10:45)
[2018-04-15] MEDS: LOSARTAN POTASSIUM 50 MG TABLET (FP) PO SCH (10:47)
--- NOTE | 2018-04-15 12:11 | PN ---
Progress Note, Physician Chief Complaint: LE edema improving Afib with HR's improving History of Present Illness: 88 F with Afib on AC, DM, HLD, with previous heart failure admissions. She has noted 2 weeks of increased swelling of her legs and increased dyspnea with effort. Noted to have rapid Afib and sings of volume overload which have improved after medications were started. She reports compliance with medications although not compliant with dietary sodium restriction. Moderate MR and TR on echo. Heart failure with preserved EF and rapid Afib. - Current Medication List Current Medications: Active Medications Acetaminophen (Tylenol -) 650 mg PO Q6H PRN PRN Reason: PAIN OR FEVER Arformoterol Tartrate (Brovana (Restricted To Pulmonology/Resp) -) 1 amp NEB RBID [facility] Last Admin: 04/15/18 08:00 Dose: 1 amp Furosemide (Lasix Injection -) 40 mg IVPUSH BIDLASIX [facility] Last Admin: 04/15/18 05:57 Dose: 40 mg Hydralazine HCl (Apresoline -) 25 mg PO TID [facility] Last Admin: 04/15/18 05:58 Dose: 25 mg Latanoprost (Xalatan 0.005% Eye Drops -) 1 drop OD HS [facility] Last Admin: 04/14/18 21:13 Dose: 1 drop Losartan Potassium (Cozaar -) 100 mg PO DAILY [facility] Last Admin: 04/15/18 10:47 Dose: 100 mg Metoprolol Tartrate (Lopressor -) 150 mg PO BID [facility] Last Admin: 04/15/18 10:42 Dose: 150 mg Phenytoin Sodium (Dilantin -) 300 mg PO DAILY [facility] Last Admin: 04/15/18 10:45 Dose: 300 mg Potassium Chloride (K-Dur -) 30 meq PO DAILY [facility] Last Admin: 04/15/18 10:45 Dose: 30 meq - Objective Vital Signs: Vital Signs Temperature 97.3 F L 04/15/18 10:00 Pulse Rate 108 H 04/15/18 10:00 Respiratory Rate 20 04/15/18 10:00 Blood Pressure 153/89 04/15/18 10:00 O2 Sat by Pulse Oximetry (%) 98 04/14/18 20:45 Constitutional: Yes: No Distress Neck: Yes: Supple Cardiovascular: Yes: Pulse Irregular, S1, S2 Respiratory: Yes: CTA Bilaterally Gastrointestinal: Yes: Soft Edema: LLE: 1+, RLE: 1+ Labs: CBC, BMP 04/12/18 05:25 04/15/18 06:00 INR, PTT INR 1.85 (0.83-1.09) H 04/15/18 06:00 Problem List - Problems (1) Acute exacerbation of CHF (congestive heart failure) Code(s): I50.9 - HEART FAILURE, UNSPECIFIED Qualifiers: Heart failure type: diastolic Qualified Code(s): I50.33 - Acute on chronic diastolic (congestive) heart failure (2) Atrial fibrillation Code(s): I48.91 - UNSPECIFIED ATRIAL FIBRILLATION Assessment/Plan 88 year-old woman with chronic Afib on AC, DM, HLD and chronic diastolic CHF, with previous heart failure admissions readmitted with 2 weeks of increased swelling of her legs and worsening dyspnea with effort. Noted to have rapid Afib and signs of volume overload which have improved after medications were started. 1. Acute on chronic diastolic CHF: Improved dyspnea with clear lungs. But still has significant leg edema. Continue on Lasix 40 mg IV bid as improving Following Wt's/Lytes/I's/O's Continue BB/ARB Monitor K closely 2. Persistent Afib with episodes of rapid VR. HR's improving on metoprolol tartrate 150 mg BID will continue for now. Continue Coumadin to an INR goal of 2 - 3 3) HTN: metoprolol tartrate 150 mg BID.
--- NOTE | 2018-04-15 12:28 | PN ---
Progress Note, Physician Chief Complaint: patient seen and examined on iv lasix bid weight down from 152 to 143 lbs - Current Medication List Current Medications: Active Medications Acetaminophen (Tylenol -) 650 mg PO Q6H PRN PRN Reason: PAIN OR FEVER Arformoterol Tartrate (Brovana (Restricted To Pulmonology/Resp) -) 1 amp NEB RBID [facility] Last Admin: 04/15/18 08:00 Dose: 1 amp Furosemide (Lasix Injection -) 40 mg IVPUSH BIDLASIX [facility] Last Admin: 04/15/18 05:57 Dose: 40 mg Hydralazine HCl (Apresoline -) 25 mg PO TID [facility] Last Admin: 04/15/18 05:58 Dose: 25 mg Latanoprost (Xalatan 0.005% Eye Drops -) 1 drop OD HS [facility] Last Admin: 04/14/18 21:13 Dose: 1 drop Losartan Potassium (Cozaar -) 100 mg PO DAILY [facility] Last Admin: 04/15/18 10:47 Dose: 100 mg Metoprolol Tartrate (Lopressor -) 150 mg PO BID [facility] Last Admin: 04/15/18 10:42 Dose: 150 mg Phenytoin Sodium (Dilantin -) 300 mg PO DAILY [facility] Last Admin: 04/15/18 10:45 Dose: 300 mg Potassium Chloride (K-Dur -) 30 meq PO DAILY [facility] Last Admin: 04/15/18 10:45 Dose: 30 meq - Objective Vital Signs: Vital Signs Temperature 97.3 F L 04/15/18 10:00 Pulse Rate 108 H 04/15/18 10:00 Respiratory Rate 20 04/15/18 10:00 Blood Pressure 153/89 04/15/18 10:00 O2 Sat by Pulse Oximetry (%) 98 04/14/18 20:45 Constitutional: Yes: Calm Cardiovascular: Yes: Pulse Irregular, S1, S2 Respiratory: Yes: CTA Bilaterally Edema: Yes Labs: CBC, BMP 04/12/18 05:25 04/15/18 06:00 INR, PTT INR 1.85 (0.83-1.09) H 04/15/18 06:00 Problem List - Problems (1) Acute exacerbation of CHF (congestive heart failure) Assessment/Plan: tele daily weight echo noted dr clayton tovar monitor lytes iv lasix 40mg bid \elevated lft secondary to hepatic congestion will monitor check liver sono noted right pleural effusion and irregularity of hepatic surface Code(s): I50.9 - HEART FAILURE, UNSPECIFIED Qualifiers: Heart failure type: diastolic Qualified Code(s): I50.33 - Acute on chronic diastolic (congestive) heart failure (2) Atrial fibrillation Assessment/Plan: couamdin- inc couamdin dose metoprolol dose increased monitor inr Code(s): I48.91 - UNSPECIFIED ATRIAL FIBRILLATION (3) Hypertension Assessment/Plan: losatan metoprolol Code(s): I10 - ESSENTIAL (PRIMARY) HYPERTENSION Qualifiers:
[2018-04-15 14:59] VITALS: BMI 27.9
[2018-04-15] MEDS ORDERED: WARFARIN NA 5 MG TABLET (UD) PO SCH ×2 (18:00)
[2018-04-15] MEDS: LATANOPROST 0.005% OPHTH SOLN 2.5ML BOTTLE OD SCH (21:17)
[2018-04-16] MEDS: FUROSEMIDE 40 MG/4 ML INJECTABLE VIAL IVPUSH SCH ×2 (06:14→14:25)
[2018-04-16] MEDS: hydrALAZINE HCL 25 MG TABLET (FP) PO SCH ×3 (06:15→22:29)
[2018-04-16] MEDS: ARFORMOTEROL TARTRATE 15 MCG/2 ML VIAL NEB SCH ×2 (07:52→20:10)
[2018-04-16 08:21] LABS: INR 1.24 (0.83-1.09); PROTHROMBIN TIME (PATIENT) 14.7 SEC (9.7-13.0)
[2018-04-16 08:57] LABS: ALBUMIN 3.3 g/dl (3.4-5.0); ALK PHOS 132 U/L (45-117); ANION GAP 7 MMOL/L (8-16); BILIRUBIN,TOTAL 1.2 mg/dL (0.2-1); BLOOD UREA NITROGEN 17 mg/dL (7-18); CALCIUM 8.8 mg/dL (8.5-10.1); CHLORIDE 102 mmol/L (98-107); CO2 31 mmol/L (21-32); CREATININE 0.8 mg/dL (0.55-1.3); GLUCOSE,RANDOM 101 mg/dL (74-106); POTASSIUM 3.7 mmol/L (3.5-5.1); SGOT/AST 39 U/L (15-37); SGPT/ALT 68 U/L (13-61); SODIUM 140 mmol/L (136-145); TOT PROT 6.5 g/dl (6.4-8.2)
[2018-04-16] MEDS: PHENYTOIN NA EXTENDED 100 MG CAPSULE (FP) PO SCH (09:40)
[2018-04-16] MEDS: LOSARTAN POTASSIUM 50 MG TABLET (FP) PO SCH (09:41)
[2018-04-16] MEDS: POTASSIUM CHLORIDE TABS 10 MEQ TABLET.ER (FP) PO SCH (09:41)
[2018-04-16] MEDS: METOPROLOL TARTRATE 50 MG TABLET (FP) PO SCH ×2 (09:41→22:29)
--- NOTE | 2018-04-16 13:51 | PN ---
Progress Note, Physician Chief Complaint: Feels better Anxious to go home History of Present Illness: 88 F with Afib on AC, DM, HLD, with previous heart failure admissions. She has noted 2 weeks of increased swelling of her legs and increased dyspnea with effort. Noted to have rapid Afib and sings of volume overload which have improved after medications were started. She reports compliance with medications although not compliant with dietary sodium restriction. Moderate MR and TR on echo. Heart failure with preserved EF and rapid Afib. - Current Medication List Current Medications: Active Medications Acetaminophen (Tylenol -) 650 mg PO Q6H PRN PRN Reason: PAIN OR FEVER Arformoterol Tartrate (Brovana (Restricted To Pulmonology/Resp) -) 1 amp NEB RBID [facility] Last Admin: 04/16/18 07:52 Dose: 1 amp Furosemide (Lasix Injection -) 40 mg IVPUSH BIDLASIX [facility] Last Admin: 04/16/18 06:14 Dose: 40 mg Hydralazine HCl (Apresoline -) 25 mg PO TID [facility] Last Admin: 04/16/18 06:15 Dose: 25 mg Latanoprost (Xalatan 0.005% Eye Drops -) 1 drop OD HS [facility] Last Admin: 04/15/18 21:17 Dose: 1 drop Losartan Potassium (Cozaar -) 100 mg PO DAILY [facility] Last Admin: 04/16/18 09:41 Dose: 100 mg Metoprolol Tartrate (Lopressor -) 150 mg PO BID [facility] Last Admin: 04/16/18 09:41 Dose: 150 mg Phenytoin Sodium (Dilantin -) 300 mg PO DAILY [facility] Last Admin: 04/16/18 09:40 Dose: 300 mg Potassium Chloride (K-Dur -) 30 meq PO DAILY [facility] Last Admin: 04/16/18 09:41 Dose: 30 meq Warfarin Sodium (Coumadin -) 5 mg PO DAILY@1800 [facility] Last Admin: 04/15/18 17:16 Dose: 5 mg - Objective Vital Signs: Vital Signs Temperature 97.6 F 04/16/18 05:24 Pulse Rate 96 H 04/16/18 05:24 Respiratory Rate 18 04/16/18 05:24 Blood Pressure 150/98 04/16/18 05:24 O2 Sat by Pulse Oximetry (%) 98 04/14/18 20:45 Constitutional: Yes: No Distress Neck: Yes: Supple Cardiovascular: Yes: Pulse Irregular, S1, S2 Respiratory: Yes: CTA Bilaterally Gastrointestinal: Yes: Soft Edema: LLE: 1+, RLE: 1+ Labs: CBC, BMP 04/12/18 05:25 04/16/18 06:25 INR, PTT INR 1.24 (0.83-1.09) H 04/16/18 06:25 Problem List - Problems (1) Acute exacerbation of CHF (congestive heart failure) Code(s): I50.9 - HEART FAILURE, UNSPECIFIED Qualifiers: Heart failure type: diastolic Qualified Code(s): I50.33 - Acute on chronic diastolic (congestive) heart failure (2) Atrial fibrillation Code(s): I48.91 - UNSPECIFIED ATRIAL FIBRILLATION Assessment/Plan 88 year-old woman with chronic Afib on AC, DM, HLD and chronic diastolic CHF, with previous heart failure admissions readmitted with 2 weeks of increased swelling of her legs and worsening dyspnea with effort. Noted to have rapid Afib and signs of volume overload which have improved after medications were started. 1. Acute on chronic diastolic CHF: Improved dyspnea with clear lungs. But still has significant leg edema. Continue on Lasix 40 mg IV bid as improving Following Wt's/Lytes/I's/O's Continue BB/ARB Monitor K closely Would change to furosemide 40mg PO bid this weekend. 2. Persistent Afib with episodes of rapid VR. HR's improving on metoprolol tartrate 150 mg BID but would like a little better control. At home reports was taking 200mg bid and tolerating. Would increase to 200mg bid. Continue Coumadin to an INR goal of 2 - 3. Adjust coumadin dose as needed based on INR. 3) HTN: metoprolol, losartan, and hydralazine. Increase metoprolol but if bp still elevated than increase hydralazine. Will sign off at this time.
--- NOTE | 2018-04-16 14:57 | PN ---
Progress Note, Physician Chief Complaint: patient seen and examined on iv lasix - Current Medication List Current Medications: Active Medications Acetaminophen (Tylenol -) 650 mg PO Q6H PRN PRN Reason: PAIN OR FEVER Arformoterol Tartrate (Brovana (Restricted To Pulmonology/Resp) -) 1 amp NEB RBID [facility] Last Admin: 04/16/18 07:52 Dose: 1 amp Furosemide (Lasix Injection -) 40 mg IVPUSH BIDLASIX [facility] Last Admin: 04/16/18 14:25 Dose: 40 mg Hydralazine HCl (Apresoline -) 25 mg PO TID [facility] Last Admin: 04/16/18 14:26 Dose: 25 mg Latanoprost (Xalatan 0.005% Eye Drops -) 1 drop OD HS [facility] Last Admin: 04/15/18 21:17 Dose: 1 drop Losartan Potassium (Cozaar -) 100 mg PO DAILY [facility] Last Admin: 04/16/18 09:41 Dose: 100 mg Metoprolol Tartrate (Lopressor -) 150 mg PO BID [facility] Last Admin: 04/16/18 09:41 Dose: 150 mg Phenytoin Sodium (Dilantin -) 300 mg PO DAILY [facility] Last Admin: 04/16/18 09:40 Dose: 300 mg Potassium Chloride (K-Dur -) 30 meq PO DAILY [facility] Last Admin: 04/16/18 09:41 Dose: 30 meq Warfarin Sodium (Coumadin -) 6 mg PO DAILY@1800 [facility] - Objective Vital Signs: Vital Signs Temperature 97.6 F 04/16/18 05:24 Pulse Rate 96 H 04/16/18 05:24 Respiratory Rate 18 04/16/18 05:24 Blood Pressure 150/98 04/16/18 05:24 O2 Sat by Pulse Oximetry (%) 98 04/14/18 20:45 Constitutional: Yes: Calm Cardiovascular: Yes: Regular Rate and Rhythm, S1, S2 Respiratory: Yes: CTA Bilaterally Gastrointestinal: Yes: Normal Bowel Sounds, Soft Edema: Yes Labs: CBC, BMP 04/12/18 05:25 04/16/18 06:25 INR, PTT INR 1.24 (0.83-1.09) H 04/16/18 06:25 Problem List - Problems (1) Acute exacerbation of CHF (congestive heart failure) Assessment/Plan: tele daily weight echo noted dr bradlow cardoloigy monitor lytes iv lasix 40mg bid- to change to po lasix 40mg bid from tmw \elevated lft secondary to hepatic congestion will monitor check liver sono noted right pleural effusion and irregularity of hepatic surface Code(s): I50.9 - HEART FAILURE, UNSPECIFIED Qualifiers: Heart failure type: diastolic Qualified Code(s): I50.33 - Acute on chronic diastolic (congestive) heart failure (2) Atrial fibrillation Assessment/Plan: couamdin- inc couamdin dose metoprolol dose increased from 150 to 200mg bid monitor inr Code(s): I48.91 - UNSPECIFIED ATRIAL FIBRILLATION (3) Hypertension Assessment/Plan: losatan metoprolol Code(s): I10 - ESSENTIAL (PRIMARY) HYPERTENSION Qualifiers:
[2018-04-16] MEDS ORDERED: WARFARIN NA 3 MG TABLET PO SCH (18:00)
[2018-04-16] MEDS ORDERED: PT OWN MED DRAWER 7, Y5N ONE (22:19)
[2018-04-16] MEDS: LATANOPROST 0.005% OPHTH SOLN 2.5ML BOTTLE OD SCH (22:31)
[2018-04-17 07:07] LABS: INR 1.29 (0.83-1.09); PROTHROMBIN TIME (PATIENT) 15.3 SEC (9.7-13.0)
[2018-04-17] MEDS: FUROSEMIDE 40 MG/4 ML INJECTABLE VIAL IVPUSH SCH (07:16)
[2018-04-17] MEDS: hydrALAZINE HCL 25 MG TABLET (FP) PO SCH (07:16)
[2018-04-17 07:17] LABS: ALK PHOS 119 U/L (45-117); ANION GAP 7 MMOL/L (8-16); BLOOD UREA NITROGEN 16 mg/dL (7-18); CALCIUM 8.3 mg/dL (8.5-10.1); CHLORIDE 104 mmol/L (98-107); CO2 29 mmol/L (21-32); CREATININE 0.7 mg/dL (0.55-1.3); GLUCOSE,RANDOM 106 mg/dL (74-106); MAGNESIUM 1.9 mg/dL (1.8-2.4); POTASSIUM 3.5 mmol/L (3.5-5.1); SGOT/AST 32 U/L (15-37); SGPT/ALT 53 U/L (13-61); SODIUM 140 mmol/L (136-145); TOT PROT 5.8 g/dl (6.4-8.2)
[2018-04-17] MEDS: ARFORMOTEROL TARTRATE 15 MCG/2 ML VIAL NEB SCH (07:49)
--- NOTE | 2018-04-17 08:56 | PN ---
Progress Note, Physician Chief Complaint: Acute on chronic diastolic heart failure History of Present Illness: NAD BLLE edema improving On IV furosemide Seen by Cardiology - Current Medication List Current Medications: Active Medications Acetaminophen (Tylenol -) 650 mg PO Q6H PRN PRN Reason: PAIN OR FEVER Arformoterol Tartrate (Brovana (Restricted To Pulmonology/Resp) -) 1 amp NEB RBID [facility] Last Admin: 04/17/18 07:49 Dose: 1 amp Furosemide (Lasix Injection -) 40 mg IVPUSH BIDLASIX [facility] Last Admin: 04/17/18 07:16 Dose: 40 mg Hydralazine HCl (Apresoline -) 25 mg PO TID [facility] Last Admin: 04/17/18 07:16 Dose: 25 mg Latanoprost (Xalatan 0.005% Eye Drops -) 1 drop OD HS [facility] Last Admin: 04/16/18 22:31 Dose: 1 drop Losartan Potassium (Cozaar -) 100 mg PO DAILY [facility] Last Admin: 04/16/18 09:41 Dose: 100 mg Metoprolol Tartrate (Lopressor -) 200 mg PO BID [facility] Last Admin: 04/16/18 22:29 Dose: 200 mg Phenytoin Sodium (Dilantin -) 300 mg PO DAILY [facility] Last Admin: 04/16/18 09:40 Dose: 300 mg Potassium Chloride (K-Dur -) 30 meq PO DAILY [facility] Last Admin: 04/16/18 09:41 Dose: 30 meq Warfarin Sodium (Coumadin -) 6 mg PO DAILY@1800 [facility] Last Admin: 04/16/18 19:32 Dose: 6 mg - Objective Vital Signs: Vital Signs Temperature 97.5 F L 04/17/18 07:00 Pulse Rate 92 H 04/17/18 07:00 Respiratory Rate 18 04/17/18 07:00 Blood Pressure 149/95 04/17/18 07:00 O2 Sat by Pulse Oximetry (%) 98 04/14/18 20:45 Constitutional: Yes: Well Nourished, No Distress, Calm Cardiovascular: Yes: Regular Rate and Rhythm Respiratory: Yes: Regular Gastrointestinal: Yes: Normal Bowel Sounds, Soft Musculoskeletal: Yes: Muscle Weakness Extremities: Yes: WNL Edema: Yes Edema: LLE: 1+, RLE: 1+ Peripheral Pulses WNL: Yes Neurological: Yes: Alert, Oriented Psychiatric: Yes: Alert, Oriented Labs: CBC, BMP 02/18/19 05:25 04/17/18 05:30 INR, PTT INR 1.29 (0.83-1.09) H 04/17/18 05:30 Problem List - Problems (1) Acute exacerbation of CHF (congestive heart failure) Assessment/Plan: -Seen by Cardiology -Daily weights -Low sodium diet -Switch IV furosemide to PO Code(s): I50.9 - HEART FAILURE, UNSPECIFIED Qualifiers: Heart failure type: diastolic Qualified Code(s): I50.33 - Acute on chronic diastolic (congestive) heart failure (2) Pleural effusion Code(s): J90 - PLEURAL EFFUSION, NOT ELSEWHERE CLASSIFIED (3) Atrial fibrillation Assessment/Plan: -Controlled -On Warfarin -Dose adjusted -Was on 5 mg po daily, received 1 dose of 6 mg yesterday- INR from 1.24->1.29 -Give 1 dose of 7.5 mg today then continue 6 mg po daily Code(s): I48.91 - UNSPECIFIED ATRIAL FIBRILLATION Qualifiers: Atrial fibrillation type: chronic Qualified Code(s): I48.2 - Chronic atrial fibrillation Assessment/Plan See problem list Physical therapy D/C after PT eval
[2018-04-17] MEDS ORDERED: PT OWN MED DRAWER 7, Y5N ONE (10:07)
[2018-04-17] MEDS: LOSARTAN POTASSIUM 50 MG TABLET (FP) PO SCH (10:14)
[2018-04-17] MEDS: POTASSIUM CHLORIDE TABS 10 MEQ TABLET.ER (FP) PO SCH (10:15)
[2018-04-17] MEDS: PHENYTOIN NA EXTENDED 100 MG CAPSULE (FP) PO SCH (10:15)
[2018-04-17] MEDS: METOPROLOL TARTRATE 50 MG TABLET (FP) PO SCH (10:15)
[2018-04-17 12:46] VITALS: BP 132/65; PULSE 98; TEMP 97.4
[2018-04-17] MEDS ORDERED: WARFARIN NA 7.5 MG TABLET (FP) PO ONE (18:00)
[2018-04-18] MEDS ORDERED: WARFARIN NA 3 MG TABLET PO SCH (18:00)
== END 2018-04-17 13:15 | disposition home or self-care (01) | DRG 308 ==
LOC: JER 13:53 → JERBED 18:38 → J4W 19:59
PROVIDERS: ADMIT Family Medicine; ATTEND Family Medicine
DX: I48.1 Persistent atrial fibrillation (principal); I50.33 Acute on chronic diastolic (congestive) heart failure; I11.0 Hypertensive heart disease with heart failure; E11.9 Type 2 diabetes mellitus without complications; E78.5 Hyperlipidemia, unspecified; E87.70 Fluid overload, unspecified; G40.909 Epilepsy, unspecified, not intractable, without status epilepticus; D32.0 Benign neoplasm of cerebral meninges; D49.6 Neoplasm of unspecified behavior of brain; I34.0 Nonrheumatic mitral (valve) insufficiency; I25.10 Atherosclerotic heart disease of native coronary artery without angina pectoris
CPT/HCPCS: 36415; 71046-TC-FY; 76705-TC; 80048; 80053; 80061; 80185; 81003; 82550; 82553; 83036; 83721; 83735; 83880; 84484; 85025; 85027; 85610; 85730; 86850; 86900; 86901; 87086; 93005; 93010; 93306-TC; 93970-TC; 94640; 99285-25

== ENCOUNTER 2018-05-26 14:05 | Inpatient (IN) | payer OTHER, MEDICARE ==
[2018-05-26] MEDS ORDERED: ASPIRIN 81 MG CHEWABLE TABLETS PO ONE (14:07)
--- NOTE | 2018-05-26 14:08 | PDOC ---
Rapid Medical Evaluation Time Seen by Provider: 05/26/18 14:06 Medical Evaluation: Allergies Allergy/AdvReac Type Severity Reaction Status Date / Time levofloxacin [From Levaquin] Allergy Verified 02/09/18 06:37 lidocaine AdvReac Verified 02/09/18 06:37 05/26/18 14:06 I have performed a brief in-person evaluation of this patient. The patient presents with a chief complaint of: hx of CHF sent by PCP to have "fluid removed" Pertinent physical exam findings: NAD I have ordered the following:cardiac work up BNP The patient will proceed to the ED for further evaluation. Discharge Disposition - Diagnosis SOB (shortness of breath) - Referrals - Patient Instructions - Post Discharge Activity
[2018-05-26] MEDS ORDERED: ASPIRIN 81 MG CHEWABLE TABLETS ONE (14:10)
--- NOTE | 2018-05-26 14:28 | PDOC ---
History of Present Illness - General Chief Complaint: Edema Stated Complaint: SENT BY PCP Time Seen by Provider: 05/26/18 14:06 - History of Present Illness Initial Comments: The pt is an 88F w/ a history of CHF, HTN, seizure d/o who presents for evaluation of several days of worsening BLE swelling and shortness of breath. She states that she has had similar problems before and has been working with her PMD to better control her volume status. She reports taking all of her medications. She endorses shortness of breath that is worse with activity. She also reports that the swelling in her legs is painful. She denies fevers/chill, chest pain, abdominal pain, N/V/C/D, or changes in sensation/strength. 05/26/18 16:25 Past History - Past Medical History Allergies/Adverse Reactions: Allergies Allergy/AdvReac Type Severity Reaction Status Date / Time levofloxacin [From Levaquin] Allergy Verified 02/09/18 06:37 lidocaine AdvReac Verified 02/09/18 06:37 Home Medications: Ambulatory Orders Atorvastatin Ca [Lipitor] 10 mg PO HS tablet 02/13/18 Multivitamins [Multivit ([facility] Formulary)] 1 tab PO DAILY tab 02/13/18 Latanoprost 0.005% Eye Drops [Xalatan 0.005% Eye Drops -] 1 drop OD HS drops Losartan Potassium [Cozaar -] 100 mg PO DAILY tablet 04/17/18 Metoprolol Tartrate [Lopressor -] 200 mg PO BID tablet 04/17/18 Phenytoin Na Extended [Dilantin -] 300 mg PO DAILY capsule 04/17/18 hydrALAZINE HCL [Apresoline -] 25 mg PO TID #90 tablet 04/17/18 Furosemide [Lasix -] 20 mg PO DAILY 05/26/18 Metolazone 2.5 mg PO DAILY 05/26/18 Potassium Chloride [K-Dur -] 10 meq PO BID 05/26/18 Warfarin Na [Coumadin -] 5 mg PO DAILY@1800 05/26/18 Cardiac Disorders: Yes (afib) COPD: No CHF: Yes Diabetes: Yes (borderline) GI Disorders: Yes (umbilical Hernia) HTN: Yes Hypercholesterolemia: Yes Seizures: Yes - Surgical History Abdominal Surgery: Yes (hysterectomy) Cholecystectomy: Yes - Immunization History Immunization Up to Date: No - Suicide/Smoking/Psychosocial Hx Smoking History: Former smoker Have you smoked in the past 12 months: No If you are a former smoker, when did you quit?: 1950 Information on smoking cessation initiated: No Hx Alcohol Use: No Drug/Substance Use Hx: No Substance Use Type: None Hx Substance Use Treatment: No Review of Systems - Review of Systems Able to Perform ROS?: Yes Comments:: GENERAL/CONSTITUTIONAL: No fever or chills. No weakness HEAD, EYES, EARS, NOSE AND THROAT: No change in vision or hearing. No sore throat CARDIOVASCULAR: No chest pain RESPIRATORY: Denies cough, hemoptysis GASTROINTESTINAL: No nausea, vomiting, diarrhea or constipation GENITOURINARY: No dysuria, frequency, or change in urination MUSCULOSKELETAL: +BLE swelling SKIN: b/l foot redness NEUROLOGIC: No headache, vertigo, loss of consciousness, or change in strength/ sensation. ENDOCRINE: No increased thirst. No abnormal weight change 05/26/18 16:32 Is the patient limited Brazilian proficient: No *Physical Exam - Vital Signs Last Vital Signs Temp Pulse Resp BP Pulse Ox 98.2 F 93 H 16 145/79 98 05/26/18 14:10 05/26/18 14:10 05/26/18 14:10 05/26/18 14:10 05/26/18 14:10 - Physical Exam Comments: GENERAL: Awake, alert, and oriented to person/place/time, in no acute distress HEAD: No signs of trauma, normocephalic, atraumatic EYES: PERRLA, EOMI, sclera anicteric, conjunctiva clear ENT: Hearing grossly normal, nares patent, oropharynx clear without exudates. Moist mucosa LUNGS: b/l diffuse crackles HEART: Regular rate w/ irregularly irregular rhythm, normal S1 and S2, no murmurs appreciated, peripheral pulses normal and equal bilaterally ABDOMEN: Soft, nontender, normoactive bowel sounds. No guarding, no rebound. EXTREMITIES: BLE pitting edema to knee; B/l foot redness w/o warmth or fluctuance NEUROLOGICAL: Cranial nerves II through XII grossly intact. Normal speech, no focal sensorimotor deficits SKIN: B/l foot redness w/o warmth or fluctuance 05/26/18 16:34 ED Treatment Course - LABORATORY CBC & Chemistry Diagram: 05/27/18 05:30 05/27/18 05:30 - Medications Given in the ED: ED Medications Discontinued Medications Generic Name Dose Route Start Last Admin Trade Name Sunita PRN Reason Stop Dose Admin Aspirin 162 mg 05/26/18 14:07 05/26/18 14:25 Asa - PO 05/26/18 14:08 162 mg ONCE ONE Administration Medical Decision Making - Medical Decision Making The pt is an 88F w/ a history of CHF, HTN, a-fib (coumadin) who presents for evaluation of shortness of breath and BLE swelling likely 2/2 CHF exacerbation ED Course Labs sent CXR ECG w/ a-fib Lasix 40mg IV once Will obtain BLE duplex to evaluate for DVT given erythema in conjunction w/ BLE erythema. Low suspicion for cellulitis Will admit for CHF exacerbation. No leukocytosis No anemia INR 3.34, slightly above therapeutic range, will defer dosing to admitting team 05/26/18 16:36 *DC/Admit/Observation/Transfer Diagnosis at time of Disposition: SOB (shortness of breath) Acute exacerbation of CHF (congestive heart failure) Qualifiers: Heart failure type: diastolic Qualified Code(s): I50.33 - Acute on chronic diastolic (congestive) heart failure Atrial fibrillation Qualifiers: Atrial fibrillation type: chronic Qualified Code(s): I48.2 - Chronic atrial fibrillation - Discharge Dispostion Condition at time of disposition: Good Decision to Admit order: Yes - Referrals - Patient Instructions - Post Discharge Activity
--- NOTE | 2018-05-26 14:51 | PDOC ---
Attending Attestation - HPI HPI: 05/26/18 17:35 Patient is an 88 year old female with a significant past medical history of Afib , HTN, CHF, Mitral Insufficiency, chronic lower back pain, OA who presents to the ED with complaints of shortness of breath that began earlier this afternoon. Patient reports experiencing increased shortness of breath as well as associated bilateral lower leg swelling. She reports going to her PCPs office, who advised she come into the ED for further evaluation. Denies chest pain, sob. Denies nausea, vomiting. Denies fevers, chills. Denies diarrhea, constipation, diarrhea. Denies dysuria, hematuria. Denies contact with sick individuals, out of state travelling. Denies any other symptoms. Allergies: Lidocaine, Levofloxacin Social history: Former smoker. No alcohol. No illicit drugs. Surgical history: Cholecystectomy, Hysterectomy PMD: Dr. Dow - Physicial Exam PE: 05/26/18 17:41 GENERAL: The patient is in no acute distress. ENT: Ears normal, nares patent, oropharynx clear without exudates. Moist mucous membranes. NECK: Normal range of motion, supple, no nuchal rigidity LUNGS: Breath sounds equal, clear to auscultation bilaterally. No wheezes, and no crackles. HEART: Regular rate and rhythm, normal S1 and S2 without murmur, rub or gallop. ABDOMEN: Soft, nontender, normoactive bowel sounds. No guarding, no rebound. No masses palpable. EXTREMITIES: +Bilateral lower extremity 3 + pitting edema to the knees. + Bilateral erythematous feet. Normal range of motion, no edema. NEUROLOGICAL: Cranial nerves II through XII grossly intact. Normal speech. No focal neurological deficits. SKIN: Warm, Dry, normal turgor, no rashes or lesions noted. <Nilesh Leo - Last Filed: 05/26/18 17:35> - Resident Resident Name: Oni Fenton - ED Attending Attestation I have performed the following: I have examined & evaluated the patient, The case was reviewed & discussed with the resident, I agree w/resident's findings & plan, Exceptions are as noted - Medical Decision Making 05/29/18 13:19 Laboratory Tests 05/26/18 05/26/18 05/26/18 14:50 14:51 15:40 WBC 6.4 Hgb 14.6 Hct 44.2 Plt Count 182 D INR 3.34 H BUN 13 Creatinine 0.8 Troponin I < 0.02 B-Natriuretic Peptide 3477.8 H ECG w/ a-fib Lasix 40mg IV once Will obtain BLE duplex to evaluate for DVT given erythema in conjunction w/ BLE erythema. Will admit for CHF exacerbation. Clinical impression: CHF exacerbation, initial presentation <Jana Walls - Last Filed: 05/29/18 13:21>
[2018-05-26 15:07] LABS: BASO % 0.5 % (0-2.0); EOS % 0.4 % (0-4.5); HEMATOCRIT 44.2 % (32.4-45.2); HEMOGLOBIN 14.6 GM/dL (10.7-15.3); LYMPH % 15.2 % (8-40); MCH 31.9 pg (25.7-33.7); MEAN CELL VOLUME 96.8 fl (80-96); MEAN PLT VOLUME 9.7 fl (7.5-11.1); MONO % 9.6 % (3.8-10.2); NEUT % 74.3 % (42.8-82.8); PLATELET COUNT 182 K/MM3 (134-434); RBC 4.57 M/mm3 (3.60-5.2); RDW 14.3 % (11.6-15.6); WHITE BLOOD COUNT 6.4 K/mm3 (4.0-10.0)
[2018-05-26 15:22] LABS: INR 3.34 (0.83-1.09); PROTHROMBIN TIME (PATIENT) 39.9 SEC (9.7-13.0)
[2018-05-26] MEDS ORDERED: FUROSEMIDE 40 MG/4 ML INJECTABLE VIAL IVPUSH ONE (15:39)
--- NOTE | 2018-05-26 16:11 | HP ---
Admitting History and Physical - Primary Care Physician PCP: Araceli Dow - Admission Chief Complaint: CHF exacerbation History of Present Illness: Patient is an 88 y/o female with past medical history of Afib, HTN, CHF, Mitral Insufficiency, chronic lower back pain, OA. Patient presented to ER from PCP office with B/L lower extremity swelling, chest congestion for CHF exacerbation. On examination patient complain of worsening productive cough and SOB with exertion. Denies fever, chills, abdominal pain, dizziness. 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's Cardiovascular: Yes: AFIB, CAD, CHF (Diastolic), HTN, Mitral Insufficiency ( moderate to severe mitral regurgitation) Pulmonary: Yes: Pneumonia Psych: Yes: Addictions Musculoskeletal: Yes: Chronic low back pain, Osteoarthritis Rheumatology: Yes: Other - Past Surgical History Past Surgical History: Yes: Cholecystectomy, Hysterectomy - Smoking History Smoking history: Former smoker Have you smoked in the past 12 months: No If you are a former smoker, when did you quit?: 1950 - Alcohol/Substance Use Hx Alcohol Use: No History of Substance Use: reports: None - Social History Usual Living Arrangement: Yes: Alone ADL: Independent (Previously Independent in ADLs/ IADLs, has cane and RW (both of which she uses intermittently)) History of Recent Travel: No Home Medications - Allergies Allergies/Adverse Reactions: Allergies Allergy/AdvReac Type Severity Reaction Status Date / Time levofloxacin [From Levaquin] Allergy Verified 02/09/18 06:37 lidocaine AdvReac Verified 02/09/18 06:37 - Home Medications Home Medications: Ambulatory Orders Cholecalciferol (Vitamin D3) [Vitamin D -] 0 unit PO DAILY 10/21/16 Glucosamine/MSM/Chondroitin A [Glucosamine Chondroit MSM Tab] 1 each PO DAILY Phenytoin Sodium Extended [Phenytek] 400 mg PO HS 10/21/16 Arformoterol Tartrate [Brovana -] 1 amp NEB BID amp 10/25/16 Arformoterol Tartrate [Brovana -] 1 amp NEB RBID amp 11/09/17 Acetaminophen [Tylenol .Regular Strength -] 650 mg PO Q6H PRN tablet 02/13/18 Amino Acids/Protein Hydrolys [Prosource No Carb Liquid Pkt] 30 ml PO BID@0800, 1730 packet 02/13/18 Atorvastatin Ca [Lipitor] 10 mg PO HS tablet 02/13/18 Latanoprost 0.005% Eye Drops [Xalatan 0.005% Eye Drops -] 1 drop OD HS drops Losartan Potassium [Cozaar -] 50 mg PO DAILY #30 tablet 02/13/18 Metoprolol Tartrate [Lopressor -] 200 mg PO BID #60 tablet 02/13/18 Multivitamins [Multivit ([facility] Formulary)] 1 tab PO DAILY tab 02/13/18 Phenytoin Na Extended [Dilantin -] 300 mg PO DAILY #30 capsule 02/13/18 Acetaminophen [Tylenol .Regular Strength -] 650 mg PO Q6H PRN tablet 04/17/18 Arformoterol Tartrate [Brovana -] 1 amp NEB RBID amp 04/17/18 Furosemide [Lasix -] 40 mg PO BID #60 tablet 04/17/18 Latanoprost 0.005% Eye Drops [Xalatan 0.005% Eye Drops -] 1 drop OD HS drops Losartan Potassium [Cozaar -] 100 mg PO DAILY tablet 04/17/18 Metoprolol Tartrate [Lopressor -] 200 mg PO BID tablet 04/17/18 Phenytoin Na Extended [Dilantin -] 300 mg PO DAILY capsule 04/17/18 Potassium Chloride [K-Dur -] 30 meq PO DAILY #30 tablet.er 04/17/18 Warfarin Na [Coumadin -] 6 mg PO DAILY@1800 #30 tablet 04/17/18 hydrALAZINE HCL [Apresoline -] 25 mg PO TID #90 tablet 04/17/18 Review of Systems - Review of Systems Constitutional: reports: Weakness Eyes: reports: No Symptoms HENT: reports: Nasal Congestion Neck: reports: No Symptoms Cardiovascular: reports: Chest Pain, Edema, Shortness of Breath Respiratory: reports: Cough, SOB on Exertion Gastrointestinal: reports: No Symptoms Genitourinary: reports: No Symptoms Breasts: reports: No Symptoms Reported Musculoskeletal: reports: Muscle Weakness Integumentary: reports: No Symptoms Neurological: reports: No Symptoms Endocrine: reports: No Symptoms Hematology/Lymphatic: reports: No Symptoms Psychiatric: reports: No Symptoms Physical Examination Vital Signs: Vital Signs Temperature 98.0 F 05/26/18 15:30 Pulse Rate 86 05/26/18 15:30 Respiratory Rate 18 05/26/18 15:30 Blood Pressure 144/87 05/26/18 15:30 O2 Sat by Pulse Oximetry (%) 98 05/26/18 15:30 Constitutional: Yes: No Distress, Calm Eyes: Yes: Conjunctiva Clear HENT: Yes: Atraumatic Neck: Yes: Supple Cardiovascular: Yes: Pulse Irregular Respiratory: Yes: Rales Gastrointestinal: Yes: Normal Bowel Sounds, Soft, Hernia Musculoskeletal: Yes: Muscle Weakness Extremities: Yes: WNL Edema: Yes Edema: LLE: 2+, RLE: 2+ Neurological: Yes: Alert, Oriented Psychiatric: Yes: Alert, Oriented Labs: CBC, BMP 05/26/18 14:50 Problem List - Problems (1) Acute exacerbation of CHF (congestive heart failure) Assessment/Plan: -cardiology consult placed -pending BNP result -start on lasix 40mg IVP daily--monitor renal function -O2 via NC -keep SpO2 >90% -1L fluid restriction -daily weights -pending CXR Code(s): I50.9 - HEART FAILURE, UNSPECIFIED Qualifiers: Heart failure type: diastolic Qualified Code(s): I50.33 - Acute on chronic diastolic (congestive) heart failure (2) Atrial fibrillation Assessment/Plan: -on coumadin and metoprolol for rate control -current INR 3.34--will hold coumadin until therapeutic range -goal therapeutic INR 2-3 -daily INR monitoring Code(s): I48.91 - UNSPECIFIED ATRIAL FIBRILLATION Qualifiers: Atrial fibrillation type: chronic Qualified Code(s): I48.2 - Chronic atrial fibrillation (3) Elevated INR Assessment/Plan: -current INR 3.34--will hold coumadin until therapeutic range -goal therapeutic INR 2-3 -daily INR monitoring Code(s): R79.1 - ABNORMAL COAGULATION PROFILE (4) Hypertension Assessment/Plan: -continue losartan and hydralazine Code(s): I10 - ESSENTIAL (PRIMARY) HYPERTENSION Qualifiers: (5) Hypokalemia Assessment/Plan: -continue Kdur daily Code(s): E87.6 - HYPOKALEMIA Assessment/Plan see problem list dvt ppx
[2018-05-26] MEDS ORDERED: FUROSEMIDE 40 MG/4 ML INJECTABLE VIAL ONE (16:49)
[2018-05-26] MEDS: INSULIN SLIDING SCALE (NOVOLOG) 1 VIAL SQ SCH ×2 (17:29→22:55)
[2018-05-26 17:34] LABS: ALBUMIN 3.3 g/dl (3.4-5.0); ALK PHOS 202 U/L (45-117); ANION GAP 8 MMOL/L (8-16); BILIRUBIN,TOTAL 1.1 mg/dL (0.2-1); BLOOD UREA NITROGEN 13 mg/dL (7-18); CHLORIDE 101 mmol/L (98-107); CO2 30 mmol/L (21-32); CREATININE 0.8 mg/dL (0.55-1.3); GLUCOSE,RANDOM 106 mg/dL (74-106); N-TERMINAL BNP 3477.8 pg/ml (5-450); POTASSIUM 3.9 mmol/L (3.5-5.1); SGOT/AST 58 U/L (15-37); SGPT/ALT 77 U/L (13-61); SODIUM 139 mmol/L (136-145); TOT PROT 6.5 g/dl (6.4-8.2)
[2018-05-26 18:51] VITALS: BMI 28.5
[2018-05-26] MEDS ORDERED: PT OWN MED DRAWER 7, Y5N ONE (21:50)
[2018-05-26] MEDS: ARFORMOTEROL TARTRATE 15 MCG/2 ML VIAL NEB SCH (22:00)
[2018-05-26] MEDS: hydrALAZINE HCL 25 MG TABLET (FP) PO SCH (22:56)
[2018-05-26] MEDS: PHENYTOIN NA EXTENDED 100 MG CAPSULE (FP) PO SCH (22:56)
[2018-05-26] MEDS: ATORVASTATIN CA 10 MG TABLET (FP) PO SCH (22:56)
[2018-05-26] MEDS: METOPROLOL TARTRATE 50 MG TABLET (FP) PO SCH (22:56)
[2018-05-27] MEDS: hydrALAZINE HCL 25 MG TABLET (FP) PO SCH ×3 (06:57→21:52)
[2018-05-27] MEDS: INSULIN SLIDING SCALE (NOVOLOG) 1 VIAL SQ SCH ×3 (06:57→21:47)
[2018-05-27 07:45] LABS: BASO % 0.6 % (0-2.0); HEMATOCRIT 40.8 % (32.4-45.2); HEMOGLOBIN 13.5 GM/dL (10.7-15.3); LYMPH % 26.2 % (8-40); MCH 31.5 pg (25.7-33.7); MCHC 33.2 g/dl (32.0-36.0); MEAN CELL VOLUME 94.8 fl (80-96); MEAN PLT VOLUME 9.2 fl (7.5-11.1); MONO % 11.1 % (3.8-10.2); NEUT % 61.1 % (42.8-82.8); PLATELET COUNT 154 K/MM3 (134-434); RDW 13.9 % (11.6-15.6); WHITE BLOOD COUNT 5.8 K/mm3 (4.0-10.0)
[2018-05-27 08:05] LABS: INR 3.03 (0.83-1.09); PROTHROMBIN TIME (PATIENT) 36.1 SEC (9.7-13.0)
[2018-05-27 08:22] LABS: ALBUMIN 2.9 g/dl (3.4-5.0); ALK PHOS 182 U/L (45-117); ANION GAP 9 MMOL/L (8-16); BILIRUBIN,TOTAL 0.9 mg/dL (0.2-1); BLOOD UREA NITROGEN 16 mg/dL (7-18); CALCIUM 8.2 mg/dL (8.5-10.1); CHLORIDE 103 mmol/L (98-107); CHOLESTEROL 144 mg/dL (50-200); CO2 30 mmol/L (21-32); CREATININE 0.9 mg/dL (0.55-1.3); GLUCOSE,RANDOM 89 mg/dL (74-106); HDL CHOLESTEROL 46 mg/dL (40-60); MAGNESIUM 2.2 mg/dL (1.8-2.4); N-TERMINAL BNP 3301.1 pg/ml (5-450); PHOSPHOROUS 3.6 mg/dL (2.5-4.9); POTASSIUM 3.2 mmol/L (3.5-5.1); SGOT/AST 39 U/L (15-37); SGPT/ALT 60 U/L (13-61); SODIUM 142 mmol/L (136-145); TOT PROT 5.7 g/dl (6.4-8.2); TRIGLYCERIDES 68 mg/dL (0-150)
[2018-05-27] MEDS: ARFORMOTEROL TARTRATE 15 MCG/2 ML VIAL NEB SCH (08:39)
[2018-05-27] MEDS ORDERED: FUROSEMIDE 40 MG/4 ML INJECTABLE VIAL IVPUSH SCH ×2 (10:00→16:21)
[2018-05-27] MEDS ORDERED: POTASSIUM CHLORIDE TABS 20 MEQ TABLET.ER (FP) PO SCH (10:00)
[2018-05-27] MEDS ORDERED: POTASSIUM CHLORIDE TABS 20 MEQ TABLET.ER (FP) PO ONE (10:28)
--- NOTE | 2018-05-27 10:29 | PN ---
Progress Note, Physician Chief Complaint: AWAKE ALERT ON TELE STILL SOB/COUGH - Current Medication List Current Medications: Active Medications Arformoterol Tartrate (Brovana (Restricted To Pulmonology/Resp) -) 1 amp NEB RBID [facility] Last Admin: 05/27/18 08:39 Dose: 1 amp Atorvastatin Calcium (Lipitor -) 10 mg PO HS [facility] Last Admin: 05/26/18 22:56 Dose: 10 mg Furosemide (Lasix Injection -) 40 mg IVPUSH DAILY [facility] Hydralazine HCl (Apresoline -) 25 mg PO TID [facility] Last Admin: 05/27/18 06:57 Dose: 25 mg Insulin Aspart (Novolog Vial Sliding Scale -) 1 vial SQ ACHS [facility]; Protocol Last Admin: 05/27/18 06:57 Dose: Not Given Metolazone (Zaroxolyn -) 2.5 mg PO DAILY@0930 [facility] Metoprolol Tartrate (Lopressor -) 200 mg PO BID [facility] Last Admin: 05/26/18 22:56 Dose: 200 mg Multivitamins/Minerals/Vitamin C (Tab-A-Vit -) 1 tab PO DAILY [facility] Phenytoin Sodium (Dilantin -) 300 mg PO [facility] Last Admin: 05/26/18 22:56 Dose: 300 mg Potassium Chloride (K-Dur -) 20 meq PO DAILY [facility] Potassium Chloride (K-Dur -) 20 meq PO ONCE ONE Stop: 05/27/18 10:29 - Objective Vital Signs: Vital Signs Temperature 98.2 F 05/27/18 06:00 Pulse Rate 95 H 05/27/18 06:00 Respiratory Rate 18 05/27/18 06:00 Blood Pressure 148/93 05/27/18 06:00 O2 Sat by Pulse Oximetry (%) 96 05/26/18 21:00 Constitutional: Yes: Mild Distress Eyes: Yes: WNL HENT: Yes: WNL Neck: Yes: WNL Cardiovascular: Yes: Pulse Irregular Respiratory: Yes: Cough, Rales Gastrointestinal: Yes: WNL Genitourinary: Yes: WNL Musculoskeletal: Yes: Muscle Weakness Extremities: Yes: WNL Edema: Yes Edema: LLE: 2+, RLE: 2+ Integumentary: Yes: WNL Wound/Incision: Yes: Clean/Dry Neurological: Yes: WNL ...Motor Strength: WNL Psychiatric: Yes: WNL Labs: CBC, BMP 04/04/19 05:30 05/27/18 05:30 INR, PTT INR 3.03 (0.83-1.09) H 05/27/18 05:30 Problem List - Problems (1) Diastolic CHF, acute on chronic Code(s): I50.33 - ACUTE ON CHRONIC DIASTOLIC (CONGESTIVE) HEART FAILURE (2) Acute exacerbation of CHF (congestive heart failure) Code(s): I50.9 - HEART FAILURE, UNSPECIFIED Qualifiers: Heart failure type: diastolic Qualified Code(s): I50.33 - Acute on chronic diastolic (congestive) heart failure (3) Atrial fibrillation Code(s): I48.91 - UNSPECIFIED ATRIAL FIBRILLATION Qualifiers: Atrial fibrillation type: chronic Qualified Code(s): I48.2 - Chronic atrial fibrillation (4) Hypokalemia Code(s): E87.6 - HYPOKALEMIA (5) SOB (shortness of breath) Code(s): R06.02 - SHORTNESS OF BREATH (6) ASHD (arteriosclerotic heart disease) Code(s): I25.10 - ATHSCL HEART DISEASE OF [place] CORONARY ARTERY W/O ANG PCTRS (7) Cough Code(s): R05 - COUGH (8) Elevated INR Code(s): R79.1 - ABNORMAL COAGULATION PROFILE (9) Meningioma Code(s): D32.9 - BENIGN NEOPLASM OF MENINGES, UNSPECIFIED (10) Pulmonary hypertension Code(s): I27.20 - PULMONARY HYPERTENSION, UNSPECIFIED Assessment/Plan IV LASIX ADDING METOLAZONE PO NEBS 02 SUPPORT DAILY WEIGHTS PT EVAL PULM EVAL R/O UNDERLYING PNA/BRONCHITIS REPLETE KCL NEEDS A BETTER LIFESTYLE AT HOME AND CARDIAC CONSCIOUS DIET.
[2018-05-27] MEDS ORDERED: DEXTROMETHORPHAN/PROMETHAZINE 15 MG/6.25 MG/5 ML SYRUP PO PRN (11:15)
[2018-05-27] MEDS ORDERED: PT OWN MED DRAWER 7, Y5N ONE ×2 (11:20→11:52)
--- NOTE | 2018-05-27 11:49 | EKG ---
Test Reason : Blood Pressure : / mmHG Vent. Rate : 081 BPM Atrial Rate : 220 BPM P-R Int : 000 ms QRS Dur : 088 ms QT Int : 376 ms P-R-T Axes : 000 -32 082 degrees QTc Int : 436 ms ATRIAL FIBRILLATION LEFT AXIS DEVIATION ANTERIOR INFARCT (CITED ON OR BEFORE 08-APR-2018) ABNORMAL ECG WHEN COMPARED WITH ECG OF 08-APR-2018 14:35, ST NO LONGER DEPRESSED IN LATERAL LEADS T WAVE INVERSION NO LONGER EVIDENT IN LATERAL LEADS Confirmed by ROGER KENT MD ([id number]) on 05/27/2018 11:48:51 AM Referred By: Confirmed By:ROGER KENT MD
[2018-05-27] MEDS: METOPROLOL TARTRATE 50 MG TABLET (FP) PO SCH ×2 (11:51→21:45)
[2018-05-27] MEDS: MULTIVITAMINS (DAILY MVI) TABLET (FP) PO SCH (11:51)
[2018-05-27] MEDS ORDERED: SODIUM CHLORIDE NASAL SPRAY 44 ML BOTTLE NS PRN (13:10)
--- NOTE | 2018-05-27 13:16 | CON.PULM ---
Consult Consult Specialty:: PULM / CCM Referred by:: PMD Reason for Consultation:: cough / congestion - History of Present Illness Chief Complaint: SOB / cough / congestion History of Present Illness: 88 F, Afib, HTN, CHF, Mitral Insufficiency, chronic lower back pain, OA. Admitted via the ER after she was seen in her PMDs office with increased bilateral LE edema. She reports intermittent cough with scant, greenish discolored sputum. She reports as sensation that the top of her nasal bridge feels full and congested. She does report some LANE. No travel history or sick contacts. No fever or chills. No hemoptysis. 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's Cardio/Vascular: Yes: AFIB, CAD, CHF (Diastolic), HTN, Mitral Insufficiency ( moderate to severe mitral regurgitation) Pulmonary: Yes: Pneumonia. No: Asthma, Cancer, COPD, O2 Dependent, Previously Intubated, Pulmonary Embolus, Pulmonary Fibrosis, Sleep Apnea ...: No Psych: Yes: Addictions Musculoskeletal: Yes: Chronic low back pain, Osteoarthritis Rheumatology: Yes: Other - Past Surgical History Past Surgical History: Yes: Cholecystectomy, Hysterectomy - Alcohol/Substance Use Hx Alcohol Use: No History of Substance Use: reports: None - Smoking History Smoking history: Former smoker Have you smoked in the past 12 months: No If you are a former smoker, when did you quit?: 1950 - Social History Usual Living Arrangement: Alone (lives alone in 2 family house with 18 stairs to enter) ADL: Independent (Previously Independent in ADLs/ IADLs, has cane and RW (both of which she uses intermittently)) History of Recent Travel: No Home Medications - Allergies Allergies/Adverse Reactions: Allergies Allergy/AdvReac Type Severity Reaction Status Date / Time levofloxacin [From Levaquin] Allergy Verified 02/09/18 06:37 lidocaine AdvReac Verified 02/09/18 06:37 - Home Medications Home Medications: Ambulatory Orders Atorvastatin Ca [Lipitor] 10 mg PO HS tablet 02/13/18 Multivitamins [Multivit ([facility] Formulary)] 1 tab PO DAILY tab 02/13/18 Latanoprost 0.005% Eye Drops [Xalatan 0.005% Eye Drops -] 1 drop OD HS drops Losartan Potassium [Cozaar -] 100 mg PO DAILY tablet 04/17/18 Metoprolol Tartrate [Lopressor -] 200 mg PO BID tablet 04/17/18 Phenytoin Na Extended [Dilantin -] 300 mg PO DAILY capsule 04/17/18 hydrALAZINE HCL [Apresoline -] 25 mg PO TID #90 tablet 04/17/18 Furosemide [Lasix -] 20 mg PO DAILY 05/26/18 Metolazone 2.5 mg PO DAILY 05/26/18 Potassium Chloride [K-Dur -] 10 meq PO BID 05/26/18 Warfarin Na [Coumadin -] 5 mg PO DAILY@1800 05/26/18 Review of Systems - Review of Systems Constitutional: denies: Chills, Fever, Lethargy, Loss of Appetite, Malaise, Night Sweats, Weakness Eyes: denies: No Symptoms HENT: reports: Nasal Congestion. denies: Epistaxis, Throat Pain Neck: reports: No Symptoms Cardiovascular: reports: Edema, Shortness of Breath. denies: Chest Pain, Palpitations Respiratory: reports: Cough, SOB, SOB on Exertion. denies: Hemoptysis, PND, Snoring, Wheezing Gastrointestinal: reports: No Symptoms Genitourinary: reports: No Symptoms Breasts: reports: No Symptoms Reported Musculoskeletal: reports: No Symptoms Integumentary: reports: No Symptoms Neurological: reports: No Symptoms Endocrine: reports: No Symptoms Hematology/Lymphatic: reports: No Symptoms Psychiatric: reports: No Symptoms Physical Exam Vital Sings: Vital Signs Temperature 98.2 F 05/27/18 06:00 Pulse Rate 95 H 05/27/18 06:00 Respiratory Rate 18 05/27/18 06:00 Blood Pressure 148/93 05/27/18 06:00 O2 Sat by Pulse Oximetry (%) 96 05/26/18 21:00 Constitutional: Yes: Well Nourished, No Distress, Calm Eyes: Yes: WNL, Conjunctiva Clear, EOM Intact HENT: Yes: Atraumatic, Normocephalic, Nasal Congestion, Rhinnorhea. No: Hoarseness, Thrush Neck: Yes: WNL, Supple, Trachea Midline Cardiovascular: Yes: Pulse Irregular Respiratory: Yes: CTA Bilaterally, Cough, Diminished. No: Accessory Muscle Use , Rales, Rhonchi, SOB, SOB on Exertion, Stridor, Tachypnea, Wheezes ...Inspection: Yes: WNL ...Clubbing: No Gastrointestinal: Yes: Normal Bowel Sounds, Soft Renal/: Yes: WNL Musculoskeletal: Yes: WNL Extremities: Yes: WNL Edema: Yes Peripheral Pulses WNL: Yes Integumentary: Yes: WNL Neurological: Yes: WNL, Alert, Oriented ...Motor Strength: WNL Psychiatric: Yes: WNL, Alert, Oriented Labs: CBC, BMP 05/27/18 05:30 05/27/18 05:30 Imaging - Results Chest X-ray: Report Reviewed, Image Reviewed Problem List - Problems (1) Atrial fibrillation Code(s): I48.91 - UNSPECIFIED ATRIAL FIBRILLATION Qualifiers: Atrial fibrillation type: chronic Qualified Code(s): I48.2 - Chronic atrial fibrillation (2) SOB (shortness of breath) Code(s): R06.02 - SHORTNESS OF BREATH (3) ASHD (arteriosclerotic heart disease) Code(s): I25.10 - ATHSCL HEART DISEASE OF [place] CORONARY ARTERY W/O ANG PCTRS (4) CHF (congestive heart failure) Code(s): I50.9 - HEART FAILURE, UNSPECIFIED (5) Hypertension Code(s): I10 - ESSENTIAL (PRIMARY) HYPERTENSION Qualifiers: (6) Pulmonary hypertension Code(s): I27.20 - PULMONARY HYPERTENSION, UNSPECIFIED Assessment/Plan Trial of nasal saline Would monitor off ABX No indication for systemic steroids Lasix per primary team Daily weights NC O2 only as needed OOB to chair Will follow Thank you. Dr Meeks
--- NOTE | 2018-05-27 16:17 | CON.CARD ---
Consult Consult Specialty:: Cardiology - History of Present Illness Chief Complaint: Swelling History of Present Illness: 88 F known to us from prior admissions. Has chronic HfPEF with moderate MR and normal LV function. Chronic Aflutter is rate controlled and she is on AC. Requires chronic diuretic therapy with lasix 40-60mg BID at home and is admitted with refractory lower extremity swelling without dyspnea. Echo 03/2018 Normal LV function Moderate eccentric MR. RV hypokinesis with moderate TR and moderate Pulm HTn. 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's Cardio/Vascular: Yes: AFIB, CAD, CHF (Diastolic), HTN, Mitral Insufficiency ( moderate to severe mitral regurgitation) Pulmonary: Yes: Pneumonia. No: Asthma, Cancer, COPD, O2 Dependent, Previously Intubated, Pulmonary Embolus, Pulmonary Fibrosis, Sleep Apnea ...: No Psych: Yes: Addictions Musculoskeletal: Yes: Chronic low back pain, Osteoarthritis Rheumatology: Yes: Other - Past Surgical History Past Surgical History: Yes: Cholecystectomy, Hysterectomy - Alcohol/Substance Use Hx Alcohol Use: No History of Substance Use: reports: None - Smoking History Smoking history: Former smoker Have you smoked in the past 12 months: No If you are a former smoker, when did you quit?: 1949 - Social History Usual Living Arrangement: Alone (lives alone in 2 family house with 18 stairs to enter) ADL: Independent (Previously Independent in ADLs/ IADLs, has cane and RW (both of which she uses intermittently)) History of Recent Travel: No Home Medications - Allergies Allergies/Adverse Reactions: Allergies Allergy/AdvReac Type Severity Reaction Status Date / Time levofloxacin [From Levaquin] Allergy Verified 02/09/18 06:37 lidocaine AdvReac Verified 02/09/18 06:37 - Home Medications Home Medications: Ambulatory Orders Atorvastatin Ca [Lipitor] 10 mg PO HS tablet 02/13/18 Multivitamins [Multivit ([facility] Formulary)] 1 tab PO DAILY tab 02/13/18 Latanoprost 0.005% Eye Drops [Xalatan 0.005% Eye Drops -] 1 drop OD HS drops Losartan Potassium [Cozaar -] 100 mg PO DAILY tablet 04/17/18 Metoprolol Tartrate [Lopressor -] 200 mg PO BID tablet 04/17/18 Phenytoin Na Extended [Dilantin -] 300 mg PO DAILY capsule 04/17/18 hydrALAZINE HCL [Apresoline -] 25 mg PO TID #90 tablet 04/17/18 Furosemide [Lasix -] 20 mg PO DAILY 05/26/18 Metolazone 2.5 mg PO DAILY 05/26/18 Potassium Chloride [K-Dur -] 10 meq PO BID 05/26/18 Warfarin Na [Coumadin -] 5 mg PO DAILY@1800 05/26/18 Review of Systems - Review of Systems Constitutional: reports: No Symptoms. denies: Chills, Diaphoresis Eyes: reports: No Symptoms HENT: reports: No Symptoms Neck: reports: No Symptoms Cardiovascular: reports: Edema. denies: Chest Pain, Palpitations, Shortness of Breath Respiratory: reports: Cough. denies: Exercise Intolerance Gastrointestinal: reports: No Symptoms Genitourinary: reports: No Symptoms Breasts: reports: No Symptoms Reported Musculoskeletal: reports: No Symptoms Integumentary: reports: No Symptoms Vital Signs: Vital Signs Temperature 98.4 F 05/27/18 14:00 Pulse Rate 103 H 05/27/18 15:38 Respiratory Rate 20 05/27/18 14:00 Blood Pressure 121/66 05/27/18 14:00 O2 Sat by Pulse Oximetry (%) 90 L 05/27/18 15:38 Constitutional: Yes: Well Nourished, No Distress, Calm Eyes: Yes: Conjunctiva Clear, EOM Intact HENT: Yes: Atraumatic, Normocephalic Neck: Yes: Supple, Trachea Midline Respiratory: Yes: Regular, CTA Bilaterally Gastrointestinal: Yes: Normal Bowel Sounds Cardiovascular: Yes: Pulse Irregular JVD: Yes Carotid Bruit: No PMI: Non-Displaced Heart Sounds: Yes: S1, S2 Murmur: Yes: Systolic Murmur, Grade 3 Edema: Yes Edema: LLE: 2+, RLE: 2+ - Other Data Labs, Other Data: CBC, BMP 05/27/18 05:30 05/27/18 05:30 INR, PTT INR 3.03 (0.83-1.09) H 05/27/18 05:30 Troponin, BNP 05/26/18 05/27/18 15:40 05:30 Troponin I < 0.02 B-Natriuretic Peptide 3477.8 H 3301.1 H Troponin, BNP 05/26/18 05/27/18 15:40 05:30 Troponin I < 0.02 B-Natriuretic Peptide 3477.8 H 3301.[address] T changes. Imaging - Results Chest X-ray: Report Reviewed Problem List - Problems (1) Acute exacerbation of CHF (congestive heart failure) Code(s): I50.9 - HEART FAILURE, UNSPECIFIED Qualifiers: Heart failure type: diastolic Qualified Code(s): I50.33 - Acute on chronic diastolic (congestive) heart failure Assessment/Plan 88 F known to us from prior admissions. Has chronic HfPEF with moderate MR and normal LV function. Chronic Aflutter is rate controlled and she is on AC. Requires chronic diuretic therapy with lasix 40-60mg BID at home and is admitted with refractory lower extremity swelling without dyspnea. Echo 03/2018 Normal LV function Moderate eccentric MR. RV hypokinesis with moderate TR and moderate Pulm HTn. Predominantly Rt sided heart failure with moderate valvular insufficiency and normal LV function. BP controlled. Although trial are underway regarding use of Entresto in managing HFpEF, we have no data to support this yet. Increase lasix 80mg IV daily. Continue Metolazone. Mointor Lytes/I,O and daily weight Aldactone 25mg qd.
[2018-05-27] MEDS: METOLAZONE 2.5 MG TABLET (FP) PO SCH (18:22)
[2018-05-27] MEDS: WARFARIN NA 5 MG TABLET (UD) PO SCH (19:13)
[2018-05-27] MEDS: ATORVASTATIN CA 10 MG TABLET (FP) PO SCH (21:46)
[2018-05-27] MEDS: PHENYTOIN NA EXTENDED 100 MG CAPSULE (FP) PO SCH (21:46)
[2018-05-27] MEDS: LATANOPROST 0.005% OPHTH SOLN 2.5ML BOTTLE OD SCH (23:19)
[2018-05-28] MEDS: INSULIN SLIDING SCALE (NOVOLOG) 1 VIAL SQ SCH ×4 (06:13→22:13)
[2018-05-28] MEDS: hydrALAZINE HCL 25 MG TABLET (FP) PO SCH ×3 (06:13→22:11)
[2018-05-28 07:48] LABS: INR 1.89 (0.83-1.09); PROTHROMBIN TIME (PATIENT) 22.5 SEC (9.7-13.0)
[2018-05-28 08:12] LABS: ANION GAP 8 MMOL/L (8-16); BLOOD UREA NITROGEN 17 mg/dL (7-18); CALCIUM 8.4 mg/dL (8.5-10.1); CHLORIDE 103 mmol/L (98-107); CO2 30 mmol/L (21-32); CREATININE 0.8 mg/dL (0.55-1.3); GLUCOSE,RANDOM 95 mg/dL (74-106); MAGNESIUM 2.3 mg/dL (1.8-2.4); POTASSIUM 3.5 mmol/L (3.5-5.1); SODIUM 141 mmol/L (136-145)
--- NOTE | 2018-05-28 09:42 | PN ---
Progress Note, Physician - Current Medication List Current Medications: Active Medications Atorvastatin Calcium (Lipitor -) 10 mg PO [facility] Last Admin: 05/27/18 21:46 Dose: 10 mg Furosemide (Lasix Injection -) 80 mg IVPUSH DAILY [facility] Hydralazine HCl (Apresoline -) 25 mg PO TID [facility] Last Admin: 05/28/18 06:13 Dose: 25 mg Insulin Aspart (Novolog Vial Sliding Scale -) 1 vial SQ ACHS [facility]; Protocol Last Admin: 05/28/18 06:13 Dose: Not Given Latanoprost (Xalatan 0.005% Eye Drops -) 1 drop OD [facility] Last Admin: 05/27/18 23:19 Dose: 1 drop Metolazone (Zaroxolyn -) 2.5 mg PO DAILY@0930 [facility] Last Admin: 05/27/18 18:22 Dose: Not Given Metoprolol Tartrate (Lopressor -) 200 mg PO BID [facility] Last Admin: 05/27/18 21:45 Dose: 200 mg Multivitamins/Minerals/Vitamin C (Tab-A-Vit -) 1 tab PO DAILY [facility] Last Admin: 05/27/18 11:51 Dose: 1 tab Phenytoin Sodium (Dilantin -) 300 mg PO [facility] Last Admin: 05/27/18 21:46 Dose: 300 mg Promethazine HCl/Dextromethorphan (Phenergan-Dm Syrup -) 10 ml PO Q6H PRN PRN Reason: COUGH Sodium Chloride ([place] Nasal [place] -) 2 spray NS TID PRN PRN Reason: NASAL CONGESTION Spironolactone (Aldactone -) 25 mg PO DAILY [facility] Warfarin Sodium (Coumadin -) 5 mg PO DAILY@1800 [facility] Last Admin: 05/27/18 19:13 Dose: 5 mg - Objective Vital Signs: Vital Signs Temperature 98.1 F 05/28/18 05:47 Pulse Rate 95 H 05/28/18 09:26 Respiratory Rate 22 H 05/28/18 09:26 Blood Pressure 129/91 05/28/18 09:26 O2 Sat by Pulse Oximetry (%) 94 L 05/28/18 09:00 Labs: CBC, BMP 05/27/18 05:30 05/28/18 06:00 INR, PTT INR 1.89 (0.83-1.09) H 05/28/18 06:00 Problem List - Problems (1) Acute exacerbation of CHF (congestive heart failure) Assessment/Plan: -cardiology consult noted -on iv lasix IVP daily--monitor renal function -O2 via NC -keep SpO2 >90% -1L fluid restriction -daily weights -tele Code(s): I50.9 - HEART FAILURE, UNSPECIFIED Qualifiers: Heart failure type: diastolic Qualified Code(s): I50.33 - Acute on chronic diastolic (congestive) heart failure (2) Atrial fibrillation Assessment/Plan: -on coumadin and metoprolol for rate control -admision INR 3.34-- coumadin per inr -goal therapeutic INR 2-3 -daily INR monitoring -goal therapeutic INR 2-3 -daily INR monitoring Code(s): I48.91 - UNSPECIFIED ATRIAL FIBRILLATION Qualifiers: Atrial fibrillation type: chronic Qualified Code(s): I48.2 - Chronic atrial fibrillation (3) Hypokalemia Assessment/Plan: -Replace and monitor Code(s): E87.6 - HYPOKALEMIA
[2018-05-28] MEDS ORDERED: POTASSIUM CHLORIDE TABS 20 MEQ TABLET.ER (FP) PO ONE (10:00)
--- NOTE | 2018-05-28 10:19 | PN ---
Progress Note, Physician History of Present Illness: PULMONARY ALERT,FEELING BETTER,LESS DYSPNEIC,+ MILD CHEST DISCOMFORT,+ NASAL CONGESTION - Current Medication List Current Medications: Active Medications Atorvastatin Calcium (Lipitor -) 10 mg PO HS [facility] Last Admin: 05/27/18 21:46 Dose: 10 mg Furosemide (Lasix Injection -) 80 mg IVPUSH DAILY [facility] Hydralazine HCl (Apresoline -) 25 mg PO TID [facility] Last Admin: 05/28/18 06:13 Dose: 25 mg Insulin Aspart (Novolog Vial Sliding Scale -) 1 vial SQ ACHS [facility]; Protocol Last Admin: 05/28/18 06:13 Dose: Not Given Latanoprost (Xalatan 0.005% Eye Drops -) 1 drop OD [facility] Last Admin: 05/27/18 23:19 Dose: 1 drop Metolazone (Zaroxolyn -) 2.5 mg PO DAILY@0930 [facility] Last Admin: 05/27/18 18:22 Dose: Not Given Metoprolol Tartrate (Lopressor -) 200 mg PO BID [facility] Last Admin: 05/27/18 21:45 Dose: 200 mg Multivitamins/Minerals/Vitamin C (Tab-A-Vit -) 1 tab PO DAILY [facility] Last Admin: 05/27/18 11:51 Dose: 1 tab Phenytoin Sodium (Dilantin -) 300 mg PO [facility] Last Admin: 05/27/18 21:46 Dose: 300 mg Potassium Chloride (K-Dur -) 20 meq PO DAILY [facility] Promethazine HCl/Dextromethorphan (Phenergan-Dm Syrup -) 10 ml PO Q6H PRN PRN Reason: COUGH Sodium Chloride ([place] Nasal [place] -) 2 spray NS TID PRN PRN Reason: NASAL CONGESTION Spironolactone (Aldactone -) 25 mg PO DAILY [facility] Warfarin Sodium (Coumadin -) 5 mg PO DAILY@1800 [facility] Last Admin: 05/27/18 19:13 Dose: 5 mg - Objective Vital Signs: Vital Signs Temperature 98.1 F 05/28/18 05:47 Pulse Rate 95 H 05/28/18 09:26 Respiratory Rate 22 H 05/28/18 09:26 Blood Pressure 129/91 05/28/18 09:26 O2 Sat by Pulse Oximetry (%) 94 L 05/28/18 09:00 Constitutional: Yes: Well Nourished, Calm Eyes: Yes: WNL HENT: Yes: WNL Neck: Yes: WNL Cardiovascular: Yes: Pulse Irregular, S1, S2 Respiratory: Yes: Rales (BIBASILAR CRACKLES) Gastrointestinal: Yes: Normal Bowel Sounds, Soft Extremities: Yes: WNL Edema: Yes Labs: CBC, BMP 05/28/18 06:00 INR, PTT INR 1.89 (0.83-1.09) H 05/28/18 06:00 Assessment/Plan Problem List - Problems (1) Atrial fibrillation Code(s): I48.91 - UNSPECIFIED ATRIAL FIBRILLATION Qualifiers: Atrial fibrillation type: chronic Qualified Code(s): I48.2 - Chronic atrial fibrillation (2) SOB (shortness of breath) Code(s): R06.02 - SHORTNESS OF BREATH (3) ASHD (arteriosclerotic heart disease) Code(s): I25.10 - ATHSCL HEART DISEASE OF [place] CORONARY ARTERY W/O ANG PCTRS (4) CHF (congestive heart failure) Code(s): I50.9 - HEART FAILURE, UNSPECIFIED (5) Hypertension Code(s): I10 - ESSENTIAL (PRIMARY) HYPERTENSION Qualifiers: (6) Pulmonary hypertension Code(s): I27.20 - PULMONARY HYPERTENSION, UNSPECIFIED Assessment/Plan nasal saline monitor off ABX No indication for systemic steroids Lasix Daily weights NC O2 only as needed OOB to chair DR CAMACHO
[2018-05-28] MEDS: METOLAZONE 2.5 MG TABLET (FP) PO SCH (10:30)
[2018-05-28] MEDS ORDERED: PT OWN MED DRAWER 7, Y5N ONE (10:42)
[2018-05-28] MEDS: SODIUM CHLORIDE NASAL SPRAY 44 ML BOTTLE NS SCH ×3 (10:48→22:12)
[2018-05-28] MEDS: MULTIVITAMINS (DAILY MVI) TABLET (FP) PO SCH (10:50)
[2018-05-28] MEDS: METOPROLOL TARTRATE 50 MG TABLET (FP) PO SCH ×2 (10:50→22:10)
[2018-05-28] MEDS: SPIRONOLACTONE 25 MG TABLET (FP) PO SCH (10:50)
--- NOTE | 2018-05-28 14:37 | PN ---
Progress Note, Physician Chief Complaint: No dyspnea. Ambulating. Telem AF HR controlled. History of Present Illness: 88 F known to us from prior admissions. Has chronic HfPEF with moderate MR and normal LV function. Chronic Aflutter is rate controlled and she is on AC. Requires chronic diuretic therapy with lasix 40-60mg BID at home and is admitted with refractory lower extremity swelling without dyspnea. Echo 03/2018 Normal LV function Moderate eccentric MR. RV hypokinesis with moderate TR and moderate Pulm HTn. - Current Medication List Current Medications: Active Medications Atorvastatin Calcium (Lipitor -) 10 mg PO HS [facility] Last Admin: 05/27/18 21:46 Dose: 10 mg Furosemide (Lasix Injection -) 80 mg IVPUSH DAILY [facility] Last Admin: 05/28/18 10:50 Dose: 80 mg Hydralazine HCl (Apresoline -) 25 mg PO TID [facility] Last Admin: 05/28/18 06:13 Dose: 25 mg Insulin Aspart (Novolog Vial Sliding Scale -) 1 vial SQ [facility]; Protocol Last Admin: 05/28/18 12:06 Dose: Not Given Latanoprost (Xalatan 0.005% Eye Drops -) 1 drop OD [facility] Last Admin: 05/27/18 23:19 Dose: 1 drop Metolazone (Zaroxolyn -) 2.5 mg PO DAILY@0930 [facility] Last Admin: 05/28/18 10:30 Dose: 2.5 mg Metoprolol Tartrate (Lopressor -) 200 mg PO BID [facility] Last Admin: 05/28/18 10:50 Dose: 200 mg Multivitamins/Minerals/Vitamin C (Tab-A-Vit -) 1 tab PO DAILY [facility] Last Admin: 05/28/18 10:50 Dose: 1 tab Phenytoin Sodium (Dilantin -) 300 mg PO [facility] Last Admin: 05/27/18 21:46 Dose: 300 mg Potassium Chloride (K-Dur -) 20 meq PO DAILY [facility] Promethazine HCl/Dextromethorphan (Phenergan-Dm Syrup -) 10 ml PO Q6H PRN PRN Reason: COUGH Sodium Chloride ([place] Nasal [place] -) 2 spray NS TID [facility] Last Admin: 05/28/18 10:48 Dose: 2 sprays Spironolactone (Aldactone -) 25 mg PO DAILY [facility] Last Admin: 05/28/18 10:50 Dose: 25 mg Warfarin Sodium (Coumadin -) 5 mg PO DAILY@1800 [facility] Last Admin: 05/27/18 19:13 Dose: 5 mg - Objective Vital Signs: Vital Signs Temperature 98.1 F 05/28/18 05:47 Pulse Rate 95 H 05/28/18 09:26 Respiratory Rate 22 H 05/28/18 09:26 Blood Pressure 129/91 05/28/18 09:26 O2 Sat by Pulse Oximetry (%) 94 L 05/28/18 09:00 Constitutional: Yes: Well Nourished, No Distress Eyes: Yes: Conjunctiva Clear HENT: Yes: Atraumatic, Normocephalic Neck: Yes: Supple, Trachea Midline Cardiovascular: Yes: Pulse Irregular, Murmur (2/6 sys LLSB), S1, S2 Respiratory: Yes: Regular, CTA Bilaterally Gastrointestinal: Yes: Normal Bowel Sounds Edema: Yes Edema: LLE: 1+, RLE: 1+ Labs: CBC, BMP 05/27/18 05:30 05/28/18 06:00 INR, PTT INR 1.89 (0.83-1.09) H 05/28/18 06:00 Problem List - Problems (1) Acute exacerbation of CHF (congestive heart failure) Code(s): I50.9 - HEART FAILURE, UNSPECIFIED Qualifiers: Heart failure type: diastolic Qualified Code(s): I50.33 - Acute on chronic diastolic (congestive) heart failure Assessment/Plan 88 F known to us from prior admissions. Has chronic HfPEF with moderate MR and normal LV function. Chronic Aflutter is rate controlled and she is on AC. Requires chronic diuretic therapy with lasix 40-60mg BID at home and is admitted with refractory lower extremity swelling without dyspnea. Echo 03/2018 Normal LV function Moderate eccentric MR. RV hypokinesis with moderate TR and moderate Pulm HTn. Predominantly Rt sided heart failure with moderate valvular insufficiency and normal LV function. BP controlled. Switch IV lasix to Lasix 80mg PO Daily. Continue Metolazone. Aldactone 25mg qd.
[2018-05-28] MEDS: POTASSIUM CHLORIDE TABS 20 MEQ TABLET.ER (FP) PO SCH (19:03)
[2018-05-28] MEDS: WARFARIN NA 5 MG TABLET (UD) PO SCH (19:04)
[2018-05-28] MEDS: LATANOPROST 0.005% OPHTH SOLN 2.5ML BOTTLE OD SCH (22:10)
[2018-05-28] MEDS: PHENYTOIN NA EXTENDED 100 MG CAPSULE (FP) PO SCH (22:11)
[2018-05-28] MEDS: ATORVASTATIN CA 10 MG TABLET (FP) PO SCH (22:11)
[2018-05-29] MEDS: SODIUM CHLORIDE NASAL SPRAY 44 ML BOTTLE NS SCH ×3 (06:28→21:25)
[2018-05-29] MEDS: hydrALAZINE HCL 25 MG TABLET (FP) PO SCH ×3 (06:28→21:26)
[2018-05-29] MEDS: INSULIN SLIDING SCALE (NOVOLOG) 1 VIAL SQ SCH ×4 (06:29→21:24)
[2018-05-29 07:06] LABS: PROTHROMBIN TIME (PATIENT) 23.8 SEC (9.7-13.0)
[2018-05-29 07:14] LABS: EOS % 0.8 % (0-4.5); HEMATOCRIT 42.6 % (32.4-45.2); HEMOGLOBIN 14.2 GM/dL (10.7-15.3); LYMPH % 18.1 % (8-40); MCH 31.5 pg (25.7-33.7); MCHC 33.2 g/dl (32.0-36.0); MEAN CELL VOLUME 94.8 fl (80-96); MEAN PLT VOLUME 9.2 fl (7.5-11.1); MONO % 9.5 % (3.8-10.2); NEUT % 70.6 % (42.8-82.8); PLATELET COUNT 175 K/MM3 (134-434); RDW 13.7 % (11.6-15.6); WHITE BLOOD COUNT 6.4 K/mm3 (4.0-10.0)
[2018-05-29 07:35] LABS: ALBUMIN 2.8 g/dl (3.4-5.0); ALK PHOS 183 U/L (45-117); ANION GAP 8 MMOL/L (8-16); BILIRUBIN,TOTAL 0.9 mg/dL (0.2-1); BLOOD UREA NITROGEN 15 mg/dL (7-18); CALCIUM 8.5 mg/dL (8.5-10.1); CHLORIDE 100 mmol/L (98-107); CO2 31 mmol/L (21-32); CREATININE 0.8 mg/dL (0.55-1.3); GLUCOSE,RANDOM 93 mg/dL (74-106); MAGNESIUM 2.2 mg/dL (1.8-2.4); POTASSIUM 3.4 mmol/L (3.5-5.1); SGOT/AST 32 U/L (15-37); SGPT/ALT 51 U/L (13-61); SODIUM 139 mmol/L (136-145); TOT PROT 5.8 g/dl (6.4-8.2)
[2018-05-29] MEDS: POTASSIUM CHLORIDE TABS 20 MEQ TABLET.ER (FP) PO SCH (09:51)
[2018-05-29] MEDS: MULTIVITAMINS (DAILY MVI) TABLET (FP) PO SCH (09:51)
[2018-05-29] MEDS: SPIRONOLACTONE 25 MG TABLET (FP) PO SCH (09:51)
[2018-05-29] MEDS: METOPROLOL TARTRATE 50 MG TABLET (FP) PO SCH ×2 (09:52→21:26)
[2018-05-29] MEDS: METOLAZONE 2.5 MG TABLET (FP) PO SCH (09:52)
--- NOTE | 2018-05-29 10:03 | PN ---
Progress Note, Physician History of Present Illness: pulmonary alert,oob-chair,-c/o cp,-sob - Current Medication List Current Medications: Active Medications Atorvastatin Calcium (Lipitor -) 10 mg PO HS [facility] Last Admin: 05/28/18 22:11 Dose: 10 mg Furosemide (Lasix -) 80 mg PO DAILY [facility] Hydralazine HCl (Apresoline -) 25 mg PO TID [facility] Last Admin: 05/29/18 06:28 Dose: 25 mg Insulin Aspart (Novolog Vial Sliding Scale -) 1 vial SQ ACHS [facility]; Protocol Last Admin: 05/29/18 06:29 Dose: Not Given Latanoprost (Xalatan 0.005% Eye Drops -) 1 drop OD HS [facility] Last Admin: 05/28/18 22:10 Dose: 1 drop Metolazone (Zaroxolyn -) 2.5 mg PO DAILY@0930 [facility] Last Admin: 05/29/18 09:52 Dose: 2.5 mg Metoprolol Tartrate (Lopressor -) 200 mg PO BID [facility] Last Admin: 05/29/18 09:52 Dose: Not Given Multivitamins/Minerals/Vitamin C (Tab-A-Vit -) 1 tab PO DAILY [facility] Last Admin: 05/29/18 09:51 Dose: 1 tab Phenytoin Sodium (Dilantin -) 300 mg PO [facility] Last Admin: 05/28/18 22:11 Dose: 300 mg Potassium Chloride (K-Dur -) 20 meq PO DAILY [facility] Last Admin: 05/29/18 09:51 Dose: 20 meq Promethazine HCl/Dextromethorphan (Phenergan-Dm Syrup -) 10 ml PO Q6H PRN PRN Reason: COUGH Sodium Chloride ([place] Nasal [place] -) 2 spray NS TID [facility] Last Admin: 05/29/18 06:28 Dose: 2 sprays Spironolactone (Aldactone -) 25 mg PO DAILY [facility] Last Admin: 05/29/18 09:51 Dose: 25 mg Warfarin Sodium (Coumadin -) 5 mg PO DAILY@1800 [facility] Last Admin: 05/28/18 19:04 Dose: 5 mg - Objective Vital Signs: Vital Signs Temperature 98.2 F 05/29/18 06:10 Pulse Rate 95 H 05/29/18 06:10 Respiratory Rate 22 H 05/29/18 06:10 Blood Pressure 141/87 05/29/18 06:10 O2 Sat by Pulse Oximetry (%) 97 05/28/18 20:45 Constitutional: Yes: Well Nourished, Calm Eyes: Yes: WNL HENT: Yes: WNL Neck: Yes: WNL Cardiovascular: Yes: Pulse Irregular, S1, S2 Respiratory: Yes: Diminished Gastrointestinal: Yes: Normal Bowel Sounds, Soft Extremities: Yes: WNL Edema: No Labs: CBC, BMP 05/29/18 05:30 05/29/18 05:30 INR, PTT INR 2.00 (0.83-1.09) H 05/29/18 05:30 Assessment/Plan Problem List - Problems (1) Atrial fibrillation Code(s): I48.91 - UNSPECIFIED ATRIAL FIBRILLATION Qualifiers: Atrial fibrillation type: chronic Qualified Code(s): I48.2 - Chronic atrial fibrillation (2) SOB (shortness of breath) Code(s): R06.02 - SHORTNESS OF BREATH (3) ASHD (arteriosclerotic heart disease) Code(s): I25.10 - ATHSCL HEART DISEASE OF [place] CORONARY ARTERY W/O ANG PCTRS (4) CHF (congestive heart failure) Code(s): I50.9 - HEART FAILURE, UNSPECIFIED (5) Hypertension Code(s): I10 - ESSENTIAL (PRIMARY) HYPERTENSION Qualifiers: (6) Pulmonary hypertension Code(s): I27.20 - PULMONARY HYPERTENSION, UNSPECIFIED Assessment/Plan nasal saline monitor off ABX No indication for systemic steroids Lasix Daily weights NC O2 only as needed OOB to chair DR CAMACHO
[2018-05-29] MEDS: FUROSEMIDE 40 MG TABLET (FP) PO SCH (10:44)
[2018-05-29] MEDS ORDERED: PT OWN MED DRAWER 7, Y5N ONE ×2 (13:18→21:23)
--- NOTE | 2018-05-29 13:31 | PN ---
Progress Note, Physician - Current Medication List Current Medications: Active Medications Atorvastatin Calcium (Lipitor -) 10 mg PO HS [facility] Last Admin: 05/28/18 22:11 Dose: 10 mg Furosemide (Lasix -) 80 mg PO DAILY [facility] Last Admin: 05/29/18 10:44 Dose: 80 mg Hydralazine HCl (Apresoline -) 25 mg PO TID [facility] Last Admin: 05/29/18 06:28 Dose: 25 mg Insulin Aspart (Novolog Vial Sliding Scale -) 1 vial SQ [facility]; Protocol Last Admin: 05/29/18 12:39 Dose: Not Given Latanoprost (Xalatan 0.005% Eye Drops -) 1 drop OD HS [facility] Last Admin: 05/28/18 22:10 Dose: 1 drop Metolazone (Zaroxolyn -) 2.5 mg PO DAILY@0930 [facility] Last Admin: 05/29/18 09:52 Dose: 2.5 mg Metoprolol Tartrate (Lopressor -) 200 mg PO BID [facility] Last Admin: 05/29/18 09:52 Dose: Not Given Multivitamins/Minerals/Vitamin C (Tab-A-Vit -) 1 tab PO DAILY [facility] Last Admin: 05/29/18 09:51 Dose: 1 tab Phenytoin Sodium (Dilantin -) 300 mg PO [facility] Last Admin: 05/28/18 22:11 Dose: 300 mg Potassium Chloride (K-Dur -) 20 meq PO DAILY [facility] Last Admin: 05/29/18 09:51 Dose: 20 meq Promethazine HCl/Dextromethorphan (Phenergan-Dm Syrup -) 10 ml PO Q6H PRN PRN Reason: COUGH Sodium Chloride ([place] Nasal [place] -) 2 spray NS TID [facility] Last Admin: 05/29/18 06:28 Dose: 2 sprays Spironolactone (Aldactone -) 25 mg PO DAILY [facility] Last Admin: 05/29/18 09:51 Dose: 25 mg Warfarin Sodium (Coumadin -) 5 mg PO DAILY@1800 [facility] Last Admin: 05/28/18 19:04 Dose: 5 mg - Objective Vital Signs: Vital Signs Temperature 98.6 F 05/29/18 09:30 Pulse Rate 99 H 05/29/18 09:30 Respiratory Rate 20 05/29/18 09:30 Blood Pressure 104/50 L 05/29/18 09:30 O2 Sat by Pulse Oximetry (%) 97 05/28/18 20:45 Respiratory: Yes: Rales Gastrointestinal: Yes: Normal Bowel Sounds, Soft Edema: Yes Labs: CBC, BMP 05/29/18 05:30 05/29/18 05:30 INR, PTT INR 2.00 (0.83-1.09) H 05/29/18 05:30 Problem List - Problems (1) Acute exacerbation of CHF (congestive heart failure) Assessment/Plan: -cardiology consult noted -on \ lasix\po daily--monitor renal function -O2 via NC -keep SpO2 >90% -1L fluid restriction -daily weights -tele Orders 05/27/18 09:30 Metolazone [Zaroxolyn -] 2.5 mg PO DAILY@92905/28/18 10:00 Spironolactone [Aldactone -] 25 mg PO DAILY 05/29/18 10:00 Furosemide [Lasix -] 80 mg PO DAILY Code(s): I50.9 - HEART FAILURE, UNSPECIFIED Qualifiers: Heart failure type: diastolic Qualified Code(s): I50.33 - Acute on chronic diastolic (congestive) heart failure (2) Atrial fibrillation Assessment/Plan: -on coumadin and metoprolol for rate control -admision INR 3.34-- coumadin per inr -goal therapeutic INR 2-3 -daily INR monitoring -goal therapeutic INR 2-3 -daily INR monitoring Code(s): I48.91 - UNSPECIFIED ATRIAL FIBRILLATION Qualifiers: Atrial fibrillation type: chronic Qualified Code(s): I48.2 - Chronic atrial fibrillation (3) Hypokalemia Assessment/Plan: -Replace and monitor Code(s): E87.6 - HYPOKALEMIA
[2018-05-29] MEDS ORDERED: POTASSIUM CHLORIDE TABS 20 MEQ TABLET.ER (FP) PO ONE (13:32)
[2018-05-29] MEDS: WARFARIN NA 5 MG TABLET (UD) PO SCH (17:09)
[2018-05-29] MEDS: LATANOPROST 0.005% OPHTH SOLN 2.5ML BOTTLE OD SCH (21:25)
[2018-05-29] MEDS: PHENYTOIN NA EXTENDED 100 MG CAPSULE (FP) PO SCH (21:26)
[2018-05-29] MEDS: ATORVASTATIN CA 10 MG TABLET (FP) PO SCH (21:26)
[2018-05-30] MEDS: INSULIN SLIDING SCALE (NOVOLOG) 1 VIAL SQ SCH ×4 (06:22→22:20)
[2018-05-30] MEDS: hydrALAZINE HCL 25 MG TABLET (FP) PO SCH ×3 (06:22→22:22)
[2018-05-30] MEDS: SODIUM CHLORIDE NASAL SPRAY 44 ML BOTTLE NS SCH ×3 (06:22→22:23)
[2018-05-30] MEDS ORDERED: PT OWN MED DRAWER 7, Y5N ONE ×3 (06:46→20:58)
[2018-05-30 07:15] LABS: ANION GAP 8 MMOL/L (8-16); BLOOD UREA NITROGEN 17 mg/dL (7-18); CALCIUM 8.1 mg/dL (8.5-10.1); CHLORIDE 99 mmol/L (98-107); CO2 32 mmol/L (21-32); CREATININE 0.8 mg/dL (0.55-1.3); GLUCOSE,RANDOM 80 mg/dL (74-106); MAGNESIUM 1.8 mg/dL (1.8-2.4); POTASSIUM 3.6 mmol/L (3.5-5.1); SODIUM 140 mmol/L (136-145)
[2018-05-30 08:47] LABS: INR 2.14 (0.83-1.09); PROTHROMBIN TIME (PATIENT) 25.5 SEC (9.7-13.0)
[2018-05-30] MEDS ORDERED: POTASSIUM CHLORIDE TABS 20 MEQ TABLET.ER (FP) PO SCH (10:00)
--- NOTE | 2018-05-30 10:06 | PN ---
Progress Note, Physician History of Present Illness: pulmonary alert,no distress,+ cough green sputum. + nasal congestion - Current Medication List Current Medications: Active Medications Atorvastatin Calcium (Lipitor -) 10 mg PO HS [facility] Last Admin: 05/29/18 21:26 Dose: 10 mg Furosemide (Lasix -) 80 mg PO DAILY [facility] Last Admin: 05/29/18 10:44 Dose: 80 mg Hydralazine HCl (Apresoline -) 25 mg PO TID [facility] Last Admin: 05/30/18 06:22 Dose: 25 mg Insulin Aspart (Novolog Vial Sliding Scale -) 1 vial SQ ACHS [facility]; Protocol Last Admin: 05/30/18 06:22 Dose: Not Given Latanoprost (Xalatan 0.005% Eye Drops -) 1 drop OD [facility] Last Admin: 05/29/18 21:25 Dose: 1 drop Metolazone (Zaroxolyn -) 2.5 mg PO DAILY@0930 [facility] Last Admin: 05/29/18 09:52 Dose: 2.5 mg Metoprolol Tartrate (Lopressor -) 200 mg PO BID [facility] Last Admin: 05/29/18 21:26 Dose: 200 mg Multivitamins/Minerals/Vitamin C (Tab-A-Vit -) 1 tab PO DAILY [facility] Last Admin: 05/29/18 09:51 Dose: 1 tab Phenytoin Sodium (Dilantin -) 300 mg PO [facility] Last Admin: 05/29/18 21:26 Dose: 300 mg Potassium Chloride (K-Dur -) 30 meq PO DAILY [facility] Promethazine HCl/Dextromethorphan (Phenergan-Dm Syrup -) 10 ml PO Q6H PRN PRN Reason: COUGH Sodium Chloride ([place] Nasal [place] -) 2 spray NS TID [facility] Last Admin: 05/30/18 06:22 Dose: 2 sprays Spironolactone (Aldactone -) 25 mg PO DAILY [facility] Last Admin: 05/29/18 09:51 Dose: 25 mg Warfarin Sodium (Coumadin -) 5 mg PO DAILY@1800 [facility] Last Admin: 05/29/18 17:09 Dose: 5 mg - Objective Vital Signs: Vital Signs Temperature 97.6 F 05/30/18 06:00 Pulse Rate 92 H 05/30/18 06:00 Respiratory Rate 20 05/30/18 06:00 Blood Pressure 146/81 05/30/18 06:00 O2 Sat by Pulse Oximetry (%) 95 05/29/18 20:35 Constitutional: Yes: Well Nourished, Calm Eyes: Yes: WNL HENT: Yes: WNL Neck: Yes: WNL Cardiovascular: Yes: Pulse Irregular, S1, S2 Respiratory: Yes: CTA Bilaterally Gastrointestinal: Yes: Normal Bowel Sounds, Soft Extremities: Yes: WNL Edema: Yes Labs: CBC, BMP 05/30/18 05:30 INR, PTT INR 2.14 (0.83-1.09) H 05/30/18 08:20 Assessment/Plan Problem List - Problems (1) Atrial fibrillation Code(s): I48.91 - UNSPECIFIED ATRIAL FIBRILLATION Qualifiers: Atrial fibrillation type: chronic Qualified Code(s): I48.2 - Chronic atrial fibrillation (2) SOB (shortness of breath) Code(s): R06.02 - SHORTNESS OF BREATH (3) ASHD (arteriosclerotic heart disease) Code(s): I25.10 - ATHSCL HEART DISEASE OF [place] CORONARY ARTERY W/O ANG PCTRS (4) CHF (congestive heart failure) Code(s): I50.9 - HEART FAILURE, UNSPECIFIED (5) Hypertension Code(s): I10 - ESSENTIAL (PRIMARY) HYPERTENSION Qualifiers: (6) Pulmonary hypertension Code(s): I27.20 - PULMONARY HYPERTENSION, UNSPECIFIED Assessment/Plan nasal saline Lasix Daily weights NC O2 only as needed OOB to chair cough meds chest x-ray sputum c+s DR CAMACHO
[2018-05-30] MEDS: METOLAZONE 2.5 MG TABLET (FP) PO SCH (10:10)
[2018-05-30] MEDS: METOPROLOL TARTRATE 50 MG TABLET (FP) PO SCH ×2 (10:11→22:23)
[2018-05-30] MEDS: MULTIVITAMINS (DAILY MVI) TABLET (FP) PO SCH (10:11)
[2018-05-30] MEDS: SPIRONOLACTONE 25 MG TABLET (FP) PO SCH (10:16)
[2018-05-30] MEDS: FUROSEMIDE 40 MG TABLET (FP) PO SCH (11:18)
--- NOTE | 2018-05-30 11:48 | PN ---
Progress Note, Physician - Current Medication List Current Medications: Active Medications Atorvastatin Calcium (Lipitor -) 10 mg PO HS [facility] Last Admin: 05/29/18 21:26 Dose: 10 mg Furosemide (Lasix -) 80 mg PO DAILY [facility] Last Admin: 05/30/18 11:18 Dose: 80 mg Hydralazine HCl (Apresoline -) 25 mg PO TID [facility] Last Admin: 05/30/18 06:22 Dose: 25 mg Insulin Aspart (Novolog Vial Sliding Scale -) 1 vial SQ [facility]; Protocol Last Admin: 05/30/18 11:13 Dose: Not Given Latanoprost (Xalatan 0.005% Eye Drops -) 1 drop OD HS [facility] Last Admin: 05/29/18 21:25 Dose: 1 drop Metolazone (Zaroxolyn -) 2.5 mg PO DAILY@0930 [facility] Last Admin: 05/30/18 10:10 Dose: 2.5 mg Metoprolol Tartrate (Lopressor -) 200 mg PO BID [facility] Last Admin: 05/30/18 10:11 Dose: 200 mg Multivitamins/Minerals/Vitamin C (Tab-A-Vit -) 1 tab PO DAILY [facility] Last Admin: 05/30/18 10:11 Dose: 1 tab Phenytoin Sodium (Dilantin -) 300 mg PO [facility] Last Admin: 05/29/18 21:26 Dose: 300 mg Potassium Chloride (K-Dur -) 30 meq PO DAILY [facility] Last Admin: 05/30/18 10:10 Dose: 30 meq Promethazine HCl/Dextromethorphan (Phenergan-Dm Syrup -) 10 ml PO Q6H PRN PRN Reason: COUGH Sodium Chloride ([place] Nasal [place] -) 2 spray NS TID [facility] Last Admin: 05/30/18 06:22 Dose: 2 sprays Spironolactone (Aldactone -) 25 mg PO DAILY [facility] Last Admin: 05/30/18 10:16 Dose: 25 mg Warfarin Sodium (Coumadin -) 5 mg PO DAILY@1800 [facility] Last Admin: 05/29/18 17:09 Dose: 5 mg - Objective Vital Signs: Vital Signs Temperature 97.9 F 05/30/18 10:00 Pulse Rate 95 H 05/30/18 10:00 Respiratory Rate 20 05/30/18 10:00 Blood Pressure 109/67 05/30/18 10:00 O2 Sat by Pulse Oximetry (%) 95 05/30/18 09:00 Cardiovascular: Yes: S1, S2 Respiratory: Yes: Regular, CTA Bilaterally Gastrointestinal: Yes: Normal Bowel Sounds, Soft Labs: CBC, BMP 05/29/18 05:30 05/30/18 05:30 INR, PTT INR 2.14 (0.83-1.09) H 05/30/18 08:20 Problem List - Problems (1) Acute exacerbation of CHF (congestive heart failure) Assessment/Plan: -cardiology consult noted -on \ lasix\po daily--monitor renal function -O2 via NC -keep SpO2 >90% -1L fluid restriction -daily weights -tele Orders Metolazone [Zaroxolyn -] 2.5 mg PO DAILY@929 Spironolactone [Aldactone -] 25 mg PO DAILY Furosemide [Lasix -] 100 mg PO DAILY Code(s): I50.9 - HEART FAILURE, UNSPECIFIED Qualifiers: Heart failure type: diastolic Qualified Code(s): I50.33 - Acute on chronic diastolic (congestive) heart failure (2) Atrial fibrillation Assessment/Plan: -on coumadin and metoprolol for rate control -admision INR 3.34-- coumadin per inr -goal therapeutic INR 2-3 -daily INR monitoring -goal therapeutic INR 2-3 -daily INR monitoring Code(s): I48.91 - UNSPECIFIED ATRIAL FIBRILLATION Qualifiers: Atrial fibrillation type: chronic Qualified Code(s): I48.2 - Chronic atrial fibrillation (3) Hypokalemia Assessment/Plan: -Replace and monitor Code(s): E87.6 - HYPOKALEMIA
[2018-05-30] MEDS: WARFARIN NA 5 MG TABLET (UD) PO SCH (17:10)
[2018-05-30] MEDS: PHENYTOIN NA EXTENDED 100 MG CAPSULE (FP) PO SCH (22:22)
[2018-05-30] MEDS: ATORVASTATIN CA 10 MG TABLET (FP) PO SCH (22:23)
[2018-05-30] MEDS: LATANOPROST 0.005% OPHTH SOLN 2.5ML BOTTLE OD SCH (22:24)
[2018-05-31] MEDS: hydrALAZINE HCL 25 MG TABLET (FP) PO SCH ×3 (06:16→23:09)
[2018-05-31] MEDS: SODIUM CHLORIDE NASAL SPRAY 44 ML BOTTLE NS SCH ×3 (06:16→23:09)
[2018-05-31] MEDS: INSULIN SLIDING SCALE (NOVOLOG) 1 VIAL SQ SCH ×4 (06:23→23:18)
[2018-05-31 07:23] LABS: ALBUMIN 2.8 g/dl (3.4-5.0); ALK PHOS 179 U/L (45-117); ANION GAP 6 MMOL/L (8-16); BILIRUBIN,TOTAL 0.9 mg/dL (0.2-1); BLOOD UREA NITROGEN 17 mg/dL (7-18); CALCIUM 8.2 mg/dL (8.5-10.1); CHLORIDE 98 mmol/L (98-107); CO2 35 mmol/L (21-32); CREATININE 0.8 mg/dL (0.55-1.3); GLUCOSE,RANDOM 87 mg/dL (74-106); SGOT/AST 33 U/L (15-37); SGPT/ALT 45 U/L (13-61); SODIUM 140 mmol/L (136-145); TOT PROT 5.5 g/dl (6.4-8.2)
[2018-05-31 08:49] LABS: INR 1.94 (0.83-1.09); PROTHROMBIN TIME (PATIENT) 23.1 SEC (9.7-13.0)
[2018-05-31 11:02] LABS: MAGNESIUM 1.9 mg/dL (1.8-2.4)
--- NOTE | 2018-05-31 11:02 | PN ---
Progress Note, Physician History of Present Illness: pulmonary alert,no distress,+ cough,-cp - Current Medication List Current Medications: Active Medications Atorvastatin Calcium (Lipitor -) 10 mg PO [facility] Last Admin: 05/30/18 22:23 Dose: 10 mg Furosemide (Lasix -) 100 mg PO DAILY [facility] Hydralazine HCl (Apresoline -) 25 mg PO TID [facility] Last Admin: 05/31/18 06:16 Dose: 25 mg Insulin Aspart (Novolog Vial Sliding Scale -) 1 vial SQ [facility]; Protocol Last Admin: 05/31/18 06:23 Dose: Not Given Latanoprost (Xalatan 0.005% Eye Drops -) 1 drop OD [facility] Last Admin: 05/30/18 22:24 Dose: 1 drop Metolazone (Zaroxolyn -) 2.5 mg PO DAILY@0930 [facility] Last Admin: 05/30/18 10:10 Dose: 2.5 mg Metoprolol Tartrate (Lopressor -) 200 mg PO BID [facility] Last Admin: 05/30/18 22:23 Dose: 200 mg Multivitamins/Minerals/Vitamin C (Tab-A-Vit -) 1 tab PO DAILY [facility] Last Admin: 05/30/18 10:11 Dose: 1 tab Phenytoin Sodium (Dilantin -) 300 mg PO [facility] Last Admin: 05/30/18 22:22 Dose: 300 mg Potassium Chloride (K-Dur -) 40 meq PO DAILY [facility] Promethazine HCl/Dextromethorphan (Phenergan-Dm Syrup -) 10 ml PO Q6H PRN PRN Reason: COUGH Sodium Chloride ([place] Nasal [place] -) 2 spray NS TID [facility] Last Admin: 05/31/18 06:16 Dose: Not Given Spironolactone (Aldactone -) 25 mg PO DAILY [facility] Last Admin: 05/30/18 10:16 Dose: 25 mg Warfarin Sodium (Coumadin -) 5 mg PO DAILY@1800 [facility] Last Admin: 05/30/18 17:10 Dose: 5 mg - Objective Vital Signs: Vital Signs Temperature 98 F 05/31/18 10:00 Pulse Rate 90 05/31/18 10:00 Respiratory Rate 20 05/31/18 10:00 Blood Pressure 130/76 05/31/18 10:00 O2 Sat by Pulse Oximetry (%) 96 05/30/18 21:00 Constitutional: Yes: Well Nourished, Calm Eyes: Yes: WNL HENT: Yes: WNL Neck: Yes: WNL Cardiovascular: Yes: Pulse Irregular, S1, S2 Respiratory: Yes: Diminished Gastrointestinal: Yes: Normal Bowel Sounds, Soft Extremities: Yes: WNL Edema: Yes Labs: CBC, BMP 05/29/18 05:30 05/31/18 05:30 INR, PTT INR 1.94 (0.83-1.09) H 05/31/18 05:30 - ....Imaging Chest X-ray: Report Reviewed, Image Reviewed Assessment/Plan Problem List - Problems (1) Atrial fibrillation Code(s): I48.91 - UNSPECIFIED ATRIAL FIBRILLATION Qualifiers: Atrial fibrillation type: chronic Qualified Code(s): I48.2 - Chronic atrial fibrillation (2) SOB (shortness of breath) Code(s): R06.02 - SHORTNESS OF BREATH (3) ASHD (arteriosclerotic heart disease) Code(s): I25.10 - ATHSCL HEART DISEASE OF [place] CORONARY ARTERY W/O ANG PCTRS (4) CHF (congestive heart failure) Code(s): I50.9 - HEART FAILURE, UNSPECIFIED (5) Hypertension Code(s): I10 - ESSENTIAL (PRIMARY) HYPERTENSION Qualifiers: (6) Pulmonary hypertension Code(s): I27.20 - PULMONARY HYPERTENSION, UNSPECIFIED Assessment/Plan Lasix Daily weights [place] O2 only as needed OOB to chair cough meds DR JANICE CAMACHO
[2018-05-31] MEDS: METOPROLOL TARTRATE 50 MG TABLET (FP) PO SCH ×2 (12:26→23:08)
[2018-05-31] MEDS: POTASSIUM CHLORIDE TABS 20 MEQ TABLET.ER (FP) PO SCH (12:27)
[2018-05-31] MEDS: METOLAZONE 2.5 MG TABLET (FP) PO SCH (12:27)
[2018-05-31] MEDS: MULTIVITAMINS (DAILY MVI) TABLET (FP) PO SCH (12:27)
[2018-05-31] MEDS: SPIRONOLACTONE 25 MG TABLET (FP) PO SCH (12:28)
[2018-05-31] MEDS: FUROSEMIDE 40 MG TABLET (FP) PO SCH (13:08)
[2018-05-31] MEDS ORDERED: PT OWN MED DRAWER 7, Y5N ONE ×4 (13:09→23:17)
[2018-05-31] MEDS: DEXTROMETHORPHAN/PROMETHAZINE 15 MG/6.25 MG/5 ML SYRUP PO SCH ×3 (13:10→23:17)
--- NOTE | 2018-05-31 15:29 | PN ---
Progress Note, Physician Chief Complaint: Afib Acute on Chronic CHF Exacerbation History of Present Illness: Previous notes and events reviewed awake and alert NAD K 3.0 denies chest pain or SOB - Current Medication List Current Medications: Active Medications Atorvastatin Calcium (Lipitor -) 10 mg PO HS [facility] Last Admin: 05/30/18 22:23 Dose: 10 mg Furosemide (Lasix -) 100 mg PO DAILY [facility] Last Admin: 05/31/18 13:08 Dose: 100 mg Hydralazine HCl (Apresoline -) 25 mg PO TID [facility] Last Admin: 05/31/18 06:16 Dose: 25 mg Potassium Chloride (Potassium Chloride 10 Meq Premix Ivpb -) 10 meq in 100 mls @ 100 mls/hr IVPB Q60M [facility] Stop: 05/31/18 17:29 Insulin Aspart (Novolog Vial Sliding Scale -) 1 vial SQ ACHS [facility]; Protocol Last Admin: 05/31/18 13:00 Dose: Not Given Latanoprost (Xalatan 0.005% Eye Drops -) 1 drop OD [facility] Last Admin: 05/30/18 22:24 Dose: 1 drop Metolazone (Zaroxolyn -) 2.5 mg PO DAILY@0930 [facility] Last Admin: 05/31/18 12:27 Dose: 2.5 mg Metoprolol Tartrate (Lopressor -) 200 mg PO BID [facility] Last Admin: 05/31/18 12:26 Dose: 200 mg Multivitamins/Minerals/Vitamin C (Tab-A-Vit -) 1 tab PO DAILY [facility] Last Admin: 05/31/18 12:27 Dose: 1 tab Phenytoin Sodium (Dilantin -) 300 mg PO [facility] Last Admin: 05/30/18 22:22 Dose: 300 mg Potassium Chloride (K-Dur -) 40 meq PO DAILY [facility] Last Admin: 05/31/18 12:27 Dose: 40 meq Promethazine HCl/Dextromethorphan (Phenergan-Dm Syrup -) 10 ml PO Q6HPO [facility] Last Admin: 05/31/18 13:10 Dose: 10 ml Sodium Chloride ([place] Nasal [place] -) 2 spray NS TID [facility] Last Admin: 05/31/18 06:16 Dose: Not Given Spironolactone (Aldactone -) 25 mg PO DAILY [facility] Last Admin: 05/31/18 12:28 Dose: 25 mg Warfarin Sodium (Coumadin -) 5 mg PO DAILY@1800 [facility] Last Admin: 05/30/18 17:10 Dose: 5 mg - Objective Vital Signs: Vital Signs Temperature 98 F 05/31/18 10:00 Pulse Rate 86 05/31/18 12:25 Respiratory Rate 20 05/31/18 12:25 Blood Pressure 134/87 05/31/18 12:25 O2 Sat by Pulse Oximetry (%) 96 05/30/18 21:00 Constitutional: Yes: No Distress, Calm Eyes: Yes: Conjunctiva Clear HENT: Yes: Atraumatic Cardiovascular: Yes: Pulse Irregular Respiratory: Yes: Regular, Diminished Gastrointestinal: Yes: Normal Bowel Sounds, Soft Genitourinary: Yes: Incontinence Musculoskeletal: Yes: Muscle Weakness Extremities: Yes: WNL Edema: Yes Edema: LLE: Trace, RLE: 1+ Neurological: Yes: Alert, Oriented Psychiatric: Yes: Alert, Oriented Labs: CBC, BMP 05/29/18 05:30 05/31/18 05:30 INR, PTT INR 1.94 (0.83-1.09) H 05/31/18 05:30 Problem List - Problems (1) Acute exacerbation of CHF (congestive heart failure) Assessment/Plan: -cardiology on board -BNP 3301 -start on lasix 100mg PO -O2 via NC -keep SpO2 >90% -1L fluid restriction -daily weights Code(s): I50.9 - HEART FAILURE, UNSPECIFIED Qualifiers: Heart failure type: diastolic Qualified Code(s): I50.33 - Acute on chronic diastolic (congestive) heart failure (2) Atrial fibrillation Assessment/Plan: -on coumadin and metoprolol for rate control -current INR 1.94 -goal therapeutic INR 2-3 -daily INR monitoring Code(s): I48.91 - UNSPECIFIED ATRIAL FIBRILLATION Qualifiers: Atrial fibrillation type: chronic Qualified Code(s): I48.2 - Chronic atrial fibrillation (3) Elevated INR Assessment/Plan: -current INR 1.94 -goal therapeutic INR 2-3 -daily INR monitoring Code(s): R79.1 - ABNORMAL COAGULATION PROFILE (4) Hypertension Assessment/Plan: -continue losartan and hydralazine Code(s): I10 - ESSENTIAL (PRIMARY) HYPERTENSION Qualifiers: (5) Hypokalemia Assessment/Plan: -continue Kdur daily -K 3.0--KCl 10mEq IVPB x 2 Code(s): E87.6 - HYPOKALEMIA Assessment/Plan see problem list dvt ppx
[2018-05-31] MEDS ORDERED: KCL 10 MEQ IVPB 10 MEQ/100 ML INFUS.BAG IVPB SCH (15:30)
[2018-05-31] MEDS ORDERED: POTASSIUM CHLORIDE TABS 10 MEQ TABLET.ER (FP) PO ONE (16:00)
[2018-05-31] MEDS: WARFARIN NA 5 MG TABLET (UD) PO SCH (18:09)
[2018-05-31] MEDS: ATORVASTATIN CA 10 MG TABLET (FP) PO SCH (23:08)
[2018-05-31] MEDS: LATANOPROST 0.005% OPHTH SOLN 2.5ML BOTTLE OD SCH (23:09)
[2018-05-31] MEDS: PHENYTOIN NA EXTENDED 100 MG CAPSULE (FP) PO SCH (23:09)
[2018-06-01] MEDS: INSULIN SLIDING SCALE (NOVOLOG) 1 VIAL SQ SCH ×3 (06:05→17:01)
[2018-06-01] MEDS ORDERED: PT OWN MED DRAWER 7, Y5N ONE ×4 (06:14→17:04)
[2018-06-01] MEDS: DEXTROMETHORPHAN/PROMETHAZINE 15 MG/6.25 MG/5 ML SYRUP PO SCH ×3 (06:19→17:09)
[2018-06-01] MEDS: SODIUM CHLORIDE NASAL SPRAY 44 ML BOTTLE NS SCH ×2 (06:19→13:28)
[2018-06-01] MEDS: hydrALAZINE HCL 25 MG TABLET (FP) PO SCH ×2 (06:19→13:26)
[2018-06-01 07:41] LABS: HEMATOCRIT 41.4 % (32.4-45.2); HEMOGLOBIN 14.1 GM/dL (10.7-15.3); MCH 32.1 pg (25.7-33.7); MCHC 34.1 g/dl (32.0-36.0); MEAN CELL VOLUME 94.3 fl (80-96); MEAN PLT VOLUME 8.9 fl (7.5-11.1); PLATELET COUNT 180 K/MM3 (134-434); RBC 4.39 M/mm3 (3.60-5.2); RDW 13.4 % (11.6-15.6); WHITE BLOOD COUNT 5.6 K/mm3 (4.0-10.0)
[2018-06-01 07:55] LABS: INR 1.88 (0.83-1.09); PROTHROMBIN TIME (PATIENT) 22.3 SEC (9.7-13.0)
[2018-06-01 08:08] LABS: ALBUMIN 2.8 g/dl (3.4-5.0); ALK PHOS 187 U/L (45-117); ANION GAP 8 MMOL/L (8-16); BILIRUBIN,TOTAL 0.6 mg/dL (0.2-1); BLOOD UREA NITROGEN 15 mg/dL (7-18); CALCIUM 8.2 mg/dL (8.5-10.1); CHLORIDE 98 mmol/L (98-107); CO2 36 mmol/L (21-32); CREATININE 0.8 mg/dL (0.55-1.3); GLUCOSE,RANDOM 76 mg/dL (74-106); POTASSIUM 3.2 mmol/L (3.5-5.1); SGOT/AST 39 U/L (15-37); SGPT/ALT 50 U/L (13-61); SODIUM 141 mmol/L (136-145); TOT PROT 5.8 g/dl (6.4-8.2)
[2018-06-01] MEDS: SPIRONOLACTONE 25 MG TABLET (FP) PO SCH (09:42)
[2018-06-01] MEDS: POTASSIUM CHLORIDE TABS 20 MEQ TABLET.ER (FP) PO SCH (09:42)
[2018-06-01] MEDS: METOLAZONE 2.5 MG TABLET (FP) PO SCH (09:42)
[2018-06-01] MEDS: MULTIVITAMINS (DAILY MVI) TABLET (FP) PO SCH (09:43)
[2018-06-01] MEDS: METOPROLOL TARTRATE 50 MG TABLET (FP) PO SCH (09:43)
--- NOTE | 2018-06-01 10:16 | PN ---
Progress Note, Physician History of Present Illness: pulmonary no distress,less cough,-cp,-sob - Current Medication List Current Medications: Active Medications Atorvastatin Calcium (Lipitor -) 10 mg PO HS [facility] Last Admin: 05/31/18 23:08 Dose: 10 mg Furosemide (Lasix -) 100 mg PO DAILY [facility] Last Admin: 05/31/18 13:08 Dose: 100 mg Hydralazine HCl (Apresoline -) 25 mg PO TID [facility] Last Admin: 06/01/18 06:19 Dose: 25 mg Insulin Aspart (Novolog Vial Sliding Scale -) 1 vial SQ ACHS [facility]; Protocol Last Admin: 06/01/18 06:05 Dose: Not Given Latanoprost (Xalatan 0.005% Eye Drops -) 1 drop OD HS [facility] Last Admin: 05/31/18 23:09 Dose: 1 drop Metolazone (Zaroxolyn -) 2.5 mg PO DAILY@0930 [facility] Last Admin: 06/01/18 09:42 Dose: 2.5 mg Metoprolol Tartrate (Lopressor -) 200 mg PO BID [facility] Last Admin: 06/01/18 09:43 Dose: 200 mg Multivitamins/Minerals/Vitamin C (Tab-A-Vit -) 1 tab PO DAILY [facility] Last Admin: 06/01/18 09:43 Dose: 1 tab Phenytoin Sodium (Dilantin -) 300 mg PO HS [facility] Last Admin: 05/31/18 23:09 Dose: 300 mg Potassium Chloride (K-Dur -) 40 meq PO DAILY [facility] Last Admin: 06/01/18 09:42 Dose: 40 meq Promethazine HCl/Dextromethorphan (Phenergan-Dm Syrup -) 10 ml PO Q6HPO [facility] Last Admin: 06/01/18 06:19 Dose: 10 ml Sodium Chloride ([place] Nasal [place] -) 2 spray NS TID [facility] Last Admin: 06/01/18 06:19 Dose: 2 sprays Spironolactone (Aldactone -) 25 mg PO DAILY [facility] Last Admin: 06/01/18 09:42 Dose: 25 mg Warfarin Sodium (Coumadin -) 5 mg PO DAILY@1800 [facility] Last Admin: 05/31/18 18:09 Dose: 5 mg - Objective Vital Signs: Vital Signs Temperature 97.9 F 06/01/18 09:00 Pulse Rate 99 H 06/01/18 09:00 Respiratory Rate 20 06/01/18 09:00 Blood Pressure 112/73 06/01/18 09:00 O2 Sat by Pulse Oximetry (%) 99 06/01/18 09:00 Constitutional: Yes: Well Nourished, Calm Eyes: Yes: WNL HENT: Yes: WNL Neck: Yes: WNL Cardiovascular: Yes: Pulse Irregular, S1, S2 Respiratory: Yes: Rales (bibasilar crackles) Gastrointestinal: Yes: Normal Bowel Sounds, Soft Extremities: Yes: WNL Edema: Yes Labs: CBC, BMP 06/01/18 05:50 06/01/18 05:50 INR, PTT INR 1.88 (0.83-1.09) H 06/01/18 05:50 Assessment/Plan Problem List - Problems (1) Atrial fibrillation Code(s): I48.91 - UNSPECIFIED ATRIAL FIBRILLATION Qualifiers: Atrial fibrillation type: chronic Qualified Code(s): I48.2 - Chronic atrial fibrillation (2) SOB (shortness of breath) Code(s): R06.02 - SHORTNESS OF BREATH (3) ASHD (arteriosclerotic heart disease) Code(s): I25.10 - ATHSCL HEART DISEASE OF [place] CORONARY ARTERY W/O ANG PCTRS (4) CHF (congestive heart failure) Code(s): I50.9 - HEART FAILURE, UNSPECIFIED (5) Hypertension Code(s): I10 - ESSENTIAL (PRIMARY) HYPERTENSION Qualifiers: (6) Pulmonary hypertension Code(s): I27.20 - PULMONARY HYPERTENSION, UNSPECIFIED Assessment/Plan Lasix Daily weights [place] O2 only as needed OOB to chair cough meds cardiology f/u DR JANICE CAMACHO
--- NOTE | 2018-06-01 10:35 | PN ---
Progress Note (short form) - Note Progress Note: No further inpatient cardiac work up is planned at this time. Pt can be followed as outpatient.
[2018-06-01] MEDS: FUROSEMIDE 40 MG TABLET (FP) PO SCH (10:43)
[2018-06-01] MEDS ORDERED: WARFARIN NA 7.5 MG TABLET (FP) PO SCH ×2 (11:00→18:00)
--- NOTE | 2018-06-01 11:09 | DS ---
Physical Examination Vital Signs: Vital Signs Temperature 97.9 F 06/01/18 09:00 Pulse Rate 99 H 06/01/18 09:00 Respiratory Rate 20 06/01/18 09:00 Blood Pressure 112/73 06/01/18 09:00 O2 Sat by Pulse Oximetry (%) 99 06/01/18 09:00 Findings/Remarks: Patient is an 88 y/o female with past medical history of Afib, HTN, CHF, Mitral Insufficiency, chronic lower back pain, OA. Patient presented to ER from PCP office with B/L lower extremity swelling, chest congestion for CHF exacerbation. On examination patient complain of worsening productive cough and SOB with exertion. Denies fever, chills, abdominal pain, dizziness. Constitutional: Yes: Well Nourished, No Distress, Calm Cardiovascular: Yes: Regular Rate and Rhythm Respiratory: Yes: Regular Gastrointestinal: Yes: Normal Bowel Sounds, Soft Musculoskeletal: Yes: WNL Extremities: Yes: WNL Edema: Yes Edema: LLE: 2+, RLE: 2+ Peripheral Pulses WNL: Yes Neurological: Yes: Alert, Oriented Psychiatric: Yes: Alert, Oriented Labs: CBC, BMP 06/01/18 05:50 06/01/18 05:50 Discharge Summary Reason For Visit: CHF,ATRIAL FIBRILLATION,HYPERTENSION Current Active Problems Acute exacerbation of CHF (congestive heart failure) (Acute) Atrial fibrillation (Acute) Diastolic CHF, acute on chronic (Acute) Hypokalemia (Acute) SOB (shortness of breath) (Acute) Hospital Course: Laboratory Last Values WBC 5.6 K/mm3 (4.0-10.0) 06/01/18 05:50 RBC 4.39 M/mm3 (3.60-5.2) 06/01/18 05:50 Hgb 14.1 GM/dL (10.7-15.3) 06/01/18 05:50 Hct 41.4 % (32.4-45.2) 06/01/18 05:50 MCV 94.3 fl (80-96) 06/01/18 05:50 MCH 32.1 pg (25.7-33.7) 06/01/18 05:50 MCHC 34.1 g/dl (32.0-36.0) 06/01/18 05:50 RDW 13.4 % (11.6-15.6) 06/01/18 05:50 Plt Count 180 K/MM3 (134-434) 06/01/18 05:50 MPV 8.9 fl (7.5-11.1) 06/01/18 05:50 Absolute Neuts (auto) 4.5 K/mm3 (1.5-8.0) 05/29/18 05:30 Neutrophils % 70.6 % (42.8-82.8) 05/29/18 05:30 Lymphocytes % 18.1 % (8-40) D 05/29/18 05:30 Monocytes % 9.5 % (3.8-10.2) 05/29/18 05:30 Eosinophils % 0.8 % (0-4.5) 05/29/18 05:30 Basophils % 1.0 % (0-2.0) 05/29/18 05:30 Nucleated RBC % 0 % (0-0) 05/29/18 05:30 PT with INR 22.30 SEC (9.7-13.0) H 06/01/18 05:50 INR 1.88 (0.83-1.09) H 06/01/18 05:50 Sodium 141 mmol/L (136-145) 06/01/18 05:50 Potassium 3.2 mmol/L (3.5-5.1) L 06/01/18 05:50 Chloride 98 mmol/L (98-107) 06/01/18 05:50 Carbon Dioxide 36 mmol/L (21-32) H 06/01/18 05:50 Anion Gap 8 MMOL/L (8-16) 06/01/18 05:50 BUN 15 mg/dL (7-18) 06/01/18 05:50 Creatinine 0.8 mg/dL (0.55-1.3) 06/01/18 05:50 Creat Clearance w eGFR 67.54 (>60) 06/01/18 05:50 POC Glucometer 74 UNITS (80-120) 06/01/18 05:43 Random Glucose 76 mg/dL (74-106) 06/01/18 05:50 Calcium 8.2 mg/dL (8.5-10.1) L 06/01/18 05:50 Phosphorus 3.6 mg/dL (2.5-4.9) 05/27/18 05:30 Magnesium 2.0 mg/dL (1.8-2.4) 06/01/18 05:50 Total Bilirubin 0.6 mg/dL (0.2-1) 06/01/18 05:50 AST 39 U/L (15-37) H 06/01/18 05:50 ALT 50 U/L (13-61) 06/01/18 05:50 Alkaline Phosphatase 187 U/L (45-117) H 06/01/18 05:50 Creatine Kinase Cancelled 05/26/18 14:55 Troponin I < 0.02 ng/ml (0.00-0.05) 05/26/18 15:40 B-Natriuretic Peptide 3301.1 pg/ml (5-450) H 05/27/18 05:30 Total Protein 5.8 g/dl (6.4-8.2) L 06/01/18 05:50 Albumin 2.8 g/dl (3.4-5.0) L 06/01/18 05:50 Triglycerides 68 mg/dL (0-150) 05/27/18 05:30 Cholesterol 144 mg/dL (50-200) 05/27/18 05:30 Total LDL Cholesterol 93 mg/dL (5-100) 05/27/18 05:30 HDL Cholesterol 46 mg/dL (40-60) 05/27/18 05:30 TSH 1.95 uIU/ml (0.358-3.74) 05/27/18 05:30 Vital Signs Temp 97.9 F 06/01/18 09:00 Pulse 99 H 06/01/18 09:00 Resp 20 06/01/18 09:00 BP 112/73 06/01/18 09:00 Pulse Ox 99 06/01/18 09:00 Intake & Output 05/31/18 05/31/18 06/01/18 11:59 23:59 11:59 Intake Total 210 250 10 Balance 210 250 10 Weight 67.812 kg 65.862 kg Intake: IV 10 10 Saline Lock 10 10 Oral 200 250 Other: Voiding Method Toilet Toilet Toilet # Unmeasured Voids Void 2 Bowel Movement No Weight Measurement Method Standing Scale Standing Scale Condition: Stable - Instructions Diet, Activity, Other Instructions: -Follow up with your PCP in 1 week -CBC/CMP/PT/INR in 1 week with your PCP Referrals: Araceli Dow MD [Primary Care Provider] - Disposition: VNS/HOME HEALTH CARE - Home Medications Comprehensive Discharge Medication List: Ambulatory Orders Atorvastatin Ca [Lipitor] 10 mg PO HS tablet 02/13/18 Multivitamins [Multivit ([facility] Formulary)] 1 tab PO DAILY tab 02/13/18 Latanoprost 0.005% Eye Drops [Xalatan 0.005% Eye Drops -] 1 drop OD HS drops Metoprolol Tartrate [Lopressor -] 200 mg PO BID tablet 04/17/18 Phenytoin Na Extended [Dilantin -] 300 mg PO DAILY capsule 04/17/18 hydrALAZINE HCL [Apresoline -] 25 mg PO TID #90 tablet 04/17/18 Furosemide [Lasix -] 20 mg PO DAILY 05/26/18 Metolazone 2.5 mg PO DAILY 05/26/18 Atorvastatin Ca [Lipitor] 10 mg PO HS tablet 06/01/18 Furosemide 100 mg PO DAILY #150 tablet 06/01/18 Latanoprost 0.005% Eye Drops [Xalatan 0.005% Eye Drops -] 1 drop OD HS drops Metolazone [Zaroxolyn -] 2.5 mg PO DAILY@0930 #30 tablet 06/01/18 Metoprolol Tartrate [Lopressor -] 200 mg PO BID tablet 06/01/18 Multivitamins [Multivit ([facility] Formulary)] 1 tab PO DAILY #30 tab 06/01/18 Phenytoin Na Extended [Dilantin -] 300 mg PO HS capsule 06/01/18 Potassium Chloride 40 meq PO BID #120 packet 06/01/18 Sodium Chloride Nasal Bi[place] [[place] Biola Nasal Biola -] 2 spray NS TID spray Spironolactone [Aldactone -] 25 mg PO DAILY #30 tablet 06/01/18 Warfarin Na [Coumadin -] 5 mg PO SUMOWEFRSA #30 tablet 06/01/18 Warfarin Na [Coumadin -] 7.5 mg PO TUTH #15 tablet 06/01/18 hydrALAZINE HCL [Apresoline -] 25 mg PO TID tablet 06/01/18
[2018-06-01] MEDS ORDERED: POTASSIUM CHLORIDE TABS 20 MEQ TABLET.ER (FP) PO SCH (11:15)
[2018-06-01] MEDS: KCL 10 MEQ IVPB 10 MEQ/100 ML INFUS.BAG IVPB SCH ×2 (13:26→14:20)
[2018-06-01 15:43] LABS: ANION GAP 8 MMOL/L (8-16); BLOOD UREA NITROGEN 18 mg/dL (7-18); CALCIUM 8.4 mg/dL (8.5-10.1); CHLORIDE 98 mmol/L (98-107); CO2 34 mmol/L (21-32); GLUCOSE,RANDOM 167 mg/dL (74-106); POTASSIUM 3.4 mmol/L (3.5-5.1); SODIUM 139 mmol/L (136-145)
[2018-06-01 18:06] VITALS: BP 122/80; PULSE 89; TEMP 97.8
[2018-06-02] MEDS ORDERED: WARFARIN NA 5 MG TABLET (UD) PO SCH (18:00)
== END 2018-06-01 18:48 | disposition home health service (06) | DRG 306 ==
LOC: JER 14:05 → JERBED 15:41 → J4W 17:56
PROVIDERS: ADMIT Family Medicine; ATTEND Family Medicine
DX: I34.0 Nonrheumatic mitral (valve) insufficiency (principal); I50.33 Acute on chronic diastolic (congestive) heart failure; I48.92 Unspecified atrial flutter; G40.909 Epilepsy, unspecified, not intractable, without status epilepticus; K42.9 Umbilical hernia without obstruction or gangrene; E78.00 Pure hypercholesterolemia, unspecified; E11.9 Type 2 diabetes mellitus without complications; I48.2 Chronic atrial fibrillation; Z79.01 Long term (current) use of anticoagulants; M54.5 Low back pain; E87.6 Hypokalemia; I27.20 Pulmonary hypertension, unspecified; I25.10 Atherosclerotic heart disease of native coronary artery without angina pectoris; M19.90 Unspecified osteoarthritis, unspecified site; R79.1 Abnormal coagulation profile; D32.9 Benign neoplasm of meninges, unspecified; R05 Cough; I11.0 Hypertensive heart disease with heart failure
CPT/HCPCS: 36415; 71045-TC-FY; 80048; 80053; 80061; 82962; 83721; 83735; 83880; 84100; 84436; 84443; 84484; 85025; 85027; 85610; 93005; 93010; 94640; 94761; 97116-GP; 97161-GP; 99284-25